=== PATIENT | female | born 1955 | race American Indian/Alaskan Native ===

== ENCOUNTER 2016-11-16 11:52 | Emergency (ER) | payer OTHER | END 2016-11-16 14:15 | disposition home or self-care (01) | LOC: C.ER 11:52 | DX: F10.10 Alcohol abuse, uncomplicated (principal); Y90.9 Presence of alcohol in blood, level not specified ==

== ENCOUNTER 2018-03-07 15:59 | Inpatient (IN) | payer OTHER ==
[2018-03-07] MEDS ORDERED: Thiamine 100 mg/ml Inj IV ONE (16:41)
[2018-03-07] MEDS ORDERED: Sodium Chloride 0.9% 1,000 ML IV SCH (16:45)
[2018-03-07 16:57] LABS: BASO # 0.1 K/uL (0.0-0.2); BASO % 0.6 % (0.0-2.0); HEMOGLOBIN 8.5 g/dL (11.0-16.0); LYMPH # 0.2 K/uL (1.0-4.3); LYMPH % 2.3 % (20.0-40.0); MEAN CELL VOLUME 100.4 fL (81.0-99.0); MEAN CORPUSCULAR HEMOGLOBIN 30.6 pg (27.0-31.0); MEAN CORPUSCULAR HGB CONC 30.5 g/dL (33.0-37.0); MEAN PLATELET VOLUME 9.6 fL (7.2-11.7); MONO # 1.4 K/uL (0.0-0.8); MONO % 13.7 % (0.0-10.0); NEUT # 8.5 K/uL (1.8-7.0); NEUT % 83.4 % (50.0-75.0); NRBC % 0.4 % (0.0-2.0); PLATELET COUNT 158 K/uL (130-400); RBC 2.77 Mil/uL (3.80-5.20); RED CELL DISTRIBUTION WIDTH 22.3 % (11.5-14.5); WHITE BLOOD COUNT 10.2 K/uL (4.8-10.8)
--- NOTE | 2018-03-07 16:58 | RAD ---
Date of service: 03/07/2018 HISTORY: Sepsis Patient COMPARISON: No prior. FINDINGS: LUNGS: The lungs are well inflated. There is moderate pulmonary venous congestion. PLEURA: No significant pleural effusion identified, no pneumothorax apparent. CARDIOVASCULAR: The heart is normal in size. There is prominent central vasculature. Normal. OSSEOUS STRUCTURES: No significant abnormalities. VISUALIZED UPPER ABDOMEN: Normal. OTHER FINDINGS: None. IMPRESSION: Moderate pulmonary venous congestion. No active pulmonary disease.
[2018-03-07 17:06] LABS: INR 1.2; PROTHROMBIN TIME 13.5 SECONDS (9.7-12.2)
[2018-03-07 17:11] LABS: VENOUS BLOOD GAS BASE EXCESS -24.2 mmol/L (0.0-2.0); VENOUS BLOOD GAS PCO2 16 mmHg (40-60); VENOUS BLOOD GAS PO2 50 mm/Hg (30-55); VENOUS BLOOD PH 7.05 (7.32-7.43)
[2018-03-07] MEDS ORDERED: Cefepime 1 GM in Sodium Chloride 0.9% 50 ML IVPB STA (17:24)
[2018-03-07] MEDS ORDERED: Thiamine 100 mg/ml Inj ONE (17:25)
[2018-03-07 17:30] LABS: ALB/GLOB RATIO 1.2 (1.0-2.1); ALBUMIN 3.6 g/dL (3.5-5.0); ALT/SGPT 119 U/L (9-52); AST/SGOT 348 U/L (14-36); BLOOD UREA NITROGEN 16 mg/dL (7-17); CALCIUM 8.2 mg/dl (8.6-10.4); GFR NON-AFRICAN AMERICAN 35
[2018-03-07 17:36] LABS: B-TYPE NATRIURETIC PEPTIDE 60.4 pg/mL (0-900)
--- NOTE | 2018-03-07 17:38 | C.PDOC ---
History Of Present Illness 62-year-old female, presents to the emergency department with complaints of abdominal pain. Patient states she was drinking today. She notes nausea and non- bloody vomiting. Pain located mainly in the right upper quadrant, and admits to mild shortness of breath. She denies any chest pain, diarrhea. Time Seen by Provider: 03/07/18 16:04 Chief Complaint (Nursing): Abdominal Pain History Per: Patient History/Exam Limitations: no limitations Past Medical History Reviewed: Historical Data, Nursing Documentation, Vital Signs Vital Signs: Last Vital Signs Temp 99 F 03/07/18 18:03 Pulse 115 H 03/07/18 18:03 Resp 28 H 03/07/18 18:03 BP 119/45 L 03/07/18 18:03 Pulse Ox 95 03/07/18 18:36 - Medical History PMH: Asthma, HTN Family History: States: No Known Family Hx - Social History Hx Alcohol Use: Yes Hx Substance Use: No Review Of Systems Gastrointestinal: Positive for: Nausea, Vomiting, Abdominal Pain Physical Exam - Physical Exam Appears: Non-toxic, No Acute Distress Skin: Warm, Dry, No Rash Head: Atraumatic, Normacephalic Eye(s): bilateral: Normal Inspection Nose: Normal Oral Mucosa: Moist Lips: Normal Appearing Neck: Normal ROM Chest: Symmetrical Cardiovascular: Rhythm Regular, No Murmur Respiratory: Normal Breath Sounds, No Accessory Muscle Use Gastrointestinal/Abdominal: Tenderness (RUQ), Organomegaly (hepatomegaly), Distention Extremity: Normal ROM, No Deformity ED Course And Treatment - Laboratory Results Result Diagrams: 03/07/18 16:53 03/07/18 16:53 ECG: Interpreted By Me, Viewed By Me ECG Rhythm: Sinus Tachycardia ECG Interpretation: No Acute Changes Interpretation Of ECG: Poor R wave progression Rate From EC O2 Sat by Pulse Oximetry: 95 Pulse Ox Interpretation: Normal (RA) Critical Care Time - Critical Care Note Total Time (in mins): 75 Documented critical care: time excludes all time spent performing seperately billable procedures. Medical Decision Making Medical Decision Making: Plan: * Bloodwork * EKG * CT Abd/Pel * Chest X-Ray * Lasix, Maxipime, IVFs, Thimaine * UA * Reassess and Disposition Case discussed with Dr Vazquez and Dr Singh. Pt will be admitted to ICU under Dr Elamirs service. Disposition Discussed With : Delbert Vazquez - Disposition Disposition: HOSPITALIZED Disposition Time: 17:38 Condition: FAIR - Clinical Impression Clinical Impression: Metabolic acidosis, Abdominal pain - Scribe Statement The provider has reviewed the documentation as recorded by the Scribe (Jannie Lorenz) Provider Attestation: All medical record entries made by the Scribe were at my direction and personally dictated by me. I have reviewed the chart and agree that the record accurately reflects my personal performance of the history, physical exam, medical decision making, and the department course for this patient. I have also personally directed, reviewed, and agree with the discharge instructions and disposition.
[2018-03-07 17:55] LABS: SQUAMOUS EPITHIAL 2 /hpf (0-5); URINE AMORPHOUS SEDIMENT MODERATE /ul (<OCC); URINE BACTERIA OCC (<OCC); URINE BILIRUBIN 1+ (NEGATIVE); URINE BLOOD NEGATIVE (NEGATIVE); URINE CLARITY Hazy (Clear); URINE COLOR Amber (YELLOW); URINE GLUCOSE (UA) NORMAL (Normal); URINE LEUKOCYTE ESTERASE NEG Leu/uL (Negative); URINE PROTEIN 1+ mg/dL (NEGATIVE)
[2018-03-07] MEDS ORDERED: Cefepime IV 1 gm in Dextrose 1 GM/50 ML BAG IVPB ONE (18:00)
[2018-03-07 18:02] LABS: BARBITURATES, UR NEGATIVE (NEGATIVE); BENZODIAZEPINES, UR NEGATIVE (NEGATIVE); OPIATES, UR NEGATIVE (NEGATIVE); PHENCYCLIDINE, UR NEGATIVE (NEGATIVE)
[2018-03-07] MEDS ORDERED: Iodixanol 320 MG/ML 100 ML BOTTLE IV ONE (18:26)
--- NOTE | 2018-03-07 18:35 | CP.PCM.CON ---
History of Present Illness - History of Present Illness History of Present Illness: CC: "Drank too much" Surgical team consulted for 62yo female with history of asthma, HTN, HLD and chronic alcohol abuse, complaining of constant, severe abdominal pain. Patient' s was at bedside and assisted in history gathering. Patient has been experiencing worsening abdominal pain for the past 4 days. She has never experienced pain like this before. The pain has been accompanied by many episodes of billious vomiting and diarrhea. She has not been eating these last few days. Today, patient had a bowel movement in the morning and has vomited twice. Patient drinks 1.5 pints of vodka daily (was unable to report the length of time that she has been doing this, but it has been years). Pt attempted to relieve pain with Aleeve, but found inadequate relief. Sitting up exacerbates pain, but nothing seems to make it better. Patient admits to feeling palpitations and pain with inspiration and visibly/audibly has difficulty speaking due to pain. Patient denies headache and shortness of breath. PMH: Asthma, HTN, HLD, GI ulcer PSH: partial gastrectomy, silvio, hysterectomy Allergies: denies Home Meds: Aleeve and rescue inhaler Review of Systems - Cardiovascular Cardiovascular: Palpitations, Rapid Heart Rate. absent: Chest Pain, Dyspnea - Respiratory Respiratory: Pain on Inspiration - Gastrointestinal Gastrointestinal: Abdominal Pain, Diarrhea, Vomiting Past Patient History - Past Social History Smoking Status: Light Smoker < 10 Cigarettes Daily Home Situation {Lives}: With Family - CARDIAC Hx Hypercholesterolemia: Yes Hx Hypertension: Yes - PULMONARY Hx Asthma: Yes - GASTROINTESTINAL Hx Ulcer: Yes - PSYCHIATRIC Hx Substance Use: No - SURGICAL HISTORY Other/Comment: Abdominal surgery - ANESTHESIA Hx Anesthesia: Yes Meds Allergies/Adverse Reactions: Allergies Allergy/AdvReac Type Severity Reaction Status Date / Time No Known Allergies Allergy Unverified 03/07/18 16:28 - Medications Medications: Current Medications Cefepime HCl (Maxipime Iv 1 Gm Premix) 1 gm in 50 mls @ 100 mls/hr IVPB STAT ONE PRN Reason: Protocol Stop: 03/07/18 18:29 Physical Exam - Constitutional Appears: No Acute Distress - Head Exam Head Exam: NORMOCEPHALIC - Eye Exam Eye Exam: Normal appearance - ENT Exam ENT Exam: Mucous Membranes Moist - Respiratory Exam Respiratory Exam: NORMAL BREATHING PATTERN - Cardiovascular Exam Cardiovascular Exam: +S1, +S2 - GI/Abdominal Exam GI & Abdominal Exam: Distended, Tenderness. absent: Guarding, Rebound, Rigid Additional comments: generalized tenderness - Neurological Exam Neurological exam: Alert - Skin Skin Exam: Dry, Warm Results - Vital Signs Recent Vital Signs: Last Vital Signs Temp 99 F 03/07/18 18:03 Pulse 115 H 03/07/18 18:03 Resp 28 H 03/07/18 18:03 BP 119/45 L 03/07/18 18:03 Pulse Ox 100 03/07/18 18:03 - Labs Result Diagrams: 03/07/18 22:31 03/07/18 22:31 Labs: Laboratory Results - last 24 hr 03/07/18 03/07/18 03/07/18 16:04 16:53 16:53 WBC 10.2 RBC 2.77 L Hgb 8.5 L Hct 27.9 L MCV 100.4 H MCH 30.6 MCHC 30.5 L RDW 22.3 H Plt Count 158 MPV 9.6 Neut % (Auto) 83.4 H Lymph % (Auto) 2.3 L [place] % (Auto) 13.7 H Eos % (Auto) 0.0 Baso % (Auto) 0.6 Neut # (Auto) 8.5 H Lymph # (Auto) 0.2 L [place] # (Auto) 1.4 H Eos # (Auto) 0.0 Baso # (Auto) 0.1 PT 13.5 H INR 1.2 APTT 33 pO2 VBG pH VBG pCO2 VBG HCO3 VBG Total CO2 VBG O2 Sat (Calc) VBG Base Excess VBG Potassium Glucose Lactate Crit Value Called To Crit Value Called By Crit Value Read Back Blood Gas Notified Time Sodium Potassium Chloride Carbon Dioxide Anion Gap BUN Creatinine Est GFR ( Amer) Est GFR (Non-Af Amer) POC Glucose (mg/dL) 111 H Random Glucose Calcium Phosphorus Magnesium Total Bilirubin AST ALT Alkaline Phosphatase Ammonia Troponin I NT-Pro-B Natriuret Pep Total Protein Albumin Globulin Albumin/Globulin Ratio Venous Blood Potassium Urine Color Urine Clarity Urine pH Ur Specific [place] Urine Protein Urine Glucose (UA) Urine Ketones Urine Blood Urine Nitrate Urine Bilirubin Urine Urobilinogen Ur Leukocyte Esterase Urine WBC (Auto) Urine RBC (Auto) Ur Squamous Epith Cells Amorphous Sediment Urine Bacteria Hyaline Casts Urine Opiates Screen Urine Methadone Screen Ur Barbiturates Screen Ur Phencyclidine Scrn Ur Amphetamines Screen U Benzodiazepines Scrn U Oth Cocaine Metabols U Cannabinoids Screen Alcohol, Quantitative 03/07/18 03/07/18 03/07/18 16:53 16:53 17:07 WBC RBC Hgb Hct MCV MCH MCHC RDW Plt Count MPV Neut % (Auto) Lymph % (Auto) [place] % (Auto) Eos % (Auto) Baso % (Auto) Neut # (Auto) Lymph # (Auto) [place] # (Auto) Eos # (Auto) Baso # (Auto) PT INR APTT pO2 50 VBG pH 7.05 L* VBG pCO2 16 L* VBG HCO3 5.2 VBG Total CO2 4.9 L VBG O2 Sat (Calc) 74.9 H VBG Base Excess -24.2 L VBG Potassium 5.5 H Glucose 84 Lactate 8.6 H* Crit Value Called To [place] rn Crit Value Called By Solange Crit Value Read Back Y Blood Gas Notified Time 1711 Sodium 135 134.0 Potassium 5.5 H Chloride 99 97.0 L Carbon Dioxide < 5 L* Anion Gap 37 H BUN 16 Creatinine 1.5 H Est GFR ( Amer) 43 Est GFR (Non-Af Amer) 35 POC Glucose (mg/dL) Random Glucose 90 Calcium 8.2 L Phosphorus 4.6 H Magnesium 2.2 Total Bilirubin 1.5 H AST 348 H ALT 119 H Alkaline Phosphatase 268 H Ammonia 70 H Troponin I < 0.0120 NT-Pro-B Natriuret Pep 60.4 Total Protein 6.7 Albumin 3.6 Globulin 3.1 Albumin/Globulin Ratio 1.2 Venous Blood Potassium 5.5 H Urine Color Urine Clarity Urine pH Ur Specific [place] Urine Protein Urine Glucose (UA) Urine Ketones Urine Blood Urine Nitrate Urine Bilirubin Urine Urobilinogen Ur Leukocyte Esterase Urine WBC (Auto) Urine RBC (Auto) Ur Squamous Epith Cells Amorphous Sediment Urine Bacteria Hyaline Casts Urine Opiates Screen Urine Methadone Screen Ur Barbiturates Screen Ur Phencyclidine Scrn Ur Amphetamines Screen U Benzodiazepines Scrn U Oth Cocaine Metabols U Cannabinoids Screen Alcohol, Quantitative 209 H 03/07/18 03/07/18 17:40 17:40 WBC RBC Hgb Hct MCV MCH MCHC RDW Plt Count MPV Neut % (Auto) Lymph % (Auto) [place] % (Auto) Eos % (Auto) Baso % (Auto) Neut # (Auto) Lymph # (Auto) [place] # (Auto) Eos # (Auto) Baso # (Auto) PT INR APTT pO2 VBG pH VBG pCO2 VBG HCO3 VBG Total CO2 VBG O2 Sat (Calc) VBG Base Excess VBG Potassium Glucose Lactate Crit Value Called To Crit Value Called By Crit Value Read Back Blood Gas Notified Time Sodium Potassium Chloride Carbon Dioxide Anion Gap BUN Creatinine Est GFR ( Amer) Est GFR (Non-Af Amer) POC Glucose (mg/dL) Random Glucose Calcium Phosphorus Magnesium Total Bilirubin AST ALT Alkaline Phosphatase Ammonia Troponin I NT-Pro-B Natriuret Pep Total Protein Albumin Globulin Albumin/Globulin Ratio Venous Blood Potassium Urine Color [place] Urine Clarity Hazy Urine pH 5.0 Ur Specific [place] 1.018 Urine Protein 1+ H Urine Glucose (UA) Normal Urine Ketones Trace Urine Blood Negative Urine Nitrate Negative Urine Bilirubin 1+ H Urine Urobilinogen 4.0 H Ur Leukocyte Esterase Neg Urine WBC (Auto) 1 Urine RBC (Auto) 4 H Ur Squamous Epith Cells 2 Amorphous Sediment Moderate H Urine Bacteria Occ H Hyaline Casts 11-20 H Urine Opiates Screen Negative Urine Methadone Screen Negative Ur Barbiturates Screen Negative Ur Phencyclidine Scrn Negative Ur Amphetamines Screen Negative U Benzodiazepines Scrn Negative U Oth Cocaine Metabols Positive H U Cannabinoids Screen Negative Alcohol, Quantitative Assessment & Plan - Assessment and Plan (Free Text) Assessment: 62F with abdominal pain likely 2/2 enterocolitis Plan: NPO IVF resuscitation ABx per ID F/u lipase Trend lactate, resuscitate as needed F/u AM labs No acute surgical intervention needed at this present time Further recs per Dr. Arnold Kuhn PGY3
--- NOTE | 2018-03-07 19:02 | PCM.RRT ---
CASHIER MANAGER Nurses Assessment - Situation Date: 03/07/18 Time CASHIER MANAGER was called: 18:31 CASHIER MANAGER Responder Arrival Time:: 18:33 [facility] Reason for Call: Tachycardia CASHIER MANAGER Called By: RN - Constitutional Appears: Toxic, No Acute Distress, Chronically Ill - Head Head Exam: ATRAUMATIC, NORMAL INSPECTION - Eyes Eye Exam: Scleral icterus - Respiratory Exam Respiratory Exam: NORMAL BREATHING PATTERN - Cardiovascular Exam Cardiovascular Exam: Tachycardia, +S1, +S2 - GI/Abdominal Exam GI & Abdominal Exam: Distended, Firm, Guarding, Tenderness, Organomegaly - Neurological Exam Neurological Exam: Alert, Awake, Oriented x3 Plan - Assessment of Findings&Treatment Plan Rapid Response was called by RN for tachycardia prior to starting abd/pelvic CT. Patient's vitals on arrival: B/P 109/59 HR 100. Patient was awake and oriented x3. Patient states she does no have history of liver cirrhosis. Patient does admit to alcohol use - she drinks vodka daily. CT of abd/pelvis were completed. Patient was admitted to ICU for metabolic acidosis and abdominal pain.
[2018-03-07 19:06] LABS: METAMYELOCYTE 2 % (0-0); MONOCYTE 12 % (0-10)
[2018-03-07 19:07] LABS: HYPOCHROMIC SLIGHT; LYMPHOCYTE 2 % (20-40); MICROCYTOSIS SLIGHT; NEUTROPHIL 44 % (50-75); PLATELET ESTIMATE NORMAL (NORMAL); TOTAL CELLS COUNTED 100
[2018-03-07 19:08] LABS: GIANT PLATELETS PRESENT; LARGE PLATELETS PRESENT
--- NOTE | 2018-03-07 19:11 | CP.PCM.CON ---
<Magdalena Wilcox - Last Filed: 03/07/18 19:37> History of Present Illness - History of Present Illness History of Present Illness: ICU consult note Patient is a 62 year old female with history of asthma, HTN, HLD, chronic alcohol abuse who presents with 4 day history of progressively worsening abdominal pain associated with fevers, chills, nausea, 8-10 daily episodes of nonbloody emesis and 5-6 episodes of diarrhea. History obtained from at bedside as patient is in discomfort. Patient has not been able to tolerate food by mouth for the past few days. Patient reportedly admits to drink vodka daily. PMH: HTN, asthma, HLD, chronic alcohol abuse, GI ulcer PSH: partial gastrectomy, cholecystectomy, hysterectomy Allergies: NKDA Past Patient History - Past Social History Smoking Status: Light Smoker < 10 Cigarettes Daily Home Situation {Lives}: With Family - CARDIAC Hx Hypercholesterolemia: Yes Hx Hypertension: Yes - PULMONARY Hx Asthma: Yes - GASTROINTESTINAL Hx Ulcer: Yes - PSYCHIATRIC Hx Substance Use: No - SURGICAL HISTORY Other/Comment: Abdominal surgery - ANESTHESIA Hx Anesthesia: Yes Meds Allergies/Adverse Reactions: Allergies Allergy/AdvReac Type Severity Reaction Status Date / Time No Known Allergies Allergy Unverified 03/07/18 16:28 Physical Exam - Constitutional Appears: In Acute Distress - Head Exam Head Exam: ATRAUMATIC, NORMOCEPHALIC - Eye Exam Eye Exam: Conjunctival injection, EOMI - ENT Exam ENT Exam: Mucous Membranes Dry - Respiratory Exam Respiratory Exam: Clear to Auscultation Bilateral. absent: Rales, Rhonchi, Wheezes, Stridor - Cardiovascular Exam Cardiovascular Exam: Tachycardia, +S1, +S2 - GI/Abdominal Exam GI & Abdominal Exam: Distended, Guarding, Organomegaly, Tenderness - Extremities Exam Extremities exam: Positive for: pedal edema (bilateral), pedal pulses present. Negative for: calf tenderness - Neurological Exam Neurological exam: Alert, Oriented x3 - Skin Skin Exam: Dry, Intact, Warm Results - Vital Signs Recent Vital Signs: Last Vital Signs Temp 99 F 03/07/18 18:03 Pulse 115 H 03/07/18 18:03 Resp 28 H 03/07/18 18:03 BP 119/45 L 03/07/18 18:03 Pulse Ox 95 03/07/18 18:37 - Labs Result Diagrams: 03/07/18 16:53 03/07/18 16:53 Labs: Laboratory Results - last 24 hr 03/07/18 03/07/18 03/07/18 16:04 16:53 16:53 WBC 10.2 RBC 2.77 L Hgb 8.5 L Hct 27.9 L MCV 100.4 H MCH 30.6 MCHC 30.5 L RDW 22.3 H Plt Count 158 MPV 9.6 Neut % (Auto) 83.4 H Lymph % (Auto) 2.3 L [place] % (Auto) 13.7 H Eos % (Auto) 0.0 Baso % (Auto) 0.6 Neut # (Auto) 8.5 H Lymph # (Auto) 0.2 L [place] # (Auto) 1.4 H Eos # (Auto) 0.0 Baso # (Auto) 0.1 PT 13.5 H INR 1.2 APTT 33 pO2 VBG pH VBG pCO2 VBG HCO3 VBG Total CO2 VBG O2 Sat (Calc) VBG Base Excess VBG Potassium Glucose Lactate Crit Value Called To Crit Value Called By Crit Value Read Back Blood Gas Notified Time Sodium Potassium Chloride Carbon Dioxide Anion Gap BUN Creatinine Est GFR ( Amer) Est GFR (Non-Af Amer) POC Glucose (mg/dL) 111 H Random Glucose Calcium Phosphorus Magnesium Total Bilirubin AST ALT Alkaline Phosphatase Ammonia Troponin I NT-Pro-B Natriuret Pep Total Protein Albumin Globulin Albumin/Globulin Ratio Venous Blood Potassium Urine Color Urine Clarity Urine pH Ur Specific [place] Urine Protein Urine Glucose (UA) Urine Ketones Urine Blood Urine Nitrate Urine Bilirubin Urine Urobilinogen Ur Leukocyte Esterase Urine WBC (Auto) Urine RBC (Auto) Ur Squamous Epith Cells Amorphous Sediment Urine Bacteria Hyaline Casts Urine Opiates Screen Urine Methadone Screen Ur Barbiturates Screen Ur Phencyclidine Scrn Ur Amphetamines Screen U Benzodiazepines Scrn U Oth Cocaine Metabols U Cannabinoids Screen Alcohol, Quantitative 03/07/18 03/07/18 03/07/18 16:53 16:53 17:07 WBC RBC Hgb Hct MCV MCH MCHC RDW Plt Count MPV Neut % (Auto) Lymph % (Auto) [place] % (Auto) Eos % (Auto) Baso % (Auto) Neut # (Auto) Lymph # (Auto) [place] # (Auto) Eos # (Auto) Baso # (Auto) PT INR APTT pO2 50 VBG pH 7.05 L* VBG pCO2 16 L* VBG HCO3 5.2 VBG Total CO2 4.9 L VBG O2 Sat (Calc) 74.9 H VBG Base Excess -24.2 L VBG Potassium 5.5 H Glucose 84 Lactate 8.6 H* Crit Value Called To Paul neville rn Crit Value Called By Lendl Crit Value Read Back Y Blood Gas Notified Time 1711 Sodium 135 134.0 Potassium 5.5 H Chloride 99 97.0 L Carbon Dioxide < 5 L* Anion Gap 37 H BUN 16 Creatinine 1.5 H Est GFR ( Amer) 43 Est GFR (Non-Af Amer) 35 POC Glucose (mg/dL) Random Glucose 90 Calcium 8.2 L Phosphorus 4.6 H Magnesium 2.2 Total Bilirubin 1.5 H AST 348 H ALT 119 H Alkaline Phosphatase 268 H Ammonia 70 H Troponin I < 0.0120 NT-Pro-B Natriuret Pep 60.4 Total Protein 6.7 Albumin 3.6 Globulin 3.1 Albumin/Globulin Ratio 1.2 Venous Blood Potassium 5.5 H Urine Color Urine Clarity Urine pH Ur Specific [place] Urine Protein Urine Glucose (UA) Urine Ketones Urine Blood Urine Nitrate Urine Bilirubin Urine Urobilinogen Ur Leukocyte Esterase Urine WBC (Auto) Urine RBC (Auto) Ur Squamous Epith Cells Amorphous Sediment Urine Bacteria Hyaline Casts Urine Opiates Screen Urine Methadone Screen Ur Barbiturates Screen Ur Phencyclidine Scrn Ur Amphetamines Screen U Benzodiazepines Scrn U Oth Cocaine Metabols U Cannabinoids Screen Alcohol, Quantitative 209 H 03/07/18 03/07/18 17:40 17:40 WBC RBC Hgb Hct MCV MCH MCHC RDW Plt Count MPV Neut % (Auto) Lymph % (Auto) [place] % (Auto) Eos % (Auto) Baso % (Auto) Neut # (Auto) Lymph # (Auto) [place] # (Auto) Eos # (Auto) Baso # (Auto) PT INR APTT pO2 VBG pH VBG pCO2 VBG HCO3 VBG Total CO2 VBG O2 Sat (Calc) VBG Base Excess VBG Potassium Glucose Lactate Crit Value Called To Crit Value Called By Crit Value Read Back Blood Gas Notified Time Sodium Potassium Chloride Carbon Dioxide Anion Gap BUN Creatinine Est GFR ( Amer) Est GFR (Non-Af Amer) POC Glucose (mg/dL) Random Glucose Calcium Phosphorus Magnesium Total Bilirubin AST ALT Alkaline Phosphatase Ammonia Troponin I NT-Pro-B Natriuret Pep Total Protein Albumin Globulin Albumin/Globulin Ratio Venous Blood Potassium Urine Color Charl[place] Urine Clarity Hazy Urine pH 5.0 Ur Specific [place] 1.018 Urine Protein 1+ H Urine Glucose (UA) Normal Urine Ketones Trace Urine Blood Negative Urine Nitrate Negative Urine Bilirubin 1+ H Urine Urobilinogen 4.0 H Ur Leukocyte Esterase Neg Urine WBC (Auto) 1 Urine RBC (Auto) 4 H Ur Squamous Epith Cells 2 Amorphous Sediment Moderate H Urine Bacteria Occ H Hyaline Casts 11-20 H Urine Opiates Screen Negative Urine Methadone Screen Negative Ur Barbiturates Screen Negative Ur Phencyclidine Scrn Negative Ur Amphetamines Screen Negative U Benzodiazepines Scrn Negative U Oth Cocaine Metabols Positive H U Cannabinoids Screen Negative Alcohol, Quantitative Assessment & Plan - Assessment and Plan (Free Text) Assessment: 62 year old female with history of asthma, HTN, HLD, chronic alcohol abuse who presents with 4 day history of progressively worsening abdominal pain associated with fevers, chills, nausea, 8-10 daily episodes of nonbloody emesis and 5-6 episodes of diarrhea. ICU consulted for metabolic acidosis and severe abdominal pain. Plan: Neuro: Alert and oriented x3 Alcohol elevated at 209 Ammonia 70 Tox: positive for cocaine Cardiovascular Tachycardic 120s BP 117/70 Trop <0.0120 pro BNP 60.4 Pulmonary CXR: NAD, moderate pulmonary venous congestion on O2 NC VBG pH 7.05 pCO2 16 HCO3 5.[address] abdomen/pelvis with IV contrast: Enterocolitis, partial gastrectomy with gastrojejunal anastomosis, no obstruction, enlarged fatty liver, cholecystectomy and hysterectomy. Morphine 1mg IVP given for pain AST 348 ALT 119 ALP 268 T bili 1.[address] Barrett consulted f/u lipase Keep NPO ID Afebrile Patient received Cefepime 2g in ED elevated lactate at 8.6 White count 10.2 with bands of 40 UA: neg leuk esterase, neg nitrates Blood culture, urine culture sent Renal BUN/Cr 16/1.5 K slightly elevated at 5.5 Bicarb <5 Phosphorous 4.6 Continue to monitor electrolytes Endo Maintain euglycemia Heme H/H 8.5/27.9 Continue to monitor Case discussed with Dr. Toure <Kristel Toure - Last Filed: 03/07/18 21:57> Meds - Medications Medications: Current Medications Heparin Sodium (Porcine) (Heparin) 5,000 units SC Q8 DOYLE Cefepime HCl (Maxipime Iv 1 Gm Premix) 1 gm in 50 mls @ 100 mls/hr IVPB Q12H DOYLE PRN Reason: Protocol Sodium Bicarbonate 100 meq/ (Dextrose) 1,100 mls @ 100 mls/hr IV .Q11H [facility] Last Admin: 03/07/18 20:31 Dose: 100 mls/hr Folic Acid 1 mg/ Thiamine HCl 100 mg/ Multivitamins/Vitamin C 10 ml/ Dextrose 1 ,011.2 mls @ 40 mls/hr IV .Q24H DOYLE Piperacillin Sod/Tazobactam (Sod 3.375 gm/ Sodium Chloride) 100 mls @ 200 mls/ hr IVPB Q6H [facility] PRN Reason: Protocol Lactated Ringer's (Lactated Ringer's) 1,000 mls @ 125 mls/hr IV .Q8H [facility] Pantoprazole Sodium (Protonix Inj) 40 mg IVP DAILY [facility] Results - Vital Signs Recent Vital Signs: Last Vital Signs Temp 98.6 F 03/07/18 20:50 Pulse 114 H 03/07/18 20:25 Resp 24 03/07/18 20:25 BP 153/72 H 03/07/18 20:25 Pulse Ox 97 03/07/18 20:25 - Labs Result Diagrams: 03/07/18 16:53 03/07/18 16:53 Labs: Laboratory Results - last 24 hr 03/07/18 03/07/18 03/07/18 16:04 16:53 16:53 WBC 10.2 RBC 2.77 L Hgb 8.5 L Hct 27.9 L MCV 100.4 H MCH 30.6 MCHC 30.5 L RDW 22.3 H Plt Count 158 MPV 9.6 Neut % (Auto) 83.4 H Lymph % (Auto) 2.3 L [place] % (Auto) 13.7 H Eos % (Auto) 0.0 Baso % (Auto) 0.6 Neut # (Auto) 8.5 H Lymph # (Auto) 0.2 L [place] # (Auto) 1.4 H Eos # (Auto) 0.0 Baso # (Auto) 0.1 Neutrophils % (Manual) 44 L Band Neutrophils % 40 H* Lymphocytes % (Manual) 2 L Monocytes % (Manual) 12 H Metamyelocytes % 2 H Platelet Estimate Normal Large Platelets Present Giant Platelets Present Hypochromasia (manual) Slight Microcytosis (manual) Slight PT 13.5 H INR 1.2 APTT 33 pO2 VBG pH VBG pCO2 VBG HCO3 VBG Total CO2 VBG O2 Sat (Calc) VBG Base Excess VBG Potassium Glucose Lactate FiO2 Crit Value Called To Crit Value Called By Crit Value Read Back Blood Gas Notified Time Sodium Potassium Chloride Carbon Dioxide Anion Gap BUN Creatinine Est GFR ( Amer) Est GFR (Non-Af Amer) POC Glucose (mg/dL) 111 H Random Glucose Calcium Phosphorus Magnesium Total Bilirubin AST ALT Alkaline Phosphatase Ammonia Troponin I NT-Pro-B Natriuret Pep Total Protein Albumin Globulin Albumin/Globulin Ratio Lipase Venous Blood Potassium Urine Color Urine Clarity Urine pH Ur Specific [place] Urine Protein Urine Glucose (UA) Urine Ketones Urine Blood Urine Nitrate Urine Bilirubin Urine Urobilinogen Ur Leukocyte Esterase Urine WBC (Auto) Urine RBC (Auto) Ur Squamous Epith Cells Amorphous Sediment Urine Bacteria Hyaline Casts Urine Opiates Screen Urine Methadone Screen Ur Barbiturates Screen Ur Phencyclidine Scrn Ur Amphetamines Screen U Benzodiazepines Scrn U Oth Cocaine Metabols U Cannabinoids Screen Alcohol, Quantitative 03/07/18 03/07/18 03/07/18 16:53 16:53 16:53 WBC RBC Hgb Hct MCV MCH MCHC RDW Plt Count MPV Neut % (Auto) Lymph % (Auto) [place] % (Auto) Eos % (Auto) Baso % (Auto) Neut # (Auto) Lymph # (Auto) [place] # (Auto) Eos # (Auto) Baso # (Auto) Neutrophils % (Manual) Band Neutrophils % Lymphocytes % (Manual) Monocytes % (Manual) Metamyelocytes % Platelet Estimate Large Platelets Giant Platelets Hypochromasia (manual) Microcytosis (manual) PT INR APTT pO2 VBG pH VBG pCO2 VBG HCO3 VBG Total CO2 VBG O2 Sat (Calc) VBG Base Excess VBG Potassium Glucose Lactate FiO2 Crit Value Called To Crit Value Called By Crit Value Read Back Blood Gas Notified Time Sodium 135 Potassium 5.5 H Chloride 99 Carbon Dioxide < 5 L* Anion Gap 37 H BUN 16 Creatinine 1.5 H Est GFR ( Amer) 43 Est GFR (Non-Af Amer) 35 POC Glucose (mg/dL) Random Glucose 90 Calcium 8.2 L Phosphorus 4.6 H Magnesium 2.2 Total Bilirubin 1.5 H AST 348 H ALT 119 H Alkaline Phosphatase 268 H Ammonia 70 H Troponin I < 0.0120 NT-Pro-B Natriuret Pep 60.4 Total Protein 6.7 Albumin 3.6 Globulin 3.1 Albumin/Globulin Ratio 1.2 Lipase 2519 H Venous Blood Potassium Urine Color Urine Clarity Urine pH Ur Specific [place] Urine Protein Urine Glucose (UA) Urine Ketones Urine Blood Urine Nitrate Urine Bilirubin Urine Urobilinogen Ur Leukocyte Esterase Urine WBC (Auto) Urine RBC (Auto) Ur Squamous Epith Cells Amorphous Sediment Urine Bacteria Hyaline Casts Urine Opiates Screen Urine Methadone Screen Ur Barbiturates Screen Ur Phencyclidine Scrn Ur Amphetamines Screen U Benzodiazepines Scrn U Oth Cocaine Metabols U Cannabinoids Screen Alcohol, Quantitative 209 H 03/07/18 03/07/18 03/07/18 17:07 17:40 17:40 WBC RBC Hgb Hct MCV MCH MCHC RDW Plt Count MPV Neut % (Auto) Lymph % (Auto) [place] % (Auto) Eos % (Auto) Baso % (Auto) Neut # (Auto) Lymph # (Auto) [place] # (Auto) Eos # (Auto) Baso # (Auto) Neutrophils % (Manual) Band Neutrophils % Lymphocytes % (Manual) Monocytes % (Manual) Metamyelocytes % Platelet Estimate Large Platelets Giant Platelets Hypochromasia (manual) Microcytosis (manual) PT INR APTT pO2 50 VBG pH 7.05 L* VBG pCO2 16 L* VBG HCO3 5.2 VBG Total CO2 4.9 L VBG O2 Sat (Calc) 74.9 H VBG Base Excess -24.2 L VBG Potassium 5.5 H Glucose 84 Lactate 8.6 H* FiO2 Crit Value Called To Paul neville rn Crit Value Called By Solange Crit Value Read Back Y Blood Gas Notified Time 1711 Sodium 134.0 Potassium Chloride 97.0 L Carbon Dioxide Anion Gap BUN Creatinine Est GFR ( Amer) Est GFR (Non-Af Amer) POC Glucose (mg/dL) Random Glucose Calcium Phosphorus Magnesium Total Bilirubin AST ALT Alkaline Phosphatase Ammonia Troponin I NT-Pro-B Natriuret Pep Total Protein Albumin Globulin Albumin/Globulin Ratio Lipase Venous Blood Potassium 5.5 H Urine Color [place] Urine Clarity Hazy Urine pH 5.0 Ur Specific [place] 1.018 Urine Protein 1+ H Urine Glucose (UA) Normal Urine Ketones Trace Urine Blood Negative Urine Nitrate Negative Urine Bilirubin 1+ H Urine Urobilinogen 4.0 H Ur Leukocyte Esterase Neg Urine WBC (Auto) 1 Urine RBC (Auto) 4 H Ur Squamous Epith Cells 2 Amorphous Sediment Moderate H Urine Bacteria Occ H Hyaline Casts 11-20 H Urine Opiates Screen Negative Urine Methadone Screen Negative Ur Barbiturates Screen Negative Ur Phencyclidine Scrn Negative Ur Amphetamines Screen Negative U Benzodiazepines Scrn Negative U Oth Cocaine Metabols Positive H U Cannabinoids Screen Negative Alcohol, Quantitative 03/07/18 19:25 WBC RBC Hgb Hct MCV MCH MCHC RDW Plt Count MPV Neut % (Auto) Lymph % (Auto) [place] % (Auto) Eos % (Auto) Baso % (Auto) Neut # (Auto) Lymph # (Auto) [place] # (Auto) Eos # (Auto) Baso # (Auto) Neutrophils % (Manual) Band Neutrophils % Lymphocytes % (Manual) Monocytes % (Manual) Metamyelocytes % Platelet Estimate Large Platelets Giant Platelets Hypochromasia (manual) Microcytosis (manual) PT INR APTT pO2 57 H VBG pH 7.07 L* VBG pCO2 16 L* VBG HCO3 5.9 VBG Total CO2 5.1 L VBG O2 Sat (Calc) 83.9 H VBG Base Excess -23.6 L VBG Potassium 5.0 Glucose 87 Lactate 7.2 H* FiO2 21.0 Crit Value Called To Dr evangelista Crit Value Called By [facility] Crit Value Read Back Y Blood Gas Notified Time 1932 Sodium 133.0 Potassium Chloride 100.0 Carbon Dioxide Anion Gap BUN Creatinine Est GFR ( Amer) Est GFR (Non-Af Amer) POC Glucose (mg/dL) Random Glucose Calcium Phosphorus Magnesium Total Bilirubin AST ALT Alkaline Phosphatase Ammonia Troponin I NT-Pro-B Natriuret Pep Total Protein Albumin Globulin Albumin/Globulin Ratio Lipase Venous Blood Potassium 5.0 Urine Color Urine Clarity Urine pH Ur Specific [place] Urine Protein Urine Glucose (UA) Urine Ketones Urine Blood Urine Nitrate Urine Bilirubin Urine Urobilinogen Ur Leukocyte Esterase Urine WBC (Auto) Urine RBC (Auto) Ur Squamous Epith Cells Amorphous Sediment Urine Bacteria Hyaline Casts Urine Opiates Screen Urine Methadone Screen Ur Barbiturates Screen Ur Phencyclidine Scrn Ur Amphetamines Screen U Benzodiazepines Scrn U Oth Cocaine Metabols U Cannabinoids Screen Alcohol, Quantitative Assessment & Plan - Assessment and Plan (Free Text) Plan: Patient seen and examined 62 year old female with history of HTN, Hyperlipidemia, chronic alcohol abuse , partial gastrectomy for bleeding ulcer who presents with 4 day history of progressively worsening abdominal pain associated with fevers, chills, nausea, 8 -10 daily episodes of nonbloody emesis and 5-6 episodes of diarrhea. ICU consulted for metabolic acidosis and severe abdominal pain. Patient with abdominal pain,anemia,bandemia,renal insufficiency,acidosis CT scan with enterocolitis and enlarged liver NPO,IV fluids antibiotics rpt labs f/u cultures
[2018-03-07 19:34] LABS: VENOUS BLOOD GAS BASE EXCESS -23.6 mmol/L (0.0-2.0); VENOUS BLOOD GAS PCO2 16 mmHg (40-60); VENOUS BLOOD GAS PO2 57 mm/Hg (30-55); VENOUS BLOOD PH 7.07 (7.32-7.43)
--- NOTE | 2018-03-07 19:53 | CP.PCM.CON ---
History of Present Illness - History of Present Illness History of Present Illness: 62 year old female with history of asthma, HTN, HLD, chronic alcohol abuse who presents with 4 day history of progressively worsening abdominal pain associated with fevers, chills, nausea, 8-10 daily episodes of nonbloody emesis and 5-6 episodes of diarrhea. History obtained from at bedside as patient is in discomfort. Patient has not been able to tolerate food by mouth for the past few days. Patient reportedly admits to drink vodka daily. PMH: HTN, asthma, HLD, chronic alcohol abuse, GI ulcer PSH: partial gastrectomy, cholecystectomy, hysterectomy Allergies: NKDA Review of Systems - Review of Systems All systems: reviewed and no additional remarkable complaints except - Constitutional Constitutional: As Per HPI, Anorexia, Chills, Fever - EENT Eyes: absent: As Per HPI, Blind Spots, Blurred Vision, Change in Vision, Decreased Night Vision, Diplopia, Discharge, Dry Eye, Exophthalmos, Floaters, Irritation, Itchy Eyes, Loss of Peripheral Vision, Pain, Photophobia, Requires Corrective Lenses, Sees Flashes, Spots in Vision, Tunnel Vision, Other Visual Disturbances, Loss of Vision, Other Ears: absent: As Per HPI, Decreased Hearing, Ear Discharge, Ear Pain, Tinnitus, Abnormal Hearing, Disequilibrium, Dizziness, Other Nose/Mouth/Throat: absent: As Per HPI, Epistaxis, Nasal Congestion, Nasal Discharge, Nasal Obstruction, Nasal Trauma, Nose Pain, Post Nasal Drip, Sinus Pain, Sinus Pressure, Bleeding Gums, Change in Voice, Dental Pain, Dry Mouth, Dysphagia, Halitosis, Hoarsness, Lip Swelling, Mouth Lesions, Mouth Pain, Odynophagia, Sore Throat, Throat Swelling, Tongue Swelling, Facial Pain, Neck Pain, Neck Mass, Other - Cardiovascular Cardiovascular: absent: As Per HPI, Acrocyanosis, Chest Pain, Chest Pain at Rest , Chest Pain with Activity, Claudication, Diaphoresis, Dyspnea, Dyspnea on Exertion, Edema, Irregular Heart Rhythm, Pain Radiating to Arm/Neck/Jaw, Leg Edema, Leg Ulcers, Lightheadedness, Orthopnea, Palpitations, Paroxysmal Nocturnal Dyspnea, Pedal Edema, Radiating Pain, Rapid Heart Rate, Slow Heart Rate, Syncope, Other - Respiratory Respiratory: absent: As Per HPI, Cough, Dyspnea, Hemoptysis, Dyspnea on Exertion , Wheezing, Snoring, Stridor, Pain on Inspiration, Chest Congestion, Excessive Mucous Production, Change in Mucous Color, Pain with Coughing, Other - Gastrointestinal Gastrointestinal: As Per HPI - Genitourinary Genitourinary: absent: As Per HPI, Change in Urinary Stream, Difficulty Urinating, Dysuria, Flank Pain, Hematuria, Pyuria, Nocturia, Urinary Incontinence, Urinary Frequency, Urinary Hesitance, Urinary Urgency, Voiding Freq/Small Amts, Freq UTI, Hx Renal/Bladder Calculi, Hx /Renal Surgery, Bladder Distension, Other - Reproductive: Female Reproductive:Female: absent: As Per HPI, Amenorrhea, Amenorrhea/ Control, Currently Menstual, Cycle <21 Days, Cycle >35 Days, Cycle Variable, Menses 1-7 Days, Menses >/= 8 Days, Menses Variable, Cycle > 4 Weeks Between, No Menses for 6 Months, Heavy Menses, Light Menses, Normal Menses, Spotting Between Cycles , S/P Hysterectomy, Menopausal, Post Menopausal, Premenarche, Abnormal Vaginal Bleeding, Dysmenorrhea, Dyspareunia, Genital Lesions, Genital Pruritis, Pelvic Pain, Prolapse Symptoms, Sexual Dysfunction, Vaginal Discharge, Vaginal Dryness , Vaginal Odor, Vaginal Pruritis, Other Past Patient History - Past Social History Smoking Status: Light Smoker < 10 Cigarettes Daily Home Situation {Lives}: With Family - CARDIAC Hx Hypercholesterolemia: Yes Hx Hypertension: Yes - PULMONARY Hx Asthma: Yes - GASTROINTESTINAL Hx Ulcer: Yes - PSYCHIATRIC Hx Substance Use: No - SURGICAL HISTORY Other/Comment: Abdominal surgery - ANESTHESIA Hx Anesthesia: Yes Meds Allergies/Adverse Reactions: Allergies Allergy/AdvReac Type Severity Reaction Status Date / Time No Known Allergies Allergy Unverified 03/07/18 16:28 Physical Exam - Constitutional Appears: In Acute Distress - Head Exam Head Exam: ATRAUMATIC, NORMOCEPHALIC - Eye Exam Eye Exam: PERRL - ENT Exam ENT Exam: Mucous Membranes Dry - Neck Exam Neck exam: Negative for: Lymphadenopathy - Respiratory Exam Respiratory Exam: Decreased Breath Sounds - Cardiovascular Exam Cardiovascular Exam: REGULAR RHYTHM - GI/Abdominal Exam GI & Abdominal Exam: Diminished Bowel Sounds, Distended, Guarding, Organomegaly - Rectal Exam Rectal Exam: Deferred - Exam Exam: NORMAL INSPECTION - Extremities Exam Extremities exam: Negative for: pedal edema - Back Exam Back exam: absent: CVA tenderness (L), CVA tenderness (R) - Neurological Exam Neurological exam: Alert, CN II-XII Intact, Oriented x3, Reflexes Normal - Psychiatric Exam Psychiatric exam: Depressed - Skin Skin Exam: Dry Results - Vital Signs Recent Vital Signs: Last Vital Signs Temp 99 F 03/07/18 18:03 Pulse 117 H 03/07/18 19:08 Resp 28 H 03/07/18 19:08 BP 119/50 L 03/07/18 19:08 Pulse Ox 100 03/07/18 19:08 - Labs Result Diagrams: 03/08/18 06:23 03/08/18 06:23 Labs: Laboratory Results - last 24 hr 03/07/18 03/07/18 03/07/18 16:04 16:53 16:53 WBC 10.2 RBC 2.77 L Hgb 8.5 L Hct 27.9 L MCV 100.4 H MCH 30.6 MCHC 30.5 L RDW 22.3 H Plt Count 158 MPV 9.6 Neut % (Auto) 83.4 H Lymph % (Auto) 2.3 L [place] % (Auto) 13.7 H Eos % (Auto) 0.0 Baso % (Auto) 0.6 Neut # (Auto) 8.5 H Lymph # (Auto) 0.2 L [place] # (Auto) 1.4 H Eos # (Auto) 0.0 Baso # (Auto) 0.1 Neutrophils % (Manual) 44 L Band Neutrophils % 40 H* Lymphocytes % (Manual) 2 L Monocytes % (Manual) 12 H Metamyelocytes % 2 H Platelet Estimate Normal Large Platelets Present Giant Platelets Present Hypochromasia (manual) Slight Microcytosis (manual) Slight PT 13.5 H INR 1.2 APTT 33 pO2 VBG pH VBG pCO2 VBG HCO3 VBG Total CO2 VBG O2 Sat (Calc) VBG Base Excess VBG Potassium Glucose Lactate FiO2 Crit Value Called To Crit Value Called By Crit Value Read Back Blood Gas Notified Time Sodium Potassium Chloride Carbon Dioxide Anion Gap BUN Creatinine Est GFR ( Amer) Est GFR (Non-Af Amer) POC Glucose (mg/dL) 111 H Random Glucose Calcium Phosphorus Magnesium Total Bilirubin AST ALT Alkaline Phosphatase Ammonia Troponin I NT-Pro-B Natriuret Pep Total Protein Albumin Globulin Albumin/Globulin Ratio Venous Blood Potassium Urine Color Urine Clarity Urine pH Ur Specific [place] Urine Protein Urine Glucose (UA) Urine Ketones Urine Blood Urine Nitrate Urine Bilirubin Urine Urobilinogen Ur Leukocyte Esterase Urine WBC (Auto) Urine RBC (Auto) Ur Squamous Epith Cells Amorphous Sediment Urine Bacteria Hyaline Casts Urine Opiates Screen Urine Methadone Screen Ur Barbiturates Screen Ur Phencyclidine Scrn Ur Amphetamines Screen U Benzodiazepines Scrn U Oth Cocaine Metabols U Cannabinoids Screen Alcohol, Quantitative 03/07/18 03/07/18 03/07/18 16:53 16:53 17:07 WBC RBC Hgb Hct MCV MCH MCHC RDW Plt Count MPV Neut % (Auto) Lymph % (Auto) [place] % (Auto) Eos % (Auto) Baso % (Auto) Neut # (Auto) Lymph # (Auto) [place] # (Auto) Eos # (Auto) Baso # (Auto) Neutrophils % (Manual) Band Neutrophils % Lymphocytes % (Manual) Monocytes % (Manual) Metamyelocytes % Platelet Estimate Large Platelets Giant Platelets Hypochromasia (manual) Microcytosis (manual) PT INR APTT pO2 50 VBG pH 7.05 L* VBG pCO2 16 L* VBG HCO3 5.2 VBG Total CO2 4.9 L VBG O2 Sat (Calc) 74.9 H VBG Base Excess -24.2 L VBG Potassium 5.5 H Glucose 84 Lactate 8.6 H* FiO2 Crit Value Called To Paul neville rn Crit Value Called By Solange Crit Value Read Back Y Blood Gas Notified Time 1711 Sodium 135 134.0 Potassium 5.5 H Chloride 99 97.0 L Carbon Dioxide < 5 L* Anion Gap 37 H BUN 16 Creatinine 1.5 H Est GFR ( Amer) 43 Est GFR (Non-Af Amer) 35 POC Glucose (mg/dL) Random Glucose 90 Calcium 8.2 L Phosphorus 4.6 H Magnesium 2.2 Total Bilirubin 1.5 H AST 348 H ALT 119 H Alkaline Phosphatase 268 H Ammonia 70 H Troponin I < 0.0120 NT-Pro-B Natriuret Pep 60.4 Total Protein 6.7 Albumin 3.6 Globulin 3.1 Albumin/Globulin Ratio 1.2 Venous Blood Potassium 5.5 H Urine Color Urine Clarity Urine pH Ur Specific [place] Urine Protein Urine Glucose (UA) Urine Ketones Urine Blood Urine Nitrate Urine Bilirubin Urine Urobilinogen Ur Leukocyte Esterase Urine WBC (Auto) Urine RBC (Auto) Ur Squamous Epith Cells Amorphous Sediment Urine Bacteria Hyaline Casts Urine Opiates Screen Urine Methadone Screen Ur Barbiturates Screen Ur Phencyclidine Scrn Ur Amphetamines Screen U Benzodiazepines Scrn U Oth Cocaine Metabols U Cannabinoids Screen Alcohol, Quantitative 209 H 03/07/18 03/07/18 03/07/18 17:40 17:40 19:25 WBC RBC Hgb Hct MCV MCH MCHC RDW Plt Count MPV Neut % (Auto) Lymph % (Auto) [place] % (Auto) Eos % (Auto) Baso % (Auto) Neut # (Auto) Lymph # (Auto) [place] # (Auto) Eos # (Auto) Baso # (Auto) Neutrophils % (Manual) Band Neutrophils % Lymphocytes % (Manual) Monocytes % (Manual) Metamyelocytes % Platelet Estimate Large Platelets Giant Platelets Hypochromasia (manual) Microcytosis (manual) PT INR APTT pO2 57 H VBG pH 7.07 L* VBG pCO2 16 L* VBG HCO3 5.9 VBG Total CO2 5.1 L VBG O2 Sat (Calc) 83.9 H VBG Base Excess -23.6 L VBG Potassium 5.0 Glucose 87 Lactate 7.2 H* FiO2 21.0 Crit Value Called To Dr evangelista Crit Value Called [facility] Crit Value Read Back Y Blood Gas Notified Time 1932 Sodium 133.0 Potassium Chloride 100.0 Carbon Dioxide Anion Gap BUN Creatinine Est GFR ( Amer) Est GFR (Non-Af Amer) POC Glucose (mg/dL) Random Glucose Calcium Phosphorus Magnesium Total Bilirubin AST ALT Alkaline Phosphatase Ammonia Troponin I NT-Pro-B Natriuret Pep Total Protein Albumin Globulin Albumin/Globulin Ratio Venous Blood Potassium 5.0 Urine Color [place] Urine Clarity Hazy Urine pH 5.0 Ur Specific [place] 1.018 Urine Protein 1+ H Urine Glucose (UA) Normal Urine Ketones Trace Urine Blood Negative Urine Nitrate Negative Urine Bilirubin 1+ H Urine Urobilinogen 4.0 H Ur Leukocyte Esterase Neg Urine WBC (Auto) 1 Urine RBC (Auto) 4 H Ur Squamous Epith Cells 2 Amorphous Sediment Moderate H Urine Bacteria Occ H Hyaline Casts 11-20 H Urine Opiates Screen Negative Urine Methadone Screen Negative Ur Barbiturates Screen Negative Ur Phencyclidine Scrn Negative Ur Amphetamines Screen Negative U Benzodiazepines Scrn Negative U Oth Cocaine Metabols Positive H U Cannabinoids Screen Negative Alcohol, Quantitative Assessment & Plan (1) Abdominal pain Status: Acute (2) Metabolic acidosis Status: Acute - Assessment and Plan (Free Text) Assessment: r/o SBP r/o viral / bacterial gastroenteritis check cultures IV antibiotics
[2018-03-07] MEDS ORDERED: Sodium Bicarbonate (8.4%) 50 Meq Syringe IVP ONE (19:54)
[2018-03-07] MEDS ORDERED: Calcium Gluconate 4.65 mEq/10 ml Inj IVP ONE (19:56)
[2018-03-07] MEDS ORDERED: Sodium Bicarbonate 8.4% 100 MEQ in Dextrose 5% In Water 1,000 ML IV SCH ×2 (20:00→22:32)
[2018-03-07] MEDS ORDERED: Sodium Bicarbonate (8.4%) 50 Meq Syringe ONE (20:10)
[2018-03-07] MEDS ORDERED: Calcium Gluconate 4.65 mEq/10 ml Inj ONE (20:10)
[2018-03-07] MEDS ORDERED: Piperacillin/Tazobact 3.375 GM in Sodium Chloride 100 ML IVPB SCH (20:15)
[2018-03-07] MEDS ORDERED: Lactated Ringer's 1,000 ML IV SCH (20:30)
--- NOTE | 2018-03-07 22:02 | PCM.SEPTIC ---
Sepsis Progress Note - Reassessment Type Date of Evaluation: 03/07/18 Time of Evaluation: 21:45 Reassessment Type: Non-invasive reassessment - Non Invasive Reassessment Were the most recent vital sign reviewed: Yes Vital Sign (Latest): Temp Pulse Resp BP Pulse Ox 98.6 F 114 H 24 153/72 H 97 03/07/18 20:50 03/07/18 20:25 03/07/18 20:25 03/07/18 20:25 03/07/18 20:25 Cardiovascular: Yes: Edema, Tachycardia. No: Chest Non Tender, JVD Respiratory: Yes: Decreased Breath Sounds Capillary Refill: Normal (Less than 2 sec) Pulses: Normal Radial, Normal Dorsalis Pedis Skin: Normal Color, Warm, Pale
[2018-03-07 22:31] LABS: VENOUS BLOOD GAS BASE EXCESS -16.8 mmol/L (0.0-2.0); VENOUS BLOOD GAS PCO2 23 mmHg (40-60); VENOUS BLOOD GAS PO2 57 mm/Hg (30-55); VENOUS BLOOD PH 7.21 (7.32-7.43)
[2018-03-07 22:48] LABS: HEMOGLOBIN 8.5 g/dL (11.0-16.0); MEAN CORPUSCULAR HEMOGLOBIN 30.8 pg (27.0-31.0); MEAN CORPUSCULAR HGB CONC 31.4 g/dL (33.0-37.0); MEAN PLATELET VOLUME 9.7 fL (7.2-11.7); RBC 2.78 Mil/uL (3.80-5.20); RED CELL DISTRIBUTION WIDTH 21.9 % (11.5-14.5); WHITE BLOOD COUNT 6.3 K/uL (4.8-10.8)
[2018-03-07] MEDS: Folic Acid 1 MG, Thiamine 100 MG, Multivitamin (MVI) 10 ML in Dextrose 5% In Water 1,00... IV SCH (22:48)
[2018-03-07 23:06] LABS: CALCIUM 8.5 mg/dl (8.6-10.4)
[2018-03-08] MEDS: (Novolin R) Insulin Human Regular 100 units/ml vial SC SCH ×4 (00:34→18:02)
[2018-03-08 05:41] LABS: VENOUS BLOOD GAS BASE EXCESS -4.7 mmol/L (0.0-2.0); VENOUS BLOOD GAS PCO2 37 mmHg (40-60); VENOUS BLOOD GAS PO2 30 mm/Hg (30-55); VENOUS BLOOD PH 7.35 (7.32-7.43)
[2018-03-08] MEDS: Cefepime IV 1 gm in Dextrose 1 GM/50 ML BAG IVPB SCH ×2 (05:53→17:12)
[2018-03-08 06:41] LABS: BASO % 0.3 % (0.0-2.0); HEMOGLOBIN 8.3 g/dL (11.0-16.0); LYMPH # 0.7 K/uL (1.0-4.3); MEAN CELL VOLUME 96.1 fL (81.0-99.0); MEAN CORPUSCULAR HEMOGLOBIN 31.6 pg (27.0-31.0); MEAN CORPUSCULAR HGB CONC 32.9 g/dL (33.0-37.0); MEAN PLATELET VOLUME 10.4 fL (7.2-11.7); MONO # 0.5 K/uL (0.0-0.8); MONO % 7.7 % (0.0-10.0); NEUT # 5.7 K/uL (1.8-7.0); NRBC % 0.3 % (0.0-2.0); RBC 2.63 Mil/uL (3.80-5.20)
[2018-03-08 07:05] LABS: ALB/GLOB RATIO 1.2 (1.0-2.1); ALBUMIN 3.5 g/dL (3.5-5.0); ALT/SGPT 123 U/L (9-52); AST/SGOT 419 U/L (14-36); BLOOD UREA NITROGEN 24 mg/dL (7-17); CALCIUM 8.1 mg/dl (8.6-10.4); GFR NON-AFRICAN AMERICAN > 60
[2018-03-08] MEDS: Dextrose 5%/0.45% NS 1,000 ML IV SCH ×2 (07:54→18:15)
--- NOTE | 2018-03-08 08:30 | CP.PCM.PN ---
Subjective - Date & Time of Evaluation Date of Evaluation: 03/08/18 Time of Evaluation: 08:26 - Subjective Subjective: Gen Sx: Dr Barrett Pt S&E in ICU. Actively being resuscitated by ICU team. Lactate down to 7.1. Pt remains distended with abdominal pain, diffuse and radiating to the back. No further episodes of emesis. Continues to pass flatus, no further episodes of diarrhea. Denies f/c, sob or chest pain. Objective - Vital Signs/Intake and Output Vital Signs (last 24 hours): Temp Pulse Resp BP Pulse Ox 98.5 F 109 H 30 H 164/76 H 98 03/08/18 04:00 03/08/18 06:24 03/08/18 06:24 03/08/18 06:24 03/08/18 06:24 Intake and Output: 03/08/18 03/08/18 06:59 18:59 Intake Total 1130 Output Total 200 Balance 930 - Medications Medications: Current Medications Heparin Sodium (Porcine) (Heparin) 5,000 units SC Q8 [facility] Last Admin: 03/08/18 05:53 Dose: 5,000 units Cefepime HCl (Maxipime Iv 1 Gm Premix) 1 gm in 50 mls @ 100 mls/hr IVPB Q12H [facility] PRN Reason: Protocol Last Admin: 03/08/18 05:53 Dose: 100 mls/hr Folic Acid 1 mg/ Thiamine HCl 100 mg/ Multivitamins/Vitamin C 10 ml/ Dextrose 1 ,011.2 mls @ 40 mls/hr IV .Q24H [facility] Last Admin: 03/07/18 22:48 Dose: 40 mls/hr Dextrose/Sodium Chloride (Dextrose 5%/0.45% Ns 1000 Ml) 1,000 mls @ 100 mls/hr IV .Q10H [facility] Last Admin: 03/08/18 07:54 Dose: 100 mls/hr Insulin Human Regular (Novolin R) 0 unit SC Q6 [facility] PRN Reason: Protocol Last Admin: 03/08/18 05:55 Dose: 3 u Lactulose (Generlac) 200 gm KS DAILY [facility] Morphine Sulfate (Morphine) 1 mg IVP Q4 PRN PRN Reason: Pain, moderate (4-7) Last Admin: 03/08/18 07:50 Dose: 1 mg Ondansetron HCl (Zofran Inj) 4 mg IVP Q6H PRN PRN Reason: Nausea/Vomiting Last Admin: 03/08/18 00:26 Dose: 4 mg Pantoprazole Sodium (Protonix Inj) 40 mg IVP DAILY [facility] - Labs Labs: 03/08/18 06:23 03/08/18 06:23 PT 13.5 SECONDS (9.7-12.2) H 03/07/18 16:53 INR 1.2 03/07/18 16:53 APTT 33 SECONDS (21-34) 03/07/18 16:53 - Constitutional Appears: Toxic - Head Exam Head Exam: NORMOCEPHALIC - Eye Exam Eye Exam: Normal appearance. absent: Scleral icterus Pupil Exam: PERRL - ENT Exam ENT Exam: Mucous Membranes Dry - Respiratory Exam Respiratory Exam: absent: Accessory Muscle Use, Respiratory Distress - Cardiovascular Exam Cardiovascular Exam: Tachycardia, REGULAR RHYTHM - GI/Abdominal Exam GI & Abdominal Exam: Distended, Firm, Tenderness (diffuse), Organomegaly ( palpable liver). absent: Guarding, Rigid, Hernia, Mass, Pulsatile Mass - Rectal Exam Rectal Exam: Deferred - Extremities Exam Extremities Exam: absent: Calf Tenderness, Pedal Edema - Neurological Exam Neurological Exam: Alert, Awake, Oriented x3 - Psychiatric Exam Psychiatric exam: Normal Affect, Normal Mood - Skin Skin Exam: Normal Color, Warm Assessment and Plan - Assessment and Plan (Free Text) Assessment: 62F with hx of EtOH abuse; now with distended and tender abdomen likely secondary to pancreatitis and/or enterocolitis, cannot r/o Mesenteric ischemia Plan: no signs of surgical pathology on CT scan given presentation and lab findings concern for extensive dehydration and pancreatitis regardless of etiology, aggressive hydration and resuscitation is the first step will cont to follow pt closely Raúl-Benoit A: 10% operative mortality for any abdominal operation - likely higher than this in setting of lactic acidosis d/w Dr Arnold Huynh, PGY4
[2018-03-08] MEDS ORDERED: Thiamine 100 mg/ml Inj IV SCH (10:00)
[2018-03-08] MEDS ORDERED: Sodium Chloride 0.9% 1,000 ML IV ONE ×2 (10:46)
--- NOTE | 2018-03-08 10:51 | CT ---
Date of service: 03/07/2018 PROCEDURE: CT Abdomen and Pelvis with contrast HISTORY: abd. pain COMPARISON: None available TECHNIQUE: Contrast dose: 100 mL Visipaque 320 Radiation dose: Total exam DLP = 1249.05 mGy-cm. This CT exam was performed using one or more of the following dose reduction techniques: Automated exposure control, adjustment of the mA and/or kV according to patient size, and/or use of iterative reconstruction technique. FINDINGS: LOWER THORAX: Minimal subsegmental bibasilar atelectasis. No visible pleural effusion or pneumothorax. Small hiatal hernia/distal esophageal wall thickening. LIVER: Hepatomegaly. Diffuse severe hypoattenuation of the liver may be seen in setting of hepatic steatosis. Subtle amorphous hyperdense liver within the right posterior lobe/dome as well as 6 mm hyperdense focus within the inferior right hepatic lobe ; indeterminate possibly related to focal fatty sparing. GALLBLADDER AND BILE DUCTS: Cholecystectomy. Mildly prominent common bile duct. PANCREAS: Pancreatic atrophy. SPLEEN: Unremarkable. ADRENALS: [id number]-right adrenal gland nodular hyperplasia. KIDNEYS AND URETERS: The kidneys enhance symmetrically. No hydronephrosis or obstructing calculus identified. VASCULATURE: Atherosclerotic calcifications. No aortic aneurysm. BOWEL: The patient has undergone a partial gastrectomy. Marked wall thickening of the gastric remnant. Wall thickening is also evident involving small and large bowel. Mildly dilated fecalized small bowel loop in the mid abdomen extending to the right lower quadrant. No evidence of small-bowel obstruction. Abnormal bowel enhancement involving the distal and terminal ileum with wall thickening present. Diffuse colonic wall and enhancement and thickening. Scattered diverticulosis. APPENDIX: Not visualized. PERITONEUM: No significant free fluid. No definite free air. LYMPH NODES: No bulky adenopathy identified. BLADDER: Decompressed urinary bladder precludes adequate evaluation. REPRODUCTIVE: Uterus is absent consistent with hysterectomy. BONES: Mild loss of vertebral body height of L2, age indeterminate. Osseous demineralization. Degenerative changes. OTHER FINDINGS: Minimal scattered inflammatory changes involving the anterior abdominal wall soft tissues. IMPRESSION: Constellation of findings appear consistent with enterocolitis. Correlate clinically. Cholecystectomy. Hysterectomy. Partial gastrectomy with evidence of gastrojejunal anastomosis. Severe hepatic steatosis and hepatomegaly. Subtle amorphous hyperdense liver within the right posterior lobe/dome as well as 6 mm hyperdense focus within the inferior right hepatic lobe ; indeterminate possibly related to focal fatty sparing. Recommend further evaluation with dedicated cross-sectional imaging if indicated. Additional findings as above. Preliminary impression was provided by virtual radiologic.
[2018-03-08] MEDS ORDERED: Phytonadione 10 mg/ml Inj (Adult) SC STA ×2 (10:56→11:29)
--- NOTE | 2018-03-08 11:05 | CARD ---
APPROVED REPORT Date of service: 03/07/2018 EKG Measurement Heart [id number] <Conclusion> Sinus tachycardia Possible Left atrial enlargement Anterior infarct, age undetermined Abnormal ECG
[2018-03-08 11:49] LABS: BANDS 40 % (0-2)
[2018-03-08] MEDS: Lactulose 10 gm/15 ml (Rectal Use) PR SCH (11:56)
--- NOTE | 2018-03-08 11:58 | CP.CCUPN ---
<Kush Judd - Last Filed: 03/08/18 13:09> CCU Subjective - Physician Review Subjective (Free Text): Critical care progress note: Patient seen and examined at bedside. No acute events overnight. Patient complains of severe R sided abdominal pain with nausea. No other complaints. 12 Point ROS performed and neg other than stated above CCU Objective - Vital Signs / Intake & Output Vital Signs (Last 4 hours): Vital Signs Temp Pulse Resp BP Pulse Ox 03/08/18 10:02 101 H 18 132/70 78 L 03/08/18 10:00 105 H 21 97 03/08/18 09:31 102 H 24 151/71 H 100 03/08/18 09:01 95 03/08/18 09:01 107 H 27 H 143/70 100 03/08/18 09:00 107 H 24 100 03/08/18 08:31 106 H 23 145/73 94 L 03/08/18 08:01 102 H 22 163/75 H 100 03/08/18 08:00 98.6 F 105 H 22 100 Intake and Output (Last 8hrs): Intake & Output 03/07/18 03/08/18 03/08/18 22:59 06:59 14:59 Intake Total 120 1010 540 Output Total 0 200 Balance 120 810 540 Weight 167 lb 3.2 oz 167 lb 3.2 oz Intake: Intake, IV Amount 120 1010 540 Left Wrist 40 320 160 Lt wrist y-port 50 Right Hand 80 640 380 Oral 0 0 Output: Urine 0 200 Urine, Voided 0 200 Other: # Bowel Movements 1 1 - Physical Exam Head: Positive for: Atraumatic, Normocephalic Pupils: Positive for: PERRL Extroacular Muscles: Positive for: EOMI Mouth: Positive for: Moist Mucous Membranes Neck: Negative for: JVD Respiratory/Chest: Positive for: Clear to Auscultation, Good Air Exchange. Negative for: Respiratory Distress, Wheezes, Rales Cardiovascular: Positive for: Regular Rate and Rhythm, Normal S1, S2 Abdomen: Positive for: Tenderness (worse on R ), Distention, Normal Bowel Sounds. Negative for: Peritoneal Signs Upper Extremity: Negative for: Cyanosis, Edema Lower Extremity: Negative for: Edema, CALF TENDERNESS Neurological: Positive for: GCS=15, CN II-XII Intact Skin: Positive for: Warm, Dry Psychiatric: Positive for: Alert, Oriented x 3 - Medications Active Medications: Active Medications Generic Name Dose Route Start Last Admin Trade Name Freq PRN Reason Stop Dose Admin Heparin Sodium (Porcine) 5,000 units 03/07/18 22:00 03/08/18 05:53 Heparin SC 5,000 units Q8 DOYLE Administration Cefepime HCl 1 gm in 50 mls @ 100 mls/hr 03/08/18 06:00 03/08/18 05:53 Maxipime Iv 1 Gm Premix IVPB 100 mls/hr Q12H DOYLE Administration Protocol Folic Acid 1 mg/ Thiamine HCl 1,011.2 mls @ 40 mls/hr 03/07/18 20:15 22:48 100 mg/ Multivitamins/Vitamin IV 40 mls/hr C 10 ml/ Dextrose .Q24H DOYLE Administration Dextrose/Sodium Chloride 1,000 mls @ 100 mls/hr 03/08/18 07:15 03/08/18 07:54 Dextrose 5%/0.45% Ns 1000 Ml IV 100 mls/hr .Q10H DOYLE Administration Metronidazole 500 mg in 100 mls @ 100 mls/hr 03/08/18 14:00 Flagyl IVPB Q8H DOYLE Protocol Vancomycin/Sodium Chloride 1 gm in 200 mls @ 133 mls/hr 03/08/18 12:00 Vancomycin 1 Gm/Ns 200 Ml IVPB 03/08/18 13:30 ONCE ONE Protocol Sodium Chloride 1,000 mls @ 250 mls/hr 03/08/18 10:46 Sodium Chloride 0.9% IV 03/08/18 14:45 .Q4H ONE Insulin Human Regular 0 unit 03/08/18 00:00 03/08/18 05:55 Novolin R SC 3 u Q6 DOYLE Administration Protocol Lactulose 200 gm 03/08/18 10:00 Generlac CO DAILY DOYLE Morphine Sulfate 1 mg 03/07/18 22:31 03/08/18 07:50 Morphine IVP 1 mg Q4 PRN Administration Pain, moderate (4-7) Neomycin Sulfate 500 mg 03/08/18 12:00 Neomycin Tab PO Q6H DOYLE Ondansetron HCl 4 mg 03/08/18 00:15 03/08/18 00:26 Zofran Inj IVP 4 mg Q6H PRN Administration Nausea/Vomiting Pantoprazole Sodium 40 mg 03/08/18 10:00 03/08/18 09:13 Protonix Inj IVP 40 mg DAILY DOYLE Administration - Patient Studies Lab Studies: Lab Studies 03/08/18 03/08/18 03/08/18 Range/Units 11:15 11:15 06:59 WBC (4.8-10.8) K/uL RBC (3.80-5.20) Mil/uL Hgb (11.0-16.0) g/dL Hct (34.0-47.0) % MCV (81.0-99.0) fL MCH (27.0-31.0) pg MCHC (33.0-37.0) g/dL RDW (11.5-14.5) % Plt Count (130-400) K/uL MPV (7.2-11.7) fL Neut % (Auto) (50.0-75.0) % Lymph % (Auto) (20.0-40.0) % Ford % (Auto) (0.0-10.0) % Eos % (Auto) (0.0-4.0) % Baso % (Auto) (0.0-2.0) % Neut # (Auto) (1.8-7.0) K/uL Lymph # (Auto) (1.0-4.3) K/uL [place] # (Auto) (0.0-0.8) K/uL Eos # (Auto) (0.0-0.7) K/uL Baso # (Auto) (0.0-0.2) K/uL Neutrophils % (Manual) (50-75) % Band Neutrophils % (0-2) % Lymphocytes % (Manual) (20-40) % Monocytes % (Manual) (0-10) % Metamyelocytes % (0-0) % Platelet Estimate (NORMAL) Large Platelets Giant Platelets Hypochromasia (manual) Microcytosis (manual) PT (9.7-12.2) SECONDS INR APTT (21-34) SECONDS D-Dimer, Quantitative 2569 H (0-243) ng/mlDDU pO2 (30-55) mm/Hg VBG pH (7.32-7.43) VBG pCO2 (40-60) mmHg VBG HCO3 mmol/L VBG Total CO2 (22-28) mmol/L VBG O2 Sat (Calc) (40-65) % VBG Base Excess (0.0-2.0) mmol/L VBG Potassium (3.6-5.2) mmol/L Glucose (65-105) mg/dl Lactate (0.7-2.1) mmol/L FiO2 % Crit Value Called To Crit Value Called By Crit Value Read Back Blood Gas Notified Time Sodium (132-148) mmol/L Potassium (3.6-5.2) mmol/L Chloride (98-107) mmol/L Carbon Dioxide (22-30) mmol/L Anion Gap (10-20) BUN (7-17) mg/dL Creatinine (0.7-1.2) mg/dL Est GFR ( Amer) Est GFR (Non-Af Amer) POC Glucose (mg/dL) (65-110) mg/dL Random Glucose (65-105) mg/dL Lactic Acid 4.3 H* (0.7-2.1) mmol/L Calcium (8.6-10.4) mg/dl Phosphorus (2.5-4.5) mg/dL Magnesium (1.6-2.3) mg/dL Total Bilirubin (0.2-1.3) mg/dL AST (14-36) U/L ALT (9-52) U/L Alkaline Phosphatase (38-126) U/L Ammonia (9-33) umol/L Troponin I (0.00-0.120) ng/mL NT-Pro-B Natriuret Pep (0-900) pg/mL Total Protein (6.3-8.3) g/dL Albumin (3.5-5.0) g/dL Globulin (2.2-3.9) gm/dL Albumin/Globulin Ratio (1.0-2.1) Lipase (23-300) U/L Venous Blood Potassium (3.6-5.2) mmol/L Urine Color (YELLOW) Urine Clarity (Clear) Urine pH (5.0-8.0) Ur Specific [place] (1.003-1.030) Urine Protein (NEGATIVE) mg/dL Urine Glucose (UA) (Normal) mg/dL Urine Ketones (NEGATIVE) mg/dL Urine Blood (NEGATIVE) Urine Nitrate (NEGATIVE) Urine Bilirubin (NEGATIVE) Urine Urobilinogen (0.2-1.0) mg/dL Ur Leukocyte Esterase (Negative) Jesus/uL Urine WBC (Auto) (0-5) /hpf Urine RBC (Auto) (0-3) /hpf Ur Squamous Epith Cells (0-5) /hpf Amorphous Sediment (<OCC) /ul Urine Bacteria (<OCC) Hyaline Casts (0-2) /lpf Urine Opiates Screen (NEGATIVE) Urine Methadone Screen (NEGATIVE) Ur Barbiturates Screen (NEGATIVE) Ur Phencyclidine Scrn (NEGATIVE) Ur Amphetamines Screen (NEGATIVE) U Benzodiazepines Scrn (NEGATIVE) U Oth Cocaine Metabols (NEGATIVE) U Cannabinoids Screen (NEGATIVE) Alcohol, Quantitative (0-10) mg/dl Blood Type O POSITIVE Antibody Screen Negative 03/08/18 03/08/18 03/08/18 Range/Units 06:23 06:23 06:23 WBC 7.0 (4.8-10.8) K/uL RBC 2.63 L (3.80-5.20) Mil/uL Hgb 8.3 L (11.0-16.0) g/dL Hct 25.3 L (34.0-47.0) % MCV 96.1 (81.0-99.0) fL MCH 31.6 H (27.0-31.0) pg MCHC 32.9 L (33.0-37.0) g/dL RDW 22.0 H (11.5-14.5) % Plt Count 124 L (130-400) K/uL MPV 10.4 (7.2-11.7) fL Neut % (Auto) 82.0 H (50.0-75.0) % Lymph % (Auto) 10.0 L (20.0-40.0) % Ford % (Auto) 7.7 (0.0-10.0) % Eos % (Auto) 0.0 (0.0-4.0) % Baso % (Auto) 0.3 (0.0-2.0) % Neut # (Auto) 5.7 (1.8-7.0) K/uL Lymph # (Auto) 0.7 L (1.0-4.3) K/uL Ford # (Auto) 0.5 (0.0-0.8) K/uL Eos # (Auto) 0.0 (0.0-0.7) K/uL Baso # (Auto) 0.0 (0.0-0.2) K/uL Neutrophils % (Manual) (50-75) % Band Neutrophils % (0-2) % Lymphocytes % (Manual) (20-40) % Monocytes % (Manual) (0-10) % Metamyelocytes % (0-0) % Platelet Estimate (NORMAL) Large Platelets Giant Platelets Hypochromasia (manual) Microcytosis (manual) PT (9.7-12.2) SECONDS INR APTT (21-34) SECONDS D-Dimer, Quantitative (0-243) ng/mlDDU pO2 (30-55) mm/Hg VBG pH (7.32-7.43) VBG pCO2 (40-60) mmHg VBG HCO3 mmol/L VBG Total CO2 (22-28) mmol/L VBG O2 Sat (Calc) (40-65) % VBG Base Excess (0.0-2.0) mmol/L VBG Potassium (3.6-5.2) mmol/L Glucose (65-105) mg/dl Lactate (0.7-2.1) mmol/L FiO2 % Crit Value Called To Crit Value Called By Crit Value Read Back Blood Gas Notified Time Sodium (132-148) mmol/L Potassium (3.6-5.2) mmol/L Chloride (98-107) mmol/L Carbon Dioxide (22-30) mmol/L Anion Gap (10-20) BUN (7-17) mg/dL Creatinine (0.7-1.2) mg/dL Est GFR ( Amer) Est GFR (Non-Af Amer) POC Glucose (mg/dL) (65-110) mg/dL Random Glucose (65-105) mg/dL Lactic Acid 6.7 H* (0.7-2.1) mmol/L Calcium (8.6-10.4) mg/dl Phosphorus (2.5-4.5) mg/dL Magnesium (1.6-2.3) mg/dL Total Bilirubin (0.2-1.3) mg/dL AST (14-36) U/L ALT (9-52) U/L Alkaline Phosphatase (38-126) U/L Ammonia 88 H D (9-33) umol/L Troponin I (0.00-0.120) ng/mL NT-Pro-B Natriuret Pep (0-900) pg/mL Total Protein (6.3-8.3) g/dL Albumin (3.5-5.0) g/dL Globulin (2.2-3.9) gm/dL Albumin/Globulin Ratio (1.0-2.1) Lipase (23-300) U/L Venous Blood Potassium (3.6-5.2) mmol/L Urine Color (YELLOW) Urine Clarity (Clear) Urine pH (5.0-8.0) Ur Specific [place] (1.003-1.030) Urine Protein (NEGATIVE) mg/dL Urine Glucose (UA) (Normal) mg/dL Urine Ketones (NEGATIVE) mg/dL Urine Blood (NEGATIVE) Urine Nitrate (NEGATIVE) Urine Bilirubin (NEGATIVE) Urine Urobilinogen (0.2-1.0) mg/dL Ur Leukocyte Esterase (Negative) Jesus/uL Urine WBC (Auto) (0-5) /hpf Urine RBC (Auto) (0-3) /hpf Ur Squamous Epith Cells (0-5) /hpf Amorphous Sediment (<OCC) /ul Urine Bacteria (<OCC) Hyaline Casts (0-2) /lpf Urine Opiates Screen (NEGATIVE) Urine Methadone Screen (NEGATIVE) Ur Barbiturates Screen (NEGATIVE) Ur Phencyclidine Scrn (NEGATIVE) Ur Amphetamines Screen (NEGATIVE) U Benzodiazepines Scrn (NEGATIVE) U Oth Cocaine Metabols (NEGATIVE) U Cannabinoids Screen (NEGATIVE) Alcohol, Quantitative (0-10) mg/dl Blood Type Antibody Screen 03/08/18 03/08/18 03/08/18 Range/Units 06:23 05:37 05:32 WBC (4.8-10.8) K/uL RBC (3.80-5.20) Mil/uL Hgb (11.0-16.0) g/dL Hct (34.0-47.0) % MCV (81.0-99.0) fL MCH (27.0-31.0) pg MCHC (33.0-37.0) g/dL RDW (11.5-14.5) % Plt Count (130-400) K/uL MPV (7.2-11.7) fL Neut % (Auto) (50.0-75.0) % Lymph % (Auto) (20.0-40.0) % Ford % (Auto) (0.0-10.0) % Eos % (Auto) (0.0-4.0) % Baso % (Auto) (0.0-2.0) % Neut # (Auto) (1.8-7.0) K/uL Lymph # (Auto) (1.0-4.3) K/uL [place] # (Auto) (0.0-0.8) K/uL Eos # (Auto) (0.0-0.7) K/uL Baso # (Auto) (0.0-0.2) K/uL Neutrophils % (Manual) (50-75) % Band Neutrophils % (0-2) % Lymphocytes % (Manual) (20-40) % Monocytes % (Manual) (0-10) % Metamyelocytes % (0-0) % Platelet Estimate (NORMAL) Large Platelets Giant Platelets Hypochromasia (manual) Microcytosis (manual) PT (9.7-12.2) SECONDS INR APTT (21-34) SECONDS D-Dimer, Quantitative (0-243) ng/mlDDU pO2 30 (30-55) mm/Hg VBG pH 7.35 (7.32-7.43) VBG pCO2 37 L (40-60) mmHg VBG HCO3 20.1 mmol/L VBG Total CO2 21.5 L (22-28) mmol/L VBG O2 Sat (Calc) 54.4 (40-65) % VBG Base Excess -4.7 L (0.0-2.0) mmol/L VBG Potassium 5.3 H (3.6-5.2) mmol/L Glucose 180 H (65-105) mg/dl Lactate 7.1 H* (0.7-2.1) mmol/L FiO2 % Crit Value Called To Rossana murillo rn Crit Value Called By Gloria doe rt Crit Value Read Back Y Blood Gas Notified Time 541 Sodium 132 133.0 (132-148) mmol/L Potassium 5.5 H (3.6-5.2) mmol/L Chloride 94 L 96.0 L (98-107) mmol/L Carbon Dioxide 20 L (22-30) mmol/L Anion Gap 24 H (10-20) BUN 24 H (7-17) mg/dL Creatinine 0.9 (0.7-1.2) mg/dL Est GFR ( Amer) > 60 Est GFR (Non-Af Amer) > 60 POC Glucose (mg/dL) 252 H (65-110) mg/dL Random Glucose 166 H (65-105) mg/dL Lactic Acid (0.7-2.1) mmol/L Calcium 8.1 L (8.6-10.4) mg/dl Phosphorus 2.7 (2.5-4.5) mg/dL Magnesium 1.8 (1.6-2.3) mg/dL Total Bilirubin 1.8 H (0.2-1.3) mg/dL AST 419 H D (14-36) U/L ALT 123 H (9-52) U/L Alkaline Phosphatase 276 H (38-126) U/L Ammonia (9-33) umol/L Troponin I (0.00-0.120) ng/mL NT-Pro-B Natriuret Pep (0-900) pg/mL Total Protein 6.5 (6.3-8.3) g/dL Albumin 3.5 (3.5-5.0) g/dL Globulin 3.0 (2.2-3.9) gm/dL Albumin/Globulin Ratio 1.2 (1.0-2.1) Lipase (23-300) U/L Venous Blood Potassium 5.3 H (3.6-5.2) mmol/L Urine Color (YELLOW) Urine Clarity (Clear) Urine pH (5.0-8.0) Ur Specific [place] (1.003-1.030) Urine Protein (NEGATIVE) mg/dL Urine Glucose (UA) (Normal) mg/dL Urine Ketones (NEGATIVE) mg/dL Urine Blood (NEGATIVE) Urine Nitrate (NEGATIVE) Urine Bilirubin (NEGATIVE) Urine Urobilinogen (0.2-1.0) mg/dL Ur Leukocyte Esterase (Negative) Jesus/uL Urine WBC (Auto) (0-5) /hpf Urine RBC (Auto) (0-3) /hpf Ur Squamous Epith Cells (0-5) /hpf Amorphous Sediment (<OCC) /ul Urine Bacteria (<OCC) Hyaline Casts (0-2) /lpf Urine Opiates Screen (NEGATIVE) Urine Methadone Screen (NEGATIVE) Ur Barbiturates Screen (NEGATIVE) Ur Phencyclidine Scrn (NEGATIVE) Ur Amphetamines Screen (NEGATIVE) U Benzodiazepines Scrn (NEGATIVE) U Oth Cocaine Metabols (NEGATIVE) U Cannabinoids Screen (NEGATIVE) Alcohol, Quantitative < 10 (0-10) mg/dl Blood Type Antibody Screen 03/08/18 03/07/18 03/07/18 Range/Units 00:32 22:31 22:31 WBC 6.3 (4.8-10.8) K/uL RBC 2.78 L (3.80-5.20) Mil/uL Hgb 8.5 L (11.0-16.0) g/dL Hct 27.2 L (34.0-47.0) % MCV 98.0 D (81.0-99.0) fL MCH 30.8 (27.0-31.0) pg MCHC 31.4 L (33.0-37.0) g/dL RDW 21.9 H (11.5-14.5) % Plt Count 141 (130-400) K/uL MPV 9.7 (7.2-11.7) fL Neut % (Auto) (50.0-75.0) % Lymph % (Auto) (20.0-40.0) % [place] % (Auto) (0.0-10.0) % Eos % (Auto) (0.0-4.0) % Baso % (Auto) (0.0-2.0) % Neut # (Auto) (1.8-7.0) K/uL Lymph # (Auto) (1.0-4.3) K/uL [place] # (Auto) (0.0-0.8) K/uL Eos # (Auto) (0.0-0.7) K/uL Baso # (Auto) (0.0-0.2) K/uL Neutrophils % (Manual) (50-75) % Band Neutrophils % (0-2) % Lymphocytes % (Manual) (20-40) % Monocytes % (Manual) (0-10) % Metamyelocytes % (0-0) % Platelet Estimate (NORMAL) Large Platelets Giant Platelets Hypochromasia (manual) Microcytosis (manual) PT (9.7-12.2) SECONDS INR APTT (21-34) SECONDS D-Dimer, Quantitative (0-243) ng/mlDDU pO2 (30-55) mm/Hg VBG pH (7.32-7.43) VBG pCO2 (40-60) mmHg VBG HCO3 mmol/L VBG Total CO2 (22-28) mmol/L VBG O2 Sat (Calc) (40-65) % VBG Base Excess (0.0-2.0) mmol/L VBG Potassium (3.6-5.2) mmol/L Glucose (65-105) mg/dl Lactate (0.7-2.1) mmol/L FiO2 % Crit Value Called To Crit Value Called By Crit Value Read Back Blood Gas Notified Time Sodium 135 (132-148) mmol/L Potassium 5.4 H (3.6-5.2) mmol/L Chloride 97 L (98-107) mmol/L Carbon Dioxide 8 L* D (22-30) mmol/L Anion Gap 34 H (10-20) BUN 19 H (7-17) mg/dL Creatinine 1.4 H (0.7-1.2) mg/dL Est GFR ( Amer) 46 Est GFR (Non-Af Amer) 38 POC Glucose (mg/dL) 174 H (65-110) mg/dL Random Glucose 122 H (65-105) mg/dL Lactic Acid (0.7-2.1) mmol/L Calcium 8.5 L (8.6-10.4) mg/dl Phosphorus (2.5-4.5) mg/dL Magnesium (1.6-2.3) mg/dL Total Bilirubin (0.2-1.3) mg/dL AST (14-36) U/L ALT (9-52) U/L Alkaline Phosphatase (38-126) U/L Ammonia (9-33) umol/L Troponin I (0.00-0.120) ng/mL NT-Pro-B Natriuret Pep (0-900) pg/mL Total Protein (6.3-8.3) g/dL Albumin (3.5-5.0) g/dL Globulin (2.2-3.9) gm/dL Albumin/Globulin Ratio (1.0-2.1) Lipase (23-300) U/L Venous Blood Potassium (3.6-5.2) mmol/L Urine Color (YELLOW) Urine Clarity (Clear) Urine pH (5.0-8.0) Ur Specific [place] (1.003-1.030) Urine Protein (NEGATIVE) mg/dL Urine Glucose (UA) (Normal) mg/dL Urine Ketones (NEGATIVE) mg/dL Urine Blood (NEGATIVE) Urine Nitrate (NEGATIVE) Urine Bilirubin (NEGATIVE) Urine Urobilinogen (0.2-1.0) mg/dL Ur Leukocyte Esterase (Negative) Jesus/uL Urine WBC (Auto) (0-5) /hpf Urine RBC (Auto) (0-3) /hpf Ur Squamous Epith Cells (0-5) /hpf Amorphous Sediment (<OCC) /ul Urine Bacteria (<OCC) Hyaline Casts (0-2) /lpf Urine Opiates Screen (NEGATIVE) Urine Methadone Screen (NEGATIVE) Ur Barbiturates Screen (NEGATIVE) Ur Phencyclidine Scrn (NEGATIVE) Ur Amphetamines Screen (NEGATIVE) U Benzodiazepines Scrn (NEGATIVE) U Oth Cocaine Metabols (NEGATIVE) U Cannabinoids Screen (NEGATIVE) Alcohol, Quantitative (0-10) mg/dl Blood Type Antibody Screen 03/07/18 03/07/18 03/07/18 Range/Units 22:28 19:25 17:40 WBC (4.8-10.8) K/uL RBC (3.80-5.20) Mil/uL Hgb (11.0-16.0) g/dL Hct (34.0-47.0) % MCV (81.0-99.0) fL MCH (27.0-31.0) pg MCHC (33.0-37.0) g/dL RDW (11.5-14.5) % Plt Count (130-400) K/uL MPV (7.2-11.7) fL Neut % (Auto) (50.0-75.0) % Lymph % (Auto) (20.0-40.0) % [place] % (Auto) (0.0-10.0) % Eos % (Auto) (0.0-4.0) % Baso % (Auto) (0.0-2.0) % Neut # (Auto) (1.8-7.0) K/uL Lymph # (Auto) (1.0-4.3) K/uL [place] # (Auto) (0.0-0.8) K/uL Eos # (Auto) (0.0-0.7) K/uL Baso # (Auto) (0.0-0.2) K/uL Neutrophils % (Manual) (50-75) % Band Neutrophils % (0-2) % Lymphocytes % (Manual) (20-40) % Monocytes % (Manual) (0-10) % Metamyelocytes % (0-0) % Platelet Estimate (NORMAL) Large Platelets Giant Platelets Hypochromasia (manual) Microcytosis (manual) PT (9.7-12.2) SECONDS INR APTT (21-34) SECONDS D-Dimer, Quantitative (0-243) ng/mlDDU pO2 57 H 57 H (30-55) mm/Hg VBG pH 7.21 L 7.07 L* (7.32-7.43) VBG pCO2 23 L 16 L* (40-60) mmHg VBG HCO3 11.4 5.9 mmol/L VBG Total CO2 9.9 L 5.1 L (22-28) mmol/L VBG O2 Sat (Calc) 87.2 H 83.9 H (40-65) % VBG Base Excess -16.8 L -23.6 L (0.0-2.0) mmol/L VBG Potassium 5.1 5.0 (3.6-5.2) mmol/L Glucose 116 H 87 (65-105) mg/dl Lactate 6.8 H* 7.2 H* (0.7-2.1) mmol/L FiO2 21.0 % Crit Value Called To Dr giovanni evangelista Crit Value Called By Dale rt [facility] Crit Value Read Back Y Y Blood Gas Notified Time 2230 1932 Sodium 133.0 133.0 (132-148) mmol/L Potassium (3.6-5.2) mmol/L Chloride 97.0 L 100.0 (98-107) mmol/L Carbon Dioxide (22-30) mmol/L Anion Gap (10-20) BUN (7-17) mg/dL Creatinine (0.7-1.2) mg/dL Est GFR ( Amer) Est GFR (Non-Af Amer) POC Glucose (mg/dL) (65-110) mg/dL Random Glucose (65-105) mg/dL Lactic Acid (0.7-2.1) mmol/L Calcium (8.6-10.4) mg/dl Phosphorus (2.5-4.5) mg/dL Magnesium (1.6-2.3) mg/dL Total Bilirubin (0.2-1.3) mg/dL AST (14-36) U/L ALT (9-52) U/L Alkaline Phosphatase (38-126) U/L Ammonia (9-33) umol/L Troponin I (0.00-0.120) ng/mL NT-Pro-B Natriuret Pep (0-900) pg/mL Total Protein (6.3-8.3) g/dL Albumin (3.5-5.0) g/dL Globulin (2.2-3.9) gm/dL Albumin/Globulin Ratio (1.0-2.1) Lipase (23-300) U/L Venous Blood Potassium 5.1 5.0 (3.6-5.2) mmol/L Urine Color Charlene (YELLOW) Urine Clarity Hazy (Clear) Urine pH 5.0 (5.0-8.0) Ur Specific [place] 1.018 (1.003-1.030) Urine Protein 1+ H (NEGATIVE) mg/dL Urine Glucose (UA) Normal (Normal) mg/dL Urine Ketones Trace (NEGATIVE) mg/dL Urine Blood Negative (NEGATIVE) Urine Nitrate Negative (NEGATIVE) Urine Bilirubin 1+ H (NEGATIVE) Urine Urobilinogen 4.0 H (0.2-1.0) mg/dL Ur Leukocyte Esterase Neg (Negative) Jesus/uL Urine WBC (Auto) 1 (0-5) /hpf Urine RBC (Auto) 4 H (0-3) /hpf Ur Squamous Epith Cells 2 (0-5) /hpf Amorphous Sediment Moderate H (<OCC) /ul Urine Bacteria Occ H (<OCC) Hyaline Casts 11-20 H (0-2) /lpf Urine Opiates Screen (NEGATIVE) Urine Methadone Screen (NEGATIVE) Ur Barbiturates Screen (NEGATIVE) Ur Phencyclidine Scrn (NEGATIVE) Ur Amphetamines Screen (NEGATIVE) U Benzodiazepines Scrn (NEGATIVE) U Oth Cocaine Metabols (NEGATIVE) U Cannabinoids Screen (NEGATIVE) Alcohol, Quantitative (0-10) mg/dl Blood Type Antibody Screen 03/07/18 03/07/18 03/07/18 Range/Units 17:40 17:07 16:53 WBC (4.8-10.8) K/uL RBC (3.80-5.20) Mil/uL Hgb (11.0-16.0) g/dL Hct (34.0-47.0) % MCV (81.0-99.0) fL MCH (27.0-31.0) pg MCHC (33.0-37.0) g/dL RDW (11.5-14.5) % Plt Count (130-400) K/uL MPV (7.2-11.7) fL Neut % (Auto) (50.0-75.0) % Lymph % (Auto) (20.0-40.0) % [place] % (Auto) (0.0-10.0) % Eos % (Auto) (0.0-4.0) % Baso % (Auto) (0.0-2.0) % Neut # (Auto) (1.8-7.0) K/uL Lymph # (Auto) (1.0-4.3) K/uL [place] # (Auto) (0.0-0.8) K/uL Eos # (Auto) (0.0-0.7) K/uL Baso # (Auto) (0.0-0.2) K/uL Neutrophils % (Manual) (50-75) % Band Neutrophils % (0-2) % Lymphocytes % (Manual) (20-40) % Monocytes % (Manual) (0-10) % Metamyelocytes % (0-0) % Platelet Estimate (NORMAL) Large Platelets Giant Platelets Hypochromasia (manual) Microcytosis (manual) PT (9.7-12.2) SECONDS INR APTT (21-34) SECONDS D-Dimer, Quantitative (0-243) ng/mlDDU pO2 50 (30-55) mm/Hg VBG pH 7.05 L* (7.32-7.43) VBG pCO2 16 L* (40-60) mmHg VBG HCO3 5.2 mmol/L VBG Total CO2 4.9 L (22-28) mmol/L VBG O2 Sat (Calc) 74.9 H (40-65) % VBG Base Excess -24.2 L (0.0-2.0) mmol/L VBG Potassium 5.5 H (3.6-5.2) mmol/L Glucose 84 (65-105) mg/dl Lactate 8.6 H* (0.7-2.1) mmol/L FiO2 % Crit Value Called To Paul neville rn Crit Value Called By Solange Crit Value Read Back Y Blood Gas Notified Time 1711 Sodium 134.0 (132-148) mmol/L Potassium (3.6-5.2) mmol/L Chloride 97.0 L (98-107) mmol/L Carbon Dioxide (22-30) mmol/L Anion Gap (10-20) BUN (7-17) mg/dL Creatinine (0.7-1.2) mg/dL Est GFR ( Amer) Est GFR (Non-Af Amer) POC Glucose (mg/dL) (65-110) mg/dL Random Glucose (65-105) mg/dL Lactic Acid (0.7-2.1) mmol/L Calcium (8.6-10.4) mg/dl Phosphorus (2.5-4.5) mg/dL Magnesium (1.6-2.3) mg/dL Total Bilirubin (0.2-1.3) mg/dL AST (14-36) U/L ALT (9-52) U/L Alkaline Phosphatase (38-126) U/L Ammonia (9-33) umol/L Troponin I (0.00-0.120) ng/mL NT-Pro-B Natriuret Pep (0-900) pg/mL Total Protein (6.3-8.3) g/dL Albumin (3.5-5.0) g/dL Globulin (2.2-3.9) gm/dL Albumin/Globulin Ratio (1.0-2.1) Lipase 2519 H (23-300) U/L Venous Blood Potassium 5.5 H (3.6-5.2) mmol/L Urine Color (YELLOW) Urine Clarity (Clear) Urine pH (5.0-8.0) Ur Specific [place] (1.003-1.030) Urine Protein (NEGATIVE) mg/dL Urine Glucose (UA) (Normal) mg/dL Urine Ketones (NEGATIVE) mg/dL Urine Blood (NEGATIVE) Urine Nitrate (NEGATIVE) Urine Bilirubin (NEGATIVE) Urine Urobilinogen (0.2-1.0) mg/dL Ur Leukocyte Esterase (Negative) Jesus/uL Urine WBC (Auto) (0-5) /hpf Urine RBC (Auto) (0-3) /hpf Ur Squamous Epith Cells (0-5) /hpf Amorphous Sediment (<OCC) /ul Urine Bacteria (<OCC) Hyaline Casts (0-2) /lpf Urine Opiates Screen Negative (NEGATIVE) Urine Methadone Screen Negative (NEGATIVE) Ur Barbiturates Screen Negative (NEGATIVE) Ur Phencyclidine Scrn Negative (NEGATIVE) Ur Amphetamines Screen Negative (NEGATIVE) U Benzodiazepines Scrn Negative (NEGATIVE) U Oth Cocaine Metabols Positive H (NEGATIVE) U Cannabinoids Screen Negative (NEGATIVE) Alcohol, Quantitative (0-10) mg/dl Blood Type Antibody Screen 03/07/18 03/07/18 03/07/18 Range/Units 16:53 16:53 16:53 WBC (4.8-10.8) K/uL RBC (3.80-5.20) Mil/uL Hgb (11.0-16.0) g/dL Hct (34.0-47.0) % MCV (81.0-99.0) fL MCH (27.0-31.0) pg MCHC (33.0-37.0) g/dL RDW (11.5-14.5) % Plt Count (130-400) K/uL MPV (7.2-11.7) fL Neut % (Auto) (50.0-75.0) % Lymph % (Auto) (20.0-40.0) % [place] % (Auto) (0.0-10.0) % Eos % (Auto) (0.0-4.0) % Baso % (Auto) (0.0-2.0) % Neut # (Auto) (1.8-7.0) K/uL Lymph # (Auto) (1.0-4.3) K/uL [place] # (Auto) (0.0-0.8) K/uL Eos # (Auto) (0.0-0.7) K/uL Baso # (Auto) (0.0-0.2) K/uL Neutrophils % (Manual) (50-75) % Band Neutrophils % (0-2) % Lymphocytes % (Manual) (20-40) % Monocytes % (Manual) (0-10) % Metamyelocytes % (0-0) % Platelet Estimate (NORMAL) Large Platelets Giant Platelets Hypochromasia (manual) Microcytosis (manual) PT 13.5 H (9.7-12.2) SECONDS INR 1.2 APTT 33 (21-34) SECONDS D-Dimer, Quantitative (0-243) ng/mlDDU pO2 (30-55) mm/Hg VBG pH (7.32-7.43) VBG pCO2 (40-60) mmHg VBG HCO3 mmol/L VBG Total CO2 (22-28) mmol/L VBG O2 Sat (Calc) (40-65) % VBG Base Excess (0.0-2.0) mmol/L VBG Potassium (3.6-5.2) mmol/L Glucose (65-105) mg/dl Lactate (0.7-2.1) mmol/L FiO2 % Crit Value Called To Crit Value Called By Crit Value Read Back Blood Gas Notified Time Sodium 135 (132-148) mmol/L Potassium 5.5 H (3.6-5.2) mmol/L Chloride 99 (98-107) mmol/L Carbon Dioxide < 5 L* (22-30) mmol/L Anion Gap 37 H (10-20) BUN 16 (7-17) mg/dL Creatinine 1.5 H (0.7-1.2) mg/dL Est GFR ( Amer) 43 Est GFR (Non-Af Amer) 35 POC Glucose (mg/dL) (65-110) mg/dL Random Glucose 90 (65-105) mg/dL Lactic Acid (0.7-2.1) mmol/L Calcium 8.2 L (8.6-10.4) mg/dl Phosphorus 4.6 H (2.5-4.5) mg/dL Magnesium 2.2 (1.6-2.3) mg/dL Total Bilirubin 1.5 H (0.2-1.3) mg/dL AST 348 H (14-36) U/L ALT 119 H (9-52) U/L Alkaline Phosphatase 268 H (38-126) U/L Ammonia 70 H (9-33) umol/L Troponin I < 0.0120 (0.00-0.120) ng/mL NT-Pro-B Natriuret Pep 60.4 (0-900) pg/mL Total Protein 6.7 (6.3-8.3) g/dL Albumin 3.6 (3.5-5.0) g/dL Globulin 3.1 (2.2-3.9) gm/dL Albumin/Globulin Ratio 1.2 (1.0-2.1) Lipase (23-300) U/L Venous Blood Potassium (3.6-5.2) mmol/L Urine Color (YELLOW) Urine Clarity (Clear) Urine pH (5.0-8.0) Ur Specific [place] (1.003-1.030) Urine Protein (NEGATIVE) mg/dL Urine Glucose (UA) (Normal) mg/dL Urine Ketones (NEGATIVE) mg/dL Urine Blood (NEGATIVE) Urine Nitrate (NEGATIVE) Urine Bilirubin (NEGATIVE) Urine Urobilinogen (0.2-1.0) mg/dL Ur Leukocyte Esterase (Negative) Jesus/uL Urine WBC (Auto) (0-5) /hpf Urine RBC (Auto) (0-3) /hpf Ur Squamous Epith Cells (0-5) /hpf Amorphous Sediment (<OCC) /ul Urine Bacteria (<OCC) Hyaline Casts (0-2) /lpf Urine Opiates Screen (NEGATIVE) Urine Methadone Screen (NEGATIVE) Ur Barbiturates Screen (NEGATIVE) Ur Phencyclidine Scrn (NEGATIVE) Ur Amphetamines Screen (NEGATIVE) U Benzodiazepines Scrn (NEGATIVE) U Oth Cocaine Metabols (NEGATIVE) U Cannabinoids Screen (NEGATIVE) Alcohol, Quantitative 209 H (0-10) mg/dl Blood Type Antibody Screen 03/07/18 03/07/18 Range/Units 16:53 16:04 WBC 10.2 (4.8-10.8) K/uL RBC 2.77 L (3.80-5.20) Mil/uL Hgb 8.5 L (11.0-16.0) g/dL Hct 27.9 L (34.0-47.0) % MCV 100.4 H (81.0-99.0) fL MCH 30.6 (27.0-31.0) pg MCHC 30.5 L (33.0-37.0) g/dL RDW 22.3 H (11.5-14.5) % Plt Count 158 (130-400) K/uL MPV 9.6 (7.2-11.7) fL Neut % (Auto) 83.4 H (50.0-75.0) % Lymph % (Auto) 2.3 L (20.0-40.0) % Ford % (Auto) 13.7 H (0.0-10.0) % Eos % (Auto) 0.0 (0.0-4.0) % Baso % (Auto) 0.6 (0.0-2.0) % Neut # (Auto) 8.5 H (1.8-7.0) K/uL Lymph # (Auto) 0.2 L (1.0-4.3) K/uL Ford # (Auto) 1.4 H (0.0-0.8) K/uL Eos # (Auto) 0.0 (0.0-0.7) K/uL Baso # (Auto) 0.1 (0.0-0.2) K/uL Neutrophils % (Manual) 44 L (50-75) % Band Neutrophils % 40 H* (0-2) % Lymphocytes % (Manual) 2 L (20-40) % Monocytes % (Manual) 12 H (0-10) % Metamyelocytes % 2 H (0-0) % Platelet Estimate Normal (NORMAL) Large Platelets Present Giant Platelets Present Hypochromasia (manual) Slight Microcytosis (manual) Slight PT (9.7-12.2) SECONDS INR APTT (21-34) SECONDS D-Dimer, Quantitative (0-243) ng/mlDDU pO2 (30-55) mm/Hg VBG pH (7.32-7.43) VBG pCO2 (40-60) mmHg VBG HCO3 mmol/L VBG Total CO2 (22-28) mmol/L VBG O2 Sat (Calc) (40-65) % VBG Base Excess (0.0-2.0) mmol/L VBG Potassium (3.6-5.2) mmol/L Glucose (65-105) mg/dl Lactate (0.7-2.1) mmol/L FiO2 % Crit Value Called To Crit Value Called By Crit Value Read Back Blood Gas Notified Time Sodium (132-148) mmol/L Potassium (3.6-5.2) mmol/L Chloride (98-107) mmol/L Carbon Dioxide (22-30) mmol/L Anion Gap (10-20) BUN (7-17) mg/dL Creatinine (0.7-1.2) mg/dL Est GFR ( Amer) Est GFR (Non-Af Amer) POC Glucose (mg/dL) 111 H (65-110) mg/dL Random Glucose (65-105) mg/dL Lactic Acid (0.7-2.1) mmol/L Calcium (8.6-10.4) mg/dl Phosphorus (2.5-4.5) mg/dL Magnesium (1.6-2.3) mg/dL Total Bilirubin (0.2-1.3) mg/dL AST (14-36) U/L ALT (9-52) U/L Alkaline Phosphatase (38-126) U/L Ammonia (9-33) umol/L Troponin I (0.00-0.120) ng/mL NT-Pro-B Natriuret Pep (0-900) pg/mL Total Protein (6.3-8.3) g/dL Albumin (3.5-5.0) g/dL Globulin (2.2-3.9) gm/dL Albumin/Globulin Ratio (1.0-2.1) Lipase (23-300) U/L Venous Blood Potassium (3.6-5.2) mmol/L Urine Color (YELLOW) Urine Clarity (Clear) Urine pH (5.0-8.0) Ur Specific [place] (1.003-1.030) Urine Protein (NEGATIVE) mg/dL Urine Glucose (UA) (Normal) mg/dL Urine Ketones (NEGATIVE) mg/dL Urine Blood (NEGATIVE) Urine Nitrate (NEGATIVE) Urine Bilirubin (NEGATIVE) Urine Urobilinogen (0.2-1.0) mg/dL Ur Leukocyte Esterase (Negative) Jesus/uL Urine WBC (Auto) (0-5) /hpf Urine RBC (Auto) (0-3) /hpf Ur Squamous Epith Cells (0-5) /hpf Amorphous Sediment (<OCC) /ul Urine Bacteria (<OCC) Hyaline Casts (0-2) /lpf Urine Opiates Screen (NEGATIVE) Urine Methadone Screen (NEGATIVE) Ur Barbiturates Screen (NEGATIVE) Ur Phencyclidine Scrn (NEGATIVE) Ur Amphetamines Screen (NEGATIVE) U Benzodiazepines Scrn (NEGATIVE) U Oth Cocaine Metabols (NEGATIVE) U Cannabinoids Screen (NEGATIVE) Alcohol, Quantitative (0-10) mg/dl Blood Type Antibody Screen Laboratory Results - last 24 hr 03/07/18 03/07/18 03/07/18 16:04 16:53 16:53 WBC 10.2 RBC 2.77 L Hgb 8.5 L Hct 27.9 L MCV 100.4 H MCH 30.6 MCHC 30.5 L RDW 22.3 H Plt Count 158 MPV 9.6 Neut % (Auto) 83.4 H Lymph % (Auto) 2.3 L Ford % (Auto) 13.7 H Eos % (Auto) 0.0 Baso % (Auto) 0.6 Neut # (Auto) 8.5 H Lymph # (Auto) 0.2 L [place] # (Auto) 1.4 H Eos # (Auto) 0.0 Baso # (Auto) 0.1 Neutrophils % (Manual) 44 L Band Neutrophils % 40 H* Lymphocytes % (Manual) 2 L Monocytes % (Manual) 12 H Metamyelocytes % 2 H Platelet Estimate Normal Large Platelets Present Giant Platelets Present Hypochromasia (manual) Slight Microcytosis (manual) Slight PT 13.5 H INR 1.2 APTT 33 D-Dimer, Quantitative pO2 VBG pH VBG pCO2 VBG HCO3 VBG Total CO2 VBG O2 Sat (Calc) VBG Base Excess VBG Potassium Glucose Lactate FiO2 Crit Value Called To Crit Value Called By Crit Value Read Back Blood Gas Notified Time Sodium Potassium Chloride Carbon Dioxide Anion Gap BUN Creatinine Est GFR ( Amer) Est GFR (Non-Af Amer) POC Glucose (mg/dL) 111 H Random Glucose Lactic Acid Calcium Phosphorus Magnesium Total Bilirubin AST ALT Alkaline Phosphatase Ammonia Troponin I NT-Pro-B Natriuret Pep Total Protein Albumin Globulin Albumin/Globulin Ratio Lipase Venous Blood Potassium Urine Color Urine Clarity Urine pH Ur Specific [place] Urine Protein Urine Glucose (UA) Urine Ketones Urine Blood Urine Nitrate Urine Bilirubin Urine Urobilinogen Ur Leukocyte Esterase Urine WBC (Auto) Urine RBC (Auto) Ur Squamous Epith Cells Amorphous Sediment Urine Bacteria Hyaline Casts Urine Opiates Screen Urine Methadone Screen Ur Barbiturates Screen Ur Phencyclidine Scrn Ur Amphetamines Screen U Benzodiazepines Scrn U Oth Cocaine Metabols U Cannabinoids Screen Alcohol, Quantitative Blood Type Antibody Screen 03/07/18 03/07/18 03/07/18 16:53 16:53 16:53 WBC RBC Hgb Hct MCV MCH MCHC RDW Plt Count MPV Neut % (Auto) Lymph % (Auto) [place] % (Auto) Eos % (Auto) Baso % (Auto) Neut # (Auto) Lymph # (Auto) [place] # (Auto) Eos # (Auto) Baso # (Auto) Neutrophils % (Manual) Band Neutrophils % Lymphocytes % (Manual) Monocytes % (Manual) Metamyelocytes % Platelet Estimate Large Platelets Giant Platelets Hypochromasia (manual) Microcytosis (manual) PT INR APTT D-Dimer, Quantitative pO2 VBG pH VBG pCO2 VBG HCO3 VBG Total CO2 VBG O2 Sat (Calc) VBG Base Excess VBG Potassium Glucose Lactate FiO2 Crit Value Called To Crit Value Called By Crit Value Read Back Blood Gas Notified Time Sodium 135 Potassium 5.5 H Chloride 99 Carbon Dioxide < 5 L* Anion Gap 37 H BUN 16 Creatinine 1.5 H Est GFR ( Amer) 43 Est GFR (Non-Af Amer) 35 POC Glucose (mg/dL) Random Glucose 90 Lactic Acid Calcium 8.2 L Phosphorus 4.6 H Magnesium 2.2 Total Bilirubin 1.5 H AST 348 H ALT 119 H Alkaline Phosphatase 268 H Ammonia 70 H Troponin I < 0.0120 NT-Pro-B Natriuret Pep 60.4 Total Protein 6.7 Albumin 3.6 Globulin 3.1 Albumin/Globulin Ratio 1.2 Lipase 2519 H Venous Blood Potassium Urine Color Urine Clarity Urine pH Ur Specific [place] Urine Protein Urine Glucose (UA) Urine Ketones Urine Blood Urine Nitrate Urine Bilirubin Urine Urobilinogen Ur Leukocyte Esterase Urine WBC (Auto) Urine RBC (Auto) Ur Squamous Epith Cells Amorphous Sediment Urine Bacteria Hyaline Casts Urine Opiates Screen Urine Methadone Screen Ur Barbiturates Screen Ur Phencyclidine Scrn Ur Amphetamines Screen U Benzodiazepines Scrn U Oth Cocaine Metabols U Cannabinoids Screen Alcohol, Quantitative 209 H Blood Type Antibody Screen 03/07/18 03/07/18 03/07/18 17:07 17:40 17:40 WBC RBC Hgb Hct MCV MCH MCHC RDW Plt Count MPV Neut % (Auto) Lymph % (Auto) [place] % (Auto) Eos % (Auto) Baso % (Auto) Neut # (Auto) Lymph # (Auto) [place] # (Auto) Eos # (Auto) Baso # (Auto) Neutrophils % (Manual) Band Neutrophils % Lymphocytes % (Manual) Monocytes % (Manual) Metamyelocytes % Platelet Estimate Large Platelets Giant Platelets Hypochromasia (manual) Microcytosis (manual) PT INR APTT D-Dimer, Quantitative pO2 50 VBG pH 7.05 L* VBG pCO2 16 L* VBG HCO3 5.2 VBG Total CO2 4.9 L VBG O2 Sat (Calc) 74.9 H VBG Base Excess -24.2 L VBG Potassium 5.5 H Glucose 84 Lactate 8.6 H* FiO2 Crit Value Called To Paul neville rn Crit Value Called By Solange Crit Value Read Back Y Blood Gas Notified Time 1711 Sodium 134.0 Potassium Chloride 97.0 L Carbon Dioxide Anion Gap BUN Creatinine Est GFR ( Amer) Est GFR (Non-Af Amer) POC Glucose (mg/dL) Random Glucose Lactic Acid Calcium Phosphorus Magnesium Total Bilirubin AST ALT Alkaline Phosphatase Ammonia Troponin I NT-Pro-B Natriuret Pep Total Protein Albumin Globulin Albumin/Globulin Ratio Lipase Venous Blood Potassium 5.5 H Urine Color Charlene Urine Clarity Hazy Urine pH 5.0 Ur Specific [place] 1.018 Urine Protein 1+ H Urine Glucose (UA) Normal Urine Ketones Trace Urine Blood Negative Urine Nitrate Negative Urine Bilirubin 1+ H Urine Urobilinogen 4.0 H Ur Leukocyte Esterase Neg Urine WBC (Auto) 1 Urine RBC (Auto) 4 H Ur Squamous Epith Cells 2 Amorphous Sediment Moderate H Urine Bacteria Occ H Hyaline Casts 11-20 H Urine Opiates Screen Negative Urine Methadone Screen Negative Ur Barbiturates Screen Negative Ur Phencyclidine Scrn Negative Ur Amphetamines Screen Negative U Benzodiazepines Scrn Negative U Oth Cocaine Metabols Positive H U Cannabinoids Screen Negative Alcohol, Quantitative Blood Type Antibody Screen 03/07/18 03/07/18 03/07/18 19:25 22:28 22:31 WBC 6.3 RBC 2.78 L Hgb 8.5 L Hct 27.2 L MCV 98.0 D MCH 30.8 MCHC 31.4 L RDW 21.9 H Plt Count 141 MPV 9.7 Neut % (Auto) Lymph % (Auto) Ford % (Auto) Eos % (Auto) Baso % (Auto) Neut # (Auto) Lymph # (Auto) [place] # (Auto) Eos # (Auto) Baso # (Auto) Neutrophils % (Manual) Band Neutrophils % Lymphocytes % (Manual) Monocytes % (Manual) Metamyelocytes % Platelet Estimate Large Platelets Giant Platelets Hypochromasia (manual) Microcytosis (manual) PT INR APTT D-Dimer, Quantitative pO2 57 H 57 H VBG pH 7.07 L* 7.21 L VBG pCO2 16 L* 23 L VBG HCO3 5.9 11.4 VBG Total CO2 5.1 L 9.9 L VBG O2 Sat (Calc) 83.9 H 87.2 H VBG Base Excess -23.6 L -16.8 L VBG Potassium 5.0 5.1 Glucose 87 116 H Lactate 7.2 H* 6.8 H* FiO2 21.0 Crit Value Called To Dr tonja davila Crit Value Called By [facility] rt Crit Value Read Back Y Y Blood Gas Notified Time 1932 2230 Sodium 133.0 133.0 Potassium Chloride 100.0 97.0 L Carbon Dioxide Anion Gap BUN Creatinine Est GFR ( Amer) Est GFR (Non-Af Amer) POC Glucose (mg/dL) Random Glucose Lactic Acid Calcium Phosphorus Magnesium Total Bilirubin AST ALT Alkaline Phosphatase Ammonia Troponin I NT-Pro-B Natriuret Pep Total Protein Albumin Globulin Albumin/Globulin Ratio Lipase Venous Blood Potassium 5.0 5.1 Urine Color Urine Clarity Urine pH Ur Specific [place] Urine Protein Urine Glucose (UA) Urine Ketones Urine Blood Urine Nitrate Urine Bilirubin Urine Urobilinogen Ur Leukocyte Esterase Urine WBC (Auto) Urine RBC (Auto) Ur Squamous Epith Cells Amorphous Sediment Urine Bacteria Hyaline Casts Urine Opiates Screen Urine Methadone Screen Ur Barbiturates Screen Ur Phencyclidine Scrn Ur Amphetamines Screen U Benzodiazepines Scrn U Oth Cocaine Metabols U Cannabinoids Screen Alcohol, Quantitative Blood Type Antibody Screen 03/07/18 03/08/18 03/08/18 22:31 00:32 05:32 WBC RBC Hgb Hct MCV MCH MCHC RDW Plt Count MPV Neut % (Auto) Lymph % (Auto) [place] % (Auto) Eos % (Auto) Baso % (Auto) Neut # (Auto) Lymph # (Auto) [place] # (Auto) Eos # (Auto) Baso # (Auto) Neutrophils % (Manual) Band Neutrophils % Lymphocytes % (Manual) Monocytes % (Manual) Metamyelocytes % Platelet Estimate Large Platelets Giant Platelets Hypochromasia (manual) Microcytosis (manual) PT INR APTT D-Dimer, Quantitative pO2 30 VBG pH 7.35 VBG pCO2 37 L VBG HCO3 20.1 VBG Total CO2 21.5 L VBG O2 Sat (Calc) 54.4 VBG Base Excess -4.7 L VBG Potassium 5.3 H Glucose 180 H Lactate 7.1 H* FiO2 Crit Value Called To Rossana murillo rn Crit Value Called By Gloria doe rt Crit Value Read Back Y Blood Gas Notified Time 541 Sodium 135 133.0 Potassium 5.4 H Chloride 97 L 96.0 L Carbon Dioxide 8 L* D Anion Gap 34 H BUN 19 H Creatinine 1.4 H Est GFR ( Amer) 46 Est GFR (Non-Af Amer) 38 POC Glucose (mg/dL) 174 H Random Glucose 122 H Lactic Acid Calcium 8.5 L Phosphorus Magnesium Total Bilirubin AST ALT Alkaline Phosphatase Ammonia Troponin I NT-Pro-B Natriuret Pep Total Protein Albumin Globulin Albumin/Globulin Ratio Lipase Venous Blood Potassium 5.3 H Urine Color Urine Clarity Urine pH Ur Specific [place] Urine Protein Urine Glucose (UA) Urine Ketones Urine Blood Urine Nitrate Urine Bilirubin Urine Urobilinogen Ur Leukocyte Esterase Urine WBC (Auto) Urine RBC (Auto) Ur Squamous Epith Cells Amorphous Sediment Urine Bacteria Hyaline Casts Urine Opiates Screen Urine Methadone Screen Ur Barbiturates Screen Ur Phencyclidine Scrn Ur Amphetamines Screen U Benzodiazepines Scrn U Oth Cocaine Metabols U Cannabinoids Screen Alcohol, Quantitative Blood Type Antibody Screen 03/08/18 03/08/18 03/08/18 05:37 06:23 06:23 WBC RBC Hgb Hct MCV MCH MCHC RDW Plt Count MPV Neut % (Auto) Lymph % (Auto) [place] % (Auto) Eos % (Auto) Baso % (Auto) Neut # (Auto) Lymph # (Auto) [place] # (Auto) Eos # (Auto) Baso # (Auto) Neutrophils % (Manual) Band Neutrophils % Lymphocytes % (Manual) Monocytes % (Manual) Metamyelocytes % Platelet Estimate Large Platelets Giant Platelets Hypochromasia (manual) Microcytosis (manual) PT INR APTT D-Dimer, Quantitative pO2 VBG pH VBG pCO2 VBG HCO3 VBG Total CO2 VBG O2 Sat (Calc) VBG Base Excess VBG Potassium Glucose Lactate FiO2 Crit Value Called To Crit Value Called By Crit Value Read Back Blood Gas Notified Time Sodium 132 Potassium 5.5 H Chloride 94 L Carbon Dioxide 20 L Anion Gap 24 H BUN 24 H Creatinine 0.9 Est GFR ( Amer) > 60 Est GFR (Non-Af Amer) > 60 POC Glucose (mg/dL) 252 H Random Glucose 166 H Lactic Acid Calcium 8.1 L Phosphorus 2.7 Magnesium 1.8 Total Bilirubin 1.8 H AST 419 H D ALT 123 H Alkaline Phosphatase 276 H Ammonia 88 H D Troponin I NT-Pro-B Natriuret Pep Total Protein 6.5 Albumin 3.5 Globulin 3.0 Albumin/Globulin Ratio 1.2 Lipase Venous Blood Potassium Urine Color Urine Clarity Urine pH Ur Specific [place] Urine Protein Urine Glucose (UA) Urine Ketones Urine Blood Urine Nitrate Urine Bilirubin Urine Urobilinogen Ur Leukocyte Esterase Urine WBC (Auto) Urine RBC (Auto) Ur Squamous Epith Cells Amorphous Sediment Urine Bacteria Hyaline Casts Urine Opiates Screen Urine Methadone Screen Ur Barbiturates Screen Ur Phencyclidine Scrn Ur Amphetamines Screen U Benzodiazepines Scrn U Oth Cocaine Metabols U Cannabinoids Screen Alcohol, Quantitative < 10 Blood Type Antibody Screen 03/08/18 03/08/18 03/08/18 06:23 06:23 06:59 WBC 7.0 RBC 2.63 L Hgb 8.3 L Hct 25.3 L MCV 96.1 MCH 31.6 H MCHC 32.9 L RDW 22.0 H Plt Count 124 L MPV 10.4 Neut % (Auto) 82.0 H Lymph % (Auto) 10.0 L [place] % (Auto) 7.7 Eos % (Auto) 0.0 Baso % (Auto) 0.3 Neut # (Auto) 5.7 Lymph # (Auto) 0.7 L [place] # (Auto) 0.5 Eos # (Auto) 0.0 Baso # (Auto) 0.0 Neutrophils % (Manual) Band Neutrophils % Lymphocytes % (Manual) Monocytes % (Manual) Metamyelocytes % Platelet Estimate Large Platelets Giant Platelets Hypochromasia (manual) Microcytosis (manual) PT INR APTT D-Dimer, Quantitative pO2 VBG pH VBG pCO2 VBG HCO3 VBG Total CO2 VBG O2 Sat (Calc) VBG Base Excess VBG Potassium Glucose Lactate FiO2 Crit Value Called To Crit Value Called By Crit Value Read Back Blood Gas Notified Time Sodium Potassium Chloride Carbon Dioxide Anion Gap BUN Creatinine Est GFR ( Amer) Est GFR (Non-Af Amer) POC Glucose (mg/dL) Random Glucose Lactic Acid 6.7 H* Calcium Phosphorus Magnesium Total Bilirubin AST ALT Alkaline Phosphatase Ammonia Troponin I NT-Pro-B Natriuret Pep Total Protein Albumin Globulin Albumin/Globulin Ratio Lipase Venous Blood Potassium Urine Color Urine Clarity Urine pH Ur Specific [place] Urine Protein Urine Glucose (UA) Urine Ketones Urine Blood Urine Nitrate Urine Bilirubin Urine Urobilinogen Ur Leukocyte Esterase Urine WBC (Auto) Urine RBC (Auto) Ur Squamous Epith Cells Amorphous Sediment Urine Bacteria Hyaline Casts Urine Opiates Screen Urine Methadone Screen Ur Barbiturates Screen Ur Phencyclidine Scrn Ur Amphetamines Screen U Benzodiazepines Scrn U Oth Cocaine Metabols U Cannabinoids Screen Alcohol, Quantitative Blood Type O POSITIVE Antibody Screen Negative 03/08/18 03/08/18 11:15 11:15 WBC RBC Hgb Hct MCV MCH MCHC RDW Plt Count MPV Neut % (Auto) Lymph % (Auto) [place] % (Auto) Eos % (Auto) Baso % (Auto) Neut # (Auto) Lymph # (Auto) [place] # (Auto) Eos # (Auto) Baso # (Auto) Neutrophils % (Manual) Band Neutrophils % Lymphocytes % (Manual) Monocytes % (Manual) Metamyelocytes % Platelet Estimate Large Platelets Giant Platelets Hypochromasia (manual) Microcytosis (manual) PT INR APTT D-Dimer, Quantitative 2569 H pO2 VBG pH VBG pCO2 VBG HCO3 VBG Total CO2 VBG O2 Sat (Calc) VBG Base Excess VBG Potassium Glucose Lactate FiO2 Crit Value Called To Crit Value Called By Crit Value Read Back Blood Gas Notified Time Sodium Potassium Chloride Carbon Dioxide Anion Gap BUN Creatinine Est GFR ( Amer) Est GFR (Non-Af Amer) POC Glucose (mg/dL) Random Glucose Lactic Acid 4.3 H* Calcium Phosphorus Magnesium Total Bilirubin AST ALT Alkaline Phosphatase Ammonia Troponin I NT-Pro-B Natriuret Pep Total Protein Albumin Globulin Albumin/Globulin Ratio Lipase Venous Blood Potassium Urine Color Urine Clarity Urine pH Ur Specific [place] Urine Protein Urine Glucose (UA) Urine Ketones Urine Blood Urine Nitrate Urine Bilirubin Urine Urobilinogen Ur Leukocyte Esterase Urine WBC (Auto) Urine RBC (Auto) Ur Squamous Epith Cells Amorphous Sediment Urine Bacteria Hyaline Casts Urine Opiates Screen Urine Methadone Screen Ur Barbiturates Screen Ur Phencyclidine Scrn Ur Amphetamines Screen U Benzodiazepines Scrn U Oth Cocaine Metabols U Cannabinoids Screen Alcohol, Quantitative Blood Type Antibody Screen EKG/Cardiology Studies: Cardiology / EKG Studies 03/07/18 16:40 ELECTROCARDIOGRAM Stat Comment: Mode Of Transportation: Reason For Exam: Sepsis Patient Fingerstick Blood Sugar Results: 111 Review of Systems - Review of Systems All systems: reviewed and no additional remarkable complaints except (HPI) Critical Care Progress Note - Nutrition Nutrition: Nutrition Category Date Time Status NPO Diet [DIET] Diets 03/08/18 Breakfast Active Assessment/Plan - Assessment and Plan (Free Text) Assessment: 62 year old female with history of asthma, HTN, HLD, chronic alcohol abuse who presents with 4 day history of progressively abdominal pain. ICU consulted for Elevated lactate, metabolic acidosis, bandemia, and elevated lipase. Neuro: -Alert and oriented x3 -Alcohol elevated at 209 -Ammonia 70 -Started on lactulose daily Tox: positive for cocaine - Cont banana bag Cv -Hemodynamically stable - Maintain MAP > 65 - Trop x1 neg - Follow up D dimer Pulm -CXR: NAD, moderate pulmonary venous congestion -Maintain spo2 >92% -Nasal cannula as needed GI - NPO - Complete abdominal US ordered r/o PVT - Elevated Lipase 2519 - NS @ 250ml x 1 -CT abdomen/pelvis with IV contrast: Enterocolitis, partial gastrectomy with gastrojejunal anastomosis, no obstruction, enlarged fatty liver, cholecystectomy and hysterectomy. -Pain control -Surgery Dr. Barrett consulted - Follow up D dimer to evaluate inflammation vs ischemia - Zofran PRN - GI ppx with Protonix ID -Afebrile -Elevated lactate dec to 4.3 vanc x 1 stat -Cont Cefepime in ED and started flagyl -White count 7 with bands of 40 -Follow up septic workup Renal -BUN/Cr 24/.9 -Continue to monitor electrolytes - Monitor I and O Endo -Maintain euglycemia Heme -Monitor H/H -Continue to monitor Case and plan was reviewed and discussed with Dr Rainey. <Ivana Rainey - Last Filed: 03/08/18 14:34> CCU Objective - Vital Signs / Intake & Output Vital Signs (Last 4 hours): Vital Signs Temp Pulse Resp BP Pulse Ox 03/08/18 12:32 110 H 15 146/65 03/08/18 12:02 100 H 18 157/74 H 03/08/18 12:00 98.5 F 100 H 20 100 03/08/18 11:31 100 H 19 142/74 100 03/08/18 11:21 106 H 22 132/71 97 03/08/18 11:00 110 H 25 H 03/08/18 10:31 108 H 21 145/73 100 Intake and Output (Last 8hrs): Intake & Output 03/07/18 03/08/18 03/08/18 22:59 06:59 14:59 Intake Total 120 1010 2120 Output Total 0 200 Balance 254 210 8351 Weight 167 lb 3.2 oz 167 lb 3.2 oz Intake: Intake, IV Amount 120 1010 2120 Left Wrist 40 320 240 Lt wrist y-port 50 Right Hand 80 640 630 Rt Hand y-port 1250 Oral 0 0 Output: Urine 0 200 Urine, Voided 0 200 Other: # Bowel Movements 1 1 - Medications Active Medications: Active Medications Generic Name Dose Route Start Last Admin Trade Name Freq PRN Reason Stop Dose Admin Heparin Sodium (Porcine) 5,000 units 03/07/18 22:00 03/08/18 05:53 Heparin SC 5,000 units Q8 DOYLE Administration Cefepime HCl 1 gm in 50 mls @ 100 mls/hr 03/08/18 06:00 03/08/18 05:53 Maxipime Iv 1 Gm Premix IVPB 100 mls/hr Q12H DOYLE Administration Protocol Folic Acid 1 mg/ Thiamine HCl 1,011.2 mls @ 40 mls/hr 03/07/18 20:15 22:48 100 mg/ Multivitamins/Vitamin IV 40 mls/hr C 10 ml/ Dextrose .Q24H DOYLE Administration Dextrose/Sodium Chloride 1,000 mls @ 100 mls/hr 03/08/18 07:15 03/08/18 07:54 Dextrose 5%/0.45% Ns 1000 Ml IV 100 mls/hr .Q10H DOYLE Administration Metronidazole 500 mg in 100 mls @ 100 mls/hr 03/08/18 14:00 Flagyl IVPB Q8H DOYLE Protocol Sodium Chloride 1,000 mls @ 250 mls/hr 03/08/18 10:46 03/08/18 12:16 Sodium Chloride 0.9% IV 03/08/18 14:45 250 mls/hr .Q4H ONE Administration Insulin Human Regular 0 unit 03/08/18 00:00 03/08/18 11:55 Novolin R SC Not Given Q6 DOYLE Protocol Lactulose 200 gm 03/08/18 10:00 03/08/18 11:56 Generlac CO 200 gm DAILY DOYLE Administration Neomycin Sulfate 500 mg 03/08/18 12:00 Neomycin Tab PO Q6H DOYLE Ondansetron HCl 4 mg 03/08/18 00:15 03/08/18 00:26 Zofran Inj IVP 4 mg Q6H PRN Administration Nausea/Vomiting Pantoprazole Sodium 40 mg 03/08/18 10:00 03/08/18 09:13 Protonix Inj IVP 40 mg DAILY DOYLE Administration - Patient Studies Lab Studies: Lab Studies 03/08/18 03/08/18 03/08/18 Range/Units 13:26 11:54 11:15 WBC (4.8-10.8) K/uL RBC (3.80-5.20) Mil/uL Hgb (11.0-16.0) g/dL Hct (34.0-47.0) % MCV (81.0-99.0) fL MCH (27.0-31.0) pg MCHC (33.0-37.0) g/dL RDW (11.5-14.5) % Plt Count (130-400) K/uL MPV (7.2-11.7) fL Neut % (Auto) (50.0-75.0) % Lymph % (Auto) (20.0-40.0) % [place] % (Auto) (0.0-10.0) % Eos % (Auto) (0.0-4.0) % Baso % (Auto) (0.0-2.0) % Neut # (Auto) (1.8-7.0) K/uL Lymph # (Auto) (1.0-4.3) K/uL [place] # (Auto) (0.0-0.8) K/uL Eos # (Auto) (0.0-0.7) K/uL Baso # (Auto) (0.0-0.2) K/uL Neutrophils % (Manual) (50-75) % Band Neutrophils % (0-2) % Lymphocytes % (Manual) (20-40) % Monocytes % (Manual) (0-10) % Metamyelocytes % (0-0) % Platelet Estimate (NORMAL) Large Platelets Giant Platelets Hypochromasia (manual) Microcytosis (manual) PT (9.7-12.2) SECONDS INR APTT (21-34) SECONDS D-Dimer, Quantitative 2569 H (0-243) ng/mlDDU pO2 (30-55) mm/Hg VBG pH (7.32-7.43) VBG pCO2 (40-60) mmHg VBG HCO3 mmol/L VBG Total CO2 (22-28) mmol/L VBG O2 Sat (Calc) (40-65) % VBG Base Excess (0.0-2.0) mmol/L VBG Potassium (3.6-5.2) mmol/L Glucose (65-105) mg/dl Lactate (0.7-2.1) mmol/L FiO2 % Crit Value Called To Crit Value Called By Crit Value Read Back Blood Gas Notified Time Sodium (132-148) mmol/L Potassium (3.6-5.2) mmol/L Chloride (98-107) mmol/L Carbon Dioxide (22-30) mmol/L Anion Gap (10-20) BUN (7-17) mg/dL Creatinine (0.7-1.2) mg/dL Est GFR ( Amer) Est GFR (Non-Af Amer) POC Glucose (mg/dL) 198 H (65-110) mg/dL Random Glucose (65-105) mg/dL Lactic Acid (0.7-2.1) mmol/L Calcium (8.6-10.4) mg/dl Phosphorus (2.5-4.5) mg/dL Magnesium (1.6-2.3) mg/dL Total Bilirubin (0.2-1.3) mg/dL AST (14-36) U/L ALT (9-52) U/L Alkaline Phosphatase (38-126) U/L Ammonia (9-33) umol/L Troponin I (0.00-0.120) ng/mL NT-Pro-B Natriuret Pep (0-900) pg/mL Total Protein (6.3-8.3) g/dL Albumin (3.5-5.0) g/dL Globulin (2.2-3.9) gm/dL Albumin/Globulin Ratio (1.0-2.1) Lipase (23-300) U/L Venous Blood Potassium (3.6-5.2) mmol/L Urine Color (YELLOW) Urine Clarity (Clear) Urine pH (5.0-8.0) Ur Specific [place] (1.003-1.030) Urine Protein (NEGATIVE) mg/dL Urine Glucose (UA) (Normal) mg/dL Urine Ketones (NEGATIVE) mg/dL Urine Blood (NEGATIVE) Urine Nitrate (NEGATIVE) Urine Bilirubin (NEGATIVE) Urine Urobilinogen (0.2-1.0) mg/dL Ur Leukocyte Esterase (Negative) Jesus/uL Urine WBC (Auto) (0-5) /hpf Urine RBC (Auto) (0-3) /hpf Ur Squamous Epith Cells (0-5) /hpf Amorphous Sediment (<OCC) /ul Urine Bacteria (<OCC) Hyaline Casts (0-2) /lpf Stool Occult Blood Negative (NEGATIVE) Urine Opiates Screen (NEGATIVE) Urine Methadone Screen (NEGATIVE) Ur Barbiturates Screen (NEGATIVE) Ur Phencyclidine Scrn (NEGATIVE) Ur Amphetamines Screen (NEGATIVE) U Benzodiazepines Scrn (NEGATIVE) U Oth Cocaine Metabols (NEGATIVE) U Cannabinoids Screen (NEGATIVE) Alcohol, Quantitative (0-10) mg/dl Blood Type Antibody Screen 03/08/18 03/08/18 03/08/18 Range/Units 11:15 06:59 06:23 WBC (4.8-10.8) K/uL RBC (3.80-5.20) Mil/uL Hgb (11.0-16.0) g/dL Hct (34.0-47.0) % MCV (81.0-99.0) fL MCH (27.0-31.0) pg MCHC (33.0-37.0) g/dL RDW (11.5-14.5) % Plt Count (130-400) K/uL MPV (7.2-11.7) fL Neut % (Auto) (50.0-75.0) % Lymph % (Auto) (20.0-40.0) % Ford % (Auto) (0.0-10.0) % Eos % (Auto) (0.0-4.0) % Baso % (Auto) (0.0-2.0) % Neut # (Auto) (1.8-7.0) K/uL Lymph # (Auto) (1.0-4.3) K/uL [place] # (Auto) (0.0-0.8) K/uL Eos # (Auto) (0.0-0.7) K/uL Baso # (Auto) (0.0-0.2) K/uL Neutrophils % (Manual) (50-75) % Band Neutrophils % (0-2) % Lymphocytes % (Manual) (20-40) % Monocytes % (Manual) (0-10) % Metamyelocytes % (0-0) % Platelet Estimate (NORMAL) Large Platelets Giant Platelets Hypochromasia (manual) Microcytosis (manual) PT (9.7-12.2) SECONDS INR APTT (21-34) SECONDS D-Dimer, Quantitative (0-243) ng/mlDDU pO2 (30-55) mm/Hg VBG pH (7.32-7.43) VBG pCO2 (40-60) mmHg VBG HCO3 mmol/L VBG Total CO2 (22-28) mmol/L VBG O2 Sat (Calc) (40-65) % VBG Base Excess (0.0-2.0) mmol/L VBG Potassium (3.6-5.2) mmol/L Glucose (65-105) mg/dl Lactate (0.7-2.1) mmol/L FiO2 % Crit Value Called To Crit Value Called By Crit Value Read Back Blood Gas Notified Time Sodium (132-148) mmol/L Potassium (3.6-5.2) mmol/L Chloride (98-107) mmol/L Carbon Dioxide (22-30) mmol/L Anion Gap (10-20) BUN (7-17) mg/dL Creatinine (0.7-1.2) mg/dL Est GFR ( Amer) Est GFR (Non-Af Amer) POC Glucose (mg/dL) (65-110) mg/dL Random Glucose (65-105) mg/dL Lactic Acid 4.3 H* 6.7 H* (0.7-2.1) mmol/L Calcium (8.6-10.4) mg/dl Phosphorus (2.5-4.5) mg/dL Magnesium (1.6-2.3) mg/dL Total Bilirubin (0.2-1.3) mg/dL AST (14-36) U/L ALT (9-52) U/L Alkaline Phosphatase (38-126) U/L Ammonia (9-33) umol/L Troponin I (0.00-0.120) ng/mL NT-Pro-B Natriuret Pep (0-900) pg/mL Total Protein (6.3-8.3) g/dL Albumin (3.5-5.0) g/dL Globulin (2.2-3.9) gm/dL Albumin/Globulin Ratio (1.0-2.1) Lipase (23-300) U/L Venous Blood Potassium (3.6-5.2) mmol/L Urine Color (YELLOW) Urine Clarity (Clear) Urine pH (5.0-8.0) Ur Specific [place] (1.003-1.030) Urine Protein (NEGATIVE) mg/dL Urine Glucose (UA) (Normal) mg/dL Urine Ketones (NEGATIVE) mg/dL Urine Blood (NEGATIVE) Urine Nitrate (NEGATIVE) Urine Bilirubin (NEGATIVE) Urine Urobilinogen (0.2-1.0) mg/dL Ur Leukocyte Esterase (Negative) Jesus/uL Urine WBC (Auto) (0-5) /hpf Urine RBC (Auto) (0-3) /hpf Ur Squamous Epith Cells (0-5) /hpf Amorphous Sediment (<OCC) /ul Urine Bacteria (<OCC) Hyaline Casts (0-2) /lpf Stool Occult Blood (NEGATIVE) Urine Opiates Screen (NEGATIVE) Urine Methadone Screen (NEGATIVE) Ur Barbiturates Screen (NEGATIVE) Ur Phencyclidine Scrn (NEGATIVE) Ur Amphetamines Screen (NEGATIVE) U Benzodiazepines Scrn (NEGATIVE) U Oth Cocaine Metabols (NEGATIVE) U Cannabinoids Screen (NEGATIVE) Alcohol, Quantitative (0-10) mg/dl Blood Type O POSITIVE Antibody Screen Negative 03/08/18 03/08/18 03/08/18 Range/Units 06:23 06:23 06:23 WBC 7.0 (4.8-10.8) K/uL RBC 2.63 L (3.80-5.20) Mil/uL Hgb 8.3 L (11.0-16.0) g/dL Hct 25.3 L (34.0-47.0) % MCV 96.1 (81.0-99.0) fL MCH 31.6 H (27.0-31.0) pg MCHC 32.9 L (33.0-37.0) g/dL RDW 22.0 H (11.5-14.5) % Plt Count 124 L (130-400) K/uL MPV 10.4 (7.2-11.7) fL Neut % (Auto) 82.0 H (50.0-75.0) % Lymph % (Auto) 10.0 L (20.0-40.0) % Ford % (Auto) 7.7 (0.0-10.0) % Eos % (Auto) 0.0 (0.0-4.0) % Baso % (Auto) 0.3 (0.0-2.0) % Neut # (Auto) 5.7 (1.8-7.0) K/uL Lymph # (Auto) 0.7 L (1.0-4.3) K/uL [place] # (Auto) 0.5 (0.0-0.8) K/uL Eos # (Auto) 0.0 (0.0-0.7) K/uL Baso # (Auto) 0.0 (0.0-0.2) K/uL Neutrophils % (Manual) (50-75) % Band Neutrophils % (0-2) % Lymphocytes % (Manual) (20-40) % Monocytes % (Manual) (0-10) % Metamyelocytes % (0-0) % Platelet Estimate (NORMAL) Large Platelets Giant Platelets Hypochromasia (manual) Microcytosis (manual) PT (9.7-12.2) SECONDS INR APTT (21-34) SECONDS D-Dimer, Quantitative (0-243) ng/mlDDU pO2 (30-55) mm/Hg VBG pH (7.32-7.43) VBG pCO2 (40-60) mmHg VBG HCO3 mmol/L VBG Total CO2 (22-28) mmol/L VBG O2 Sat (Calc) (40-65) % VBG Base Excess (0.0-2.0) mmol/L VBG Potassium (3.6-5.2) mmol/L Glucose (65-105) mg/dl Lactate (0.7-2.1) mmol/L FiO2 % Crit Value Called To Crit Value Called By Crit Value Read Back Blood Gas Notified Time Sodium 132 (132-148) mmol/L Potassium 5.5 H (3.6-5.2) mmol/L Chloride 94 L (98-107) mmol/L Carbon Dioxide 20 L (22-30) mmol/L Anion Gap 24 H (10-20) BUN 24 H (7-17) mg/dL Creatinine 0.9 (0.7-1.2) mg/dL Est GFR ( Amer) > 60 Est GFR (Non-Af Amer) > 60 POC Glucose (mg/dL) (65-110) mg/dL Random Glucose 166 H (65-105) mg/dL Lactic Acid (0.7-2.1) mmol/L Calcium 8.1 L (8.6-10.4) mg/dl Phosphorus 2.7 (2.5-4.5) mg/dL Magnesium 1.8 (1.6-2.3) mg/dL Total Bilirubin 1.8 H (0.2-1.3) mg/dL AST 419 H D (14-36) U/L ALT 123 H (9-52) U/L Alkaline Phosphatase 276 H (38-126) U/L Ammonia 88 H D (9-33) umol/L Troponin I (0.00-0.120) ng/mL NT-Pro-B Natriuret Pep (0-900) pg/mL Total Protein 6.5 (6.3-8.3) g/dL Albumin 3.5 (3.5-5.0) g/dL Globulin 3.0 (2.2-3.9) gm/dL Albumin/Globulin Ratio 1.2 (1.0-2.1) Lipase (23-300) U/L Venous Blood Potassium (3.6-5.2) mmol/L Urine Color (YELLOW) Urine Clarity (Clear) Urine pH (5.0-8.0) Ur Specific [place] (1.003-1.030) Urine Protein (NEGATIVE) mg/dL Urine Glucose (UA) (Normal) mg/dL Urine Ketones (NEGATIVE) mg/dL Urine Blood (NEGATIVE) Urine Nitrate (NEGATIVE) Urine Bilirubin (NEGATIVE) Urine Urobilinogen (0.2-1.0) mg/dL Ur Leukocyte Esterase (Negative) Jesus/uL Urine WBC (Auto) (0-5) /hpf Urine RBC (Auto) (0-3) /hpf Ur Squamous Epith Cells (0-5) /hpf Amorphous Sediment (<OCC) /ul Urine Bacteria (<OCC) Hyaline Casts (0-2) /lpf Stool Occult Blood (NEGATIVE) Urine Opiates Screen (NEGATIVE) Urine Methadone Screen (NEGATIVE) Ur Barbiturates Screen (NEGATIVE) Ur Phencyclidine Scrn (NEGATIVE) Ur Amphetamines Screen (NEGATIVE) U Benzodiazepines Scrn (NEGATIVE) U Oth Cocaine Metabols (NEGATIVE) U Cannabinoids Screen (NEGATIVE) Alcohol, Quantitative < 10 (0-10) mg/dl Blood Type Antibody Screen 03/08/18 03/08/18 03/08/18 Range/Units 05:37 05:32 00:32 WBC (4.8-10.8) K/uL RBC (3.80-5.20) Mil/uL Hgb (11.0-16.0) g/dL Hct (34.0-47.0) % MCV (81.0-99.0) fL MCH (27.0-31.0) pg MCHC (33.0-37.0) g/dL RDW (11.5-14.5) % Plt Count (130-400) K/uL MPV (7.2-11.7) fL Neut % (Auto) (50.0-75.0) % Lymph % (Auto) (20.0-40.0) % [place] % (Auto) (0.0-10.0) % Eos % (Auto) (0.0-4.0) % Baso % (Auto) (0.0-2.0) % Neut # (Auto) (1.8-7.0) K/uL Lymph # (Auto) (1.0-4.3) K/uL [place] # (Auto) (0.0-0.8) K/uL Eos # (Auto) (0.0-0.7) K/uL Baso # (Auto) (0.0-0.2) K/uL Neutrophils % (Manual) (50-75) % Band Neutrophils % (0-2) % Lymphocytes % (Manual) (20-40) % Monocytes % (Manual) (0-10) % Metamyelocytes % (0-0) % Platelet Estimate (NORMAL) Large Platelets Giant Platelets Hypochromasia (manual) Microcytosis (manual) PT (9.7-12.2) SECONDS INR APTT (21-34) SECONDS D-Dimer, Quantitative (0-243) ng/mlDDU pO2 30 (30-55) mm/Hg VBG pH 7.35 (7.32-7.43) VBG pCO2 37 L (40-60) mmHg VBG HCO3 20.1 mmol/L VBG Total CO2 21.5 L (22-28) mmol/L VBG O2 Sat (Calc) 54.4 (40-65) % VBG Base Excess -4.7 L (0.0-2.0) mmol/L VBG Potassium 5.3 H (3.6-5.2) mmol/L Glucose 180 H (65-105) mg/dl Lactate 7.1 H* (0.7-2.1) mmol/L FiO2 % Crit Value Called To Rossana murillo rn Crit Value Called By Gloria doe rt Crit Value Read Back Y Blood Gas Notified Time 541 Sodium 133.0 (132-148) mmol/L Potassium (3.6-5.2) mmol/L Chloride 96.0 L (98-107) mmol/L Carbon Dioxide (22-30) mmol/L Anion Gap (10-20) BUN (7-17) mg/dL Creatinine (0.7-1.2) mg/dL Est GFR ( Amer) Est GFR (Non-Af Amer) POC Glucose (mg/dL) 252 H 174 H (65-110) mg/dL Random Glucose (65-105) mg/dL Lactic Acid (0.7-2.1) mmol/L Calcium (8.6-10.4) mg/dl Phosphorus (2.5-4.5) mg/dL Magnesium (1.6-2.3) mg/dL Total Bilirubin (0.2-1.3) mg/dL AST (14-36) U/L ALT (9-52) U/L Alkaline Phosphatase (38-126) U/L Ammonia (9-33) umol/L Troponin I (0.00-0.120) ng/mL NT-Pro-B Natriuret Pep (0-900) pg/mL Total Protein (6.3-8.3) g/dL Albumin (3.5-5.0) g/dL Globulin (2.2-3.9) gm/dL Albumin/Globulin Ratio (1.0-2.1) Lipase (23-300) U/L Venous Blood Potassium 5.3 H (3.6-5.2) mmol/L Urine Color (YELLOW) Urine Clarity (Clear) Urine pH (5.0-8.0) Ur Specific [place] (1.003-1.030) Urine Protein (NEGATIVE) mg/dL Urine Glucose (UA) (Normal) mg/dL Urine Ketones (NEGATIVE) mg/dL Urine Blood (NEGATIVE) Urine Nitrate (NEGATIVE) Urine Bilirubin (NEGATIVE) Urine Urobilinogen (0.2-1.0) mg/dL Ur Leukocyte Esterase (Negative) Jesus/uL Urine WBC (Auto) (0-5) /hpf Urine RBC (Auto) (0-3) /hpf Ur Squamous Epith Cells (0-5) /hpf Amorphous Sediment (<OCC) /ul Urine Bacteria (<OCC) Hyaline Casts (0-2) /lpf Stool Occult Blood (NEGATIVE) Urine Opiates Screen (NEGATIVE) Urine Methadone Screen (NEGATIVE) Ur Barbiturates Screen (NEGATIVE) Ur Phencyclidine Scrn (NEGATIVE) Ur Amphetamines Screen (NEGATIVE) U Benzodiazepines Scrn (NEGATIVE) U Oth Cocaine Metabols (NEGATIVE) U Cannabinoids Screen (NEGATIVE) Alcohol, Quantitative (0-10) mg/dl Blood Type Antibody Screen 03/07/18 03/07/18 03/07/18 Range/Units 22:31 22:31 22:28 WBC 6.3 (4.8-10.8) K/uL RBC 2.78 L (3.80-5.20) Mil/uL Hgb 8.5 L (11.0-16.0) g/dL Hct 27.2 L (34.0-47.0) % MCV 98.0 D (81.0-99.0) fL MCH 30.8 (27.0-31.0) pg MCHC 31.4 L (33.0-37.0) g/dL RDW 21.9 H (11.5-14.5) % Plt Count 141 (130-400) K/uL MPV 9.7 (7.2-11.7) fL Neut % (Auto) (50.0-75.0) % Lymph % (Auto) (20.0-40.0) % [place] % (Auto) (0.0-10.0) % Eos % (Auto) (0.0-4.0) % Baso % (Auto) (0.0-2.0) % Neut # (Auto) (1.8-7.0) K/uL Lymph # (Auto) (1.0-4.3) K/uL [place] # (Auto) (0.0-0.8) K/uL Eos # (Auto) (0.0-0.7) K/uL Baso # (Auto) (0.0-0.2) K/uL Neutrophils % (Manual) (50-75) % Band Neutrophils % (0-2) % Lymphocytes % (Manual) (20-40) % Monocytes % (Manual) (0-10) % Metamyelocytes % (0-0) % Platelet Estimate (NORMAL) Large Platelets Giant Platelets Hypochromasia (manual) Microcytosis (manual) PT (9.7-12.2) SECONDS INR APTT (21-34) SECONDS D-Dimer, Quantitative (0-243) ng/mlDDU pO2 57 H (30-55) mm/Hg VBG pH 7.21 L (7.32-7.43) VBG pCO2 23 L (40-60) mmHg VBG HCO3 11.4 mmol/L VBG Total CO2 9.9 L (22-28) mmol/L VBG O2 Sat (Calc) 87.2 H (40-65) % VBG Base Excess -16.8 L (0.0-2.0) mmol/L VBG Potassium 5.1 (3.6-5.2) mmol/L Glucose 116 H (65-105) mg/dl Lactate 6.8 H* (0.7-2.1) mmol/L FiO2 % Crit Value Called To Dr davila Crit Value Called By Dale anne Crit Value Read Back Y Blood Gas Notified Time 2231 Sodium 135 133.0 (132-148) mmol/L Potassium 5.4 H (3.6-5.2) mmol/L Chloride 97 L 97.0 L (98-107) mmol/L Carbon Dioxide 8 L* D (22-30) mmol/L Anion Gap 34 H (10-20) BUN 19 H (7-17) mg/dL Creatinine 1.4 H (0.7-1.2) mg/dL Est GFR ( Amer) 46 Est GFR (Non-Af Amer) 38 POC Glucose (mg/dL) (65-110) mg/dL Random Glucose 122 H (65-105) mg/dL Lactic Acid (0.7-2.1) mmol/L Calcium 8.5 L (8.6-10.4) mg/dl Phosphorus (2.5-4.5) mg/dL Magnesium (1.6-2.3) mg/dL Total Bilirubin (0.2-1.3) mg/dL AST (14-36) U/L ALT (9-52) U/L Alkaline Phosphatase (38-126) U/L Ammonia (9-33) umol/L Troponin I (0.00-0.120) ng/mL NT-Pro-B Natriuret Pep (0-900) pg/mL Total Protein (6.3-8.3) g/dL Albumin (3.5-5.0) g/dL Globulin (2.2-3.9) gm/dL Albumin/Globulin Ratio (1.0-2.1) Lipase (23-300) U/L Venous Blood Potassium 5.1 (3.6-5.2) mmol/L Urine Color (YELLOW) Urine Clarity (Clear) Urine pH (5.0-8.0) Ur Specific [place] (1.003-1.030) Urine Protein (NEGATIVE) mg/dL Urine Glucose (UA) (Normal) mg/dL Urine Ketones (NEGATIVE) mg/dL Urine Blood (NEGATIVE) Urine Nitrate (NEGATIVE) Urine Bilirubin (NEGATIVE) Urine Urobilinogen (0.2-1.0) mg/dL Ur Leukocyte Esterase (Negative) Jesus/uL Urine WBC (Auto) (0-5) /hpf Urine RBC (Auto) (0-3) /hpf Ur Squamous Epith Cells (0-5) /hpf Amorphous Sediment (<OCC) /ul Urine Bacteria (<OCC) Hyaline Casts (0-2) /lpf Stool Occult Blood (NEGATIVE) Urine Opiates Screen (NEGATIVE) Urine Methadone Screen (NEGATIVE) Ur Barbiturates Screen (NEGATIVE) Ur Phencyclidine Scrn (NEGATIVE) Ur Amphetamines Screen (NEGATIVE) U Benzodiazepines Scrn (NEGATIVE) U Oth Cocaine Metabols (NEGATIVE) U Cannabinoids Screen (NEGATIVE) Alcohol, Quantitative (0-10) mg/dl Blood Type Antibody Screen 03/07/18 03/07/18 03/07/18 Range/Units 19:25 17:40 17:40 WBC (4.8-10.8) K/uL RBC (3.80-5.20) Mil/uL Hgb (11.0-16.0) g/dL Hct (34.0-47.0) % MCV (81.0-99.0) fL MCH (27.0-31.0) pg MCHC (33.0-37.0) g/dL RDW (11.5-14.5) % Plt Count (130-400) K/uL MPV (7.2-11.7) fL Neut % (Auto) (50.0-75.0) % Lymph % (Auto) (20.0-40.0) % [place] % (Auto) (0.0-10.0) % Eos % (Auto) (0.0-4.0) % Baso % (Auto) (0.0-2.0) % Neut # (Auto) (1.8-7.0) K/uL Lymph # (Auto) (1.0-4.3) K/uL [place] # (Auto) (0.0-0.8) K/uL Eos # (Auto) (0.0-0.7) K/uL Baso # (Auto) (0.0-0.2) K/uL Neutrophils % (Manual) (50-75) % Band Neutrophils % (0-2) % Lymphocytes % (Manual) (20-40) % Monocytes % (Manual) (0-10) % Metamyelocytes % (0-0) % Platelet Estimate (NORMAL) Large Platelets Giant Platelets Hypochromasia (manual) Microcytosis (manual) PT (9.7-12.2) SECONDS INR APTT (21-34) SECONDS D-Dimer, Quantitative (0-243) ng/mlDDU pO2 57 H (30-55) mm/Hg VBG pH 7.07 L* (7.32-7.43) VBG pCO2 16 L* (40-60) mmHg VBG HCO3 5.9 mmol/L VBG Total CO2 5.1 L (22-28) mmol/L VBG O2 Sat (Calc) 83.9 H (40-65) % VBG Base Excess -23.6 L (0.0-2.0) mmol/L VBG Potassium 5.0 (3.6-5.2) mmol/L Glucose 87 (65-105) mg/dl Lactate 7.2 H* (0.7-2.1) mmol/L FiO2 21.0 % Crit Value Called To Dr evangelista Crit Value Called By [facility] Crit Value Read Back Y Blood Gas Notified Time 1932 Sodium 133.0 (132-148) mmol/L Potassium (3.6-5.2) mmol/L Chloride 100.0 (98-107) mmol/L Carbon Dioxide (22-30) mmol/L Anion Gap (10-20) BUN (7-17) mg/dL Creatinine (0.7-1.2) mg/dL Est GFR ( Amer) Est GFR (Non-Af Amer) POC Glucose (mg/dL) (65-110) mg/dL Random Glucose (65-105) mg/dL Lactic Acid (0.7-2.1) mmol/L Calcium (8.6-10.4) mg/dl Phosphorus (2.5-4.5) mg/dL Magnesium (1.6-2.3) mg/dL Total Bilirubin (0.2-1.3) mg/dL AST (14-36) U/L ALT (9-52) U/L Alkaline Phosphatase (38-126) U/L Ammonia (9-33) umol/L Troponin I (0.00-0.120) ng/mL NT-Pro-B Natriuret Pep (0-900) pg/mL Total Protein (6.3-8.3) g/dL Albumin (3.5-5.0) g/dL Globulin (2.2-3.9) gm/dL Albumin/Globulin Ratio (1.0-2.1) Lipase (23-300) U/L Venous Blood Potassium 5.0 (3.6-5.2) mmol/L Urine Color Charlene (YELLOW) Urine Clarity Hazy (Clear) Urine pH 5.0 (5.0-8.0) Ur Specific [place] 1.018 (1.003-1.030) Urine Protein 1+ H (NEGATIVE) mg/dL Urine Glucose (UA) Normal (Normal) mg/dL Urine Ketones Trace (NEGATIVE) mg/dL Urine Blood Negative (NEGATIVE) Urine Nitrate Negative (NEGATIVE) Urine Bilirubin 1+ H (NEGATIVE) Urine Urobilinogen 4.0 H (0.2-1.0) mg/dL Ur Leukocyte Esterase Neg (Negative) Jesus/uL Urine WBC (Auto) 1 (0-5) /hpf Urine RBC (Auto) 4 H (0-3) /hpf Ur Squamous Epith Cells 2 (0-5) /hpf Amorphous Sediment Moderate H (<OCC) /ul Urine Bacteria Occ H (<OCC) Hyaline Casts 11-20 H (0-2) /lpf Stool Occult Blood (NEGATIVE) Urine Opiates Screen Negative (NEGATIVE) Urine Methadone Screen Negative (NEGATIVE) Ur Barbiturates Screen Negative (NEGATIVE) Ur Phencyclidine Scrn Negative (NEGATIVE) Ur Amphetamines Screen Negative (NEGATIVE) U Benzodiazepines Scrn Negative (NEGATIVE) U Oth Cocaine Metabols Positive H (NEGATIVE) U Cannabinoids Screen Negative (NEGATIVE) Alcohol, Quantitative (0-10) mg/dl Blood Type Antibody Screen 03/07/18 03/07/18 03/07/18 Range/Units 17:07 16:53 16:53 WBC (4.8-10.8) K/uL RBC (3.80-5.20) Mil/uL Hgb (11.0-16.0) g/dL Hct (34.0-47.0) % MCV (81.0-99.0) fL MCH (27.0-31.0) pg MCHC (33.0-37.0) g/dL RDW (11.5-14.5) % Plt Count (130-400) K/uL MPV (7.2-11.7) fL Neut % (Auto) (50.0-75.0) % Lymph % (Auto) (20.0-40.0) % [place] % (Auto) (0.0-10.0) % Eos % (Auto) (0.0-4.0) % Baso % (Auto) (0.0-2.0) % Neut # (Auto) (1.8-7.0) K/uL Lymph # (Auto) (1.0-4.3) K/uL [place] # (Auto) (0.0-0.8) K/uL Eos # (Auto) (0.0-0.7) K/uL Baso # (Auto) (0.0-0.2) K/uL Neutrophils % (Manual) (50-75) % Band Neutrophils % (0-2) % Lymphocytes % (Manual) (20-40) % Monocytes % (Manual) (0-10) % Metamyelocytes % (0-0) % Platelet Estimate (NORMAL) Large Platelets Giant Platelets Hypochromasia (manual) Microcytosis (manual) PT (9.7-12.2) SECONDS INR APTT (21-34) SECONDS D-Dimer, Quantitative (0-243) ng/mlDDU pO2 50 (30-55) mm/Hg VBG pH 7.05 L* (7.32-7.43) VBG pCO2 16 L* (40-60) mmHg VBG HCO3 5.2 mmol/L VBG Total CO2 4.9 L (22-28) mmol/L VBG O2 Sat (Calc) 74.9 H (40-65) % VBG Base Excess -24.2 L (0.0-2.0) mmol/L VBG Potassium 5.5 H (3.6-5.2) mmol/L Glucose 84 (65-105) mg/dl Lactate 8.6 H* (0.7-2.1) mmol/L FiO2 % Crit Value Called To Paul neville rn Crit Value Called By Solange Crit Value Read Back Y Blood Gas Notified Time 1711 Sodium 134.0 (132-148) mmol/L Potassium (3.6-5.2) mmol/L Chloride 97.0 L (98-107) mmol/L Carbon Dioxide (22-30) mmol/L Anion Gap (10-20) BUN (7-17) mg/dL Creatinine (0.7-1.2) mg/dL Est GFR ( Amer) Est GFR (Non-Af Amer) POC Glucose (mg/dL) (65-110) mg/dL Random Glucose (65-105) mg/dL Lactic Acid (0.7-2.1) mmol/L Calcium (8.6-10.4) mg/dl Phosphorus (2.5-4.5) mg/dL Magnesium (1.6-2.3) mg/dL Total Bilirubin (0.2-1.3) mg/dL AST (14-36) U/L ALT (9-52) U/L Alkaline Phosphatase (38-126) U/L Ammonia 70 H (9-33) umol/L Troponin I (0.00-0.120) ng/mL NT-Pro-B Natriuret Pep (0-900) pg/mL Total Protein (6.3-8.3) g/dL Albumin (3.5-5.0) g/dL Globulin (2.2-3.9) gm/dL Albumin/Globulin Ratio (1.0-2.1) Lipase 2519 H (23-300) U/L Venous Blood Potassium 5.5 H (3.6-5.2) mmol/L Urine Color (YELLOW) Urine Clarity (Clear) Urine pH (5.0-8.0) Ur Specific [place] (1.003-1.030) Urine Protein (NEGATIVE) mg/dL Urine Glucose (UA) (Normal) mg/dL Urine Ketones (NEGATIVE) mg/dL Urine Blood (NEGATIVE) Urine Nitrate (NEGATIVE) Urine Bilirubin (NEGATIVE) Urine Urobilinogen (0.2-1.0) mg/dL Ur Leukocyte Esterase (Negative) Jesus/uL Urine WBC (Auto) (0-5) /hpf Urine RBC (Auto) (0-3) /hpf Ur Squamous Epith Cells (0-5) /hpf Amorphous Sediment (<OCC) /ul Urine Bacteria (<OCC) Hyaline Casts (0-2) /lpf Stool Occult Blood (NEGATIVE) Urine Opiates Screen (NEGATIVE) Urine Methadone Screen (NEGATIVE) Ur Barbiturates Screen (NEGATIVE) Ur Phencyclidine Scrn (NEGATIVE) Ur Amphetamines Screen (NEGATIVE) U Benzodiazepines Scrn (NEGATIVE) U Oth Cocaine Metabols (NEGATIVE) U Cannabinoids Screen (NEGATIVE) Alcohol, Quantitative (0-10) mg/dl Blood Type Antibody Screen 03/07/18 03/07/18 03/07/18 Range/Units 16:53 16:53 16:53 WBC 10.2 (4.8-10.8) K/uL RBC 2.77 L (3.80-5.20) Mil/uL Hgb 8.5 L (11.0-16.0) g/dL Hct 27.9 L (34.0-47.0) % MCV 100.4 H (81.0-99.0) fL MCH 30.6 (27.0-31.0) pg MCHC 30.5 L (33.0-37.0) g/dL RDW 22.3 H (11.5-14.5) % Plt Count 158 (130-400) K/uL MPV 9.6 (7.2-11.7) fL Neut % (Auto) 83.4 H (50.0-75.0) % Lymph % (Auto) 2.3 L (20.0-40.0) % [place] % (Auto) 13.7 H (0.0-10.0) % Eos % (Auto) 0.0 (0.0-4.0) % Baso % (Auto) 0.6 (0.0-2.0) % Neut # (Auto) 8.5 H (1.8-7.0) K/uL Lymph # (Auto) 0.2 L (1.0-4.3) K/uL [place] # (Auto) 1.4 H (0.0-0.8) K/uL Eos # (Auto) 0.0 (0.0-0.7) K/uL Baso # (Auto) 0.1 (0.0-0.2) K/uL Neutrophils % (Manual) 44 L (50-75) % Band Neutrophils % 40 H* (0-2) % Lymphocytes % (Manual) 2 L (20-40) % Monocytes % (Manual) 12 H (0-10) % Metamyelocytes % 2 H (0-0) % Platelet Estimate Normal (NORMAL) Large Platelets Present Giant Platelets Present Hypochromasia (manual) Slight Microcytosis (manual) Slight PT 13.5 H (9.7-12.2) SECONDS INR 1.2 APTT 33 (21-34) SECONDS D-Dimer, Quantitative (0-243) ng/mlDDU pO2 (30-55) mm/Hg VBG pH (7.32-7.43) VBG pCO2 (40-60) mmHg VBG HCO3 mmol/L VBG Total CO2 (22-28) mmol/L VBG O2 Sat (Calc) (40-65) % VBG Base Excess (0.0-2.0) mmol/L VBG Potassium (3.6-5.2) mmol/L Glucose (65-105) mg/dl Lactate (0.7-2.1) mmol/L FiO2 % Crit Value Called To Crit Value Called By Crit Value Read Back Blood Gas Notified Time Sodium 135 (132-148) mmol/L Potassium 5.5 H (3.6-5.2) mmol/L Chloride 99 (98-107) mmol/L Carbon Dioxide < 5 L* (22-30) mmol/L Anion Gap 37 H (10-20) BUN 16 (7-17) mg/dL Creatinine 1.5 H (0.7-1.2) mg/dL Est GFR ( Amer) 43 Est GFR (Non-Af Amer) 35 POC Glucose (mg/dL) (65-110) mg/dL Random Glucose 90 (65-105) mg/dL Lactic Acid (0.7-2.1) mmol/L Calcium 8.2 L (8.6-10.4) mg/dl Phosphorus 4.6 H (2.5-4.5) mg/dL Magnesium 2.2 (1.6-2.3) mg/dL Total Bilirubin 1.5 H (0.2-1.3) mg/dL AST 348 H (14-36) U/L ALT 119 H (9-52) U/L Alkaline Phosphatase 268 H (38-126) U/L Ammonia (9-33) umol/L Troponin I < 0.0120 (0.00-0.120) ng/mL NT-Pro-B Natriuret Pep 60.4 (0-900) pg/mL Total Protein 6.7 (6.3-8.3) g/dL Albumin 3.6 (3.5-5.0) g/dL Globulin 3.1 (2.2-3.9) gm/dL Albumin/Globulin Ratio 1.2 (1.0-2.1) Lipase (23-300) U/L Venous Blood Potassium (3.6-5.2) mmol/L Urine Color (YELLOW) Urine Clarity (Clear) Urine pH (5.0-8.0) Ur Specific [place] (1.003-1.030) Urine Protein (NEGATIVE) mg/dL Urine Glucose (UA) (Normal) mg/dL Urine Ketones (NEGATIVE) mg/dL Urine Blood (NEGATIVE) Urine Nitrate (NEGATIVE) Urine Bilirubin (NEGATIVE) Urine Urobilinogen (0.2-1.0) mg/dL Ur Leukocyte Esterase (Negative) Jesus/uL Urine WBC (Auto) (0-5) /hpf Urine RBC (Auto) (0-3) /hpf Ur Squamous Epith Cells (0-5) /hpf Amorphous Sediment (<OCC) /ul Urine Bacteria (<OCC) Hyaline Casts (0-2) /lpf Stool Occult Blood (NEGATIVE) Urine Opiates Screen (NEGATIVE) Urine Methadone Screen (NEGATIVE) Ur Barbiturates Screen (NEGATIVE) Ur Phencyclidine Scrn (NEGATIVE) Ur Amphetamines Screen (NEGATIVE) U Benzodiazepines Scrn (NEGATIVE) U Oth Cocaine Metabols (NEGATIVE) U Cannabinoids Screen (NEGATIVE) Alcohol, Quantitative 209 H (0-10) mg/dl Blood Type Antibody Screen 03/07/18 Range/Units 16:04 WBC (4.8-10.8) K/uL RBC (3.80-5.20) Mil/uL Hgb (11.0-16.0) g/dL Hct (34.0-47.0) % MCV (81.0-99.0) fL MCH (27.0-31.0) pg MCHC (33.0-37.0) g/dL RDW (11.5-14.5) % Plt Count (130-400) K/uL MPV (7.2-11.7) fL Neut % (Auto) (50.0-75.0) % Lymph % (Auto) (20.0-40.0) % [place] % (Auto) (0.0-10.0) % Eos % (Auto) (0.0-4.0) % Baso % (Auto) (0.0-2.0) % Neut # (Auto) (1.8-7.0) K/uL Lymph # (Auto) (1.0-4.3) K/uL [place] # (Auto) (0.0-0.8) K/uL Eos # (Auto) (0.0-0.7) K/uL Baso # (Auto) (0.0-0.2) K/uL Neutrophils % (Manual) (50-75) % Band Neutrophils % (0-2) % Lymphocytes % (Manual) (20-40) % Monocytes % (Manual) (0-10) % Metamyelocytes % (0-0) % Platelet Estimate (NORMAL) Large Platelets Giant Platelets Hypochromasia (manual) Microcytosis (manual) PT (9.7-12.2) SECONDS INR APTT (21-34) SECONDS D-Dimer, Quantitative (0-243) ng/mlDDU pO2 (30-55) mm/Hg VBG pH (7.32-7.43) VBG pCO2 (40-60) mmHg VBG HCO3 mmol/L VBG Total CO2 (22-28) mmol/L VBG O2 Sat (Calc) (40-65) % VBG Base Excess (0.0-2.0) mmol/L VBG Potassium (3.6-5.2) mmol/L Glucose (65-105) mg/dl Lactate (0.7-2.1) mmol/L FiO2 % Crit Value Called To Crit Value Called By Crit Value Read Back Blood Gas Notified Time Sodium (132-148) mmol/L Potassium (3.6-5.2) mmol/L Chloride (98-107) mmol/L Carbon Dioxide (22-30) mmol/L Anion Gap (10-20) BUN (7-17) mg/dL Creatinine (0.7-1.2) mg/dL Est GFR ( Amer) Est GFR (Non-Af Amer) POC Glucose (mg/dL) 111 H (65-110) mg/dL Random Glucose (65-105) mg/dL Lactic Acid (0.7-2.1) mmol/L Calcium (8.6-10.4) mg/dl Phosphorus (2.5-4.5) mg/dL Magnesium (1.6-2.3) mg/dL Total Bilirubin (0.2-1.3) mg/dL AST (14-36) U/L ALT (9-52) U/L Alkaline Phosphatase (38-126) U/L Ammonia (9-33) umol/L Troponin I (0.00-0.120) ng/mL NT-Pro-B Natriuret Pep (0-900) pg/mL Total Protein (6.3-8.3) g/dL Albumin (3.5-5.0) g/dL Globulin (2.2-3.9) gm/dL Albumin/Globulin Ratio (1.0-2.1) Lipase (23-300) U/L Venous Blood Potassium (3.6-5.2) mmol/L Urine Color (YELLOW) Urine Clarity (Clear) Urine pH (5.0-8.0) Ur Specific [place] (1.003-1.030) Urine Protein (NEGATIVE) mg/dL Urine Glucose (UA) (Normal) mg/dL Urine Ketones (NEGATIVE) mg/dL Urine Blood (NEGATIVE) Urine Nitrate (NEGATIVE) Urine Bilirubin (NEGATIVE) Urine Urobilinogen (0.2-1.0) mg/dL Ur Leukocyte Esterase (Negative) Jesus/uL Urine WBC (Auto) (0-5) /hpf Urine RBC (Auto) (0-3) /hpf Ur Squamous Epith Cells (0-5) /hpf Amorphous Sediment (<OCC) /ul Urine Bacteria (<OCC) Hyaline Casts (0-2) /lpf Stool Occult Blood (NEGATIVE) Urine Opiates Screen (NEGATIVE) Urine Methadone Screen (NEGATIVE) Ur Barbiturates Screen (NEGATIVE) Ur Phencyclidine Scrn (NEGATIVE) Ur Amphetamines Screen (NEGATIVE) U Benzodiazepines Scrn (NEGATIVE) U Oth Cocaine Metabols (NEGATIVE) U Cannabinoids Screen (NEGATIVE) Alcohol, Quantitative (0-10) mg/dl Blood Type Antibody Screen Laboratory Results - last 24 hr 03/07/18 03/07/18 03/07/18 16:04 16:53 16:53 WBC 10.2 RBC 2.77 L Hgb 8.5 L Hct 27.9 L MCV 100.4 H MCH 30.6 MCHC 30.5 L RDW 22.3 H Plt Count 158 MPV 9.6 Neut % (Auto) 83.4 H Lymph % (Auto) 2.3 L [place] % (Auto) 13.7 H Eos % (Auto) 0.0 Baso % (Auto) 0.6 Neut # (Auto) 8.5 H Lymph # (Auto) 0.2 L Ford # (Auto) 1.4 H Eos # (Auto) 0.0 Baso # (Auto) 0.1 Neutrophils % (Manual) 44 L Band Neutrophils % 40 H* Lymphocytes % (Manual) 2 L Monocytes % (Manual) 12 H Metamyelocytes % 2 H Platelet Estimate Normal Large Platelets Present Giant Platelets Present Hypochromasia (manual) Slight Microcytosis (manual) Slight PT 13.5 H INR 1.2 APTT 33 D-Dimer, Quantitative pO2 VBG pH VBG pCO2 VBG HCO3 VBG Total CO2 VBG O2 Sat (Calc) VBG Base Excess VBG Potassium Glucose Lactate FiO2 Crit Value Called To Crit Value Called By Crit Value Read Back Blood Gas Notified Time Sodium Potassium Chloride Carbon Dioxide Anion Gap BUN Creatinine Est GFR ( Amer) Est GFR (Non-Af Amer) POC Glucose (mg/dL) 111 H Random Glucose Lactic Acid Calcium Phosphorus Magnesium Total Bilirubin AST ALT Alkaline Phosphatase Ammonia Troponin I NT-Pro-B Natriuret Pep Total Protein Albumin Globulin Albumin/Globulin Ratio Lipase Venous Blood Potassium Urine Color Urine Clarity Urine pH Ur Specific [place] Urine Protein Urine Glucose (UA) Urine Ketones Urine Blood Urine Nitrate Urine Bilirubin Urine Urobilinogen Ur Leukocyte Esterase Urine WBC (Auto) Urine RBC (Auto) Ur Squamous Epith Cells Amorphous Sediment Urine Bacteria Hyaline Casts Stool Occult Blood Urine Opiates Screen Urine Methadone Screen Ur Barbiturates Screen Ur Phencyclidine Scrn Ur Amphetamines Screen U Benzodiazepines Scrn U Oth Cocaine Metabols U Cannabinoids Screen Alcohol, Quantitative Blood Type Antibody Screen 03/07/18 03/07/18 03/07/18 16:53 16:53 16:53 WBC RBC Hgb Hct MCV MCH MCHC RDW Plt Count MPV Neut % (Auto) Lymph % (Auto) Ford % (Auto) Eos % (Auto) Baso % (Auto) Neut # (Auto) Lymph # (Auto) [place] # (Auto) Eos # (Auto) Baso # (Auto) Neutrophils % (Manual) Band Neutrophils % Lymphocytes % (Manual) Monocytes % (Manual) Metamyelocytes % Platelet Estimate Large Platelets Giant Platelets Hypochromasia (manual) Microcytosis (manual) PT INR APTT D-Dimer, Quantitative pO2 VBG pH VBG pCO2 VBG HCO3 VBG Total CO2 VBG O2 Sat (Calc) VBG Base Excess VBG Potassium Glucose Lactate FiO2 Crit Value Called To Crit Value Called By Crit Value Read Back Blood Gas Notified Time Sodium 135 Potassium 5.5 H Chloride 99 Carbon Dioxide < 5 L* Anion Gap 37 H BUN 16 Creatinine 1.5 H Est GFR ( Amer) 43 Est GFR (Non-Af Amer) 35 POC Glucose (mg/dL) Random Glucose 90 Lactic Acid Calcium 8.2 L Phosphorus 4.6 H Magnesium 2.2 Total Bilirubin 1.5 H AST 348 H ALT 119 H Alkaline Phosphatase 268 H Ammonia 70 H Troponin I < 0.0120 NT-Pro-B Natriuret Pep 60.4 Total Protein 6.7 Albumin 3.6 Globulin 3.1 Albumin/Globulin Ratio 1.2 Lipase 2519 H Venous Blood Potassium Urine Color Urine Clarity Urine pH Ur Specific [place] Urine Protein Urine Glucose (UA) Urine Ketones Urine Blood Urine Nitrate Urine Bilirubin Urine Urobilinogen Ur Leukocyte Esterase Urine WBC (Auto) Urine RBC (Auto) Ur Squamous Epith Cells Amorphous Sediment Urine Bacteria Hyaline Casts Stool Occult Blood Urine Opiates Screen Urine Methadone Screen Ur Barbiturates Screen Ur Phencyclidine Scrn Ur Amphetamines Screen U Benzodiazepines Scrn U Oth Cocaine Metabols U Cannabinoids Screen Alcohol, Quantitative 209 H Blood Type Antibody Screen 03/07/18 03/07/18 03/07/18 17:07 17:40 17:40 WBC RBC Hgb Hct MCV MCH MCHC RDW Plt Count MPV Neut % (Auto) Lymph % (Auto) Ford % (Auto) Eos % (Auto) Baso % (Auto) Neut # (Auto) Lymph # (Auto) [place] # (Auto) Eos # (Auto) Baso # (Auto) Neutrophils % (Manual) Band Neutrophils % Lymphocytes % (Manual) Monocytes % (Manual) Metamyelocytes % Platelet Estimate Large Platelets Giant Platelets Hypochromasia (manual) Microcytosis (manual) PT INR APTT D-Dimer, Quantitative pO2 50 VBG pH 7.05 L* VBG pCO2 16 L* VBG HCO3 5.2 VBG Total CO2 4.9 L VBG O2 Sat (Calc) 74.9 H VBG Base Excess -24.2 L VBG Potassium 5.5 H Glucose 84 Lactate 8.6 H* FiO2 Crit Value Called To Paul neville rn Crit Value Called By Solange Crit Value Read Back Y Blood Gas Notified Time 1711 Sodium 134.0 Potassium Chloride 97.0 L Carbon Dioxide Anion Gap BUN Creatinine Est GFR ( Amer) Est GFR (Non-Af Amer) POC Glucose (mg/dL) Random Glucose Lactic Acid Calcium Phosphorus Magnesium Total Bilirubin AST ALT Alkaline Phosphatase Ammonia Troponin I NT-Pro-B Natriuret Pep Total Protein Albumin Globulin Albumin/Globulin Ratio Lipase Venous Blood Potassium 5.5 H Urine Color Charlene Urine Clarity Hazy Urine pH 5.0 Ur Specific [place] 1.018 Urine Protein 1+ H Urine Glucose (UA) Normal Urine Ketones Trace Urine Blood Negative Urine Nitrate Negative Urine Bilirubin 1+ H Urine Urobilinogen 4.0 H Ur Leukocyte Esterase Neg Urine WBC (Auto) 1 Urine RBC (Auto) 4 H Ur Squamous Epith Cells 2 Amorphous Sediment Moderate H Urine Bacteria Occ H Hyaline Casts 11-20 H Stool Occult Blood Urine Opiates Screen Negative Urine Methadone Screen Negative Ur Barbiturates Screen Negative Ur Phencyclidine Scrn Negative Ur Amphetamines Screen Negative U Benzodiazepines Scrn Negative U Oth Cocaine Metabols Positive H U Cannabinoids Screen Negative Alcohol, Quantitative Blood Type Antibody Screen 03/07/18 03/07/18 03/07/18 19:25 22:28 22:31 WBC 6.3 RBC 2.78 L Hgb 8.5 L Hct 27.2 L MCV 98.0 D MCH 30.8 MCHC 31.4 L RDW 21.9 H Plt Count 141 MPV 9.7 Neut % (Auto) Lymph % (Auto) Ford % (Auto) Eos % (Auto) Baso % (Auto) Neut # (Auto) Lymph # (Auto) [place] # (Auto) Eos # (Auto) Baso # (Auto) Neutrophils % (Manual) Band Neutrophils % Lymphocytes % (Manual) Monocytes % (Manual) Metamyelocytes % Platelet Estimate Large Platelets Giant Platelets Hypochromasia (manual) Microcytosis (manual) PT INR APTT D-Dimer, Quantitative pO2 57 H 57 H VBG pH 7.07 L* 7.21 L VBG pCO2 16 L* 23 L VBG HCO3 5.9 11.4 VBG Total CO2 5.1 L 9.9 L VBG O2 Sat (Calc) 83.9 H 87.2 H VBG Base Excess -23.6 L -16.8 L VBG Potassium 5.0 5.1 Glucose 87 116 H Lactate 7.2 H* 6.8 H* FiO2 21.0 Crit Value Called To Dr tonja davila Crit Value Called By [facility] rt Crit Value Read Back Y Y Blood Gas Notified Time 1932 2230 Sodium 133.0 133.0 Potassium Chloride 100.0 97.0 L Carbon Dioxide Anion Gap BUN Creatinine Est GFR ( Amer) Est GFR (Non-Af Amer) POC Glucose (mg/dL) Random Glucose Lactic Acid Calcium Phosphorus Magnesium Total Bilirubin AST ALT Alkaline Phosphatase Ammonia Troponin I NT-Pro-B Natriuret Pep Total Protein Albumin Globulin Albumin/Globulin Ratio Lipase Venous Blood Potassium 5.0 5.1 Urine Color Urine Clarity Urine pH Ur Specific [place] Urine Protein Urine Glucose (UA) Urine Ketones Urine Blood Urine Nitrate Urine Bilirubin Urine Urobilinogen Ur Leukocyte Esterase Urine WBC (Auto) Urine RBC (Auto) Ur Squamous Epith Cells Amorphous Sediment Urine Bacteria Hyaline Casts Stool Occult Blood Urine Opiates Screen Urine Methadone Screen Ur Barbiturates Screen Ur Phencyclidine Scrn Ur Amphetamines Screen U Benzodiazepines Scrn U Oth Cocaine Metabols U Cannabinoids Screen Alcohol, Quantitative Blood Type Antibody Screen 03/07/18 03/08/18 03/08/18 22:31 00:32 05:32 WBC RBC Hgb Hct MCV MCH MCHC RDW Plt Count MPV Neut % (Auto) Lymph % (Auto) [place] % (Auto) Eos % (Auto) Baso % (Auto) Neut # (Auto) Lymph # (Auto) [place] # (Auto) Eos # (Auto) Baso # (Auto) Neutrophils % (Manual) Band Neutrophils % Lymphocytes % (Manual) Monocytes % (Manual) Metamyelocytes % Platelet Estimate Large Platelets Giant Platelets Hypochromasia (manual) Microcytosis (manual) PT INR APTT D-Dimer, Quantitative pO2 30 VBG pH 7.35 VBG pCO2 37 L VBG HCO3 20.1 VBG Total CO2 21.5 L VBG O2 Sat (Calc) 54.4 VBG Base Excess -4.7 L VBG Potassium 5.3 H Glucose 180 H Lactate 7.1 H* FiO2 Crit Value Called To Rossana murillo rn Crit Value Called By Gloria doe rt Crit Value Read Back Y Blood Gas Notified Time 541 Sodium 135 133.0 Potassium 5.4 H Chloride 97 L 96.0 L Carbon Dioxide 8 L* D Anion Gap 34 H BUN 19 H Creatinine 1.4 H Est GFR ( Amer) 46 Est GFR (Non-Af Amer) 38 POC Glucose (mg/dL) 174 H Random Glucose 122 H Lactic Acid Calcium 8.5 L Phosphorus Magnesium Total Bilirubin AST ALT Alkaline Phosphatase Ammonia Troponin I NT-Pro-B Natriuret Pep Total Protein Albumin Globulin Albumin/Globulin Ratio Lipase Venous Blood Potassium 5.3 H Urine Color Urine Clarity Urine pH Ur Specific [place] Urine Protein Urine Glucose (UA) Urine Ketones Urine Blood Urine Nitrate Urine Bilirubin Urine Urobilinogen Ur Leukocyte Esterase Urine WBC (Auto) Urine RBC (Auto) Ur Squamous Epith Cells Amorphous Sediment Urine Bacteria Hyaline Casts Stool Occult Blood Urine Opiates Screen Urine Methadone Screen Ur Barbiturates Screen Ur Phencyclidine Scrn Ur Amphetamines Screen U Benzodiazepines Scrn U Oth Cocaine Metabols U Cannabinoids Screen Alcohol, Quantitative Blood Type Antibody Screen 03/08/18 03/08/18 03/08/18 05:37 06:23 06:23 WBC RBC Hgb Hct MCV MCH MCHC RDW Plt Count MPV Neut % (Auto) Lymph % (Auto) [place] % (Auto) Eos % (Auto) Baso % (Auto) Neut # (Auto) Lymph # (Auto) [place] # (Auto) Eos # (Auto) Baso # (Auto) Neutrophils % (Manual) Band Neutrophils % Lymphocytes % (Manual) Monocytes % (Manual) Metamyelocytes % Platelet Estimate Large Platelets Giant Platelets Hypochromasia (manual) Microcytosis (manual) PT INR APTT D-Dimer, Quantitative pO2 VBG pH VBG pCO2 VBG HCO3 VBG Total CO2 VBG O2 Sat (Calc) VBG Base Excess VBG Potassium Glucose Lactate FiO2 Crit Value Called To Crit Value Called By Crit Value Read Back Blood Gas Notified Time Sodium 132 Potassium 5.5 H Chloride 94 L Carbon Dioxide 20 L Anion Gap 24 H BUN 24 H Creatinine 0.9 Est GFR ( Amer) > 60 Est GFR (Non-Af Amer) > 60 POC Glucose (mg/dL) 252 H Random Glucose 166 H Lactic Acid Calcium 8.1 L Phosphorus 2.7 Magnesium 1.8 Total Bilirubin 1.8 H AST 419 H D ALT 123 H Alkaline Phosphatase 276 H Ammonia 88 H D Troponin I NT-Pro-B Natriuret Pep Total Protein 6.5 Albumin 3.5 Globulin 3.0 Albumin/Globulin Ratio 1.2 Lipase Venous Blood Potassium Urine Color Urine Clarity Urine pH Ur Specific [place] Urine Protein Urine Glucose (UA) Urine Ketones Urine Blood Urine Nitrate Urine Bilirubin Urine Urobilinogen Ur Leukocyte Esterase Urine WBC (Auto) Urine RBC (Auto) Ur Squamous Epith Cells Amorphous Sediment Urine Bacteria Hyaline Casts Stool Occult Blood Urine Opiates Screen Urine Methadone Screen Ur Barbiturates Screen Ur Phencyclidine Scrn Ur Amphetamines Screen U Benzodiazepines Scrn U Oth Cocaine Metabols U Cannabinoids Screen Alcohol, Quantitative < 10 Blood Type Antibody Screen 03/08/18 03/08/18 03/08/18 06:23 06:23 06:59 WBC 7.0 RBC 2.63 L Hgb 8.3 L Hct 25.3 L MCV 96.1 MCH 31.6 H MCHC 32.9 L RDW 22.0 H Plt Count 124 L MPV 10.4 Neut % (Auto) 82.0 H Lymph % (Auto) 10.0 L [place] % (Auto) 7.7 Eos % (Auto) 0.0 Baso % (Auto) 0.3 Neut # (Auto) 5.7 Lymph # (Auto) 0.7 L [place] # (Auto) 0.5 Eos # (Auto) 0.0 Baso # (Auto) 0.0 Neutrophils % (Manual) Band Neutrophils % Lymphocytes % (Manual) Monocytes % (Manual) Metamyelocytes % Platelet Estimate Large Platelets Giant Platelets Hypochromasia (manual) Microcytosis (manual) PT INR APTT D-Dimer, Quantitative pO2 VBG pH VBG pCO2 VBG HCO3 VBG Total CO2 VBG O2 Sat (Calc) VBG Base Excess VBG Potassium Glucose Lactate FiO2 Crit Value Called To Crit Value Called By Crit Value Read Back Blood Gas Notified Time Sodium Potassium Chloride Carbon Dioxide Anion Gap BUN Creatinine Est GFR ( Amer) Est GFR (Non-Af Amer) POC Glucose (mg/dL) Random Glucose Lactic Acid 6.7 H* Calcium Phosphorus Magnesium Total Bilirubin AST ALT Alkaline Phosphatase Ammonia Troponin I NT-Pro-B Natriuret Pep Total Protein Albumin Globulin Albumin/Globulin Ratio Lipase Venous Blood Potassium Urine Color Urine Clarity Urine pH Ur Specific [place] Urine Protein Urine Glucose (UA) Urine Ketones Urine Blood Urine Nitrate Urine Bilirubin Urine Urobilinogen Ur Leukocyte Esterase Urine WBC (Auto) Urine RBC (Auto) Ur Squamous Epith Cells Amorphous Sediment Urine Bacteria Hyaline Casts Stool Occult Blood Urine Opiates Screen Urine Methadone Screen Ur Barbiturates Screen Ur Phencyclidine Scrn Ur Amphetamines Screen U Benzodiazepines Scrn U Oth Cocaine Metabols U Cannabinoids Screen Alcohol, Quantitative Blood Type O POSITIVE Antibody Screen Negative 03/08/18 03/08/18 03/08/18 11:15 11:15 11:54 WBC RBC Hgb Hct MCV MCH MCHC RDW Plt Count MPV Neut % (Auto) Lymph % (Auto) [place] % (Auto) Eos % (Auto) Baso % (Auto) Neut # (Auto) Lymph # (Auto) [place] # (Auto) Eos # (Auto) Baso # (Auto) Neutrophils % (Manual) Band Neutrophils % Lymphocytes % (Manual) Monocytes % (Manual) Metamyelocytes % Platelet Estimate Large Platelets Giant Platelets Hypochromasia (manual) Microcytosis (manual) PT INR APTT D-Dimer, Quantitative 2569 H pO2 VBG pH VBG pCO2 VBG HCO3 VBG Total CO2 VBG O2 Sat (Calc) VBG Base Excess VBG Potassium Glucose Lactate FiO2 Crit Value Called To Crit Value Called By Crit Value Read Back Blood Gas Notified Time Sodium Potassium Chloride Carbon Dioxide Anion Gap BUN Creatinine Est GFR ( Amer) Est GFR (Non-Af Amer) POC Glucose (mg/dL) 198 H Random Glucose Lactic Acid 4.3 H* Calcium Phosphorus Magnesium Total Bilirubin AST ALT Alkaline Phosphatase Ammonia Troponin I NT-Pro-B Natriuret Pep Total Protein Albumin Globulin Albumin/Globulin Ratio Lipase Venous Blood Potassium Urine Color Urine Clarity Urine pH Ur Specific [place] Urine Protein Urine Glucose (UA) Urine Ketones Urine Blood Urine Nitrate Urine Bilirubin Urine Urobilinogen Ur Leukocyte Esterase Urine WBC (Auto) Urine RBC (Auto) Ur Squamous Epith Cells Amorphous Sediment Urine Bacteria Hyaline Casts Stool Occult Blood Urine Opiates Screen Urine Methadone Screen Ur Barbiturates Screen Ur Phencyclidine Scrn Ur Amphetamines Screen U Benzodiazepines Scrn U Oth Cocaine Metabols U Cannabinoids Screen Alcohol, Quantitative Blood Type Antibody Screen 03/08/18 13:26 WBC RBC Hgb Hct MCV MCH MCHC RDW Plt Count MPV Neut % (Auto) Lymph % (Auto) [place] % (Auto) Eos % (Auto) Baso % (Auto) Neut # (Auto) Lymph # (Auto) [place] # (Auto) Eos # (Auto) Baso # (Auto) Neutrophils % (Manual) Band Neutrophils % Lymphocytes % (Manual) Monocytes % (Manual) Metamyelocytes % Platelet Estimate Large Platelets Giant Platelets Hypochromasia (manual) Microcytosis (manual) PT INR APTT D-Dimer, Quantitative pO2 VBG pH VBG pCO2 VBG HCO3 VBG Total CO2 VBG O2 Sat (Calc) VBG Base Excess VBG Potassium Glucose Lactate FiO2 Crit Value Called To Crit Value Called By Crit Value Read Back Blood Gas Notified Time Sodium Potassium Chloride Carbon Dioxide Anion Gap BUN Creatinine Est GFR ( Amer) Est GFR (Non-Af Amer) POC Glucose (mg/dL) Random Glucose Lactic Acid Calcium Phosphorus Magnesium Total Bilirubin AST ALT Alkaline Phosphatase Ammonia Troponin I NT-Pro-B Natriuret Pep Total Protein Albumin Globulin Albumin/Globulin Ratio Lipase Venous Blood Potassium Urine Color Urine Clarity Urine pH Ur Specific [place] Urine Protein Urine Glucose (UA) Urine Ketones Urine Blood Urine Nitrate Urine Bilirubin Urine Urobilinogen Ur Leukocyte Esterase Urine WBC (Auto) Urine RBC (Auto) Ur Squamous Epith Cells Amorphous Sediment Urine Bacteria Hyaline Casts Stool Occult Blood Negative Urine Opiates Screen Urine Methadone Screen Ur Barbiturates Screen Ur Phencyclidine Scrn Ur Amphetamines Screen U Benzodiazepines Scrn U Oth Cocaine Metabols U Cannabinoids Screen Alcohol, Quantitative Blood Type Antibody Screen EKG/Cardiology Studies: Cardiology / EKG Studies 03/07/18 16:40 ELECTROCARDIOGRAM Stat Comment: Mode Of Transportation: Reason For Exam: Sepsis Patient Critical Care Progress Note - Nutrition Nutrition: Nutrition Category Date Time Status NPO Diet [DIET] Diets 03/08/18 Breakfast Active Assessment/Plan - Assessment and Plan (Free Text) Assessment: Patient seen and examined at bedside. Patient admitted to ICU for sepsis and pancreatitis. Patient being broadly treated with abx, IVF. Patient currently NPO. Continue IVF and monitor serial lactic. -d/w surgery, risks benefits with ex-lap, currently risks more than benefits as patient seems to be improving clinically (lactic decreased). -Above management d/w ICU team and surgery team Sepsis Colitits Pancreatitis Statohepatitis ETOH abuse/dependence cc time 35 minutes - Date & Time Date: 03/08/18 Time: 14:20
[2018-03-08] MEDS ORDERED: Vancomycin 1 gm/NS 200 ml 1 GM/200 ML BAG IVPB ONE (12:00)
--- NOTE | 2018-03-08 13:22 | US ---
HISTORY: r/o PVT and hepatic v thromboses COMPARISON: CT abdomen and pelvis with IV contrast performed 03/07/18 TECHNIQUE: Sonographic evaluation of the abdomen. FINDINGS: Examination markedly limited due to patient condition and habitus. LIVER: Measures 25.7 cm in sagittal dimension. Heterogeneous echotexture. Echogenic liver may be seen in setting of hepatic parenchymal disease or fatty infiltration. No focal hepatic mass identified. Evaluation of the main portal vein and hepatic veins are markedly limited. Limited visualization of the main portal vein demonstrates normal directional flow. No intrahepatic bile duct dilatation. GALLBLADDER: Cholecystectomy. COMMON BILE DUCT: Measures 1.4 cm. PANCREAS: Not well visualized. RIGHT KIDNEY: Measures 17.7 x 5.0 x 5.8 cm. No obstructing calculus or hydronephrosis identified. LEFT KIDNEY: Measures 10.1 x 5.7 x 5.4 cm. No obstructing calculus or hydronephrosis identified. SPLEEN: Measures approximately 11.3 cm. AORTA: Not well-visualized. IVC: Not well-visualized. OTHER FINDINGS: None. IMPRESSION: Examination markedly limited due to habitus and patient condition. Marked hepatomegaly. Heterogeneous and echogenic hepatic parenchyma may be seen in setting of hepatic parenchymal disease or fatty infiltration. Inadequate evaluation of the main portal vein and hepatic veins due to study limitations. Limited visualization of the portal vein appears to demonstrate normal directional flow. Cholecystectomy.
[2018-03-08] MEDS: metroNIDAZOLE IV 500 mg/100 ml 500 MG/100 ML BAG IVPB SCH ×2 (14:31→21:35)
[2018-03-08 15:40] LABS: HEPATITIS B SURFACE AG Negative (NEGATIVE)
[2018-03-08 15:46] LABS: HEPATITIS A IGM NEGATIVE (NEGATIVE); HEPATITIS B CORE AB NEGATIVE (NEGATIVE)
[2018-03-08 15:57] LABS: HEPATITIS C ANTIBODY NEGATIVE (NEGATIVE)
--- NOTE | 2018-03-08 16:14 | CP.PCM.PN ---
Subjective - Date & Time of Evaluation Date of Evaluation: 03/08/18 Time of Evaluation: 09:00 - Subjective Subjective: 62 year old female with history of asthma, HTN, HLD, chronic alcohol abuse who presents with 4 day history of progressively abdominal pain. awake alert denies headache or fever Objective - Vital Signs/Intake and Output Vital Signs (last 24 hours): Temp Pulse Resp BP Pulse Ox 98.5 F 124 H 30 H 174/98 H 82 L 03/08/18 12:00 03/08/18 15:33 03/08/18 15:33 03/08/18 15:33 03/08/18 15:33 Intake and Output: 03/08/18 03/08/18 06:59 18:59 Intake Total 1130 2510 Output Total 200 Balance 930 2510 - Medications Medications: Current Medications Heparin Sodium (Porcine) (Heparin) 5,000 units SC Q8 [facility] Last Admin: 03/08/18 14:32 Dose: 5,000 units Cefepime HCl (Maxipime Iv 1 Gm Premix) 1 gm in 50 mls @ 100 mls/hr IVPB Q12H [facility] PRN Reason: Protocol Last Admin: 03/08/18 05:53 Dose: 100 mls/hr Folic Acid 1 mg/ Thiamine HCl 100 mg/ Multivitamins/Vitamin C 10 ml/ Dextrose 1 ,011.2 mls @ 40 mls/hr IV .Q24H [facility] Last Admin: 03/07/18 22:48 Dose: 40 mls/hr Dextrose/Sodium Chloride (Dextrose 5%/0.45% Ns 1000 Ml) 1,000 mls @ 100 mls/hr IV .Q10H [facility] Last Admin: 03/08/18 07:54 Dose: 100 mls/hr Metronidazole (Flagyl) 500 mg in 100 mls @ 100 mls/hr IVPB Q8H [facility] PRN Reason: Protocol Last Admin: 03/08/18 14:31 Dose: 100 mls/hr Insulin Human Regular (Novolin R) 0 unit SC Q6 [facility] PRN Reason: Protocol Last Admin: 03/08/18 11:55 Dose: Not Given Lactulose (Generlac) 200 gm ME DAILY [facility] Last Admin: 03/08/18 11:56 Dose: 200 gm Neomycin Sulfate (Neomycin Tab) 500 mg PO Q6H [facility] Last Admin: 03/08/18 14:24 Dose: Not Given Ondansetron HCl (Zofran Inj) 4 mg IVP Q6H PRN PRN Reason: Nausea/Vomiting Last Admin: 03/08/18 00:26 Dose: 4 mg Pantoprazole Sodium (Protonix Inj) 40 mg IVP DAILY [facility] Last Admin: 03/08/18 09:13 Dose: 40 mg - Labs Labs: 03/08/18 06:23 03/08/18 06:23 PT 13.5 SECONDS (9.7-12.2) H 03/07/18 16:53 INR 1.2 03/07/18 16:53 APTT 33 SECONDS (21-34) 03/07/18 16:53 - Constitutional Appears: No Acute Distress, Chronically Ill - Head Exam Head Exam: NORMOCEPHALIC - Eye Exam Eye Exam: absent: Scleral icterus - ENT Exam ENT Exam: Mucous Membranes Dry - Neck Exam Neck Exam: absent: Lymphadenopathy - Respiratory Exam Respiratory Exam: Decreased Breath Sounds, Clear to Ausculation Bilateral - Cardiovascular Exam Cardiovascular Exam: REGULAR RHYTHM, +S1, +S2 - GI/Abdominal Exam GI & Abdominal Exam: Distended, Soft - Rectal Exam Rectal Exam: Deferred - Exam Exam: NORMAL INSPECTION - Back Exam Back Exam: absent: CVA tenderness (L), CVA tenderness (R) - Neurological Exam Neurological Exam: Alert, Awake, CN II-XII Intact, Oriented x3 - Psychiatric Exam Psychiatric exam: Normal Mood - Skin Skin Exam: Petechiae Assessment and Plan (1) Abdominal pain Status: Acute (2) Metabolic acidosis Status: Acute - Assessment and Plan (Free Text) Assessment: 62 year old female with history of asthma, HTN, HLD, chronic alcohol abuse who presents with 4 day history of progressively abdominal pain. Lactate level coming down and cultures so far neg still has mild abd tenderness w/o rebound Plan: cont empiric rx for enterocolitis has severe hepatic steatosis but no definite ascites cultures so far negative
[2018-03-08 18:35] LABS: BASO # 0.1 K/uL (0.0-0.2); BASO % 0.8 % (0.0-2.0); EOS # 0.1 K/uL (0.0-0.7); EOS % 0.9 % (0.0-4.0); HEMOGLOBIN 7.6 g/dL (11.0-16.0); LYMPH # 0.7 K/uL (1.0-4.3); LYMPH % 9.9 % (20.0-40.0); MEAN CELL VOLUME 94.7 fL (81.0-99.0); MEAN CORPUSCULAR HEMOGLOBIN 30.9 pg (27.0-31.0); MEAN CORPUSCULAR HGB CONC 32.6 g/dL (33.0-37.0); MEAN PLATELET VOLUME 9.4 fL (7.2-11.7); MONO # 0.6 K/uL (0.0-0.8); NEUT # 5.6 K/uL (1.8-7.0); NEUT % 79.4 % (50.0-75.0); NRBC % 0.6 % (0.0-2.0); PLATELET COUNT 111 K/uL (130-400); RBC 2.47 Mil/uL (3.80-5.20); RED CELL DISTRIBUTION WIDTH 21.9 % (11.5-14.5)
[2018-03-08 18:40] LABS: BLOOD UREA NITROGEN 20 mg/dL (7-17); CALCIUM 7.5 mg/dl (8.6-10.4); GFR NON-AFRICAN AMERICAN > 60; LIPASE 180 U/L (23-300)
[2018-03-08 19:09] LABS: ANISOCYTOSIS MODERATE; BANDS 38 % (0-2); EOSINOPHIL 1 % (0-4); LYMPHOCYTE 10 % (20-40); MONOCYTE 10 % (0-10); NEUTROPHIL 41 % (50-75); PLATELET ESTIMATE SLIGHTLY DECREASED (NORMAL); TOTAL CELLS COUNTED 100
[2018-03-08 19:10] LABS: HYPOCHROMIC SLIGHT; TOXIC GRANULATION PRESENT
[2018-03-08 19:11] LABS: LARGE PLATELETS PRESENT; STOMATOCYTES MODERATE
[2018-03-08] MEDS: Folic Acid 1 MG, Thiamine 100 MG, Multivitamin (MVI) 10 ML in Dextrose 5% In Water 1,00... IV SCH (21:34)
[2018-03-09] MEDS: (Novolin R) Insulin Human Regular 100 units/ml vial SC SCH ×4 (00:26→18:12)
--- NOTE | 2018-03-09 01:24 | PN ---
DATE: 03/08/2018 LOCATION: ICU 15. SUBJECTIVE: This is a 62-year-old female seen initially for GI consultation on 03/07/2018 as requested by the admitting MD, reexamined again today in rounds with the staff in the intensive care unit without significant clinical changes, still having abdominal pain with nausea, but no reported vomiting. No bowel movement this morning. The entire chart is reviewed including but not limited to the most recent lab and the radiology study results, current and the previous medication list, current and the previous medical events, and today's lab showed hemoglobin of 8.3, hematocrit 25.3, thrombocyte of 125 with abnormal ABGs. Lactic acid was reported to be 7.1, potassium 5.5, CO2 content improved to 20, still low, BUN of 24, normal creatinine with calcium 8.1, total bilirubin 1.8, AST 419 with ALT 123, alkaline phosphatase 276 with ammonia level increased to 88. PHYSICAL EXAMINATION: GENERAL: A 62-year-old female. VITAL SIGNS: Afebrile with pulse of 100, respiratory rate 20 to 22 with blood pressure of 136/72. HEENT: Showed pale, dry oral mucous membrane. Mildly icteric sclerae. LUNGS: Few scattered crepitation. Decreased air entry at bases. HEART: Positive S1 and S2 with increased rate. ABDOMEN: Soft with [id number] distention. No mass or organomegaly. No rebound tenderness or guarding, but midepigastric and midabdominal line as well as the right upper quadrant tenderness. EXTREMITIES: With mild lower extremity edematous changes. No clubbing or cyanosis. INSTITUTIONAL ASSET MANAGER: No reported new neurological deficits, sensory, or motor. IMPRESSION: 1. Alcoholism. 2. Alcoholic liver disease with abnormal liver function test associated with x-rays with increased AST in comparison to ALT, jaundice with increased total bilirubin. 3. Acute pancreatitis most likely alcohol induced. 4. Early stage of hepatic encephalopathy with elevated ammonia level. 5. Known history of hypertension and bronchial asthma. 6. Thrombocytopenia secondary to above. 7. Lactic acidosis secondary to above. 8. Anemia, the possibility of gastrointestinal blood loss upper versus lower was raised versus possible occult gastrointestinal malignancy. SUGGESTIONS: 1. Agree with your plan. 2. Hepatitis profile due to the elevated liver function test. 3. Cancer markers. 4. Start neomycin p.o. 5. Guaiac all the stools daily x3. 6. Repeat serum lipase and amylase level. 7. The patient may need endoscopic evaluation of the GI tract only when she is more stable clinically. 8. Abdominal ultrasound. Further recommendation to follow. 9. The patient initially seen for GI consultation on 03/07/2018. We will follow up closely with you. Simeon Salmeron MD
[2018-03-09] MEDS: Dextrose 5%/0.45% NS 1,000 ML IV SCH ×2 (03:30→17:06)
[2018-03-09] MEDS: metroNIDAZOLE IV 500 mg/100 ml 500 MG/100 ML BAG IVPB SCH ×3 (05:45→22:04)
[2018-03-09] MEDS: Cefepime IV 1 gm in Dextrose 1 GM/50 ML BAG IVPB SCH ×2 (05:45→17:03)
[2018-03-09 07:22] LABS: BASO # 0.1 K/uL (0.0-0.2); BASO % 1.1 % (0.0-2.0); EOS # 0.1 K/uL (0.0-0.7); EOS % 1.7 % (0.0-4.0); HEMOGLOBIN 7.9 g/dL (11.0-16.0); LYMPH % 15.6 % (20.0-40.0); MEAN CELL VOLUME 94.3 fL (81.0-99.0); MEAN CORPUSCULAR HEMOGLOBIN 30.9 pg (27.0-31.0); MEAN CORPUSCULAR HGB CONC 32.7 g/dL (33.0-37.0); MEAN PLATELET VOLUME 10.2 fL (7.2-11.7); MONO # 0.5 K/uL (0.0-0.8); NEUT # 4.6 K/uL (1.8-7.0); NEUT % 73.6 % (50.0-75.0); NRBC % 0.4 % (0.0-2.0); RBC 2.56 Mil/uL (3.80-5.20); RED CELL DISTRIBUTION WIDTH 22.4 % (11.5-14.5); WHITE BLOOD COUNT 6.3 K/uL (4.8-10.8)
--- NOTE | 2018-03-09 07:39 | CP.PCM.PN ---
Subjective - Date & Time of Evaluation Date of Evaluation: 03/09/18 Time of Evaluation: 07:38 - Subjective Subjective: General surgery progress note for Dr. Claudia Price, PGY-2 Pt S & E at bedside at 0715 Pt reports continued abdominal pain. Denies N & V, diarrhea. Objective - Vital Signs/Intake and Output Vital Signs (last 24 hours): Temp Pulse Resp BP Pulse Ox 98.5 F 91 H 22 170/77 H 98 03/09/18 04:00 03/09/18 06:45 03/09/18 06:45 03/09/18 06:45 03/09/18 06:45 Intake and Output: 03/09/18 03/09/18 06:59 18:59 Intake Total 1680 Output Total 1650 Balance 30 - Medications Medications: Current Medications Heparin Sodium (Porcine) (Heparin) 5,000 units SC Q8 [facility] Last Admin: 03/09/18 05:51 Dose: 5,000 units Cefepime HCl (Maxipime Iv 1 Gm Premix) 1 gm in 50 mls @ 100 mls/hr IVPB Q12H [facility] PRN Reason: Protocol Last Admin: 03/09/18 05:45 Dose: 100 mls/hr Folic Acid 1 mg/ Thiamine HCl 100 mg/ Multivitamins/Vitamin C 10 ml/ Dextrose 1 ,011.2 mls @ 40 mls/hr IV .Q24H [facility] Last Admin: 03/08/18 21:34 Dose: 40 mls/hr Dextrose/Sodium Chloride (Dextrose 5%/0.45% Ns 1000 Ml) 1,000 mls @ 100 mls/hr IV .Q10H [facility] Last Admin: 03/09/18 03:30 Dose: 100 mls/hr Metronidazole (Flagyl) 500 mg in 100 mls @ 100 mls/hr IVPB Q8H [facility] PRN Reason: Protocol Last Admin: 03/09/18 05:45 Dose: 100 mls/hr Insulin Human Regular (Novolin R) 0 unit SC Q6 [facility] PRN Reason: Protocol Last Admin: 03/09/18 07:29 Dose: Not Given Lactulose (Generlac) 200 gm [place] DAILY [facility] Last Admin: 03/08/18 11:56 Dose: 200 gm Neomycin Sulfate (Neomycin Tab) 500 mg PO Q6H [facility] Last Admin: 03/09/18 05:47 Dose: 500 mg Ondansetron HCl (Zofran Inj) 4 mg IVP Q6H PRN PRN Reason: Nausea/Vomiting Last Admin: 03/08/18 00:26 Dose: 4 mg Pantoprazole Sodium (Protonix Inj) 40 mg IVP DAILY [facility] Last Admin: 03/08/18 09:13 Dose: 40 mg - Labs Labs: 03/09/18 07:16 03/08/18 18:15 PT 13.5 SECONDS (9.7-12.2) H 03/07/18 16:53 INR 1.2 03/07/18 16:53 APTT 33 SECONDS (21-34) 03/07/18 16:53 - Constitutional Appears: Non-toxic, No Acute Distress - Head Exam Head Exam: ATRAUMATIC, NORMAL INSPECTION, NORMOCEPHALIC - Eye Exam Eye Exam: EOMI, Normal appearance - ENT Exam ENT Exam: Mucous Membranes Moist, Normal Exam - Neck Exam Neck Exam: Full ROM, Normal Inspection - Respiratory Exam Respiratory Exam: NORMAL BREATHING PATTERN - Cardiovascular Exam Cardiovascular Exam: REGULAR RHYTHM, +S1, +S2 - GI/Abdominal Exam GI & Abdominal Exam: Distended, Soft, Tenderness (diffuse, mild). absent: Firm , Guarding, Rigid - Extremities Exam Extremities Exam: Normal Inspection - Neurological Exam Neurological Exam: Alert, Awake, CN II-XII Intact, Oriented x3 - Psychiatric Exam Psychiatric exam: Normal Affect, Normal Mood - Skin Skin Exam: Dry, Intact, Normal Color, Warm Assessment and Plan - Assessment and Plan (Free Text) Assessment: 62F w/PMH sig for ETOH abuse with distended/tender abdomen with findings consistent with enterocolitis on CT abdomen and elevated lipase on admission- now WNL (180 from 2519) Plan: Lactic acid 1.8 from 6.7 on admission CA 19-9 427 (high) CEA -48.2 (high) Continue supportive treatment NO general surgery intervention at this time Child's [facility] Will DW Dr.Miller Price, PGY-2
[2018-03-09 07:43] LABS: ALBUMIN 2.9 g/dL (3.5-5.0); ALT/SGPT 114 U/L (9-52); AST/SGOT 283 U/L (14-36); BLOOD UREA NITROGEN 13 mg/dL (7-17); CALCIUM 7.9 mg/dl (8.6-10.4); GFR NON-AFRICAN AMERICAN > 60
--- NOTE | 2018-03-09 08:23 | CP.PCM.PN ---
Subjective - Date & Time of Evaluation Date of Evaluation: 03/09/18 Time of Evaluation: 08:21 - Subjective Subjective: abdominal pain better Objective - Vital Signs/Intake and Output Vital Signs (last 24 hours): Temp Pulse Resp BP Pulse Ox 98.5 F 91 H 22 170/77 H 98 03/09/18 04:00 03/09/18 06:45 03/09/18 06:45 03/09/18 06:45 03/09/18 06:45 Intake and Output: 03/09/18 03/09/18 06:59 18:59 Intake Total 1680 Output Total 1650 Balance 30 - Medications Medications: Current Medications Heparin Sodium (Porcine) (Heparin) 5,000 units SC Q8 [facility] Last Admin: 03/09/18 05:51 Dose: 5,000 units Cefepime HCl (Maxipime Iv 1 Gm Premix) 1 gm in 50 mls @ 100 mls/hr IVPB Q12H [facility] PRN Reason: Protocol Last Admin: 03/09/18 05:45 Dose: 100 mls/hr Folic Acid 1 mg/ Thiamine HCl 100 mg/ Multivitamins/Vitamin C 10 ml/ Dextrose 1 ,011.2 mls @ 40 mls/hr IV .Q24H [facility] Last Admin: 03/08/18 21:34 Dose: 40 mls/hr Dextrose/Sodium Chloride (Dextrose 5%/0.45% Ns 1000 Ml) 1,000 mls @ 100 mls/hr IV .Q10H [facility] Last Admin: 03/09/18 03:30 Dose: 100 mls/hr Metronidazole (Flagyl) 500 mg in 100 mls @ 100 mls/hr IVPB Q8H [facility] PRN Reason: Protocol Last Admin: 03/09/18 05:45 Dose: 100 mls/hr Insulin Human Regular (Novolin R) 0 unit SC Q6 [facility] PRN Reason: Protocol Last Admin: 03/09/18 07:29 Dose: Not Given Lactulose (Generlac) 200 gm [place] DAILY [facility] Last Admin: 03/08/18 11:56 Dose: 200 gm Neomycin Sulfate (Neomycin Tab) 500 mg PO Q6H [facility] Last Admin: 03/09/18 05:47 Dose: 500 mg Ondansetron HCl (Zofran Inj) 4 mg IVP Q6H PRN PRN Reason: Nausea/Vomiting Last Admin: 03/08/18 00:26 Dose: 4 mg Pantoprazole Sodium (Protonix Inj) 40 mg IVP DAILY [facility] Last Admin: 03/08/18 09:13 Dose: 40 mg - Labs Labs: 03/09/18 07:16 03/09/18 07:16 PT 13.5 SECONDS (9.7-12.2) H 03/07/18 16:53 INR 1.2 03/07/18 16:53 APTT 33 SECONDS (21-34) 03/07/18 16:53 - Head Exam Head Exam: ATRAUMATIC, NORMAL INSPECTION - Respiratory Exam Respiratory Exam: Clear to Ausculation Bilateral, NORMAL BREATHING PATTERN - Cardiovascular Exam Cardiovascular Exam: REGULAR RHYTHM, +S1, +S2 - GI/Abdominal Exam GI & Abdominal Exam: Soft, Tenderness. absent: Guarding Assessment and Plan - Assessment and Plan (Free Text) Assessment: -Sepsis: continue abx, lactic normalized -Colitits: continue current abx, f/u cultures -Pancreatitis: etoh related, off etoh, strict NPo -Statohepatitis: 2ns ETOH, advised to stop ETOH use -ETOH abuse/dependence: psych follow up -DTs: PRN ativan -continue dvt/pud ppx -OOB to chair today
[2018-03-09] MEDS: Albuterol-Ipratrop 3 mg / 0.5 (3 ml) UD INH SCH ×3 (11:11→19:08)
[2018-03-09] MEDS: Lactulose 10 gm/15 ml (Rectal Use) PR SCH (11:38)
--- NOTE | 2018-03-09 12:28 | PN ---
DATE: 03/09/2018 LOCATION: ICU 15. SUBJECTIVE: This is a 62-year-old female seen and examined in rounds without significant clinical changes with intermittent periods of reported abdominal pain. The patient received lactulose enema with reported bowel movement of brownish liquid fecal material x2. The entire chart is reviewed including but not limited to the most recent lab and radiology study results, current and the previous medication list, current and the previous medical events. Today's lab results are still pending. However, the most recent lab results showed low hemoglobin of 7.6, with hematocrit 23.4, with increased blood glucose level, increased BUN, with low creatinine. CEA level reported to be 48, and CA19-9 reported to be 427, excessively elevated both. PHYSICAL EXAMINATION: GENERAL: A 62-year-old female complaining of abdominal pain. VITAL SIGNS: Afebrile, with pulse of 94, respiratory rate 20-24, blood pressure 166/74. HEENT: Showed pale dry membrane. Nonicteric sclerae. LUNGS: Few scattered crepitations. Decreased air entry at bases. HEART: Positive S1 and S2. ABDOMEN: Soft. Bowel sounds are present with mild generalized tenderness. No mass or organomegaly. No rebound tenderness or guarding. EXTREMITIES: Without significant clubbing, cyanosis, or edema. NEUROLOGIC: No reported new neurological deficits. Official report of the ultrasound of the abdomen is seen indicative of fatty infiltrate on the liver with possible liver cirrhosis. Abdominal and pelvic CAT scan, official report was reviewed with evidence of status post cholecystectomy, hysterectomy, partial gastrectomy, with evidence of gastrojejunal anastomosis, as well as evidence of hepatomegaly. IMPRESSION: 1. Acute abdomen with metabolic acidosis, associated with acute pancreatitis that could be secondary to alcohol induced. 2. Substance abuse with alcohol abuse. The patient is positive for cocaine with excessive elevation of alcohol level in the blood. 3. Abnormal CAT scan of the abdomen and pelvis with evidence of status post cholecystectomy, partial gastrectomy, and hysterectomy. 4. Known history of hyperlipidemia, bronchial asthma, and hypertension. 5. Anemia, most likely secondary to chronic disease. No evidence of active bleeding in the meantime. 6. Thrombocytopenia, most likely secondary to above. 7. Excessive elevation of CEA and CA 19-9 dash nine. The possibility of occult gastrointestinal malignancy should be ruled in or out. SUGGESTIONS 1. Agree with your plan. 2. MRCP when the patient is more stable clinically. 3. Blood transfusion to keep hemoglobin around 10 g%. 4. Continue current IV antibiotics. 5. Repeat ammonia level for followup on the patient's early stage of hepatic encephalopathy. Further recommendation to follow. Simeon Salmeron MD
[2018-03-09] MEDS: Folic Acid 1 MG, Thiamine 100 MG, Multivitamin (MVI) 10 ML in Dextrose 5% In Water 1,00... IV SCH (21:30)
[2018-03-10] MEDS: Albuterol-Ipratrop 3 mg / 0.5 (3 ml) UD INH SCH ×5 (00:15→20:08)
[2018-03-10] MEDS: Dextrose 5%/0.45% NS 1,000 ML IV SCH ×4 (02:32→15:03)
[2018-03-10] MEDS: (Novolin R) Insulin Human Regular 100 units/ml vial SC SCH ×5 (02:37→21:13)
--- NOTE | 2018-03-10 04:00 | CON ---
DATE: 03/07/[address] Salmeron to Dr. Delbert Vazquez. I was called for GI consultation by the admitting MD. The patient is seen and fully examined on 03/07/2018. The entire chart is reviewed including but not limited to most recent lab and radiology study results, current and the previous medication lists, current and the previous medical events, allergy to medication list as well as all the available current and the previous medical records. Case discussed with the staff on 03/07/2018 immediately before and after my GI consultation. HISTORY OF PRESENT ILLNESS: This is a 62-year-old female, was admitted to the hospital through the emergency room with a main complaint of severe crampy abdominal pain post-excessive alcohol intake and cocaine intake with persistent nausea and dyspepsia followed by intermittent periods of chest discomfort and shortness of breath, but no reported actual chest pain, palpitation, chills, or fever. No reported evidence of active GI bleeding at that time. PAST MEDICAL HISTORY: Including, 1. Poorly controlled hypertension. 2. Bronchial asthma. 3. Alcohol and substance abuse. FAMILY HISTORY: Unknown. SOCIAL HISTORY: Positive for excessive alcohol intake and cocaine use. ALLERGIES TO MEDICATION: UNCLEAR. CURRENT MEDICATIONS: Medication list is reviewed. LABORATORY DATA: Post-admission lab workup showed hemoglobin of 8.5, hematocrit 27.9, creatinine 1.25, potassium 5.5 with CO2 content less than 5, indicative of severe metabolic acidosis. PHYSICAL EXAMINATION: GENERAL: A 62-year-old female, appeared to be somewhat sleepy with a temperature of 99, pulse of 102, respiratory rate 20 to 24, blood pressure 112/48. HEENT: Showed pale, dry oral mucous membranes. Slightly icteric sclerae bilaterally. LYMPH NODES: No lymphadenitis or lymphadenopathy. LUNGS: Scattered crepitation with decreased air entry at bases. HEART: Positive S1 and S2 with increased rate. ABDOMEN: Soft with mild distention with mild generalized tenderness but mainly in the right upper quadrant area. No mass or organomegaly. No rebound tenderness or guarding. RECTAL EXAMINATION: The patient refused. EXTREMITIES: Without significant clubbing, cyanosis, or edema. NEUROLOGIC: No reported new neurological deficits, sensory or motor. No focal deficits. IMPRESSION: 1. Alcoholism with alcoholic liver disease. 2. Substance abuse. 3. Anemia, rule out upper versus lower gastrointestinal blood loss, to rule out occult gastrointestinal malignancy. 4. Electrolyte imbalance, most likely secondary to above. 5. Severe metabolic acidosis. 6. Known history of hypertension, bronchial asthma. SUGGESTIONS: 1. Continue current management. 2. Rehydration. Serum lipase, amylase levels. Cancer markers including CEA and CA 19-9. 3. Keep the patient n.p.o. with central hyperalimentation in the meantime. MRCP. 4. Endoscopic evaluation of the GI tract only when the patient is more stable clinically. Proton pump inhibitors IV. 5. Further recommendation to follow. Thank you for letting me to participate in your patient's case management. We will follow up closely with you. Simeon Salmeron MD
[2018-03-10] MEDS: metroNIDAZOLE IV 500 mg/100 ml 500 MG/100 ML BAG IVPB SCH ×3 (05:09→21:06)
[2018-03-10] MEDS: Cefepime IV 1 gm in Dextrose 1 GM/50 ML BAG IVPB SCH ×2 (05:10→17:02)
[2018-03-10 06:58] LABS: ALBUMIN 3.1 g/dL (3.5-5.0); ALT/SGPT 107 U/L (9-52); AST/SGOT 218 U/L (14-36); BLOOD UREA NITROGEN 3 mg/dL (7-17); CALCIUM 8.3 mg/dl (8.6-10.4); GFR NON-AFRICAN AMERICAN > 60
[2018-03-10 07:06] LABS: BASO # 0.1 K/uL (0.0-0.2); EOS # 0.1 K/uL (0.0-0.7); HEMOGLOBIN 8.6 g/dL (11.0-16.0); MEAN CELL VOLUME 95.5 fL (81.0-99.0); MONO # 0.7 K/uL (0.0-0.8); NEUT # 4.5 K/uL (1.8-7.0)
[2018-03-10 07:15] LABS: EOS % 1.5 % (0.0-4.0); LYMPH # 1.4 K/uL (1.0-4.3); LYMPH % 20.9 % (20.0-40.0); MEAN CORPUSCULAR HEMOGLOBIN 30.9 pg (27.0-31.0); MEAN CORPUSCULAR HGB CONC 32.4 g/dL (33.0-37.0); MEAN PLATELET VOLUME 10.4 fL (7.2-11.7); NEUT % 66.6 % (50.0-75.0); NRBC % 0.1 % (0.0-2.0); RBC 2.78 Mil/uL (3.80-5.20); RED CELL DISTRIBUTION WIDTH 22.6 % (11.5-14.5); WHITE BLOOD COUNT 6.8 K/uL (4.8-10.8)
[2018-03-10] MEDS ORDERED: Magnesium Sulfate 1 gm in D5W 1 GM/100 ML BAG IVPB SCH (08:00)
--- NOTE | 2018-03-10 08:04 | CP.PCM.PN ---
Subjective - Date & Time of Evaluation Date of Evaluation: 03/10/18 Time of Evaluation: 08:02 - Subjective Subjective: Patient feeling better. Patient hungry,abdominal pain decreased, walking around , oob to chair Objective - Vital Signs/Intake and Output Vital Signs (last 24 hours): Temp Pulse Resp BP Pulse Ox 98.3 F 106 H 26 H 168/94 H 95 03/10/18 04:00 03/10/18 07:00 03/10/18 07:00 03/10/18 06:45 03/10/18 07:00 Intake and Output: 03/10/18 03/10/18 06:59 18:59 Intake Total 1680 140 Output Total 1250 Balance 430 140 - Medications Medications: Current Medications Albuterol/Ipratropium (Duoneb 3 Mg/0.5 Mg (3 Ml) Ud) 3 ml INH RQ4 [facility] Last Admin: 03/10/18 07:21 Dose: 3 ml Chlordiazepoxide (Librium) 25 mg PO Q8 PRN PRN Reason: Agitation Last Admin: 03/10/18 02:36 Dose: 25 mg Heparin Sodium (Porcine) (Heparin) 5,000 units SC Q8 [facility] Last Admin: 03/10/18 05:53 Dose: 5,000 units Cefepime HCl (Maxipime Iv 1 Gm Premix) 1 gm in 50 mls @ 100 mls/hr IVPB Q12H [facility] PRN Reason: Protocol Last Admin: 03/10/18 05:10 Dose: 100 mls/hr Folic Acid 1 mg/ Thiamine HCl 100 mg/ Multivitamins/Vitamin C 10 ml/ Dextrose 1 ,011.2 mls @ 40 mls/hr IV .Q24H [facility] Last Admin: 03/09/18 21:30 Dose: 40 mls/hr Dextrose/Sodium Chloride (Dextrose 5%/0.45% Ns 1000 Ml) 1,000 mls @ 100 mls/hr IV .Q10H [facility] Last Admin: 03/10/18 05:08 Dose: 100 mls/hr Metronidazole (Flagyl) 500 mg in 100 mls @ 100 mls/hr IVPB Q8H [facility] PRN Reason: Protocol Last Admin: 03/10/18 05:09 Dose: 100 mls/hr Magnesium Sulfate/Dextrose (Magnesium Sulfate 1 Gm/100 Ml D5w) 1 gm in 100 mls @ 300 mls/hr IVPB Q30M [facility] Stop: 03/10/18 08:49 Potassium Phosphate 15 mmole/ (Dextrose) 255 mls @ 42.5 mls/hr IVPB ONCE ONE Stop: 03/10/18 13:58 Insulin Human Regular (Novolin R) 0 unit SC Q6 [facility] PRN Reason: Protocol Last Admin: 03/10/18 05:51 Dose: Not Given Lactulose (Enulose) 20 gm PO DAILY [facility] Lorazepam (Ativan) 2 mg IVP Q6H PRN PRN Reason: Anxiety Last Admin: 03/09/18 08:49 Dose: 2 mg Neomycin Sulfate (Neomycin Tab) 500 mg PO Q6H [facility] Last Admin: 03/10/18 05:50 Dose: 500 mg Ondansetron HCl (Zofran Inj) 4 mg IVP Q6H PRN PRN Reason: Nausea/Vomiting Last Admin: 03/09/18 18:32 Dose: 4 mg Pantoprazole Sodium (Protonix Inj) 40 mg IVP DAILY [facility] Last Admin: 03/09/18 09:26 Dose: 40 mg Potassium Chloride (Potassium Chloride Oral Soln) 40 meq PO Q6H [facility] Stop: 03/11/18 08:01 - Labs Labs: 03/10/18 06:30 03/10/18 06:30 PT 13.5 SECONDS (9.7-12.2) H 03/07/18 16:53 INR 1.2 03/07/18 16:53 APTT 33 SECONDS (21-34) 03/07/18 16:53 - Head Exam Head Exam: ATRAUMATIC, NORMAL INSPECTION, NORMOCEPHALIC - Eye Exam Eye Exam: EOMI Pupil Exam: NORMAL ACCOMODATION - ENT Exam ENT Exam: Mucous Membranes Moist - Neck Exam Neck Exam: Full ROM - Respiratory Exam Respiratory Exam: Clear to Ausculation Bilateral, NORMAL BREATHING PATTERN - Cardiovascular Exam Cardiovascular Exam: Tachycardia, REGULAR RHYTHM, +S1, +S2 - GI/Abdominal Exam GI & Abdominal Exam: Distended, Soft. absent: Tenderness - Extremities Exam Extremities Exam: Normal Inspection - Neurological Exam Neurological Exam: Alert, Awake, Oriented x3 Assessment and Plan - Assessment and Plan (Free Text) Assessment: -Sepsis: continue abx, lactic normalized -Colitits: continue current abx, f/u cultures -Pancreatitis: etoh related, off etoh, start oral clear diet -Hepatic encephalopathy: continue lactulsoe orally -ETOH abuse/dependence: librium , ALT improving -DTs: PRN ativan -check and replace all electrolytes, as likely refeeding syndrome -continue dvt/pud ppx -OOB to chair today -Patient remains hemodynamically stable.
[2018-03-10] MEDS: Magnesium Sulfate 1 gm in D5W 1 GM/100 ML BAG IVPB SCH (08:15)
[2018-03-10] MEDS: Potassium Chloride 20 mEq/15 ml LIQ UD PO SCH ×3 (08:23→20:21)
[2018-03-10] MEDS ORDERED: Potassium Phosphate 15 MMOLE in Sodium Chloride 0.9% 250 ML IVPB ONE (08:30)
--- NOTE | 2018-03-10 10:12 | CP.PCM.PN ---
Subjective - Date & Time of Evaluation Date of Evaluation: 03/10/18 Time of Evaluation: 15:22 - Subjective Subjective: Gen Sx: Dr Barrett PT S&E. Abdominal pain improving. Denies N/V, fevers. Having shakes/tremors but not necessarily chills. Having BMs. Lactic acidosis resolved. Still tachycardic. Objective - Vital Signs/Intake and Output Vital Signs (last 24 hours): Temp Pulse Resp BP Pulse Ox 98.2 F 103 H 28 H 144/78 97 03/10/18 08:00 03/10/18 08:57 03/10/18 08:57 03/10/18 08:58 03/10/18 08:00 Intake and Output: 03/10/18 03/10/18 06:59 18:59 Intake Total 1680 880 Output Total 1250 1 Balance 430 879 - Medications Medications: Current Medications Albuterol/Ipratropium (Duoneb 3 Mg/0.5 Mg (3 Ml) Ud) 3 ml INH RQ4 [facility] Last Admin: 03/10/18 07:21 Dose: 3 ml Chlordiazepoxide (Librium) 25 mg PO Q8 PRN PRN Reason: Agitation Last Admin: 03/10/18 09:31 Dose: 25 mg Heparin Sodium (Porcine) (Heparin) 5,000 units SC Q8 [facility] Last Admin: 03/10/18 05:53 Dose: 5,000 units Cefepime HCl (Maxipime Iv 1 Gm Premix) 1 gm in 50 mls @ 100 mls/hr IVPB Q12H [facility] PRN Reason: Protocol Last Admin: 03/10/18 05:10 Dose: 100 mls/hr Folic Acid 1 mg/ Thiamine HCl 100 mg/ Multivitamins/Vitamin C 10 ml/ Dextrose 1 ,011.2 mls @ 40 mls/hr IV .Q24H [facility] Last Admin: 03/09/18 21:30 Dose: 40 mls/hr Dextrose/Sodium Chloride (Dextrose 5%/0.45% Ns 1000 Ml) 1,000 mls @ 100 mls/hr IV .Q10H [facility] Last Admin: 03/10/18 09:30 Dose: Not Given Metronidazole (Flagyl) 500 mg in 100 mls @ 100 mls/hr IVPB Q8H [facility] PRN Reason: Protocol Last Admin: 03/10/18 05:09 Dose: 100 mls/hr Potassium Phosphate 15 mmole/ (Sodium Chloride) 255 mls @ 42.5 mls/hr IVPB ONCE ONE Stop: 03/10/18 14:29 Last Admin: 03/10/18 09:29 Dose: 42.5 mls/hr Insulin Human Regular (Novolin R) 0 unit SC Q6 [facility] PRN Reason: Protocol Last Admin: 03/10/18 05:51 Dose: Not Given Lactulose (Enulose) 20 gm PO DAILY [facility] Last Admin: 03/10/18 09:08 Dose: 20 gm Lorazepam (Ativan) 2 mg IVP Q6H PRN PRN Reason: Anxiety Last Admin: 03/09/18 08:49 Dose: 2 mg Neomycin Sulfate (Neomycin Tab) 500 mg PO Q6H [facility] Last Admin: 03/10/18 05:50 Dose: 500 mg Ondansetron HCl (Zofran Inj) 4 mg IVP Q6H PRN PRN Reason: Nausea/Vomiting Last Admin: 03/09/18 18:32 Dose: 4 mg Pantoprazole Sodium (Protonix Inj) 40 mg IVP DAILY [facility] Last Admin: 03/10/18 09:08 Dose: 40 mg Potassium Chloride (Potassium Chloride Oral Soln) 40 meq PO Q6H [facility] Stop: 03/11/18 08:01 Last Admin: 03/10/18 08:23 Dose: 40 meq - Labs Labs: 03/10/18 06:30 03/10/18 06:30 PT 13.5 SECONDS (9.7-12.2) H 03/07/18 16:53 INR 1.2 03/07/18 16:53 APTT 33 SECONDS (21-34) 03/07/18 16:53 - Constitutional Appears: Non-toxic, No Acute Distress - Respiratory Exam Respiratory Exam: absent: Respiratory Distress - Cardiovascular Exam Cardiovascular Exam: Tachycardia - GI/Abdominal Exam GI & Abdominal Exam: Distended, Soft, Tenderness (epigastric). absent: Firm, Guarding - Extremities Exam Extremities Exam: absent: Pedal Edema - Neurological Exam Neurological Exam: Alert, Awake Assessment and Plan - Assessment and Plan (Free Text) Assessment: 62F with EtOH induced pancreatitis, sepsis, possibly secondary to colitis Plan: cont hydration/resuscitation panc improving possible EGD per GI no surgical intervention planned continuing to follow d/w Dr Arnold Huynh, PGY4
--- NOTE | 2018-03-10 10:49 | PN ---
DATE: 03/10/2018 LOCATION: ICU 15. SUBJECTIVE: This 62-year-old female seen and examined in rounds, had a rapid response early this morning with episodes of nausea and vomiting. The entire chart is reviewed including but not limited to the most recent lab and radiology study results, current and the previous medication list, current and the previous medical events, out of bed to the chair with less abdominal pain. The entire chart is reviewed including but not limited to the most recent lab and radiology study results, current and the previous medication list, current and the previous medical events. Today's lab showed hemoglobin of 8.6, hematocrit 26.5, with thrombocytopenia of 129, potassium 3, CO2 content 20, with low BUN and creatinine. Blood glucose level 140, calcium 8.3, AST 218, ALT 107, alkaline phosphatase 3.1, with albumin 3.1. The patient's magnesium is 1.5, most likely secondary to her acute pancreatitis. The most recently done ultrasound of the abdomen and pelvis, report is seen. PHYSICAL EXAMINATION: GENERAL: A 62-year-old female. VITAL SIGNS: Afebrile, with pulse 104, respiratory rate 20-24, blood pressure of 170/84. HEENT: Showed pale dry oral mucous membranes. Nonicteric sclerae. LUNGS: Few scattered crepitations. Decreased air entry at bases. HEART: Positive S1 and S2. ABDOMEN: Soft. Bowel sounds are present. No mass or organomegaly. No rebound tenderness or guarding. EXTREMITIES: Without significant clubbing, cyanosis, or edema. No reported new neurological deficits, sensory or motor. IMPRESSION: 1. Acute pancreatitis. 2. Alcohol abuse with alcoholic hepatitis, improving mildly. 3. Hepatic encephalopathy secondary to above. 4. Anemia due to chronic disease, the possibility of gastrointestinal blood loss was raised. 5. Excessive elevation of CEA and CA19-9, raising the question of possible gastrointestinal neoplasm. 6. Thrombocytopenia secondary to above. 7. Known history of hypertension, hyperlipidemia, bronchial asthma. IMPRESSION: 1. Agree with your plan. 2. Magnetic resonance cholangiopancreatography. 3. Endoscopic evaluation of the gastrointestinal tract only when the patient is more stable clinically. Simeon Salmeron MD
--- NOTE | 2018-03-10 13:53 | CP.PCM.PN ---
Subjective - Date & Time of Evaluation Date of Evaluation: 03/10/18 Time of Evaluation: 07:00 - Subjective Subjective: afeb alert nad tremors less pain sepsis resolving- all cultures neg thus far to complete 7 days IV rx etoh withdrawl, pancreatitis improving GI follow up for colitis - Dr Miranda on board Objective - Vital Signs/Intake and Output Vital Signs (last 24 hours): Temp Pulse Resp BP Pulse Ox 98.7 F 98 H 28 H 146/77 99 03/10/18 11:59 03/10/18 12:00 03/10/18 12:00 03/10/18 11:42 03/10/18 10:20 Intake and Output: 03/10/18 03/10/18 06:59 18:59 Intake Total 1680 1770 Output Total 1250 7 Balance 430 1763 - Medications Medications: Current Medications Albuterol/Ipratropium (Duoneb 3 Mg/0.5 Mg (3 Ml) Ud) 3 ml INH RQ4 [facility] Last Admin: 03/10/18 11:27 Dose: 3 ml Chlordiazepoxide (Librium) 25 mg PO Q8 PRN PRN Reason: Agitation Last Admin: 03/10/18 09:31 Dose: 25 mg Chlordiazepoxide (Librium) 50 mg PO Q8H [facility] Heparin Sodium (Porcine) (Heparin) 5,000 units SC Q8 [facility] Last Admin: 03/10/18 05:53 Dose: 5,000 units Cefepime HCl (Maxipime Iv 1 Gm Premix) 1 gm in 50 mls @ 100 mls/hr IVPB Q12H [facility] PRN Reason: Protocol Last Admin: 03/10/18 05:10 Dose: 100 mls/hr Folic Acid 1 mg/ Thiamine HCl 100 mg/ Multivitamins/Vitamin C 10 ml/ Dextrose 1 ,011.2 mls @ 40 mls/hr IV .Q24H [facility] Last Admin: 03/09/18 21:30 Dose: 40 mls/hr Dextrose/Sodium Chloride (Dextrose 5%/0.45% Ns 1000 Ml) 1,000 mls @ 100 mls/hr IV .Q10H [facility] Last Admin: 03/10/18 09:30 Dose: Not Given Metronidazole (Flagyl) 500 mg in 100 mls @ 100 mls/hr IVPB Q8H [facility] PRN Reason: Protocol Last Admin: 03/10/18 13:47 Dose: 100 mls/hr Potassium Phosphate 15 mmole/ (Sodium Chloride) 255 mls @ 42.5 mls/hr IVPB ONCE ONE Stop: 03/10/18 14:29 Last Admin: 03/10/18 09:29 Dose: 42.5 mls/hr Insulin Human Regular (Novolin R) 0 unit SC Q6 [facility] PRN Reason: Protocol Last Admin: 03/10/18 12:12 Dose: 2 u Lactulose (Enulose) 20 gm PO DAILY [facility] Last Admin: 03/10/18 09:08 Dose: 20 gm Lorazepam (Ativan) 2 mg IVP Q6H PRN PRN Reason: Anxiety Last Admin: 03/09/18 08:49 Dose: 2 mg Neomycin Sulfate (Neomycin Tab) 500 mg PO Q6H [facility] Last Admin: 03/10/18 12:12 Dose: 500 mg Ondansetron HCl (Zofran Inj) 4 mg IVP Q6H PRN PRN Reason: Nausea/Vomiting Last Admin: 03/09/18 18:32 Dose: 4 mg Pantoprazole Sodium (Protonix Inj) 40 mg IVP DAILY [facility] Last Admin: 03/10/18 09:08 Dose: 40 mg Potassium Chloride (Potassium Chloride Oral Soln) 40 meq PO Q6H [facility] Stop: 03/11/18 08:01 Last Admin: 03/10/18 08:23 Dose: 40 meq - Labs Labs: 03/10/18 06:30 03/10/18 06:30 PT 13.5 SECONDS (9.7-12.2) H 03/07/18 16:53 INR 1.2 03/07/18 16:53 APTT 33 SECONDS (21-34) 03/07/18 16:53 - Constitutional Appears: Non-toxic, Chronically Ill - Head Exam Head Exam: NORMOCEPHALIC - Eye Exam Eye Exam: PERRL Pupil Exam: NORMAL ACCOMODATION - ENT Exam ENT Exam: Mucous Membranes Dry - Neck Exam Neck Exam: absent: Lymphadenopathy - Respiratory Exam Respiratory Exam: Decreased Breath Sounds - Cardiovascular Exam Cardiovascular Exam: REGULAR RHYTHM - GI/Abdominal Exam GI & Abdominal Exam: Distended, Soft - Rectal Exam Rectal Exam: Deferred - Exam Exam: NORMAL INSPECTION - Extremities Exam Extremities Exam: absent: Pedal Edema - Back Exam Back Exam: absent: CVA tenderness (L), CVA tenderness (R) - Neurological Exam Neurological Exam: Alert, Awake, Oriented x3 - Psychiatric Exam Psychiatric exam: Depressed - Skin Skin Exam: Dry Assessment and Plan (1) Abdominal pain Status: Acute (2) Metabolic acidosis Status: Acute
[2018-03-10] MEDS ORDERED: (Novolin R) Insulin Human Regular 100 units/ml vial SC SCH (16:30)
[2018-03-10] MEDS: Folic Acid 1 MG, Thiamine 100 MG, Multivitamin (MVI) 10 ML in Dextrose 5% In Water 1,00... IV SCH (21:05)
[2018-03-11] MEDS: Albuterol-Ipratrop 3 mg / 0.5 (3 ml) UD INH SCH ×6 (00:05→19:33)
[2018-03-11] MEDS: Dextrose 5%/0.45% NS 1,000 ML IV SCH ×2 (00:37→13:00)
[2018-03-11] MEDS: Potassium Chloride 20 mEq/15 ml LIQ UD PO SCH ×2 (02:02→08:12)
[2018-03-11] MEDS: metroNIDAZOLE IV 500 mg/100 ml 500 MG/100 ML BAG IVPB SCH ×3 (04:59→21:00)
[2018-03-11] MEDS: Cefepime IV 1 gm in Dextrose 1 GM/50 ML BAG IVPB SCH ×2 (05:00→17:00)
[2018-03-11 06:30] LABS: BASO % 0.7 % (0.0-2.0); EOS # 0.1 K/uL (0.0-0.7); EOS % 1.6 % (0.0-4.0); HEMOGLOBIN 7.4 g/dL (11.0-16.0); LYMPH # 1.3 K/uL (1.0-4.3); MEAN CELL VOLUME 94.3 fL (81.0-99.0); MEAN CORPUSCULAR HGB CONC 33.9 g/dL (33.0-37.0); MEAN PLATELET VOLUME 10.4 fL (7.2-11.7); MONO # 0.8 K/uL (0.0-0.8); NEUT # 4.2 K/uL (1.8-7.0); NEUT % 64.7 % (50.0-75.0); NRBC % 0.1 % (0.0-2.0); RBC 2.31 Mil/uL (3.80-5.20); RED CELL DISTRIBUTION WIDTH 23.1 % (11.5-14.5); WHITE BLOOD COUNT 6.4 K/uL (4.8-10.8)
--- NOTE | 2018-03-11 07:08 | HP ---
HISTORY OF PRESENT ILLNESS: A 62-year-old female admitted to the hospital with chief complaint of severe abdominal pain, nausea, vomiting, hypertension. The patient came to the ER, advised admission to hospital. The patient had a history of alcohol abuse. PHYSICAL EXAMINATION: GENERAL: The patient is awake, alert, weak. VITAL SIGNS: Temperature 98, pulse 90. HEENT: Within normal limits. NECK: Supple. CHEST: Symmetrical. HEART: Regular. ABDOMEN: markedly distended. EXTREMITIES: No edema. IMPRESSION: The patient suffers from acute pancreatitis, chronic hepatitis. PLAN: The patient to get bed rest. Supportive care. IV fluids. GI consult, surgical consult. Delbert Vazquez MD
--- NOTE | 2018-03-11 07:12 | PN ---
DATE: 03/10/2018 The patient is improving. IV antibiotics. Supportive care. Delbert Vazquez MD
--- NOTE | 2018-03-11 08:01 | CP.PCM.PN ---
Subjective - Date & Time of Evaluation Date of Evaluation: 03/11/18 Time of Evaluation: 07:58 - Subjective Subjective: Surgery Pt seen and examined. Pt is agitated and altered. Doesn't follow commands. On restraints. Per nurse, having BM. Objective - Vital Signs/Intake and Output Vital Signs (last 24 hours): Temp Pulse Resp BP Pulse Ox 98.7 F 106 H 29 H 154/94 H 97 03/11/18 04:00 03/11/18 04:00 03/11/18 04:00 03/11/18 03:51 03/11/18 04:00 Intake and Output: 03/11/18 03/11/18 06:59 18:59 Intake Total 2030 Balance 2030 - Medications Medications: Current Medications Albuterol/Ipratropium (Duoneb 3 Mg/0.5 Mg (3 Ml) Ud) 3 ml INH RQ4 [facility] Last Admin: 03/11/18 07:29 Dose: 3 ml Chlordiazepoxide (Librium) 25 mg PO Q8 PRN PRN Reason: Agitation Last Admin: 03/11/18 04:53 Dose: 25 mg Chlordiazepoxide (Librium) 50 mg PO Q8H [facility] Last Admin: 03/10/18 23:29 Dose: 50 mg Cefepime HCl (Maxipime Iv 1 Gm Premix) 1 gm in 50 mls @ 100 mls/hr IVPB Q12H [facility] PRN Reason: Protocol Last Admin: 03/11/18 05:00 Dose: 100 mls/hr Dextrose/Sodium Chloride (Dextrose 5%/0.45% Ns 1000 Ml) 1,000 mls @ 100 mls/hr IV .Q10H [facility] Last Admin: 03/11/18 00:37 Dose: 100 mls/hr Metronidazole (Flagyl) 500 mg in 100 mls @ 100 mls/hr IVPB Q8H [facility] PRN Reason: Protocol Last Admin: 03/11/18 04:59 Dose: 100 mls/hr Insulin Human Regular (Novolin R) 1 unit SC ACHS [facility] PRN Reason: Protocol Last Admin: 03/10/18 21:13 Dose: Not Given Lactulose (Enulose) 20 gm PO DAILY [facility] Last Admin: 03/10/18 09:08 Dose: 20 gm Lorazepam (Ativan) 2 mg IVP Q6H PRN PRN Reason: Anxiety Last Admin: 03/11/18 05:21 Dose: 2 mg Neomycin Sulfate (Neomycin Tab) 500 mg PO Q6H [facility] Last Admin: 03/11/18 04:59 Dose: 500 mg Ondansetron HCl (Zofran Inj) 4 mg IVP Q6H PRN PRN Reason: Nausea/Vomiting Last Admin: 03/09/18 18:32 Dose: 4 mg Pantoprazole Sodium (Protonix Inj) 40 mg IVP DAILY [facility] Last Admin: 03/10/18 09:08 Dose: 40 mg Potassium Chloride (Potassium Chloride Oral Soln) 40 meq PO Q6H [facility] Stop: 03/11/18 08:01 Last Admin: 03/11/18 02:02 Dose: 40 meq - Labs Labs: 03/11/18 06:19 03/10/18 06:30 PT 13.5 SECONDS (9.7-12.2) H 03/07/18 16:53 INR 1.2 03/07/18 16:53 APTT 33 SECONDS (21-34) 03/07/18 16:53 - Constitutional Appears: In Acute Distress, Combative, Agitated, Confused - Head Exam Head Exam: ATRAUMATIC, NORMAL INSPECTION, NORMOCEPHALIC - Eye Exam Eye Exam: EOMI, Normal appearance, PERRL Pupil Exam: NORMAL ACCOMODATION, PERRL - ENT Exam ENT Exam: Mucous Membranes Moist - Neck Exam Neck Exam: Full ROM, Normal Inspection. absent: Lymphadenopathy - Respiratory Exam Respiratory Exam: NORMAL BREATHING PATTERN - Cardiovascular Exam Cardiovascular Exam: Tachycardia, REGULAR RHYTHM - GI/Abdominal Exam GI & Abdominal Exam: Distended, Soft, Tenderness, Normal Bowel Sounds. absent: Firm, Guarding - Extremities Exam Extremities Exam: Full ROM - Back Exam Back Exam: NORMAL INSPECTION - Neurological Exam Neurological Exam: Altered, Awake, CN II-XII Intact. absent: Alert, Normal Gait , Oriented x3 - Psychiatric Exam Psychiatric exam: Agitated - Skin Skin Exam: Dry, Intact, Normal Color, Warm Assessment and Plan - Assessment and Plan (Free Text) Assessment: 62F with EtOH induced pancreatitis, sepsis, possibly secondary to colitis: resolving, now etOH withdrwal. Plan: cont hydration/resuscitation panc improving possible EGD per GI no surgical intervention planned continuing to follow Will d/w Dr Barrett
[2018-03-11] MEDS: (Novolin R) Insulin Human Regular 100 units/ml vial SC SCH ×4 (08:19→22:00)
--- NOTE | 2018-03-11 10:11 | CP.PCM.PN ---
Subjective - Date & Time of Evaluation Date of Evaluation: 03/11/18 Time of Evaluation: 09:05 - Subjective Subjective: Medicine progress note for Dr. Vazquez's Patient is a 62 year old female admitted for alcohol related pancreatitis, colitis, sepsis. Patient currently on telemetry monitoring in ICU. Patient mumbling only about not wanting to stay in bed and further ROS unobtainable. Per nursing report, patient was agitated overnight with frequent attempts to get out of bed. She was given prn dose of librium 25mg at 4:53AM and ativan 2mg at 5:21AM. AM blood work hemolyzed, repeat labs pending. Objective - Vital Signs/Intake and Output Vital Signs (last 24 hours): Temp Pulse Resp BP Pulse Ox 98.7 F 106 H 29 H 154/94 H 97 03/11/18 04:00 03/11/18 04:00 03/11/18 04:00 03/11/18 03:51 03/11/18 04:00 Intake and Output: 03/11/18 03/11/18 06:59 18:59 Intake Total 2030 Balance 2030 - Medications Medications: Current Medications Albuterol/Ipratropium (Duoneb 3 Mg/0.5 Mg (3 Ml) Ud) 3 ml INH RQ4 [facility] Last Admin: 03/11/18 07:29 Dose: 3 ml Chlordiazepoxide (Librium) 25 mg PO Q8 PRN PRN Reason: Agitation Last Admin: 03/11/18 04:53 Dose: 25 mg Chlordiazepoxide (Librium) 50 mg PO Q8H [facility] Last Admin: 03/11/18 08:14 Dose: 50 mg Folic Acid (Folic Acid) 1 mg PO DAILY [facility] Cefepime HCl (Maxipime Iv 1 Gm Premix) 1 gm in 50 mls @ 100 mls/hr IVPB Q12H [facility] PRN Reason: Protocol Last Admin: 03/11/18 05:00 Dose: 100 mls/hr Metronidazole (Flagyl) 500 mg in 100 mls @ 100 mls/hr IVPB Q8H [facility] PRN Reason: Protocol Last Admin: 03/11/18 04:59 Dose: 100 mls/hr Insulin Human Regular (Novolin R) 1 unit SC ACHS [facility] PRN Reason: Protocol Last Admin: 03/11/18 08:19 Dose: Not Given Lactulose (Enulose) 20 gm PO TID [facility] Lorazepam (Ativan) 2 mg IVP Q6H PRN PRN Reason: Anxiety Last Admin: 03/11/18 05:21 Dose: 2 mg Multivitamins (Hexavitamin) 1 tab PO DAILY [facility] Neomycin Sulfate (Neomycin Tab) 500 mg PO Q6H [facility] Last Admin: 03/11/18 04:59 Dose: 500 mg Ondansetron HCl (Zofran Inj) 4 mg IVP Q6H PRN PRN Reason: Nausea/Vomiting Last Admin: 03/09/18 18:32 Dose: 4 mg Pantoprazole Sodium (Protonix Inj) 40 mg IVP DAILY [facility] Last Admin: 03/10/18 09:08 Dose: 40 mg - Labs Labs: 03/11/18 06:19 03/10/18 06:30 PT 13.5 SECONDS (9.7-12.2) H 03/07/18 16:53 INR 1.2 03/07/18 16:53 APTT 33 SECONDS (21-34) 03/07/18 16:53 - Constitutional Appears: Confused, Chronically Ill - Head Exam Head Exam: ATRAUMATIC, NORMOCEPHALIC - Eye Exam Eye Exam: EOMI - ENT Exam ENT Exam: Mucous Membranes Moist - Respiratory Exam Respiratory Exam: Clear to Ausculation Bilateral. absent: Rales, Rhonchi, Wheezes, Respiratory Distress, Stridor - Cardiovascular Exam Cardiovascular Exam: Tachycardia, +S1, +S2 - GI/Abdominal Exam GI & Abdominal Exam: Distended, Soft, Normal Bowel Sounds, Organomegaly ( hepatomegaly). absent: Firm, Tenderness - Extremities Exam Extremities Exam: Normal Inspection. absent: Calf Tenderness - Neurological Exam Neurological Exam: Alert, Awake - Skin Skin Exam: Warm Assessment and Plan - Assessment and Plan (Free Text) Assessment: Altered Mental Status possibly due to hepatic encephalopathy will check ammonia level increase lactulose to Q8h dosing metabolic panel pending continue neomycin 500mg q6h per Dr. Miranda, GI Colitis CT abdomen/pelvis with IV contrast: Enterocolitis, partial gastrectomy with gastrojejunal anastomosis, no obstruction, enlarged fatty liver, cholecystectomy and hysterectomy elevated lactate on admission 6.7, normalized on 03/08 to 1.[address] Hernandez, ID- cefepime 1g Q12h, flagyl 500mg Q8h giardia, H. pylori, entamoeba, enterovirus, ova and parasite, pending no salmonella, shigella, campylobacter isolated Gen surg, Dr. Barrett, consulted for abdominal pain- no intervention at this time Pancreatitis likely secondary to alcohol lipase on admission 2518 clear liquid diet started yesterday 03/10/18 per ICU attending Alcohol Abuse continue librium 50mg PO q8h scheduled, 25mg PO q8 prn, ativan 2mg IVP q6prn folic acid 1mg PO daily multivitamin 1 tab daily Prophylactic measure continue protonix 40mg IVP daily heparin 5000u sc q8h All management as per Dr. Vazquez
[2018-03-11 10:19] LABS: BASO # 0.1 K/uL (0.0-0.2); BASO % 0.7 % (0.0-2.0); EOS # 0.1 K/uL (0.0-0.7); EOS % 1.1 % (0.0-4.0); HEMOGLOBIN 8.1 g/dL (11.0-16.0); LYMPH # 1.5 K/uL (1.0-4.3); MEAN CELL VOLUME 94.6 fL (81.0-99.0); MEAN CORPUSCULAR HEMOGLOBIN 30.6 pg (27.0-31.0); MEAN CORPUSCULAR HGB CONC 32.3 g/dL (33.0-37.0); MEAN PLATELET VOLUME 9.8 fL (7.2-11.7); MONO # 1.3 K/uL (0.0-0.8); MONO % 13.8 % (0.0-10.0); NEUT # 6.8 K/uL (1.8-7.0); NEUT % 69.4 % (50.0-75.0); RBC 2.65 Mil/uL (3.80-5.20); RED CELL DISTRIBUTION WIDTH 23.3 % (11.5-14.5); WHITE BLOOD COUNT 9.7 K/uL (4.8-10.8)
[2018-03-11] MEDS: Multiple Vitamins Tab PO SCH (10:23)
[2018-03-11 11:08] LABS: ALT/SGPT 101 U/L (9-52); AST/SGOT 123 U/L (14-36); BLOOD UREA NITROGEN < 2 mg/dL (7-17); CALCIUM 8.5 mg/dl (8.6-10.4); GFR NON-AFRICAN AMERICAN > 60
[2018-03-11] MEDS ORDERED: Potassium & Sodium Phosphate PO ONE (11:15)
[2018-03-11] MEDS: Magnesium Sulfate 1 gm in D5W 1 GM/100 ML BAG IVPB SCH ×2 (11:41→12:13)
[2018-03-11] MEDS ORDERED: Potassium Phosphate 15 MMOLE in Sodium Chloride 0.9% 250 ML IVPB ONE (12:00)
--- NOTE | 2018-03-11 12:00 | CP.PCM.PN ---
Subjective - Date & Time of Evaluation Date of Evaluation: 03/11/18 Time of Evaluation: 09:00 - Subjective Subjective: 62 year old female admitted for alcohol related pancreatitis, colitis, sepsis. remains weak confused tremulous afeb GI work up pending Objective - Vital Signs/Intake and Output Vital Signs (last 24 hours): Temp Pulse Resp BP Pulse Ox 98.7 F 106 H 29 H 172/112 H 97 03/11/18 04:00 03/11/18 04:00 03/11/18 04:00 03/11/18 11:50 03/11/18 04:00 Intake and Output: 03/11/18 03/11/18 06:59 18:59 Intake Total 2030 Balance 2030 - Medications Medications: Current Medications Albuterol/Ipratropium (Duoneb 3 Mg/0.5 Mg (3 Ml) Ud) 3 ml INH RQ4 [facility] Last Admin: 03/11/18 07:29 Dose: 3 ml Chlordiazepoxide (Librium) 25 mg PO Q8 PRN PRN Reason: Agitation Last Admin: 03/11/18 04:53 Dose: 25 mg Chlordiazepoxide (Librium) 50 mg PO Q8H [facility] Last Admin: 03/11/18 08:14 Dose: 50 mg Folic Acid (Folic Acid) 1 mg PO DAILY [facility] Last Admin: 03/11/18 10:23 Dose: 1 mg Heparin Sodium (Porcine) (Heparin) 5,000 units SC Q8 [facility] Cefepime HCl (Maxipime Iv 1 Gm Premix) 1 gm in 50 mls @ 100 mls/hr IVPB Q12H [facility] PRN Reason: Protocol Last Admin: 03/11/18 05:00 Dose: 100 mls/hr Metronidazole (Flagyl) 500 mg in 100 mls @ 100 mls/hr IVPB Q8H [facility] PRN Reason: Protocol Last Admin: 03/11/18 04:59 Dose: 100 mls/hr Magnesium Sulfate/Dextrose (Magnesium Sulfate 1 Gm/100 Ml D5w) 1 gm in 100 mls @ 300 mls/hr IVPB Q1H [facility] Stop: 03/11/18 12:34 Last Admin: 03/11/18 11:41 Dose: 300 mls/hr Potassium Phosphate 30 mmole/ (Sodium Chloride) 260 mls @ 42.5 mls/hr IVPB Q6H [facility] Stop: 03/12/18 11:29 Insulin Human Regular (Novolin R) 1 unit SC ACHS [facility] PRN Reason: Protocol Last Admin: 03/11/18 08:19 Dose: Not Given Lactulose (Enulose) 20 gm PO TID [facility] Last Admin: 03/11/18 10:23 Dose: 20 gm Lorazepam (Ativan) 2 mg IVP Q6H PRN PRN Reason: Anxiety Last Admin: 03/11/18 11:41 Dose: 2 mg Multivitamins (Hexavitamin) 1 tab PO DAILY [facility] Last Admin: 03/11/18 10:23 Dose: 1 tab Neomycin Sulfate (Neomycin Tab) 500 mg PO Q6H [facility] Last Admin: 03/11/18 11:57 Dose: 500 mg Ondansetron HCl (Zofran Inj) 4 mg IVP Q6H PRN PRN Reason: Nausea/Vomiting Last Admin: 03/09/18 18:32 Dose: 4 mg Pantoprazole Sodium (Protonix Inj) 40 mg IVP DAILY [facility] Last Admin: 03/11/18 10:23 Dose: 40 mg Potassium Phos/Sodium Phos (Neutra-Phos) 1 pkt PO Q8H [facility] Stop: 03/12/18 03:31 - Labs Labs: 03/11/18 10:15 03/11/18 10:15 PT 13.5 SECONDS (9.7-12.2) H 03/07/18 16:53 INR 1.2 03/07/18 16:53 APTT 33 SECONDS (21-34) 03/07/18 16:53 - Constitutional Appears: Confused, Cachectic, Chronically Ill - Head Exam Head Exam: NORMOCEPHALIC - Eye Exam Eye Exam: PERRL. absent: Scleral icterus - ENT Exam ENT Exam: Mucous Membranes Dry - Neck Exam Neck Exam: absent: Lymphadenopathy - Respiratory Exam Respiratory Exam: Decreased Breath Sounds - Cardiovascular Exam Cardiovascular Exam: REGULAR RHYTHM - GI/Abdominal Exam GI & Abdominal Exam: Distended, Soft Assessment and Plan (1) Abdominal pain Status: Acute (2) Metabolic acidosis Status: Acute - Assessment and Plan (Free Text) Assessment: 62 year old female admitted for alcohol related pancreatitis, colitis, sepsis. await GI eval Dr Harris cont IV antibiotic x 7 days
[2018-03-11] MEDS: Potassium Phosphate 30 MMOLE in Sodium Chloride 0.9% 250 ML IVPB SCH ×3 (12:05→22:56)
[2018-03-11] MEDS: Dexmedetomidine Hydrochloride 200 MCG in Sodium Chloride 0.9% 48 ML IV PRN ×2 (12:52→17:44)
[2018-03-11 13:25] LABS: ALB/GLOB RATIO 0.9 (1.0-2.1); ALBUMIN 2.9 g/dL (3.5-5.0); ALT/SGPT 89 U/L (9-52); AST/SGOT 119 U/L (14-36); BLOOD UREA NITROGEN < 2 mg/dL (7-17); CALCIUM 8.5 mg/dl (8.6-10.4); GFR NON-AFRICAN AMERICAN > 60
--- NOTE | 2018-03-11 13:51 | CP.CCUPN ---
CCU Subjective - Physician Review Subjective (Free Text): 03/11/18 14:48 ICU progress note Patient seen and examined at bedside. Patient has a history of alcohol abuse, and she was noted to be agitated and confused. Given concern for DTs, patient was transferred back to ICU. CCU Objective - Vital Signs / Intake & Output Vital Signs (Last 4 hours): Vital Signs Pulse Resp BP Pulse Ox 03/11/18 13:00 104 H 35 H 98 03/11/18 12:43 128/99 H 03/11/18 11:50 172/112 H Intake and Output (Last 8hrs): Intake & Output 03/10/18 03/11/18 03/11/18 22:59 06:59 14:59 Intake Total 140 2030 91.9 Balance 140 2030 91.9 Weight 193 lb 12.8 oz Intake: Intake, IV Amount 140 2030 91.9 Left External Jugular 40 Left External Jugular 480 Distal Port Left External Jugular 1550 Proximal Port Left External Jugular Y 9.4 Port Left Hand 42.5 Right Hand 140 Other: # Voids Urine, Voided 2 # Bowel Movements 1 - Physical Exam Head: Positive for: Atraumatic, Normocephalic Extroacular Muscles: Positive for: EOMI Mouth: Positive for: Moist Mucous Membranes Neck: Negative for: JVD Respiratory/Chest: Positive for: Clear to Auscultation, Good Air Exchange. Negative for: Respiratory Distress, Wheezes, Rales Cardiovascular: Positive for: Regular Rate and Rhythm, Normal S1, S2 Abdomen: Positive for: Tenderness (diffusely), Distention, Normal Bowel Sounds. Negative for: Peritoneal Signs Upper Extremity: Negative for: Cyanosis, Edema Lower Extremity: Negative for: Edema, CALF TENDERNESS Neurological: Positive for: CN II-XII Intact Skin: Positive for: Warm, Dry Psychiatric: Positive for: Alert, Other (Oriented to self, but not to place and time. Seems to get agitated at times ) - Medications Active Medications: Active Medications Generic Name Dose Route Start Last Admin Trade Name Freq PRN Reason Stop Dose Admin Albuterol/Ipratropium 3 ml 03/09/18 12:00 03/11/18 13:07 Duoneb 3 Mg/0.5 Mg (3 Ml) Ud INH 3 ml RQ4 DOYLE Administration Chlordiazepoxide 25 mg 03/09/18 17:41 03/11/18 04:53 Librium PO 25 mg Q8 PRN Administration Agitation Chlordiazepoxide 50 mg 03/10/18 16:00 03/11/18 08:14 Librium PO 50 mg Q8H DOYLE Administration Folic Acid 1 mg 03/11/18 10:15 03/11/18 10:23 Folic Acid PO 1 mg DAILY DOYLE Administration Heparin Sodium (Porcine) 5,000 units 03/11/18 14:00 Heparin SC Q8 DOYLE Cefepime HCl 1 gm in 50 mls @ 100 mls/hr 03/08/18 06:00 03/11/18 05:00 Maxipime Iv 1 Gm Premix IVPB 100 mls/hr Q12H DOYLE Administration Protocol Metronidazole 500 mg in 100 mls @ 100 mls/hr 03/08/18 14:00 03/11/18 04:59 Flagyl IVPB 100 mls/hr Q8H DOYLE Administration Protocol Potassium Phosphate 30 mmole/ 260 mls @ 42.5 mls/hr 03/11/18 11:30 03/11/18 12:05 Sodium Chloride IVPB 03/12/18 11:29 42.5 mls/hr Q6H DOYLE Administration Dexmedetomidine HCl 200 mcg/ 50 mls @ 4.39 mls/hr 03/11/18 11:59 03/11/18 12: 52 Sodium Chloride IV 0.2 mcg/kg/hr TITR PRN 4.39 mls/hr Agitation Administration Protocol 0.2 MCG/KG/HR Insulin Human Regular 1 unit 03/10/18 17:00 03/11/18 12:16 Novolin R SC Not Given ACHS [facility] Protocol Lactulose 20 gm 03/11/18 09:33 03/11/18 10:23 Enulose PO 20 gm TID DOYLE Administration Lorazepam 2 mg 03/11/18 11:59 03/11/18 12:19 Ativan IVP 2 mg Q2 PRN Administration Anxiety Multivitamins 1 tab 03/11/18 10:15 03/11/18 10:23 Hexavitamin PO 1 tab DAILY DOYLE Administration Neomycin Sulfate 500 mg 03/08/18 12:00 03/11/18 11:57 Neomycin Tab PO 500 mg Q6H DOYLE Administration Ondansetron HCl 4 mg 03/08/18 00:15 03/09/18 18:32 Zofran Inj IVP 4 mg Q6H PRN Administration Nausea/Vomiting Pantoprazole Sodium 40 mg 03/08/18 10:00 03/11/18 10:23 Protonix Inj IVP 40 mg DAILY DOYLE Administration Potassium Phos/Sodium Phos 1 pkt 03/11/18 19:30 Neutra-Phos PO 03/12/18 03:31 Q8H DOYLE - Patient Studies Lab Studies: Microbiology Studies 03/07/18 11:05 Blood Culture - Preliminary Blood NO GROWTH AFTER 3 DAYS 03/07/18 17:35 Blood Culture - Preliminary Blood NO GROWTH AFTER 3 DAYS 03/08/18 13:26 Stool Culture - Final Stool NO SALMONELLA, SHIGELLA OR CAMPYLOBACTER ISOLATED. Lab Studies 03/11/18 03/11/18 03/11/18 Range/Units 12:37 11:13 10:15 WBC (4.8-10.8) K/uL RBC (3.80-5.20) Mil/uL Hgb (11.0-16.0) g/dL Hct (34.0-47.0) % MCV (81.0-99.0) fL MCH (27.0-31.0) pg MCHC (33.0-37.0) g/dL RDW (11.5-14.5) % Plt Count (130-400) K/uL MPV (7.2-11.7) fL Neut % (Auto) (50.0-75.0) % Lymph % (Auto) (20.0-40.0) % [place] % (Auto) (0.0-10.0) % Eos % (Auto) (0.0-4.0) % Baso % (Auto) (0.0-2.0) % Neut # (Auto) (1.8-7.0) K/uL Lymph # (Auto) (1.0-4.3) K/uL [place] # (Auto) (0.0-0.8) K/uL Eos # (Auto) (0.0-0.7) K/uL Baso # (Auto) (0.0-0.2) K/uL Differential Comment Sodium 136 137 (132-148) mmol/L Potassium 4.8 4.9 (3.6-5.2) mmol/L Chloride 106 107 (98-107) mmol/L Carbon Dioxide 19 L 20 L (22-30) mmol/L Anion Gap 15 15 (10-20) BUN < 2 L < 2 L (7-17) mg/dL Creatinine 0.4 L 0.4 L (0.7-1.2) mg/dL Est GFR ( Amer) > 60 > 60 Est GFR (Non-Af Amer) > 60 > 60 POC Glucose (mg/dL) 137 H (65-110) mg/dL Random Glucose 143 H 121 H (65-105) mg/dL Calcium 8.5 L 8.5 L (8.6-10.4) mg/dl Phosphorus 0.6 L* 0.6 L* (2.5-4.5) mg/dL Magnesium 2.4 H 1.5 L (1.6-2.3) mg/dL Total Bilirubin 1.0 1.0 (0.2-1.3) mg/dL AST 119 H 123 H D (14-36) U/L ALT 89 H 101 H (9-52) U/L Alkaline Phosphatase 297 H 301 H (38-126) U/L Ammonia (9-33) umol/L Total Protein 6.0 L 6.1 L (6.3-8.3) g/dL Albumin 2.9 L 3.0 L (3.5-5.0) g/dL Globulin 3.1 3.1 (2.2-3.9) gm/dL Albumin/Globulin Ratio 0.9 L 1.0 (1.0-2.1) 03/11/18 03/11/18 03/11/18 Range/Units 10:15 10:15 07:18 WBC 9.7 D (4.8-10.8) K/uL RBC 2.65 L (3.80-5.20) Mil/uL Hgb 8.1 L (11.0-16.0) g/dL Hct 25.1 L (34.0-47.0) % MCV 94.6 (81.0-99.0) fL MCH 30.6 (27.0-31.0) pg MCHC 32.3 L (33.0-37.0) g/dL RDW 23.3 H (11.5-14.5) % Plt Count 114 L (130-400) K/uL MPV 9.8 (7.2-11.7) fL Neut % (Auto) 69.4 (50.0-75.0) % Lymph % (Auto) 15.0 L (20.0-40.0) % [place] % (Auto) 13.8 H (0.0-10.0) % Eos % (Auto) 1.1 (0.0-4.0) % Baso % (Auto) 0.7 (0.0-2.0) % Neut # (Auto) 6.8 (1.8-7.0) K/uL Lymph # (Auto) 1.5 (1.0-4.3) K/uL [place] # (Auto) 1.3 H (0.0-0.8) K/uL Eos # (Auto) 0.1 (0.0-0.7) K/uL Baso # (Auto) 0.1 (0.0-0.2) K/uL Differential Comment Sodium (132-148) mmol/L Potassium (3.6-5.2) mmol/L Chloride (98-107) mmol/L Carbon Dioxide (22-30) mmol/L Anion Gap (10-20) BUN (7-17) mg/dL Creatinine (0.7-1.2) mg/dL Est GFR ( Amer) Est GFR (Non-Af Amer) POC Glucose (mg/dL) 128 H (65-110) mg/dL Random Glucose (65-105) mg/dL Calcium (8.6-10.4) mg/dl Phosphorus (2.5-4.5) mg/dL Magnesium (1.6-2.3) mg/dL Total Bilirubin (0.2-1.3) mg/dL AST (14-36) U/L ALT (9-52) U/L Alkaline Phosphatase (38-126) U/L Ammonia 22 D (9-33) umol/L Total Protein (6.3-8.3) g/dL Albumin (3.5-5.0) g/dL Globulin (2.2-3.9) gm/dL Albumin/Globulin Ratio (1.0-2.1) 03/11/18 03/10/18 03/10/18 Range/Units 06:19 21:10 16:12 WBC 6.4 (4.8-10.8) K/uL RBC 2.31 L (3.80-5.20) Mil/uL Hgb 7.4 L (11.0-16.0) g/dL Hct 21.8 L (34.0-47.0) % MCV 94.3 (81.0-99.0) fL MCH 32.0 H (27.0-31.0) pg MCHC 33.9 (33.0-37.0) g/dL RDW 23.1 H (11.5-14.5) % Plt Count 102 L D (130-400) K/uL MPV 10.4 (7.2-11.7) fL Neut % (Auto) 64.7 (50.0-75.0) % Lymph % (Auto) 20.0 (20.0-40.0) % [place] % (Auto) 13.0 H (0.0-10.0) % Eos % (Auto) 1.6 (0.0-4.0) % Baso % (Auto) 0.7 (0.0-2.0) % Neut # (Auto) 4.2 (1.8-7.0) K/uL Lymph # (Auto) 1.3 (1.0-4.3) K/uL [place] # (Auto) 0.8 (0.0-0.8) K/uL Eos # (Auto) 0.1 (0.0-0.7) K/uL Baso # (Auto) 0.0 (0.0-0.2) K/uL Differential Comment Sodium (132-148) mmol/L Potassium (3.6-5.2) mmol/L Chloride (98-107) mmol/L Carbon Dioxide (22-30) mmol/L Anion Gap (10-20) BUN (7-17) mg/dL Creatinine (0.7-1.2) mg/dL Est GFR ( Amer) Est GFR (Non-Af Amer) POC Glucose (mg/dL) 158 H 216 H (65-110) mg/dL Random Glucose (65-105) mg/dL Calcium (8.6-10.4) mg/dl Phosphorus (2.5-4.5) mg/dL Magnesium (1.6-2.3) mg/dL Total Bilirubin (0.2-1.3) mg/dL AST (14-36) U/L ALT (9-52) U/L Alkaline Phosphatase (38-126) U/L Ammonia (9-33) umol/L Total Protein (6.3-8.3) g/dL Albumin (3.5-5.0) g/dL Globulin (2.2-3.9) gm/dL Albumin/Globulin Ratio (1.0-2.1) 03/10/18 Range/Units 11:38 WBC (4.8-10.8) K/uL RBC (3.80-5.20) Mil/uL Hgb (11.0-16.0) g/dL Hct (34.0-47.0) % MCV (81.0-99.0) fL MCH (27.0-31.0) pg MCHC (33.0-37.0) g/dL RDW (11.5-14.5) % Plt Count (130-400) K/uL MPV (7.2-11.7) fL Neut % (Auto) (50.0-75.0) % Lymph % (Auto) (20.0-40.0) % [place] % (Auto) (0.0-10.0) % Eos % (Auto) (0.0-4.0) % Baso % (Auto) (0.0-2.0) % Neut # (Auto) (1.8-7.0) K/uL Lymph # (Auto) (1.0-4.3) K/uL [place] # (Auto) (0.0-0.8) K/uL Eos # (Auto) (0.0-0.7) K/uL Baso # (Auto) (0.0-0.2) K/uL Differential Comment Sodium (132-148) mmol/L Potassium (3.6-5.2) mmol/L Chloride (98-107) mmol/L Carbon Dioxide (22-30) mmol/L Anion Gap (10-20) BUN (7-17) mg/dL Creatinine (0.7-1.2) mg/dL Est GFR ( Amer) Est GFR (Non-Af Amer) POC Glucose (mg/dL) 217 H (65-110) mg/dL Random Glucose (65-105) mg/dL Calcium (8.6-10.4) mg/dl Phosphorus (2.5-4.5) mg/dL Magnesium (1.6-2.3) mg/dL Total Bilirubin (0.2-1.3) mg/dL AST (14-36) U/L ALT (9-52) U/L Alkaline Phosphatase (38-126) U/L Ammonia (9-33) umol/L Total Protein (6.3-8.3) g/dL Albumin (3.5-5.0) g/dL Globulin (2.2-3.9) gm/dL Albumin/Globulin Ratio (1.0-2.1) Laboratory Results - last 24 hr 03/10/18 03/10/18 03/10/18 11:38 16:12 21:10 WBC RBC Hgb Hct MCV MCH MCHC RDW Plt Count MPV Neut % (Auto) Lymph % (Auto) [place] % (Auto) Eos % (Auto) Baso % (Auto) Neut # (Auto) Lymph # (Auto) [place] # (Auto) Eos # (Auto) Baso # (Auto) Differential Comment Sodium Potassium Chloride Carbon Dioxide Anion Gap BUN Creatinine Est GFR ( Amer) Est GFR (Non-Af Amer) POC Glucose (mg/dL) 217 H 216 H 158 H Random Glucose Calcium Phosphorus Magnesium Total Bilirubin AST ALT Alkaline Phosphatase Ammonia Total Protein Albumin Globulin Albumin/Globulin Ratio 03/11/18 03/11/18 03/11/18 06:19 07:18 10:15 WBC 6.4 RBC 2.31 L Hgb 7.4 L Hct 21.8 L MCV 94.3 MCH 32.0 H MCHC 33.9 RDW 23.1 H Plt Count 102 L D MPV 10.4 Neut % (Auto) 64.7 Lymph % (Auto) 20.0 [place] % (Auto) 13.0 H Eos % (Auto) 1.6 Baso % (Auto) 0.7 Neut # (Auto) 4.2 Lymph # (Auto) 1.3 [place] # (Auto) 0.8 Eos # (Auto) 0.1 Baso # (Auto) 0.0 Differential Comment Sodium Potassium Chloride Carbon Dioxide Anion Gap BUN Creatinine Est GFR ( Amer) Est GFR (Non-Af Amer) POC Glucose (mg/dL) 128 H Random Glucose Calcium Phosphorus Magnesium Total Bilirubin AST ALT Alkaline Phosphatase Ammonia 22 D Total Protein Albumin Globulin Albumin/Globulin Ratio 03/11/18 03/11/18 03/11/18 10:15 10:15 11:13 WBC 9.7 D RBC 2.65 L Hgb 8.1 L Hct 25.1 L MCV 94.6 MCH 30.6 MCHC 32.3 L RDW 23.3 H Plt Count 114 L MPV 9.8 Neut % (Auto) 69.4 Lymph % (Auto) 15.0 L [place] % (Auto) 13.8 H Eos % (Auto) 1.1 Baso % (Auto) 0.7 Neut # (Auto) 6.8 Lymph # (Auto) 1.5 [place] # (Auto) 1.3 H Eos # (Auto) 0.1 Baso # (Auto) 0.1 Differential Comment Sodium 137 Potassium 4.9 Chloride 107 Carbon Dioxide 20 L Anion Gap 15 BUN < 2 L Creatinine 0.4 L Est GFR ( Amer) > 60 Est GFR (Non-Af Amer) > 60 POC Glucose (mg/dL) 137 H Random Glucose 121 H Calcium 8.5 L Phosphorus 0.6 L* Magnesium 1.5 L Total Bilirubin 1.0 AST 123 H D ALT 101 H Alkaline Phosphatase 301 H Ammonia Total Protein 6.1 L Albumin 3.0 L Globulin 3.1 Albumin/Globulin Ratio 1.0 03/11/18 12:37 WBC RBC Hgb Hct MCV MCH MCHC RDW Plt Count MPV Neut % (Auto) Lymph % (Auto) [place] % (Auto) Eos % (Auto) Baso % (Auto) Neut # (Auto) Lymph # (Auto) [place] # (Auto) Eos # (Auto) Baso # (Auto) Differential Comment Sodium 136 Potassium 4.8 Chloride 106 Carbon Dioxide 19 L Anion Gap 15 BUN < 2 L Creatinine 0.4 L Est GFR ( Amer) > 60 Est GFR (Non-Af Amer) > 60 POC Glucose (mg/dL) Random Glucose 143 H Calcium 8.5 L Phosphorus 0.6 L* Magnesium 2.4 H Total Bilirubin 1.0 AST 119 H ALT 89 H Alkaline Phosphatase 297 H Ammonia Total Protein 6.0 L Albumin 2.9 L Globulin 3.1 Albumin/Globulin Ratio 0.9 L Fingerstick Blood Sugar Results: 217 Review of Systems - Review of Systems Systems not reviewed;Unavailable: Uncooperative Critical Care Progress Note - Nutrition Nutrition: Nutrition Category Date Time Status Liquid Diet [DIET] Diets 03/10/18 Breakfast Active Assessment/Plan - Assessment and Plan (Free Text) Assessment: 62 year old female with history of alcohol abuse who was admitted for pancreatitis, colitis and sepsis after patient complained of worsening abdominal pain and distention. Currently agitated. Plan: Neuro: Oriented to self only Started on Precedex drip Librium 50mg Q8 Zofran 4mg IV Q6 PRN U tox: positive for cocaine Folic acid 1mg PO daily Ativan 2mg IV Q2 PRN Cardiovascular Hemodynamically stable Maintain MAP >65 Pulmonary Duonebs Q4 GI Protonix 40mg IV CT abdomen/pelvis with IV contrast: Enterocolitis, partial gastrectomy with gastrojejunal anastomosis, no obstruction, enlarged fatty liver, cholecystectomy and hysterectomy Pancreatitis, lipase elevated on admission Stool occult negative Stool H pylori not detected Surgery Dr. Barrett consulted, help appreciated GI Dr. Miranda consulted, help appreciated Stool studies pending. Lactulose 20mg TID Renal Continue to monitor electrolytes Phos repleted ID Dr. Hernandez consulted, help appreciated Cefepime, Flagyl as per ID Endo Maintain euglycemia Heme H/H 8.1/25.1 PPX Heparin, Protonix Case discussed with Dr. Alston
--- NOTE | 2018-03-11 13:55 | RAD ---
Date of service: 03/11/2018 HISTORY: tachypnea COMPARISON: 03/07/2018. FINDINGS: LUNGS: There are low lung volumes. No focal consolidation PLEURA: No significant pleural effusion identified, no pneumothorax apparent. CARDIOVASCULAR: Normal. OSSEOUS STRUCTURES: No significant abnormalities. VISUALIZED UPPER ABDOMEN: Normal. OTHER FINDINGS: None. IMPRESSION: Low lung volumes may be related to poor inspiratory effort. No acute findings.
--- NOTE | 2018-03-11 17:28 | PN ---
DATE: 03/11/2018 LOCATION: ICU 15. SUBJECTIVE: This is a 62-year-old female seen and examined in rounds early this morning, appears to be restless, somewhat agitated, but no reported active GI bleeding or actual chest pain or palpitation or significant shortness of breath. The entire chart is reviewed including but not limited to the most recent lab and radiology study results, current and the previous medication list, current and the previous medical events. Case discussed with the staff at length. Today's lab results show hemoglobin 8.1, hematocrit 25.1 with thrombocytopenia 140 with CO2 content of 20 indicative of metabolic acidosis. Blood glucose level 121, calcium 8.5 with phosphorus 0.6, magnesium 1.5, AST 123, ALT 101, alkaline phosphatase 301 with albumin 3. Today's lab results still pending. PHYSICAL EXAMINATION: GENERAL: A 62-year-old female. VITAL SIGNS: Afebrile with heart rate of 100, respiratory rate 20 to 24, blood pressure of 150/92. HEENT: Showed pale, dry oral mucous membrane. Nonicteric sclerae. LUNGS: Few scattered crepitation. Breathing sounds are present bilaterally. HEART: heart rate, positive S1 and S2. ABDOMEN: Soft. There was mild generalized tenderness. No mass or organomegaly. No rebound tenderness or guarding. RECTAL: The patient refused. EXTREMITIES: Without significant clubbing, cyanosis, or edema. No reported new neurological deficits, sensory or motor. IMPRESSION: 1. Known history of alcoholism. 2. Acute pancreatitis, alcohol induced. 3. Acute alcoholic hepatitis. 4. Hepatic encephalopathy secondary to above. 5. Elevated carcinoembryonic antigen and CA19-9 raising high possibility of gastrointestinal tract cancer. 6. Thrombocytopenia secondary to above. 7. Substance abuse. 8. Metabolic acidosis. 9. Anemia secondary to above. SUGGESTIONS: 1. Continue current management. 2. Awaiting for MRCP. 3. Ammonia level. 4. Further recommendations to follow. Simeon Salmeron MD
[2018-03-11] MEDS: Potassium & Sodium Phosphate PO SCH (20:46)
[2018-03-12] MEDS: Albuterol-Ipratrop 3 mg / 0.5 (3 ml) UD INH SCH ×6 (00:29→20:03)
[2018-03-12] MEDS: Dexmedetomidine Hydrochloride 200 MCG in Sodium Chloride 0.9% 48 ML IV PRN ×3 (01:24→21:12)
[2018-03-12] MEDS: Potassium & Sodium Phosphate PO SCH (03:03)
[2018-03-12] MEDS: Cefepime IV 1 gm in Dextrose 1 GM/50 ML BAG IVPB SCH ×2 (05:00→17:42)
[2018-03-12] MEDS: metroNIDAZOLE IV 500 mg/100 ml 500 MG/100 ML BAG IVPB SCH ×3 (05:00→21:07)
[2018-03-12 06:31] LABS: BASO # 0.1 K/uL (0.0-0.2); BASO % 1.4 % (0.0-2.0); EOS # 0.2 K/uL (0.0-0.7); EOS % 2.3 % (0.0-4.0); HEMOGLOBIN 7.8 g/dL (11.0-16.0); LYMPH # 1.5 K/uL (1.0-4.3); LYMPH % 16.5 % (20.0-40.0); MEAN CELL VOLUME 95.8 fL (81.0-99.0); MEAN CORPUSCULAR HEMOGLOBIN 30.7 pg (27.0-31.0); MEAN PLATELET VOLUME 10.7 fL (7.2-11.7); MONO # 1.5 K/uL (0.0-0.8); MONO % 15.7 % (0.0-10.0); NEUT # 5.9 K/uL (1.8-7.0); NEUT % 64.1 % (50.0-75.0); NRBC % 0.2 % (0.0-2.0); RBC 2.56 Mil/uL (3.80-5.20); RED CELL DISTRIBUTION WIDTH 22.8 % (11.5-14.5); WHITE BLOOD COUNT 9.3 K/uL (4.8-10.8)
[2018-03-12] MEDS: Potassium Phosphate 30 MMOLE in Sodium Chloride 0.9% 250 ML IVPB SCH (06:50)
[2018-03-12 06:54] LABS: ALB/GLOB RATIO 0.9 (1.0-2.1); ALBUMIN 2.7 g/dL (3.5-5.0); ALT/SGPT 85 U/L (9-52); AST/SGOT 92 U/L (14-36); BLOOD UREA NITROGEN < 2 mg/dL (7-17); CALCIUM 7.1 mg/dl (8.6-10.4); GFR NON-AFRICAN AMERICAN > 60
[2018-03-12] MEDS: (Novolin R) Insulin Human Regular 100 units/ml vial SC SCH ×5 (07:42→23:42)
[2018-03-12] MEDS ORDERED: (Novolin R) Insulin Human Regular 100 units/ml vial IV ONE ×2 (07:45→13:08)
[2018-03-12] MEDS ORDERED: Calcium Gluconate 4.65 mEq/10 ml Inj IVP ONE (07:45)
[2018-03-12] MEDS ORDERED: Dextrose 50% SYRINGE Inj (50 ml) IV ONE ×2 (07:45→13:09)
[2018-03-12 10:25] LABS: ARTERIAL BLOOD GAS HEMOGLOBIN 7.8 g/dL (11.7-17.4); ARTERIAL BLOOD GAS O2 SAT 96.6 % (95-98); ARTERIAL BLOOD GAS PCO2 29 mm/Hg (35-45); ARTERIAL BLOOD GAS PH 7.42 (7.35-7.45); ARTERIAL BLOOD GAS PO2 75 mm/Hg (80-100); ARTERIAL BLOOD GAS TCO2 19.7 mmol/L (22-28)
[2018-03-12] MEDS: Multiple Vitamins Tab PO SCH (10:27)
--- NOTE | 2018-03-12 10:46 | CP.CCUPN ---
<Magdalena Wilcox - Last Filed: 03/12/18 17:39> CCU Subjective - Physician Review Subjective (Free Text): ICU progress note Patient seen and examined at bedside. Patient has a history of alcohol abuse, and she was placed on Precedex given concern for DTs. Patient is sedated, unable to provide history. 03/12/18 17:22 CCU Objective - Vital Signs / Intake & Output Vital Signs (Last 4 hours): Vital Signs Temp Pulse Resp BP Pulse Ox 03/12/18 10:28 72 29 H 122/73 97 03/12/18 09:00 70 25 H 118/62 98 03/12/18 08:07 71 27 H 114/60 99 03/12/18 08:00 98.4 F 99 03/12/18 07:36 63 33 H 95/54 L 99 03/12/18 07:00 64 33 H 99 Intake and Output (Last 8hrs): Intake & Output 03/11/18 03/12/18 03/12/18 22:59 06:59 14:59 Intake Total 1275.2 585.2 37.4 Output Total 700 200 250 Balance 575.2 385.2 -212.6 Weight 191 lb Intake: IV 50 50 22 Intake, IV Amount 695.2 535.2 15.4 Left External Jugular 320 160 0 Left External Jugular Y 35.2 35.2 15.4 Port Left Hand 340.0 340.0 0 Oral 530 Output: Urine 700 200 250 Urine, Voided 700 200 250 Other: # Voids Urine, Voided 1 1 1 # Bowel Movements 1 - Physical Exam Physical Exam Limitations: Positive for: Altered Mental Status Head: Positive for: Atraumatic, Normocephalic Pupils: Positive for: PERRL Mouth: Positive for: Moist Mucous Membranes Neck: Negative for: JVD Respiratory/Chest: Positive for: Other (Tachypneic). Negative for: Respiratory Distress, Wheezes, Rales Cardiovascular: Positive for: Regular Rate and Rhythm, Normal S1, S2 Abdomen: Positive for: Distention, Normal Bowel Sounds. Negative for: Peritoneal Signs Upper Extremity: Positive for: NORMAL PULSES. Negative for: Cyanosis, Edema Lower Extremity: Positive for: NORMAL PULSES. Negative for: Edema, CALF TENDERNESS Neurological: Positive for: CN II-XII Intact Skin: Positive for: Warm, Dry Other physical findings (Free Text): Altered - Medications Active Medications: Active Medications Generic Name Dose Route Start Last Admin Trade Name Freq PRN Reason Stop Dose Admin Albuterol/Ipratropium 3 ml 03/09/18 12:00 03/12/18 07:40 Duoneb 3 Mg/0.5 Mg (3 Ml) Ud INH 3 ml RQ4 DOYLE Administration Heparin Sodium (Porcine) 5,000 units 03/11/18 14:00 03/12/18 05:31 Heparin SC 5,000 units Q8 DOYLE Administration Cefepime HCl 1 gm in 50 mls @ 100 mls/hr 03/08/18 06:00 03/12/18 05:00 Maxipime Iv 1 Gm Premix IVPB 100 mls/hr Q12H DOYLE Administration Protocol Metronidazole 500 mg in 100 mls @ 100 mls/hr 03/08/18 14:00 03/12/18 05:00 Flagyl IVPB 100 mls/hr Q8H DOYLE Administration Protocol Dexmedetomidine HCl 200 mcg/ 50 mls @ 4.39 mls/hr 03/11/18 11:59 03/12/18 08: 30 Sodium Chloride IV 0.2 mcg/kg/hr TITR PRN 4.4 mls/hr Agitation Titration Protocol 0.2 MCG/KG/HR Insulin Human Regular 1 unit 03/10/18 17:00 03/12/18 07:42 Novolin R SC Not Given ACHS [facility] Protocol Lorazepam 2 mg 03/11/18 11:59 03/11/18 12:19 Ativan IVP 2 mg Q2 PRN Administration Anxiety Ondansetron HCl 4 mg 03/08/18 00:15 03/09/18 18:32 Zofran Inj IVP 4 mg Q6H PRN Administration Nausea/Vomiting Pantoprazole Sodium 40 mg 03/08/18 10:00 03/12/18 09:37 Protonix Inj IVP 40 mg DAILY DOYLE Administration - Patient Studies Lab Studies: Microbiology Studies 03/07/18 11:05 Blood Culture - Preliminary Blood NO GROWTH AFTER 4 DAYS 03/07/18 17:35 Blood Culture - Preliminary Blood NO GROWTH AFTER 4 DAYS 03/08/18 Unknown Ova and Parasite Concentrate Exam - Final Rectum Lab Studies 03/12/18 03/12/18 03/12/18 Range/Units 10:22 07:32 06:25 WBC (4.8-10.8) K/uL RBC (3.80-5.20) Mil/uL Hgb (11.0-16.0) g/dL Hct (34.0-47.0) % MCV (81.0-99.0) fL MCH (27.0-31.0) pg MCHC (33.0-37.0) g/dL RDW (11.5-14.5) % Plt Count (130-400) K/uL MPV (7.2-11.7) fL Neut % (Auto) (50.0-75.0) % Lymph % (Auto) (20.0-40.0) % Graham % (Auto) (0.0-10.0) % Eos % (Auto) (0.0-4.0) % Baso % (Auto) (0.0-2.0) % Neut # (Auto) (1.8-7.0) K/uL Lymph # (Auto) (1.0-4.3) K/uL Graham # (Auto) (0.0-0.8) K/uL Eos # (Auto) (0.0-0.7) K/uL Baso # (Auto) (0.0-0.2) K/uL Differential Comment Puncture Site Rba pCO2 29 L (35-45) mm/Hg pO2 75 L (80-100) mm/Hg HCO3 21.0 (21-28) mmol/L ABG pH 7.42 (7.35-7.45) ABG Total CO2 19.7 L (22-28) mmol/L ABG O2 Saturation 96.6 (95-98) % ABG Base Excess -5.0 L (-2.0-3.0) mmol/L ABG Hemoglobin 7.8 L (11.7-17.4) g/dL ABG Carboxyhemoglobin 1.6 H (0.5-1.5) % POC ABG HHb (Measured) 3.3 (0.0-5.0) % ABG Methemoglobin 0.5 (0.0-3.0) % Denny Test Na A-a O2 Difference 138.0 mm/Hg Respiratory Index 1.8 Hgb O2 Saturation 94.6 L (95.0-98.0) % Liter Flow 4.0 FiO2 35.0 % Sodium (132-148) mmol/L Potassium (3.6-5.2) mmol/L Chloride (98-107) mmol/L Carbon Dioxide (22-30) mmol/L Anion Gap (10-20) BUN (7-17) mg/dL Creatinine (0.7-1.2) mg/dL Est GFR ( Amer) Est GFR (Non-Af Amer) POC Glucose (mg/dL) 103 (65-110) mg/dL Random Glucose (65-105) mg/dL Calcium (8.6-10.4) mg/dl Phosphorus (2.5-4.5) mg/dL Magnesium (1.6-2.3) mg/dL Total Bilirubin (0.2-1.3) mg/dL AST (14-36) U/L ALT (9-52) U/L Alkaline Phosphatase (38-126) U/L Ammonia (9-33) umol/L Total Protein (6.3-8.3) g/dL Albumin (3.5-5.0) g/dL Globulin (2.2-3.9) gm/dL Albumin/Globulin Ratio (1.0-2.1) Stool H. pylori Ag (Not Detected) Giardia Antigen (Not Detected) H. pylori Source HIV 1&2 Antibody Screen Negative (NEGATIVE) 03/12/18 03/12/18 03/11/18 Range/Units 06:25 06:25 21:25 WBC 9.3 (4.8-10.8) K/uL RBC 2.56 L (3.80-5.20) Mil/uL Hgb 7.8 L (11.0-16.0) g/dL Hct 24.5 L (34.0-47.0) % MCV 95.8 (81.0-99.0) fL MCH 30.7 (27.0-31.0) pg MCHC 32.0 L (33.0-37.0) g/dL RDW 22.8 H (11.5-14.5) % Plt Count 119 L (130-400) K/uL MPV 10.7 (7.2-11.7) fL Neut % (Auto) 64.1 (50.0-75.0) % Lymph % (Auto) 16.5 L (20.0-40.0) % Graham % (Auto) 15.7 H (0.0-10.0) % Eos % (Auto) 2.3 (0.0-4.0) % Baso % (Auto) 1.4 (0.0-2.0) % Neut # (Auto) 5.9 (1.8-7.0) K/uL Lymph # (Auto) 1.5 (1.0-4.3) K/uL Graham # (Auto) 1.5 H (0.0-0.8) K/uL Eos # (Auto) 0.2 (0.0-0.7) K/uL Baso # (Auto) 0.1 (0.0-0.2) K/uL Differential Comment Puncture Site pCO2 (35-45) mm/Hg pO2 (80-100) mm/Hg HCO3 (21-28) mmol/L ABG pH (7.35-7.45) ABG Total CO2 (22-28) mmol/L ABG O2 Saturation (95-98) % ABG Base Excess (-2.0-3.0) mmol/L ABG Hemoglobin (11.7-17.4) g/dL ABG Carboxyhemoglobin (0.5-1.5) % POC ABG HHb (Measured) (0.0-5.0) % ABG Methemoglobin (0.0-3.0) % Denny Test A-a O2 Difference mm/Hg Respiratory Index Hgb O2 Saturation (95.0-98.0) % Liter Flow FiO2 % Sodium 138 (132-148) mmol/L Potassium 6.8 H* D (3.6-5.2) mmol/L Chloride 109 H (98-107) mmol/L Carbon Dioxide 19 L (22-30) mmol/L Anion Gap 18 (10-20) BUN < 2 L (7-17) mg/dL Creatinine 0.5 L (0.7-1.2) mg/dL Est GFR ( Amer) > 60 Est GFR (Non-Af Amer) > 60 POC Glucose (mg/dL) 103 (65-110) mg/dL Random Glucose 114 H (65-105) mg/dL Calcium 7.1 L (8.6-10.4) mg/dl Phosphorus 7.8 H (2.5-4.5) mg/dL Magnesium 1.6 (1.6-2.3) mg/dL Total Bilirubin 0.8 (0.2-1.3) mg/dL AST 92 H D (14-36) U/L ALT 85 H (9-52) U/L Alkaline Phosphatase 245 H (38-126) U/L Ammonia (9-33) umol/L Total Protein 5.8 L (6.3-8.3) g/dL Albumin 2.7 L (3.5-5.0) g/dL Globulin 3.1 (2.2-3.9) gm/dL Albumin/Globulin Ratio 0.9 L (1.0-2.1) Stool H. pylori Ag (Not Detected) Giardia Antigen (Not Detected) H. pylori Source HIV 1&2 Antibody Screen (NEGATIVE) 03/11/18 03/11/18 03/11/18 Range/Units 16:12 12:37 11:13 WBC (4.8-10.8) K/uL RBC (3.80-5.20) Mil/uL Hgb (11.0-16.0) g/dL Hct (34.0-47.0) % MCV (81.0-99.0) fL MCH (27.0-31.0) pg MCHC (33.0-37.0) g/dL RDW (11.5-14.5) % Plt Count (130-400) K/uL MPV (7.2-11.7) fL Neut % (Auto) (50.0-75.0) % Lymph % (Auto) (20.0-40.0) % Graham % (Auto) (0.0-10.0) % Eos % (Auto) (0.0-4.0) % Baso % (Auto) (0.0-2.0) % Neut # (Auto) (1.8-7.0) K/uL Lymph # (Auto) (1.0-4.3) K/uL Graham # (Auto) (0.0-0.8) K/uL Eos # (Auto) (0.0-0.7) K/uL Baso # (Auto) (0.0-0.2) K/uL Differential Comment Puncture Site pCO2 (35-45) mm/Hg pO2 (80-100) mm/Hg HCO3 (21-28) mmol/L ABG pH (7.35-7.45) ABG Total CO2 (22-28) mmol/L ABG O2 Saturation (95-98) % ABG Base Excess (-2.0-3.0) mmol/L ABG Hemoglobin (11.7-17.4) g/dL ABG Carboxyhemoglobin (0.5-1.5) % POC ABG HHb (Measured) (0.0-5.0) % ABG Methemoglobin (0.0-3.0) % Denny Test A-a O2 Difference mm/Hg Respiratory Index Hgb O2 Saturation (95.0-98.0) % Liter Flow FiO2 % Sodium 136 (132-148) mmol/L Potassium 4.8 (3.6-5.2) mmol/L Chloride 106 (98-107) mmol/L Carbon Dioxide 19 L (22-30) mmol/L Anion Gap 15 (10-20) BUN < 2 L (7-17) mg/dL Creatinine 0.4 L (0.7-1.2) mg/dL Est GFR ( Amer) > 60 Est GFR (Non-Af Amer) > 60 POC Glucose (mg/dL) 117 H 137 H (65-110) mg/dL Random Glucose 143 H (65-105) mg/dL Calcium 8.5 L (8.6-10.4) mg/dl Phosphorus 0.6 L* (2.5-4.5) mg/dL Magnesium 2.4 H (1.6-2.3) mg/dL Total Bilirubin 1.0 (0.2-1.3) mg/dL AST 119 H (14-36) U/L ALT 89 H (9-52) U/L Alkaline Phosphatase 297 H (38-126) U/L Ammonia (9-33) umol/L Total Protein 6.0 L (6.3-8.3) g/dL Albumin 2.9 L (3.5-5.0) g/dL Globulin 3.1 (2.2-3.9) gm/dL Albumin/Globulin Ratio 0.9 L (1.0-2.1) Stool H. pylori Ag (Not Detected) Giardia Antigen (Not Detected) H. pylori Source HIV 1&2 Antibody Screen (NEGATIVE) 03/11/18 03/11/18 03/11/18 Range/Units 10:15 10:15 06:19 WBC 6.4 (4.8-10.8) K/uL RBC 2.31 L (3.80-5.20) Mil/uL Hgb 7.4 L (11.0-16.0) g/dL Hct 21.8 L (34.0-47.0) % MCV 94.3 (81.0-99.0) fL MCH 32.0 H (27.0-31.0) pg MCHC 33.9 (33.0-37.0) g/dL RDW 23.1 H (11.5-14.5) % Plt Count 102 L D (130-400) K/uL MPV 10.4 (7.2-11.7) fL Neut % (Auto) 64.7 (50.0-75.0) % Lymph % (Auto) 20.0 (20.0-40.0) % Graham % (Auto) 13.0 H (0.0-10.0) % Eos % (Auto) 1.6 (0.0-4.0) % Baso % (Auto) 0.7 (0.0-2.0) % Neut # (Auto) 4.2 (1.8-7.0) K/uL Lymph # (Auto) 1.3 (1.0-4.3) K/uL Graham # (Auto) 0.8 (0.0-0.8) K/uL Eos # (Auto) 0.1 (0.0-0.7) K/uL Baso # (Auto) 0.0 (0.0-0.2) K/uL Differential Comment Puncture Site pCO2 (35-45) mm/Hg pO2 (80-100) mm/Hg HCO3 (21-28) mmol/L ABG pH (7.35-7.45) ABG Total CO2 (22-28) mmol/L ABG O2 Saturation (95-98) % ABG Base Excess (-2.0-3.0) mmol/L ABG Hemoglobin (11.7-17.4) g/dL ABG Carboxyhemoglobin (0.5-1.5) % POC ABG HHb (Measured) (0.0-5.0) % ABG Methemoglobin (0.0-3.0) % Denny Test A-a O2 Difference mm/Hg Respiratory Index Hgb O2 Saturation (95.0-98.0) % Liter Flow FiO2 % Sodium 137 (132-148) mmol/L Potassium 4.9 (3.6-5.2) mmol/L Chloride 107 (98-107) mmol/L Carbon Dioxide 20 L (22-30) mmol/L Anion Gap 15 (10-20) BUN < 2 L (7-17) mg/dL Creatinine 0.4 L (0.7-1.2) mg/dL Est GFR ( Amer) > 60 Est GFR (Non-Af Amer) > 60 POC Glucose (mg/dL) (65-110) mg/dL Random Glucose 121 H (65-105) mg/dL Calcium 8.5 L (8.6-10.4) mg/dl Phosphorus 0.6 L* (2.5-4.5) mg/dL Magnesium 1.5 L (1.6-2.3) mg/dL Total Bilirubin 1.0 (0.2-1.3) mg/dL AST 123 H D (14-36) U/L ALT 101 H (9-52) U/L Alkaline Phosphatase 301 H (38-126) U/L Ammonia 22 D (9-33) umol/L Total Protein 6.1 L (6.3-8.3) g/dL Albumin 3.0 L (3.5-5.0) g/dL Globulin 3.1 (2.2-3.9) gm/dL Albumin/Globulin Ratio 1.0 (1.0-2.1) Stool H. pylori Ag (Not Detected) Giardia Antigen (Not Detected) H. pylori Source HIV 1&2 Antibody Screen (NEGATIVE) 03/08/18 Range/Units 17:57 WBC (4.8-10.8) K/uL RBC (3.80-5.20) Mil/uL Hgb (11.0-16.0) g/dL Hct (34.0-47.0) % MCV (81.0-99.0) fL MCH (27.0-31.0) pg MCHC (33.0-37.0) g/dL RDW (11.5-14.5) % Plt Count (130-400) K/uL MPV (7.2-11.7) fL Neut % (Auto) (50.0-75.0) % Lymph % (Auto) (20.0-40.0) % Graham % (Auto) (0.0-10.0) % Eos % (Auto) (0.0-4.0) % Baso % (Auto) (0.0-2.0) % Neut # (Auto) (1.8-7.0) K/uL Lymph # (Auto) (1.0-4.3) K/uL Graham # (Auto) (0.0-0.8) K/uL Eos # (Auto) (0.0-0.7) K/uL Baso # (Auto) (0.0-0.2) K/uL Differential Comment Puncture Site pCO2 (35-45) mm/Hg pO2 (80-100) mm/Hg HCO3 (21-28) mmol/L ABG pH (7.35-7.45) ABG Total CO2 (22-28) mmol/L ABG O2 Saturation (95-98) % ABG Base Excess (-2.0-3.0) mmol/L ABG Hemoglobin (11.7-17.4) g/dL ABG Carboxyhemoglobin (0.5-1.5) % POC ABG HHb (Measured) (0.0-5.0) % ABG Methemoglobin (0.0-3.0) % Denny Test A-a O2 Difference mm/Hg Respiratory Index Hgb O2 Saturation (95.0-98.0) % Liter Flow FiO2 % Sodium (132-148) mmol/L Potassium (3.6-5.2) mmol/L Chloride (98-107) mmol/L Carbon Dioxide (22-30) mmol/L Anion Gap (10-20) BUN (7-17) mg/dL Creatinine (0.7-1.2) mg/dL Est GFR ( Amer) Est GFR (Non-Af Amer) POC Glucose (mg/dL) (65-110) mg/dL Random Glucose (65-105) mg/dL Calcium (8.6-10.4) mg/dl Phosphorus (2.5-4.5) mg/dL Magnesium (1.6-2.3) mg/dL Total Bilirubin (0.2-1.3) mg/dL AST (14-36) U/L ALT (9-52) U/L Alkaline Phosphatase (38-126) U/L Ammonia (9-33) umol/L Total Protein (6.3-8.3) g/dL Albumin (3.5-5.0) g/dL Globulin (2.2-3.9) gm/dL Albumin/Globulin Ratio (1.0-2.1) Stool H. pylori Ag Not detected (Not Detected) Giardia Antigen Not detected (Not Detected) H. pylori Source Stool HIV 1&2 Antibody Screen (NEGATIVE) Laboratory Results - last 24 hr 03/08/18 03/11/18 03/11/18 17:57 06:19 10:15 WBC 6.4 RBC 2.31 L Hgb 7.4 L Hct 21.8 L MCV 94.3 MCH 32.0 H MCHC 33.9 RDW 23.1 H Plt Count 102 L D MPV 10.4 Neut % (Auto) 64.7 Lymph % (Auto) 20.0 Graham % (Auto) 13.0 H Eos % (Auto) 1.6 Baso % (Auto) 0.7 Neut # (Auto) 4.2 Lymph # (Auto) 1.3 Graham # (Auto) 0.8 Eos # (Auto) 0.1 Baso # (Auto) 0.0 Differential Comment Puncture Site pCO2 pO2 HCO3 ABG pH ABG Total CO2 ABG O2 Saturation ABG Base Excess ABG Hemoglobin ABG Carboxyhemoglobin POC ABG HHb (Measured) ABG Methemoglobin Denny Test A-a O2 Difference Respiratory Index Hgb O2 Saturation Liter Flow FiO2 Sodium Potassium Chloride Carbon Dioxide Anion Gap BUN Creatinine Est GFR ( Amer) Est GFR (Non-Af Amer) POC Glucose (mg/dL) Random Glucose Calcium Phosphorus Magnesium Total Bilirubin AST ALT Alkaline Phosphatase Ammonia 22 D Total Protein Albumin Globulin Albumin/Globulin Ratio Stool H. pylori Ag Not detected Giardia Antigen Not detected H. pylori Source Stool HIV 1&2 Antibody Screen 09/10/18 09/10/18 09/10/18 10:15 11:13 12:37 WBC RBC Hgb Hct MCV MCH MCHC RDW Plt Count MPV Neut % (Auto) Lymph % (Auto) Graham % (Auto) Eos % (Auto) Baso % (Auto) Neut # (Auto) Lymph # (Auto) Graham # (Auto) Eos # (Auto) Baso # (Auto) Differential Comment Puncture Site pCO2 pO2 HCO3 ABG pH ABG Total CO2 ABG O2 Saturation ABG Base Excess ABG Hemoglobin ABG Carboxyhemoglobin POC ABG HHb (Measured) ABG Methemoglobin Denny Test A-a O2 Difference Respiratory Index Hgb O2 Saturation Liter Flow FiO2 Sodium 137 136 Potassium 4.9 4.8 Chloride 107 106 Carbon Dioxide 20 L 19 L Anion Gap 15 15 BUN < 2 L < 2 L Creatinine 0.4 L 0.4 L Est GFR ( Amer) > 60 > 60 Est GFR (Non-Af Amer) > 60 > 60 POC Glucose (mg/dL) 137 H Random Glucose 121 H 143 H Calcium 8.5 L 8.5 L Phosphorus 0.6 L* 0.6 L* Magnesium 1.5 L 2.4 H Total Bilirubin 1.0 1.0 AST 123 H D 119 H ALT 101 H 89 H Alkaline Phosphatase 301 H 297 H Ammonia Total Protein 6.1 L 6.0 L Albumin 3.0 L 2.9 L Globulin 3.1 3.1 Albumin/Globulin Ratio 1.0 0.9 L Stool H. pylori Ag Giardia Antigen H. pylori Source HIV 1&2 Antibody Screen 03/11/18 03/11/18 03/12/18 16:12 21:25 06:25 WBC 9.3 RBC 2.56 L Hgb 7.8 L Hct 24.5 L MCV 95.8 MCH 30.7 MCHC 32.0 L RDW 22.8 H Plt Count 119 L MPV 10.7 Neut % (Auto) 64.1 Lymph % (Auto) 16.5 L Graham % (Auto) 15.7 H Eos % (Auto) 2.3 Baso % (Auto) 1.4 Neut # (Auto) 5.9 Lymph # (Auto) 1.5 Graham # (Auto) 1.5 H Eos # (Auto) 0.2 Baso # (Auto) 0.1 Differential Comment Puncture Site pCO2 pO2 HCO3 ABG pH ABG Total CO2 ABG O2 Saturation ABG Base Excess ABG Hemoglobin ABG Carboxyhemoglobin POC ABG HHb (Measured) ABG Methemoglobin Denny Test A-a O2 Difference Respiratory Index Hgb O2 Saturation Liter Flow FiO2 Sodium Potassium Chloride Carbon Dioxide Anion Gap BUN Creatinine Est GFR ( Amer) Est GFR (Non-Af Amer) POC Glucose (mg/dL) 117 H 103 Random Glucose Calcium Phosphorus Magnesium Total Bilirubin AST ALT Alkaline Phosphatase Ammonia Total Protein Albumin Globulin Albumin/Globulin Ratio Stool H. pylori Ag Giardia Antigen H. pylori Source HIV 1&2 Antibody Screen 03/12/18 03/12/18 03/12/18 06:25 06:25 07:32 WBC RBC Hgb Hct MCV MCH MCHC RDW Plt Count MPV Neut % (Auto) Lymph % (Auto) Graham % (Auto) Eos % (Auto) Baso % (Auto) Neut # (Auto) Lymph # (Auto) Graham # (Auto) Eos # (Auto) Baso # (Auto) Differential Comment Puncture Site pCO2 pO2 HCO3 ABG pH ABG Total CO2 ABG O2 Saturation ABG Base Excess ABG Hemoglobin ABG Carboxyhemoglobin POC ABG HHb (Measured) ABG Methemoglobin Denny Test A-a O2 Difference Respiratory Index Hgb O2 Saturation Liter Flow FiO2 Sodium 138 Potassium 6.8 H* D Chloride 109 H Carbon Dioxide 19 L Anion Gap 18 BUN < 2 L Creatinine 0.5 L Est GFR ( Amer) > 60 Est GFR (Non-Af Amer) > 60 POC Glucose (mg/dL) 103 Random Glucose 114 H Calcium 7.1 L Phosphorus 7.8 H Magnesium 1.6 Total Bilirubin 0.8 AST 92 H D ALT 85 H Alkaline Phosphatase 245 H Ammonia Total Protein 5.8 L Albumin 2.7 L Globulin 3.1 Albumin/Globulin Ratio 0.9 L Stool H. pylori Ag Giardia Antigen H. pylori Source HIV 1&2 Antibody Screen Negative 03/12/18 10:22 WBC RBC Hgb Hct MCV MCH MCHC RDW Plt Count MPV Neut % (Auto) Lymph % (Auto) Graham % (Auto) Eos % (Auto) Baso % (Auto) Neut # (Auto) Lymph # (Auto) Graham # (Auto) Eos # (Auto) Baso # (Auto) Differential Comment Puncture Site Rba pCO2 29 L pO2 75 L HCO3 21.0 ABG pH 7.42 ABG Total CO2 19.7 L ABG O2 Saturation 96.6 ABG Base Excess -5.0 L ABG Hemoglobin 7.8 L ABG Carboxyhemoglobin 1.6 H POC ABG HHb (Measured) 3.3 ABG Methemoglobin 0.5 Denny Test Na A-a O2 Difference 138.0 Respiratory Index 1.8 Hgb O2 Saturation 94.6 L Liter Flow 4.0 FiO2 35.0 Sodium Potassium Chloride Carbon Dioxide Anion Gap BUN Creatinine Est GFR ( Amer) Est GFR (Non-Af Amer) POC Glucose (mg/dL) Random Glucose Calcium Phosphorus Magnesium Total Bilirubin AST ALT Alkaline Phosphatase Ammonia Total Protein Albumin Globulin Albumin/Globulin Ratio Stool H. pylori Ag Giardia Antigen H. pylori Source HIV 1&2 Antibody Screen Fingerstick Blood Sugar Results: 103 Review of Systems - Review of Systems Systems not reviewed;Unavailable: Altered Mental Status Critical Care Progress Note - Nutrition Nutrition: Nutrition Category Date Time Status NPO Diet [DIET] Diets 03/12/18 Lunch Active Assessment/Plan - Assessment and Plan (Free Text) Assessment: 62 year old female with history of alcohol abuse who was admitted for pancreatitis, colitis and sepsis after patient complained of worsening abdominal pain and distention. Placed on Precedex drip since patient was agitated and concern for DTs. Plan: Neuro: Oriented to self only Started on Precedex drip Zofran 4mg IV Q6 PRN U tox: positive for cocaine Ativan 2mg IV Q2 PRN Cardiovascular Hemodynamically stable Maintain MAP >65 Pulmonary Duonebs Q4 GI Protonix 40mg IV Zofran 4mg IV Q6PRN CT abdomen/pelvis with IV contrast: Enterocolitis, partial gastrectomy with gastrojejunal anastomosis, no obstruction, enlarged fatty liver, cholecystectomy and hysterectomy Pancreatitis, lipase elevated on admission Stool occult negative Stool H pylori not detected Surgery Dr. Barrett consulted, help appreciated GI Dr. Miranda consulted, help appreciated Stool studies pending. Renal Continue to monitor electrolytes K found to be elevated, given Calcium gluconate, Insulin, D50 ID Dr. Hernandez consulted, help appreciated Cefepime, Flagyl as per ID Endo Maintain euglycemia Heme H/H 7.8/24.5 PPX Heparin, Protonix Case discussed with Dr. Redmond <Sadiq Redmond - Last Filed: 03/12/18 18:43> CCU Subjective - Physician Review Critical Care Time Spent (in minutes): 35 CCU Objective - Vital Signs / Intake & Output Vital Signs (Last 4 hours): Vital Signs Temp Pulse Resp BP Pulse Ox 03/12/18 17:26 66 24 107/65 98 03/12/18 16:26 66 27 H 103/59 L 98 03/12/18 16:00 98.7 F 100 03/12/18 15:26 67 24 96/49 L 99 Intake and Output (Last 8hrs): Intake & Output 03/12/18 03/12/18 03/12/18 06:59 14:59 22:59 Intake Total 585.2 223.0 177.6 Output Total 200 600 200 Balance 385.2 -377.0 -22.4 Weight 191 lb Intake: IV 50 50 Intake, IV Amount 535.2 173.0 177.6 Left External Jugular 160 0 Left External Jugular Y 35.2 33.0 17.6 Port Left Hand 340.0 140 160 Output: Urine 200 600 200 Urine, Voided 200 600 200 Other: # Voids Urine, Voided 1 0 0 - Medications Active Medications: Active Medications Generic Name Dose Route Start Last Admin Trade Name Freq PRN Reason Stop Dose Admin Albuterol/Ipratropium 3 ml 03/09/18 12:00 03/12/18 16:54 Duoneb 3 Mg/0.5 Mg (3 Ml) Ud INH 3 ml RQ4 DOYLE Administration Heparin Sodium (Porcine) 5,000 units 03/11/18 14:00 03/12/18 13:30 Heparin SC 5,000 units Q8 DOYLE Administration Cefepime HCl 1 gm in 50 mls @ 100 mls/hr 03/08/18 06:00 03/12/18 17:42 Maxipime Iv 1 Gm Premix IVPB 100 mls/hr Q12H DOYLE Administration Protocol Metronidazole 500 mg in 100 mls @ 100 mls/hr 03/08/18 14:00 03/12/18 13:32 Flagyl IVPB 100 mls/hr Q8H DOYLE Administration Protocol Dexmedetomidine HCl 200 mcg/ 50 mls @ 4.39 mls/hr 03/11/18 11:59 03/12/18 11: 40 Sodium Chloride IV 0.2 mcg/kg/hr TITR PRN 4.39 mls/hr Agitation Administration Protocol 0.2 MCG/KG/HR Dextrose/Sodium Chloride 1,000 mls @ 40 mls/hr 03/12/18 13:15 03/12/18 13:31 Dextrose 5%/0.45% Ns 1000 Ml IV 40 mls/hr .Q24H DOYLE Administration Insulin Human Regular 0 unit 03/12/18 18:00 Novolin R SC Q6 DOYLE Protocol Lorazepam 2 mg 03/11/18 11:59 03/11/18 12:19 Ativan IVP 2 mg Q2 PRN Administration Anxiety Ondansetron HCl 4 mg 03/08/18 00:15 03/09/18 18:32 Zofran Inj IVP 4 mg Q6H PRN Administration Nausea/Vomiting Pantoprazole Sodium 40 mg 03/08/18 10:00 03/12/18 09:37 Protonix Inj IVP 40 mg DAILY DOYLE Administration - Patient Studies Lab Studies: Microbiology Studies 03/07/18 11:05 Blood Culture - Preliminary Blood NO GROWTH AFTER 4 DAYS 03/07/18 17:35 Blood Culture - Preliminary Blood NO GROWTH AFTER 4 DAYS 03/08/18 Unknown Ova and Parasite Concentrate Exam - Final Rectum Lab Studies 03/12/18 03/12/18 03/12/18 Range/Units 17:48 16:11 11:50 WBC (4.8-10.8) K/uL RBC (3.80-5.20) Mil/uL Hgb (11.0-16.0) g/dL Hct (34.0-47.0) % MCV (81.0-99.0) fL MCH (27.0-31.0) pg MCHC (33.0-37.0) g/dL RDW (11.5-14.5) % Plt Count (130-400) K/uL MPV (7.2-11.7) fL Neut % (Auto) (50.0-75.0) % Lymph % (Auto) (20.0-40.0) % Graham % (Auto) (0.0-10.0) % Eos % (Auto) (0.0-4.0) % Baso % (Auto) (0.0-2.0) % Neut # (Auto) (1.8-7.0) K/uL Lymph # (Auto) (1.0-4.3) K/uL Graham # (Auto) (0.0-0.8) K/uL Eos # (Auto) (0.0-0.7) K/uL Baso # (Auto) (0.0-0.2) K/uL Puncture Site pCO2 (35-45) mm/Hg pO2 (80-100) mm/Hg HCO3 (21-28) mmol/L ABG pH (7.35-7.45) ABG Total CO2 (22-28) mmol/L ABG O2 Saturation (95-98) % ABG Base Excess (-2.0-3.0) mmol/L ABG Hemoglobin (11.7-17.4) g/dL ABG Carboxyhemoglobin (0.5-1.5) % POC ABG HHb (Measured) (0.0-5.0) % ABG Methemoglobin (0.0-3.0) % Denny Test A-a O2 Difference mm/Hg Respiratory Index Hgb O2 Saturation (95.0-98.0) % Liter Flow FiO2 % Sodium (132-148) mmol/L Potassium (3.6-5.2) mmol/L Chloride (98-107) mmol/L Carbon Dioxide (22-30) mmol/L Anion Gap (10-20) BUN (7-17) mg/dL Creatinine (0.7-1.2) mg/dL Est GFR ( Amer) Est GFR (Non-Af Amer) POC Glucose (mg/dL) 91 97 101 (65-110) mg/dL Random Glucose (65-105) mg/dL Calcium (8.6-10.4) mg/dl Phosphorus (2.5-4.5) mg/dL Magnesium (1.6-2.3) mg/dL Total Bilirubin (0.2-1.3) mg/dL AST (14-36) U/L ALT (9-52) U/L Alkaline Phosphatase (38-126) U/L Total Protein (6.3-8.3) g/dL Albumin (3.5-5.0) g/dL Globulin (2.2-3.9) gm/dL Albumin/Globulin Ratio (1.0-2.1) HIV 1&2 Antibody Screen (NEGATIVE) 03/12/18 03/12/18 03/12/18 Range/Units 11:45 10:22 07:32 WBC (4.8-10.8) K/uL RBC (3.80-5.20) Mil/uL Hgb (11.0-16.0) g/dL Hct (34.0-47.0) % MCV (81.0-99.0) fL MCH (27.0-31.0) pg MCHC (33.0-37.0) g/dL RDW (11.5-14.5) % Plt Count (130-400) K/uL MPV (7.2-11.7) fL Neut % (Auto) (50.0-75.0) % Lymph % (Auto) (20.0-40.0) % Graham % (Auto) (0.0-10.0) % Eos % (Auto) (0.0-4.0) % Baso % (Auto) (0.0-2.0) % Neut # (Auto) (1.8-7.0) K/uL Lymph # (Auto) (1.0-4.3) K/uL Graham # (Auto) (0.0-0.8) K/uL Eos # (Auto) (0.0-0.7) K/uL Baso # (Auto) (0.0-0.2) K/uL Puncture Site Rba pCO2 29 L (35-45) mm/Hg pO2 75 L (80-100) mm/Hg HCO3 21.0 (21-28) mmol/L ABG pH 7.42 (7.35-7.45) ABG Total CO2 19.7 L (22-28) mmol/L ABG O2 Saturation 96.6 (95-98) % ABG Base Excess -5.0 L (-2.0-3.0) mmol/L ABG Hemoglobin 7.8 L (11.7-17.4) g/dL ABG Carboxyhemoglobin 1.6 H (0.5-1.5) % POC ABG HHb (Measured) 3.3 (0.0-5.0) % ABG Methemoglobin 0.5 (0.0-3.0) % Denny Test Na A-a O2 Difference 138.0 mm/Hg Respiratory Index 1.8 Hgb O2 Saturation 94.6 L (95.0-98.0) % Liter Flow 4.0 FiO2 35.0 % Sodium 139 (132-148) mmol/L Potassium 5.7 H (3.6-5.2) mmol/L Chloride 114 H (98-107) mmol/L Carbon Dioxide 17 L (22-30) mmol/L Anion Gap 14 (10-20) BUN < 2 L (7-17) mg/dL Creatinine 0.4 L (0.7-1.2) mg/dL Est GFR ( Amer) > 60 Est GFR (Non-Af Amer) > 60 POC Glucose (mg/dL) 103 (65-110) mg/dL Random Glucose 92 (65-105) mg/dL Calcium 6.7 L (8.6-10.4) mg/dl Phosphorus 5.3 H (2.5-4.5) mg/dL Magnesium 1.6 (1.6-2.3) mg/dL Total Bilirubin 0.8 (0.2-1.3) mg/dL AST 82 H (14-36) U/L ALT 81 H (9-52) U/L Alkaline Phosphatase 227 H (38-126) U/L Total Protein 5.5 L (6.3-8.3) g/dL Albumin 2.6 L (3.5-5.0) g/dL Globulin 2.9 (2.2-3.9) gm/dL Albumin/Globulin Ratio 0.9 L (1.0-2.1) HIV 1&2 Antibody Screen (NEGATIVE) 03/12/18 03/12/18 03/12/18 Range/Units 06:25 06:25 06:25 WBC 9.3 (4.8-10.8) K/uL RBC 2.56 L (3.80-5.20) Mil/uL Hgb 7.8 L (11.0-16.0) g/dL Hct 24.5 L (34.0-47.0) % MCV 95.8 (81.0-99.0) fL MCH 30.7 (27.0-31.0) pg MCHC 32.0 L (33.0-37.0) g/dL RDW 22.8 H (11.5-14.5) % Plt Count 119 L (130-400) K/uL MPV 10.7 (7.2-11.7) fL Neut % (Auto) 64.1 (50.0-75.0) % Lymph % (Auto) 16.5 L (20.0-40.0) % Graham % (Auto) 15.7 H (0.0-10.0) % Eos % (Auto) 2.3 (0.0-4.0) % Baso % (Auto) 1.4 (0.0-2.0) % Neut # (Auto) 5.9 (1.8-7.0) K/uL Lymph # (Auto) 1.5 (1.0-4.3) K/uL Graham # (Auto) 1.5 H (0.0-0.8) K/uL Eos # (Auto) 0.2 (0.0-0.7) K/uL Baso # (Auto) 0.1 (0.0-0.2) K/uL Puncture Site pCO2 (35-45) mm/Hg pO2 (80-100) mm/Hg HCO3 (21-28) mmol/L ABG pH (7.35-7.45) ABG Total CO2 (22-28) mmol/L ABG O2 Saturation (95-98) % ABG Base Excess (-2.0-3.0) mmol/L ABG Hemoglobin (11.7-17.4) g/dL ABG Carboxyhemoglobin (0.5-1.5) % POC ABG HHb (Measured) (0.0-5.0) % ABG Methemoglobin (0.0-3.0) % Denny Test A-a O2 Difference mm/Hg Respiratory Index Hgb O2 Saturation (95.0-98.0) % Liter Flow FiO2 % Sodium 138 (132-148) mmol/L Potassium 6.8 H* D (3.6-5.2) mmol/L Chloride 109 H (98-107) mmol/L Carbon Dioxide 19 L (22-30) mmol/L Anion Gap 18 (10-20) BUN < 2 L (7-17) mg/dL Creatinine 0.5 L (0.7-1.2) mg/dL Est GFR ( Amer) > 60 Est GFR (Non-Af Amer) > 60 POC Glucose (mg/dL) (65-110) mg/dL Random Glucose 114 H (65-105) mg/dL Calcium 7.1 L (8.6-10.4) mg/dl Phosphorus 7.8 H (2.5-4.5) mg/dL Magnesium 1.6 (1.6-2.3) mg/dL Total Bilirubin 0.8 (0.2-1.3) mg/dL AST 92 H D (14-36) U/L ALT 85 H (9-52) U/L Alkaline Phosphatase 245 H (38-126) U/L Total Protein 5.8 L (6.3-8.3) g/dL Albumin 2.7 L (3.5-5.0) g/dL Globulin 3.1 (2.2-3.9) gm/dL Albumin/Globulin Ratio 0.9 L (1.0-2.1) HIV 1&2 Antibody Screen Negative (NEGATIVE) 03/11/18 Range/Units 21:25 WBC (4.8-10.8) K/uL RBC (3.80-5.20) Mil/uL Hgb (11.0-16.0) g/dL Hct (34.0-47.0) % MCV (81.0-99.0) fL MCH (27.0-31.0) pg MCHC (33.0-37.0) g/dL RDW (11.5-14.5) % Plt Count (130-400) K/uL MPV (7.2-11.7) fL Neut % (Auto) (50.0-75.0) % Lymph % (Auto) (20.0-40.0) % Graham % (Auto) (0.0-10.0) % Eos % (Auto) (0.0-4.0) % Baso % (Auto) (0.0-2.0) % Neut # (Auto) (1.8-7.0) K/uL Lymph # (Auto) (1.0-4.3) K/uL Graham # (Auto) (0.0-0.8) K/uL Eos # (Auto) (0.0-0.7) K/uL Baso # (Auto) (0.0-0.2) K/uL Puncture Site pCO2 (35-45) mm/Hg pO2 (80-100) mm/Hg HCO3 (21-28) mmol/L ABG pH (7.35-7.45) ABG Total CO2 (22-28) mmol/L ABG O2 Saturation (95-98) % ABG Base Excess (-2.0-3.0) mmol/L ABG Hemoglobin (11.7-17.4) g/dL ABG Carboxyhemoglobin (0.5-1.5) % POC ABG HHb (Measured) (0.0-5.0) % ABG Methemoglobin (0.0-3.0) % Denny Test A-a O2 Difference mm/Hg Respiratory Index Hgb O2 Saturation (95.0-98.0) % Liter Flow FiO2 % Sodium (132-148) mmol/L Potassium (3.6-5.2) mmol/L Chloride (98-107) mmol/L Carbon Dioxide (22-30) mmol/L Anion Gap (10-20) BUN (7-17) mg/dL Creatinine (0.7-1.2) mg/dL Est GFR ( Amer) Est GFR (Non-Af Amer) POC Glucose (mg/dL) 103 (65-110) mg/dL Random Glucose (65-105) mg/dL Calcium (8.6-10.4) mg/dl Phosphorus (2.5-4.5) mg/dL Magnesium (1.6-2.3) mg/dL Total Bilirubin (0.2-1.3) mg/dL AST (14-36) U/L ALT (9-52) U/L Alkaline Phosphatase (38-126) U/L Total Protein (6.3-8.3) g/dL Albumin (3.5-5.0) g/dL Globulin (2.2-3.9) gm/dL Albumin/Globulin Ratio (1.0-2.1) HIV 1&2 Antibody Screen (NEGATIVE) Laboratory Results - last 24 hr 03/11/18 03/12/18 03/12/18 21:25 06:25 06:25 WBC 9.3 RBC 2.56 L Hgb 7.8 L Hct 24.5 L MCV 95.8 MCH 30.7 MCHC 32.0 L RDW 22.8 H Plt Count 119 L MPV 10.7 Neut % (Auto) 64.1 Lymph % (Auto) 16.5 L Graham % (Auto) 15.7 H Eos % (Auto) 2.3 Baso % (Auto) 1.4 Neut # (Auto) 5.9 Lymph # (Auto) 1.5 Graham # (Auto) 1.5 H Eos # (Auto) 0.2 Baso # (Auto) 0.1 Puncture Site pCO2 pO2 HCO3 ABG pH ABG Total CO2 ABG O2 Saturation ABG Base Excess ABG Hemoglobin ABG Carboxyhemoglobin POC ABG HHb (Measured) ABG Methemoglobin Denny Test A-a O2 Difference Respiratory Index Hgb O2 Saturation Liter Flow FiO2 Sodium 138 Potassium 6.8 H* D Chloride 109 H Carbon Dioxide 19 L Anion Gap 18 BUN < 2 L Creatinine 0.5 L Est GFR ( Amer) > 60 Est GFR (Non-Af Amer) > 60 POC Glucose (mg/dL) 103 Random Glucose 114 H Calcium 7.1 L Phosphorus 7.8 H Magnesium 1.6 Total Bilirubin 0.8 AST 92 H D ALT 85 H Alkaline Phosphatase 245 H Total Protein 5.8 L Albumin 2.7 L Globulin 3.1 Albumin/Globulin Ratio 0.9 L HIV 1&2 Antibody Screen 03/12/18 03/12/18 03/12/18 06:25 07:32 10:22 WBC RBC Hgb Hct MCV MCH MCHC RDW Plt Count MPV Neut % (Auto) Lymph % (Auto) Graham % (Auto) Eos % (Auto) Baso % (Auto) Neut # (Auto) Lymph # (Auto) Graham # (Auto) Eos # (Auto) Baso # (Auto) Puncture Site Rba pCO2 29 L pO2 75 L HCO3 21.0 ABG pH 7.42 ABG Total CO2 19.7 L ABG O2 Saturation 96.6 ABG Base Excess -5.0 L ABG Hemoglobin 7.8 L ABG Carboxyhemoglobin 1.6 H POC ABG HHb (Measured) 3.3 ABG Methemoglobin 0.5 Denny Test Na A-a O2 Difference 138.0 Respiratory Index 1.8 Hgb O2 Saturation 94.6 L Liter Flow 4.0 FiO2 35.0 Sodium Potassium Chloride Carbon Dioxide Anion Gap BUN Creatinine Est GFR ( Amer) Est GFR (Non-Af Amer) POC Glucose (mg/dL) 103 Random Glucose Calcium Phosphorus Magnesium Total Bilirubin AST ALT Alkaline Phosphatase Total Protein Albumin Globulin Albumin/Globulin Ratio HIV 1&2 Antibody Screen Negative 03/12/18 03/12/18 03/12/18 11:45 11:50 16:11 WBC RBC Hgb Hct MCV MCH MCHC RDW Plt Count MPV Neut % (Auto) Lymph % (Auto) Graham % (Auto) Eos % (Auto) Baso % (Auto) Neut # (Auto) Lymph # (Auto) Graham # (Auto) Eos # (Auto) Baso # (Auto) Puncture Site pCO2 pO2 HCO3 ABG pH ABG Total CO2 ABG O2 Saturation ABG Base Excess ABG Hemoglobin ABG Carboxyhemoglobin POC ABG HHb (Measured) ABG Methemoglobin Denny Test A-a O2 Difference Respiratory Index Hgb O2 Saturation Liter Flow FiO2 Sodium 139 Potassium 5.7 H Chloride 114 H Carbon Dioxide 17 L Anion Gap 14 BUN < 2 L Creatinine 0.4 L Est GFR ( Amer) > 60 Est GFR (Non-Af Amer) > 60 POC Glucose (mg/dL) 101 97 Random Glucose 92 Calcium 6.7 L Phosphorus 5.3 H Magnesium 1.6 Total Bilirubin 0.8 AST 82 H ALT 81 H Alkaline Phosphatase 227 H Total Protein 5.5 L Albumin 2.6 L Globulin 2.9 Albumin/Globulin Ratio 0.9 L HIV 1&2 Antibody Screen 03/12/18 17:48 WBC RBC Hgb Hct MCV MCH MCHC RDW Plt Count MPV Neut % (Auto) Lymph % (Auto) Graham % (Auto) Eos % (Auto) Baso % (Auto) Neut # (Auto) Lymph # (Auto) Graham # (Auto) Eos # (Auto) Baso # (Auto) Puncture Site pCO2 pO2 HCO3 ABG pH ABG Total CO2 ABG O2 Saturation ABG Base Excess ABG Hemoglobin ABG Carboxyhemoglobin POC ABG HHb (Measured) ABG Methemoglobin Denny Test A-a O2 Difference Respiratory Index Hgb O2 Saturation Liter Flow FiO2 Sodium Potassium Chloride Carbon Dioxide Anion Gap BUN Creatinine Est GFR ( Amer) Est GFR (Non-Af Amer) POC Glucose (mg/dL) 91 Random Glucose Calcium Phosphorus Magnesium Total Bilirubin AST ALT Alkaline Phosphatase Total Protein Albumin Globulin Albumin/Globulin Ratio HIV 1&2 Antibody Screen Critical Care Progress Note - Nutrition Nutrition: Nutrition Category Date Time Status NPO Diet [DIET] Diets 03/12/18 Lunch Active Attending/Attestation - Attestation I have personally seen and examined this patient.: Yes I have fully participated in the care of the patient.: Yes I have reviewed all pertinent clinical information: Yes Notes (Text): 03/12/18 18:41 patient seen and examined in the intensive care unit. Being treated for DTs Continue Precedex drip Continue antibiotics
--- NOTE | 2018-03-12 11:02 | CP.PCM.PN ---
Subjective - Date & Time of Evaluation Date of Evaluation: 03/12/18 Time of Evaluation: 10:59 - Subjective Subjective: Surgery Pt seen and examined. Pt is sedated on precedex for etOH withdrwal. Pt is NPO, per nurse having BM. Objective - Vital Signs/Intake and Output Vital Signs (last 24 hours): Temp Pulse Resp BP Pulse Ox 98.4 F 72 29 H 122/73 97 03/12/18 08:00 03/12/18 10:28 03/12/18 10:28 03/12/18 10:28 03/12/18 10:28 Intake and Output: 03/12/18 03/12/18 06:59 18:59 Intake Total 1462.8 37.4 Output Total 900 250 Balance 562.8 -212.6 - Medications Medications: Current Medications Albuterol/Ipratropium (Duoneb 3 Mg/0.5 Mg (3 Ml) Ud) 3 ml INH RQ4 DOYLE Last Admin: 03/12/18 07:40 Dose: 3 ml Heparin Sodium (Porcine) (Heparin) 5,000 units SC Q8 DOYLE Last Admin: 03/12/18 05:31 Dose: 5,000 units Cefepime HCl (Maxipime Iv 1 Gm Premix) 1 gm in 50 mls @ 100 mls/hr IVPB Q12H DOYLE PRN Reason: Protocol Last Admin: 03/12/18 05:00 Dose: 100 mls/hr Metronidazole (Flagyl) 500 mg in 100 mls @ 100 mls/hr IVPB Q8H DOYLE PRN Reason: Protocol Last Admin: 03/12/18 05:00 Dose: 100 mls/hr Dexmedetomidine HCl 200 mcg/ (Sodium Chloride) 50 mls @ 4.39 mls/hr IV TITR PRN ; Protocol; 0.2 MCG/KG/HR PRN Reason: Agitation Last Titration: 03/12/18 08:30 Dose: 0.2 mcg/kg/hr, 4.4 mls/hr Insulin Human Regular (Novolin R) 1 unit SC ACHS DOYLE PRN Reason: Protocol Last Admin: 03/12/18 07:42 Dose: Not Given Lorazepam (Ativan) 2 mg IVP Q2 PRN PRN Reason: Anxiety Last Admin: 03/11/18 12:19 Dose: 2 mg Ondansetron HCl (Zofran Inj) 4 mg IVP Q6H PRN PRN Reason: Nausea/Vomiting Last Admin: 03/09/18 18:32 Dose: 4 mg Pantoprazole Sodium (Protonix Inj) 40 mg IVP DAILY DOYLE Last Admin: 03/12/18 09:37 Dose: 40 mg - Labs Labs: 03/12/18 06:25 03/12/18 06:25 PT 13.5 SECONDS (9.7-12.2) H 03/07/18 16:53 INR 1.2 03/07/18 16:53 APTT 33 SECONDS (21-34) 03/07/18 16:53 - Constitutional Appears: In Acute Distress - Head Exam Head Exam: ATRAUMATIC, NORMAL INSPECTION, NORMOCEPHALIC - ENT Exam ENT Exam: Normal Exam - Neck Exam Neck Exam: Normal Inspection - Respiratory Exam Respiratory Exam: NORMAL BREATHING PATTERN - Cardiovascular Exam Cardiovascular Exam: REGULAR RHYTHM - GI/Abdominal Exam GI & Abdominal Exam: Distended, Organomegaly. absent: Soft, Tenderness - Extremities Exam Extremities Exam: Full ROM Additional comments: on restraints. - Back Exam Back Exam: NORMAL INSPECTION - Neurological Exam Neurological Exam: Altered. absent: Alert, Awake, Normal Gait, Oriented x3 - Skin Skin Exam: Dry, Intact, Normal Color, Warm Assessment and Plan - Assessment and Plan (Free Text) Assessment: 62F with EtOH induced pancreatitis, sepsis, possibly secondary to colitis: now etOH withdrwal. Now hyperkalemia. Plan: cont hydration/resuscitation panc improving possible EGD per GI no surgical intervention planned Will d/w Dr Barrett
[2018-03-12 12:11] LABS: ALB/GLOB RATIO 0.9 (1.0-2.1); ALBUMIN 2.6 g/dL (3.5-5.0); ALT/SGPT 81 U/L (9-52); AST/SGOT 82 U/L (14-36); BLOOD UREA NITROGEN < 2 mg/dL (7-17); CALCIUM 6.7 mg/dl (8.6-10.4); GFR NON-AFRICAN AMERICAN > 60
--- NOTE | 2018-03-12 12:22 | CP.PCM.PN ---
Subjective - Date & Time of Evaluation Date of Evaluation: 03/12/18 Time of Evaluation: 09:00 - Subjective Subjective: Pt is sedated on precedex for etOH withdrwal. Pt is NPO, per nurse having BM. Objective - Vital Signs/Intake and Output Vital Signs (last 24 hours): Temp Pulse Resp BP Pulse Ox 98.4 F 72 29 H 122/73 97 03/12/18 08:00 03/12/18 10:28 03/12/18 10:28 03/12/18 10:28 03/12/18 10:28 Intake and Output: 03/12/18 03/12/18 06:59 18:59 Intake Total 1462.8 37.4 Output Total 900 250 Balance 562.8 -212.6 - Medications Medications: Current Medications Albuterol/Ipratropium (Duoneb 3 Mg/0.5 Mg (3 Ml) Ud) 3 ml INH RQ4 DOYLE Last Admin: 03/12/18 11:12 Dose: 3 ml Heparin Sodium (Porcine) (Heparin) 5,000 units SC Q8 DOYLE Last Admin: 03/12/18 05:31 Dose: 5,000 units Cefepime HCl (Maxipime Iv 1 Gm Premix) 1 gm in 50 mls @ 100 mls/hr IVPB Q12H DOYLE PRN Reason: Protocol Last Admin: 03/12/18 05:00 Dose: 100 mls/hr Metronidazole (Flagyl) 500 mg in 100 mls @ 100 mls/hr IVPB Q8H DOYLE PRN Reason: Protocol Last Admin: 03/12/18 05:00 Dose: 100 mls/hr Dexmedetomidine HCl 200 mcg/ (Sodium Chloride) 50 mls @ 4.39 mls/hr IV TITR PRN ; Protocol; 0.2 MCG/KG/HR PRN Reason: Agitation Last Titration: 03/12/18 08:30 Dose: 0.2 mcg/kg/hr, 4.4 mls/hr Insulin Human Regular (Novolin R) 1 unit SC ACHS DOYLE PRN Reason: Protocol Last Admin: 03/12/18 07:42 Dose: Not Given Lorazepam (Ativan) 2 mg IVP Q2 PRN PRN Reason: Anxiety Last Admin: 03/11/18 12:19 Dose: 2 mg Ondansetron HCl (Zofran Inj) 4 mg IVP Q6H PRN PRN Reason: Nausea/Vomiting Last Admin: 03/09/18 18:32 Dose: 4 mg Pantoprazole Sodium (Protonix Inj) 40 mg IVP DAILY DOYLE Last Admin: 03/12/18 09:37 Dose: 40 mg - Labs Labs: 03/12/18 06:25 03/12/18 11:45 PT 13.5 SECONDS (9.7-12.2) H 03/07/18 16:53 INR 1.2 03/07/18 16:53 APTT 33 SECONDS (21-34) 03/07/18 16:53 - Constitutional Appears: Older Than Stated Age, Confused - Head Exam Head Exam: NORMOCEPHALIC - Eye Exam Eye Exam: PERRL - ENT Exam ENT Exam: Mucous Membranes Dry - Neck Exam Neck Exam: absent: Lymphadenopathy - Respiratory Exam Respiratory Exam: Decreased Breath Sounds - Cardiovascular Exam Cardiovascular Exam: REGULAR RHYTHM - GI/Abdominal Exam GI & Abdominal Exam: Distended - Rectal Exam Rectal Exam: Deferred - Exam Exam: NORMAL INSPECTION Assessment and Plan (1) Abdominal pain Status: Acute (2) Metabolic acidosis Status: Acute
[2018-03-12] MEDS: Dextrose 5%/0.45% NS 1,000 ML IV SCH (13:31)
[2018-03-12] MEDS ORDERED: (Novolin R) Insulin Human Regular 100 units/ml vial SC SCH (18:00)
[2018-03-13] MEDS: Albuterol-Ipratrop 3 mg / 0.5 (3 ml) UD INH SCH ×6 (00:41→19:35)
[2018-03-13] MEDS: Dexmedetomidine Hydrochloride 200 MCG in Sodium Chloride 0.9% 48 ML IV PRN (03:37)
[2018-03-13] MEDS: metroNIDAZOLE IV 500 mg/100 ml 500 MG/100 ML BAG IVPB SCH ×3 (05:00→21:52)
[2018-03-13] MEDS: Cefepime IV 1 gm in Dextrose 1 GM/50 ML BAG IVPB SCH ×2 (05:27→17:34)
[2018-03-13] MEDS: (Novolin R) Insulin Human Regular 100 units/ml vial SC SCH ×4 (05:28→21:44)
[2018-03-13 06:25] LABS: BASO # 0.1 K/uL (0.0-0.2); BASO % 1.1 % (0.0-2.0); EOS # 0.2 K/uL (0.0-0.7); EOS % 2.4 % (0.0-4.0); HEMOGLOBIN 7.9 g/dL (11.0-16.0); LYMPH % 25.7 % (20.0-40.0); MEAN CELL VOLUME 96.7 fL (81.0-99.0); MEAN PLATELET VOLUME 11.7 fL (7.2-11.7); MONO # 1.4 K/uL (0.0-0.8); MONO % 18.2 % (0.0-10.0); NEUT # 4.1 K/uL (1.8-7.0); NEUT % 52.6 % (50.0-75.0); NRBC % 0.4 % (0.0-2.0); RBC 2.55 Mil/uL (3.80-5.20); RED CELL DISTRIBUTION WIDTH 23.5 % (11.5-14.5); WHITE BLOOD COUNT 7.7 K/uL (4.8-10.8)
[2018-03-13 06:45] LABS: ALB/GLOB RATIO 0.9 (1.0-2.1); ALBUMIN 2.6 g/dL (3.5-5.0); ALT/SGPT 71 U/L (9-52); AST/SGOT 61 U/L (14-36); BLOOD UREA NITROGEN < 2 mg/dL (7-17); CALCIUM 7.2 mg/dl (8.6-10.4); GFR NON-AFRICAN AMERICAN > 60
--- NOTE | 2018-03-13 08:35 | CP.CCUPN ---
<Magdalena Wilcox - Last Filed: 03/13/18 11:51> CCU Subjective - Physician Review Subjective (Free Text): ICU progress note Patient seen and examined at bedside. Patient has a history of alcohol abuse, and she was placed on Precedex given concern for DTs. Patient is sedated, unable to provide history. As per nursing staff, patient becomes agitated when taken on Precedex. 03/13/18 11:52 CCU Objective - Vital Signs / Intake & Output Vital Signs (Last 4 hours): Vital Signs Pulse Resp BP Pulse Ox 03/13/18 07:00 63 23 98 03/13/18 06:26 65 23 114/64 97 03/13/18 06:00 66 26 H 95 03/13/18 05:26 65 20 120/74 100 03/13/18 05:00 64 20 100 Intake and Output (Last 8hrs): Intake & Output 03/12/18 03/13/18 03/13/18 22:59 06:59 14:59 Intake Total 478.4 531.4 46.6 Output Total 200 700 Balance 278.4 -168.6 46.6 Weight 190 lb Intake: IV 50 71 Intake, IV Amount 428.4 460.4 46.6 Left External Jugular Y 48.4 70.4 6.6 Port Left Hand 380 390 40 Output: Urine 200 700 Urine, Voided 200 700 Other: # Voids Urine, Voided 0 # Bowel Movements 0 - Physical Exam Head: Positive for: Atraumatic, Normocephalic Pupils: Positive for: PERRL Extroacular Muscles: Positive for: EOMI Mouth: Positive for: Moist Mucous Membranes Neck: Negative for: JVD Respiratory/Chest: Negative for: Respiratory Distress, Wheezes, Rales Cardiovascular: Positive for: Regular Rate and Rhythm, Normal S1, S2 Abdomen: Positive for: Distention, Normal Bowel Sounds. Negative for: Peritoneal Signs Upper Extremity: Positive for: NORMAL PULSES. Negative for: Cyanosis, Edema Lower Extremity: Positive for: NORMAL PULSES. Negative for: Edema, CALF TENDERNESS Neurological: Positive for: CN II-XII Intact Skin: Positive for: Warm, Dry - Medications Active Medications: Active Medications Generic Name Dose Route Start Last Admin Trade Name Freq PRN Reason Stop Dose Admin Albuterol/Ipratropium 3 ml 03/09/18 12:00 03/13/18 07:27 Duoneb 3 Mg/0.5 Mg (3 Ml) Ud INH 3 ml RQ4 DOYLE Administration Heparin Sodium (Porcine) 5,000 units 03/11/18 14:00 03/13/18 05:27 Heparin SC 5,000 units Q8 DOYLE Administration Cefepime HCl 1 gm in 50 mls @ 100 mls/hr 03/08/18 06:00 03/13/18 05:27 Maxipime Iv 1 Gm Premix IVPB 100 mls/hr Q12H DOYLE Administration Protocol Metronidazole 500 mg in 100 mls @ 100 mls/hr 03/08/18 14:00 03/13/18 05:00 Flagyl IVPB 100 mls/hr Q8H DOYLE Administration Protocol Dexmedetomidine HCl 200 mcg/ 50 mls @ 4.39 mls/hr 03/11/18 11:59 03/13/18 06: 03 Sodium Chloride IV 0.3 mcg/kg/hr TITR PRN 6.59 mls/hr Agitation Titration Protocol 0.2 MCG/KG/HR Dextrose/Sodium Chloride 1,000 mls @ 40 mls/hr 03/12/18 13:15 03/12/18 13:31 Dextrose 5%/0.45% Ns 1000 Ml IV 40 mls/hr .Q24H DOYLE Administration Insulin Human Regular 0 unit 03/12/18 18:00 03/13/18 05:28 Novolin R SC Not Given Q6 [facility] Protocol Lorazepam 2 mg 03/11/18 11:59 03/11/18 12:19 Ativan IVP 2 mg Q2 PRN Administration Anxiety Ondansetron HCl 4 mg 03/08/18 00:15 03/09/18 18:32 Zofran Inj IVP 4 mg Q6H PRN Administration Nausea/Vomiting Pantoprazole Sodium 40 mg 03/08/18 10:00 03/12/18 09:37 Protonix Inj IVP 40 mg DAILY DOYLE Administration - Patient Studies Lab Studies: Microbiology Studies 03/07/18 11:05 Blood Culture - Final Blood NO GROWTH AFTER 5 DAYS Gram Stain - Final TEST NOT PERFORMED 03/07/18 17:35 Blood Culture - Final Blood NO GROWTH AFTER 5 DAYS Gram Stain - Final TEST NOT PERFORMED Lab Studies 03/13/18 03/13/18 03/13/18 Range/Units 06:18 06:16 05:23 WBC 7.7 (4.8-10.8) K/uL RBC 2.55 L (3.80-5.20) Mil/uL Hgb 7.9 L (11.0-16.0) g/dL Hct 24.6 L (34.0-47.0) % MCV 96.7 (81.0-99.0) fL MCH 31.0 (27.0-31.0) pg MCHC 32.0 L (33.0-37.0) g/dL RDW 23.5 H (11.5-14.5) % Plt Count 133 (130-400) K/uL MPV 11.7 (7.2-11.7) fL Neut % (Auto) 52.6 (50.0-75.0) % Lymph % (Auto) 25.7 (20.0-40.0) % [place] % (Auto) 18.2 H (0.0-10.0) % Eos % (Auto) 2.4 (0.0-4.0) % Baso % (Auto) 1.1 (0.0-2.0) % Neut # (Auto) 4.1 (1.8-7.0) K/uL Lymph # (Auto) 2.0 (1.0-4.3) K/uL [place] # (Auto) 1.4 H (0.0-0.8) K/uL Eos # (Auto) 0.2 (0.0-0.7) K/uL Baso # (Auto) 0.1 (0.0-0.2) K/uL Puncture Site pCO2 (35-45) mm/Hg pO2 (80-100) mm/Hg HCO3 (21-28) mmol/L ABG pH (7.35-7.45) ABG Total CO2 (22-28) mmol/L ABG O2 Saturation (95-98) % ABG Base Excess (-2.0-3.0) mmol/L ABG Hemoglobin (11.7-17.4) g/dL ABG Carboxyhemoglobin (0.5-1.5) % POC ABG HHb (Measured) (0.0-5.0) % ABG Methemoglobin (0.0-3.0) % Denny Test A-a O2 Difference mm/Hg Respiratory Index Hgb O2 Saturation (95.0-98.0) % Liter Flow FiO2 % Sodium 139 (132-148) mmol/L Potassium 5.0 (3.6-5.2) mmol/L Chloride 111 H (98-107) mmol/L Carbon Dioxide 17 L (22-30) mmol/L Anion Gap 16 (10-20) BUN < 2 L (7-17) mg/dL Creatinine 0.5 L (0.7-1.2) mg/dL Est GFR ( Amer) > 60 Est GFR (Non-Af Amer) > 60 POC Glucose (mg/dL) 88 (65-110) mg/dL Random Glucose 87 (65-105) mg/dL Calcium 7.2 L (8.6-10.4) mg/dl Phosphorus 4.2 (2.5-4.5) mg/dL Magnesium 1.7 (1.6-2.3) mg/dL Total Bilirubin 0.8 (0.2-1.3) mg/dL AST 61 H D (14-36) U/L ALT 71 H (9-52) U/L Alkaline Phosphatase 240 H (38-126) U/L Total Protein 5.5 L (6.3-8.3) g/dL Albumin 2.6 L (3.5-5.0) g/dL Globulin 2.9 (2.2-3.9) gm/dL Albumin/Globulin Ratio 0.9 L (1.0-2.1) CSF Enterovirus Source CSF Enterovirus RNA Qual (Not Detected) 03/12/18 03/12/18 03/12/18 Range/Units 23:40 17:48 16:11 WBC (4.8-10.8) K/uL RBC (3.80-5.20) Mil/uL Hgb (11.0-16.0) g/dL Hct (34.0-47.0) % MCV (81.0-99.0) fL MCH (27.0-31.0) pg MCHC (33.0-37.0) g/dL RDW (11.5-14.5) % Plt Count (130-400) K/uL MPV (7.2-11.7) fL Neut % (Auto) (50.0-75.0) % Lymph % (Auto) (20.0-40.0) % [place] % (Auto) (0.0-10.0) % Eos % (Auto) (0.0-4.0) % Baso % (Auto) (0.0-2.0) % Neut # (Auto) (1.8-7.0) K/uL Lymph # (Auto) (1.0-4.3) K/uL [place] # (Auto) (0.0-0.8) K/uL Eos # (Auto) (0.0-0.7) K/uL Baso # (Auto) (0.0-0.2) K/uL Puncture Site pCO2 (35-45) mm/Hg pO2 (80-100) mm/Hg HCO3 (21-28) mmol/L ABG pH (7.35-7.45) ABG Total CO2 (22-28) mmol/L ABG O2 Saturation (95-98) % ABG Base Excess (-2.0-3.0) mmol/L ABG Hemoglobin (11.7-17.4) g/dL ABG Carboxyhemoglobin (0.5-1.5) % POC ABG HHb (Measured) (0.0-5.0) % ABG Methemoglobin (0.0-3.0) % Denny Test A-a O2 Difference mm/Hg Respiratory Index Hgb O2 Saturation (95.0-98.0) % Liter Flow FiO2 % Sodium (132-148) mmol/L Potassium (3.6-5.2) mmol/L Chloride (98-107) mmol/L Carbon Dioxide (22-30) mmol/L Anion Gap (10-20) BUN (7-17) mg/dL Creatinine (0.7-1.2) mg/dL Est GFR ( Amer) Est GFR (Non-Af Amer) POC Glucose (mg/dL) 82 91 97 (65-110) mg/dL Random Glucose (65-105) mg/dL Calcium (8.6-10.4) mg/dl Phosphorus (2.5-4.5) mg/dL Magnesium (1.6-2.3) mg/dL Total Bilirubin (0.2-1.3) mg/dL AST (14-36) U/L ALT (9-52) U/L Alkaline Phosphatase (38-126) U/L Total Protein (6.3-8.3) g/dL Albumin (3.5-5.0) g/dL Globulin (2.2-3.9) gm/dL Albumin/Globulin Ratio (1.0-2.1) CSF Enterovirus Source CSF Enterovirus RNA Qual (Not Detected) 03/12/18 03/12/18 03/12/18 Range/Units 11:50 11:45 10:22 WBC (4.8-10.8) K/uL RBC (3.80-5.20) Mil/uL Hgb (11.0-16.0) g/dL Hct (34.0-47.0) % MCV (81.0-99.0) fL MCH (27.0-31.0) pg MCHC (33.0-37.0) g/dL RDW (11.5-14.5) % Plt Count (130-400) K/uL MPV (7.2-11.7) fL Neut % (Auto) (50.0-75.0) % Lymph % (Auto) (20.0-40.0) % [place] % (Auto) (0.0-10.0) % Eos % (Auto) (0.0-4.0) % Baso % (Auto) (0.0-2.0) % Neut # (Auto) (1.8-7.0) K/uL Lymph # (Auto) (1.0-4.3) K/uL [place] # (Auto) (0.0-0.8) K/uL Eos # (Auto) (0.0-0.7) K/uL Baso # (Auto) (0.0-0.2) K/uL Puncture Site Rba pCO2 29 L (35-45) mm/Hg pO2 75 L (80-100) mm/Hg HCO3 21.0 (21-28) mmol/L ABG pH 7.42 (7.35-7.45) ABG Total CO2 19.7 L (22-28) mmol/L ABG O2 Saturation 96.6 (95-98) % ABG Base Excess -5.0 L (-2.0-3.0) mmol/L ABG Hemoglobin 7.8 L (11.7-17.4) g/dL ABG Carboxyhemoglobin 1.6 H (0.5-1.5) % POC ABG HHb (Measured) 3.3 (0.0-5.0) % ABG Methemoglobin 0.5 (0.0-3.0) % Denny Test Na A-a O2 Difference 138.0 mm/Hg Respiratory Index 1.8 Hgb O2 Saturation 94.6 L (95.0-98.0) % Liter Flow 4.0 FiO2 35.0 % Sodium 139 (132-148) mmol/L Potassium 5.7 H (3.6-5.2) mmol/L Chloride 114 H (98-107) mmol/L Carbon Dioxide 17 L (22-30) mmol/L Anion Gap 14 (10-20) BUN < 2 L (7-17) mg/dL Creatinine 0.4 L (0.7-1.2) mg/dL Est GFR ( Amer) > 60 Est GFR (Non-Af Amer) > 60 POC Glucose (mg/dL) 101 (65-110) mg/dL Random Glucose 92 (65-105) mg/dL Calcium 6.7 L (8.6-10.4) mg/dl Phosphorus 5.3 H (2.5-4.5) mg/dL Magnesium 1.6 (1.6-2.3) mg/dL Total Bilirubin 0.8 (0.2-1.3) mg/dL AST 82 H (14-36) U/L ALT 81 H (9-52) U/L Alkaline Phosphatase 227 H (38-126) U/L Total Protein 5.5 L (6.3-8.3) g/dL Albumin 2.6 L (3.5-5.0) g/dL Globulin 2.9 (2.2-3.9) gm/dL Albumin/Globulin Ratio 0.9 L (1.0-2.1) CSF Enterovirus Source CSF Enterovirus RNA Qual (Not Detected) 03/08/18 Range/Units 17:57 WBC (4.8-10.8) K/uL RBC (3.80-5.20) Mil/uL Hgb (11.0-16.0) g/dL Hct (34.0-47.0) % MCV (81.0-99.0) fL MCH (27.0-31.0) pg MCHC (33.0-37.0) g/dL RDW (11.5-14.5) % Plt Count (130-400) K/uL MPV (7.2-11.7) fL Neut % (Auto) (50.0-75.0) % Lymph % (Auto) (20.0-40.0) % [place] % (Auto) (0.0-10.0) % Eos % (Auto) (0.0-4.0) % Baso % (Auto) (0.0-2.0) % Neut # (Auto) (1.8-7.0) K/uL Lymph # (Auto) (1.0-4.3) K/uL [place] # (Auto) (0.0-0.8) K/uL Eos # (Auto) (0.0-0.7) K/uL Baso # (Auto) (0.0-0.2) K/uL Puncture Site pCO2 (35-45) mm/Hg pO2 (80-100) mm/Hg HCO3 (21-28) mmol/L ABG pH (7.35-7.45) ABG Total CO2 (22-28) mmol/L ABG O2 Saturation (95-98) % ABG Base Excess (-2.0-3.0) mmol/L ABG Hemoglobin (11.7-17.4) g/dL ABG Carboxyhemoglobin (0.5-1.5) % POC ABG HHb (Measured) (0.0-5.0) % ABG Methemoglobin (0.0-3.0) % Denny Test A-a O2 Difference mm/Hg Respiratory Index Hgb O2 Saturation (95.0-98.0) % Liter Flow FiO2 % Sodium (132-148) mmol/L Potassium (3.6-5.2) mmol/L Chloride (98-107) mmol/L Carbon Dioxide (22-30) mmol/L Anion Gap (10-20) BUN (7-17) mg/dL Creatinine (0.7-1.2) mg/dL Est GFR ( Amer) Est GFR (Non-Af Amer) POC Glucose (mg/dL) (65-110) mg/dL Random Glucose (65-105) mg/dL Calcium (8.6-10.4) mg/dl Phosphorus (2.5-4.5) mg/dL Magnesium (1.6-2.3) mg/dL Total Bilirubin (0.2-1.3) mg/dL AST (14-36) U/L ALT (9-52) U/L Alkaline Phosphatase (38-126) U/L Total Protein (6.3-8.3) g/dL Albumin (3.5-5.0) g/dL Globulin (2.2-3.9) gm/dL Albumin/Globulin Ratio (1.0-2.1) CSF Enterovirus Source Stool CSF Enterovirus RNA Qual Not detected (Not Detected) Laboratory Results - last 24 hr 03/08/18 03/12/18 03/12/18 17:57 10:22 11:45 WBC RBC Hgb Hct MCV MCH MCHC RDW Plt Count MPV Neut % (Auto) Lymph % (Auto) [place] % (Auto) Eos % (Auto) Baso % (Auto) Neut # (Auto) Lymph # (Auto) [place] # (Auto) Eos # (Auto) Baso # (Auto) Puncture Site Rba pCO2 29 L pO2 75 L HCO3 21.0 ABG pH 7.42 ABG Total CO2 19.7 L ABG O2 Saturation 96.6 ABG Base Excess -5.0 L ABG Hemoglobin 7.8 L ABG Carboxyhemoglobin 1.6 H POC ABG HHb (Measured) 3.3 ABG Methemoglobin 0.5 Denny Test Na A-a O2 Difference 138.0 Respiratory Index 1.8 Hgb O2 Saturation 94.6 L Liter Flow 4.0 FiO2 35.0 Sodium 139 Potassium 5.7 H Chloride 114 H Carbon Dioxide 17 L Anion Gap 14 BUN < 2 L Creatinine 0.4 L Est GFR ( Amer) > 60 Est GFR (Non-Af Amer) > 60 POC Glucose (mg/dL) Random Glucose 92 Calcium 6.7 L Phosphorus 5.3 H Magnesium 1.6 Total Bilirubin 0.8 AST 82 H ALT 81 H Alkaline Phosphatase 227 H Total Protein 5.5 L Albumin 2.6 L Globulin 2.9 Albumin/Globulin Ratio 0.9 L CSF Enterovirus Source Stool CSF Enterovirus RNA Qual Not detected 03/12/18 03/12/18 03/12/18 11:50 16:11 17:48 WBC RBC Hgb Hct MCV MCH MCHC RDW Plt Count MPV Neut % (Auto) Lymph % (Auto) [place] % (Auto) Eos % (Auto) Baso % (Auto) Neut # (Auto) Lymph # (Auto) [place] # (Auto) Eos # (Auto) Baso # (Auto) Puncture Site pCO2 pO2 HCO3 ABG pH ABG Total CO2 ABG O2 Saturation ABG Base Excess ABG Hemoglobin ABG Carboxyhemoglobin POC ABG HHb (Measured) ABG Methemoglobin Denny Test A-a O2 Difference Respiratory Index Hgb O2 Saturation Liter Flow FiO2 Sodium Potassium Chloride Carbon Dioxide Anion Gap BUN Creatinine Est GFR ( Amer) Est GFR (Non-Af Amer) POC Glucose (mg/dL) 101 97 91 Random Glucose Calcium Phosphorus Magnesium Total Bilirubin AST ALT Alkaline Phosphatase Total Protein Albumin Globulin Albumin/Globulin Ratio CSF Enterovirus Source CSF Enterovirus RNA Qual 03/12/18 03/13/18 03/13/18 23:40 05:23 06:16 WBC RBC Hgb Hct MCV MCH MCHC RDW Plt Count MPV Neut % (Auto) Lymph % (Auto) [place] % (Auto) Eos % (Auto) Baso % (Auto) Neut # (Auto) Lymph # (Auto) [place] # (Auto) Eos # (Auto) Baso # (Auto) Puncture Site pCO2 pO2 HCO3 ABG pH ABG Total CO2 ABG O2 Saturation ABG Base Excess ABG Hemoglobin ABG Carboxyhemoglobin POC ABG HHb (Measured) ABG Methemoglobin Denny Test A-a O2 Difference Respiratory Index Hgb O2 Saturation Liter Flow FiO2 Sodium 139 Potassium 5.0 Chloride 111 H Carbon Dioxide 17 L Anion Gap 16 BUN < 2 L Creatinine 0.5 L Est GFR ( Amer) > 60 Est GFR (Non-Af Amer) > 60 POC Glucose (mg/dL) 82 88 Random Glucose 87 Calcium 7.2 L Phosphorus 4.2 Magnesium 1.7 Total Bilirubin 0.8 AST 61 H D ALT 71 H Alkaline Phosphatase 240 H Total Protein 5.5 L Albumin 2.6 L Globulin 2.9 Albumin/Globulin Ratio 0.9 L CSF Enterovirus Source CSF Enterovirus RNA Qual 03/13/18 06:18 WBC 7.7 RBC 2.55 L Hgb 7.9 L Hct 24.6 L MCV 96.7 MCH 31.0 MCHC 32.0 L RDW 23.5 H Plt Count 133 MPV 11.7 Neut % (Auto) 52.6 Lymph % (Auto) 25.7 [place] % (Auto) 18.2 H Eos % (Auto) 2.4 Baso % (Auto) 1.1 Neut # (Auto) 4.1 Lymph # (Auto) 2.0 [place] # (Auto) 1.4 H Eos # (Auto) 0.2 Baso # (Auto) 0.1 Puncture Site pCO2 pO2 HCO3 ABG pH ABG Total CO2 ABG O2 Saturation ABG Base Excess ABG Hemoglobin ABG Carboxyhemoglobin POC ABG HHb (Measured) ABG Methemoglobin Denny Test A-a O2 Difference Respiratory Index Hgb O2 Saturation Liter Flow FiO2 Sodium Potassium Chloride Carbon Dioxide Anion Gap BUN Creatinine Est GFR ( Amer) Est GFR (Non-Af Amer) POC Glucose (mg/dL) Random Glucose Calcium Phosphorus Magnesium Total Bilirubin AST ALT Alkaline Phosphatase Total Protein Albumin Globulin Albumin/Globulin Ratio CSF Enterovirus Source CSF Enterovirus RNA Qual Fingerstick Blood Sugar Results: 91 Review of Systems - Review of Systems Systems not reviewed;Unavailable: Altered Mental Status Critical Care Progress Note - Nutrition Nutrition: Nutrition Category Date Time Status NPO Diet [DIET] Diets 03/12/18 Lunch Active Assessment/Plan - Assessment and Plan (Free Text) Assessment: 62 year old female with history of alcohol abuse who was admitted for pancreatitis, colitis and sepsis after patient complained of worsening abdominal pain and distention. Placed on Precedex drip since patient was agitated and concern for DTs. Plan: Neuro: Precedex discontinued, More oriented today. Zofran 4mg IV Q6 PRN U tox: positive for cocaine Ativan 2mg IV Q2 PRN Cardiovascular Hemodynamically stable Maintain MAP >65 Pulmonary Duonebs Q4 GI Protonix 40mg IV Zofran 4mg IV Q6PRN Tolerating PO diet today CT abdomen/pelvis with IV contrast: Enterocolitis, partial gastrectomy with gastrojejunal anastomosis, no obstruction, enlarged fatty liver, cholecystectomy and hysterectomy Pancreatitis, lipase elevated on admission Stool occult negative Stool H pylori not detected Surgery Dr. Barrett consulted, help appreciated GI Dr. Miranda consulted, help appreciated Stool studies no salmonella, shigella, or campylobacter isolated. Renal Continue to monitor electrolytes K 5.[address] Hernandez consulted, help appreciated Cefepime, Flagyl as per ID blood and urine Cultures negative Endo Maintain euglycemia Heme H/H 7.9/24.6 PPX Heparin, Protonix Case discussed with Dr. Redmond <Sadiq Redmond - Last Filed: 03/13/18 18:37> CCU Subjective - Physician Review Critical Care Time Spent (in minutes): 30 CCU Objective - Vital Signs / Intake & Output Vital Signs (Last 4 hours): Vital Signs Pulse Resp BP Pulse Ox 03/13/18 17:26 91 H 33 H 140/73 97 03/13/18 16:26 80 30 H 130/65 100 03/13/18 15:26 85 29 H 132/70 98 Intake and Output (Last 8hrs): Intake & Output 03/13/18 03/13/18 03/13/18 06:59 14:59 22:59 Intake Total 531.4 478.6 100 Output Total 700 500 200 Balance -168.6 -21.4 -100 Weight 190 lb Intake: IV 71 21 Intake, IV Amount 460.4 257.6 Left External Jugular Y 70.4 17.6 Port Left Hand 390 240 Oral 200 100 Output: Urine 700 500 200 Urine, Voided 700 500 200 Other: # Voids Urine, Voided 1 # Bowel Movements 0 0 0 - Medications Active Medications: Active Medications Generic Name Dose Route Start Last Admin Trade Name Freq PRN Reason Stop Dose Admin Albuterol/Ipratropium 3 ml 03/09/18 12:00 03/13/18 16:58 Duoneb 3 Mg/0.5 Mg (3 Ml) Ud INH 3 ml RQ4 [facility]YLE Administration Heparin Sodium (Porcine) 5,000 units 03/11/18 14:00 03/13/18 13:38 Heparin SC 5,000 units Q8 [facility] Administration Cefepime HCl 1 gm in 50 mls @ 100 mls/hr 03/08/18 06:00 03/13/18 17:34 Maxipime Iv 1 Gm Premix IVPB 100 mls/hr Q12H [facility] Administration Protocol Metronidazole 500 mg in 100 mls @ 100 mls/hr 03/08/18 14:00 03/13/18 13:39 Flagyl IVPB 100 mls/hr Q8H [facility] Administration Protocol Dexmedetomidine HCl 200 mcg/ 50 mls @ 4.39 mls/hr 03/11/18 11:59 03/13/18 10: 00 Sodium Chloride IV 0 mcg/kg/hr TITR PRN 0 mls/hr Agitation Titration Protocol 0.2 MCG/KG/HR Insulin Human Regular 0 unit 03/13/18 16:30 03/13/18 16:42 Novolin R SC Not Given ACHS [facility] Protocol Lorazepam 2 mg 03/11/18 11:59 03/11/18 12:19 Ativan IVP 2 mg Q2 PRN Administration Anxiety Ondansetron HCl 4 mg 03/08/18 00:15 03/09/18 18:32 Zofran Inj IVP 4 mg Q6H PRN Administration Nausea/Vomiting Pantoprazole Sodium 40 mg 03/08/18 10:00 03/13/18 09:11 Protonix Inj IVP 40 mg DAILY DOYLE Administration - Patient Studies Lab Studies: Microbiology Studies 03/07/18 11:05 Blood Culture - Final Blood NO GROWTH AFTER 5 DAYS Gram Stain - Final TEST NOT PERFORMED 03/07/18 17:35 Blood Culture - Final Blood NO GROWTH AFTER 5 DAYS Gram Stain - Final TEST NOT PERFORMED Lab Studies 03/13/18 03/13/18 03/13/18 Range/Units 16:28 11:16 06:18 WBC 7.7 (4.8-10.8) K/uL RBC 2.55 L (3.80-5.20) Mil/uL Hgb 7.9 L (11.0-16.0) g/dL Hct 24.6 L (34.0-47.0) % MCV 96.7 (81.0-99.0) fL MCH 31.0 (27.0-31.0) pg MCHC 32.0 L (33.0-37.0) g/dL RDW 23.5 H (11.5-14.5) % Plt Count 133 (130-400) K/uL MPV 11.7 (7.2-11.7) fL Neut % (Auto) 52.6 (50.0-75.0) % Lymph % (Auto) 25.7 (20.0-40.0) % [place] % (Auto) 18.2 H (0.0-10.0) % Eos % (Auto) 2.4 (0.0-4.0) % Baso % (Auto) 1.1 (0.0-2.0) % Neut # (Auto) 4.1 (1.8-7.0) K/uL Lymph # (Auto) 2.0 (1.0-4.3) K/uL [place] # (Auto) 1.4 H (0.0-0.8) K/uL Eos # (Auto) 0.2 (0.0-0.7) K/uL Baso # (Auto) 0.1 (0.0-0.2) K/uL Differential Comment Sodium (132-148) mmol/L Potassium (3.6-5.2) mmol/L Chloride (98-107) mmol/L Carbon Dioxide (22-30) mmol/L Anion Gap (10-20) BUN (7-17) mg/dL Creatinine (0.7-1.2) mg/dL Est GFR ( Amer) Est GFR (Non-Af Amer) POC Glucose (mg/dL) 149 H 96 (65-110) mg/dL Random Glucose (65-105) mg/dL Calcium (8.6-10.4) mg/dl Phosphorus (2.5-4.5) mg/dL Magnesium (1.6-2.3) mg/dL Total Bilirubin (0.2-1.3) mg/dL AST (14-36) U/L ALT (9-52) U/L Alkaline Phosphatase (38-126) U/L Total Protein (6.3-8.3) g/dL Albumin (3.5-5.0) g/dL Globulin (2.2-3.9) gm/dL Albumin/Globulin Ratio (1.0-2.1) CSF Enterovirus Source CSF Enterovirus RNA Qual (Not Detected) 03/13/18 03/13/18 03/12/18 Range/Units 06:16 05:23 23:40 WBC (4.8-10.8) K/uL RBC (3.80-5.20) Mil/uL Hgb (11.0-16.0) g/dL Hct (34.0-47.0) % MCV (81.0-99.0) fL MCH (27.0-31.0) pg MCHC (33.0-37.0) g/dL RDW (11.5-14.5) % Plt Count (130-400) K/uL MPV (7.2-11.7) fL Neut % (Auto) (50.0-75.0) % Lymph % (Auto) (20.0-40.0) % [place] % (Auto) (0.0-10.0) % Eos % (Auto) (0.0-4.0) % Baso % (Auto) (0.0-2.0) % Neut # (Auto) (1.8-7.0) K/uL Lymph # (Auto) (1.0-4.3) K/uL [place] # (Auto) (0.0-0.8) K/uL Eos # (Auto) (0.0-0.7) K/uL Baso # (Auto) (0.0-0.2) K/uL Differential Comment Sodium 139 (132-148) mmol/L Potassium 5.0 (3.6-5.2) mmol/L Chloride 111 H (98-107) mmol/L Carbon Dioxide 17 L (22-30) mmol/L Anion Gap 16 (10-20) BUN < 2 L (7-17) mg/dL Creatinine 0.5 L (0.7-1.2) mg/dL Est GFR ( Amer) > 60 Est GFR (Non-Af Amer) > 60 POC Glucose (mg/dL) 88 82 (65-110) mg/dL Random Glucose 87 (65-105) mg/dL Calcium 7.2 L (8.6-10.4) mg/dl Phosphorus 4.2 (2.5-4.5) mg/dL Magnesium 1.7 (1.6-2.3) mg/dL Total Bilirubin 0.8 (0.2-1.3) mg/dL AST 61 H D (14-36) U/L ALT 71 H (9-52) U/L Alkaline Phosphatase 240 H (38-126) U/L Total Protein 5.5 L (6.3-8.3) g/dL Albumin 2.6 L (3.5-5.0) g/dL Globulin 2.9 (2.2-3.9) gm/dL Albumin/Globulin Ratio 0.9 L (1.0-2.1) CSF Enterovirus Source CSF Enterovirus RNA Qual (Not Detected) 03/08/18 Range/Units 17:57 WBC (4.8-10.8) K/uL RBC (3.80-5.20) Mil/uL Hgb (11.0-16.0) g/dL Hct (34.0-47.0) % MCV (81.0-99.0) fL MCH (27.0-31.0) pg MCHC (33.0-37.0) g/dL RDW (11.5-14.5) % Plt Count (130-400) K/uL MPV (7.2-11.7) fL Neut % (Auto) (50.0-75.0) % Lymph % (Auto) (20.0-40.0) % [place] % (Auto) (0.0-10.0) % Eos % (Auto) (0.0-4.0) % Baso % (Auto) (0.0-2.0) % Neut # (Auto) (1.8-7.0) K/uL Lymph # (Auto) (1.0-4.3) K/uL [place] # (Auto) (0.0-0.8) K/uL Eos # (Auto) (0.0-0.7) K/uL Baso # (Auto) (0.0-0.2) K/uL Differential Comment Sodium (132-148) mmol/L Potassium (3.6-5.2) mmol/L Chloride (98-107) mmol/L Carbon Dioxide (22-30) mmol/L Anion Gap (10-20) BUN (7-17) mg/dL Creatinine (0.7-1.2) mg/dL Est GFR ( Amer) Est GFR (Non-Af Amer) POC Glucose (mg/dL) (65-110) mg/dL Random Glucose (65-105) mg/dL Calcium (8.6-10.4) mg/dl Phosphorus (2.5-4.5) mg/dL Magnesium (1.6-2.3) mg/dL Total Bilirubin (0.2-1.3) mg/dL AST (14-36) U/L ALT (9-52) U/L Alkaline Phosphatase (38-126) U/L Total Protein (6.3-8.3) g/dL Albumin (3.5-5.0) g/dL Globulin (2.2-3.9) gm/dL Albumin/Globulin Ratio (1.0-2.1) CSF Enterovirus Source Stool CSF Enterovirus RNA Qual Not detected (Not Detected) Laboratory Results - last 24 hr 03/08/18 03/12/18 03/13/18 17:57 23:40 05:23 WBC RBC Hgb Hct MCV MCH MCHC RDW Plt Count MPV Neut % (Auto) Lymph % (Auto) [place] % (Auto) Eos % (Auto) Baso % (Auto) Neut # (Auto) Lymph # (Auto) [place] # (Auto) Eos # (Auto) Baso # (Auto) Differential Comment Sodium Potassium Chloride Carbon Dioxide Anion Gap BUN Creatinine Est GFR ( Amer) Est GFR (Non-Af Amer) POC Glucose (mg/dL) 82 88 Random Glucose Calcium Phosphorus Magnesium Total Bilirubin AST ALT Alkaline Phosphatase Total Protein Albumin Globulin Albumin/Globulin Ratio CSF Enterovirus Source Stool CSF Enterovirus RNA Qual Not detected 03/13/18 03/13/18 03/13/18 06:16 06:18 11:16 WBC 7.7 RBC 2.55 L Hgb 7.9 L Hct 24.6 L MCV 96.7 MCH 31.0 MCHC 32.0 L RDW 23.5 H Plt Count 133 MPV 11.7 Neut % (Auto) 52.6 Lymph % (Auto) 25.7 [place] % (Auto) 18.2 H Eos % (Auto) 2.4 Baso % (Auto) 1.1 Neut # (Auto) 4.1 Lymph # (Auto) 2.0 [place] # (Auto) 1.4 H Eos # (Auto) 0.2 Baso # (Auto) 0.1 Differential Comment Sodium 139 Potassium 5.0 Chloride 111 H Carbon Dioxide 17 L Anion Gap 16 BUN < 2 L Creatinine 0.5 L Est GFR ( Amer) > 60 Est GFR (Non-Af Amer) > 60 POC Glucose (mg/dL) 96 Random Glucose 87 Calcium 7.2 L Phosphorus 4.2 Magnesium 1.7 Total Bilirubin 0.8 AST 61 H D ALT 71 H Alkaline Phosphatase 240 H Total Protein 5.5 L Albumin 2.6 L Globulin 2.9 Albumin/Globulin Ratio 0.9 L CSF Enterovirus Source CSF Enterovirus RNA Qual 03/13/18 16:28 WBC RBC Hgb Hct MCV MCH MCHC RDW Plt Count MPV Neut % (Auto) Lymph % (Auto) [place] % (Auto) Eos % (Auto) Baso % (Auto) Neut # (Auto) Lymph # (Auto) [place] # (Auto) Eos # (Auto) Baso # (Auto) Differential Comment Sodium Potassium Chloride Carbon Dioxide Anion Gap BUN Creatinine Est GFR ( Amer) Est GFR (Non-Af Amer) POC Glucose (mg/dL) 149 H Random Glucose Calcium Phosphorus Magnesium Total Bilirubin AST ALT Alkaline Phosphatase Total Protein Albumin Globulin Albumin/Globulin Ratio CSF Enterovirus Source CSF Enterovirus RNA Qual Critical Care Progress Note - Nutrition Nutrition: Nutrition Category Date Time Status Heart Healthy Diet [DIET] Diets 03/13/18 Lunch Active Attending/Attestation - Attestation I have personally seen and examined this patient.: Yes I have fully participated in the care of the patient.: Yes I have reviewed all pertinent clinical information: Yes Notes (Text): 03/13/18 18:37 patient seen and examined in the intensive care unit Patient is off Precedex drip Patient is awake and responsive and able to eat continue antibiotics and present treatment for now
[2018-03-13] MEDS: Dextrose 5%/0.45% NS 1,000 ML IV SCH (13:24)
--- NOTE | 2018-03-13 16:13 | CP.PCM.PN ---
Subjective - Date & Time of Evaluation Date of Evaluation: 03/13/18 Time of Evaluation: 07:00 - Subjective Subjective: sedated in ICU nad Objective - Vital Signs/Intake and Output Vital Signs (last 24 hours): Temp Pulse Resp BP Pulse Ox 98.0 F 97 H 31 H 97/70 L 98 03/13/18 13:00 03/13/18 14:25 03/13/18 14:25 03/13/18 14:26 03/13/18 14:25 Intake and Output: 03/13/18 03/13/18 06:59 18:59 Intake Total 832.2 478.6 Output Total 700 500 Balance 132.2 -21.4 - Medications Medications: Current Medications Albuterol/Ipratropium (Duoneb 3 Mg/0.5 Mg (3 Ml) Ud) 3 ml INH RQ4 [facility] Last Admin: 03/13/18 13:10 Dose: 3 ml Heparin Sodium (Porcine) (Heparin) 5,000 units SC Q8 [facility] Last Admin: 03/13/18 13:38 Dose: 5,000 units Cefepime HCl (Maxipime Iv 1 Gm Premix) 1 gm in 50 mls @ 100 mls/hr IVPB Q12H [facility] PRN Reason: Protocol Last Admin: 03/13/18 05:27 Dose: 100 mls/hr Metronidazole (Flagyl) 500 mg in 100 mls @ 100 mls/hr IVPB Q8H [facility] PRN Reason: Protocol Last Admin: 03/13/18 13:39 Dose: 100 mls/hr Dexmedetomidine HCl 200 mcg/ (Sodium Chloride) 50 mls @ 4.39 mls/hr IV TITR PRN ; Protocol; 0.2 MCG/KG/HR PRN Reason: Agitation Last Titration: 03/13/18 10:00 Dose: 0 mcg/kg/hr, 0 mls/hr Insulin Human Regular (Novolin R) 0 unit SC ACHS [facility] PRN Reason: Protocol Lorazepam (Ativan) 2 mg IVP Q2 PRN PRN Reason: Anxiety Last Admin: 03/11/18 12:19 Dose: 2 mg Ondansetron HCl (Zofran Inj) 4 mg IVP Q6H PRN PRN Reason: Nausea/Vomiting Last Admin: 03/09/18 18:32 Dose: 4 mg Pantoprazole Sodium (Protonix Inj) 40 mg IVP DAILY [facility] Last Admin: 03/13/18 09:11 Dose: 40 mg - Labs Labs: 03/13/18 06:18 03/13/18 06:16 PT 13.5 SECONDS (9.7-12.2) H 03/07/18 16:53 INR 1.2 03/07/18 16:53 APTT 33 SECONDS (21-34) 03/07/18 16:53 - Constitutional Appears: Non-toxic, Chronically Ill - Head Exam Head Exam: NORMOCEPHALIC - Eye Exam Eye Exam: PERRL. absent: Scleral icterus - ENT Exam ENT Exam: Mucous Membranes Dry - Neck Exam Neck Exam: absent: Lymphadenopathy - Respiratory Exam Respiratory Exam: Decreased Breath Sounds - Cardiovascular Exam Cardiovascular Exam: REGULAR RHYTHM - GI/Abdominal Exam GI & Abdominal Exam: Distended, Soft - Rectal Exam Rectal Exam: Deferred - Exam Exam: NORMAL INSPECTION - Extremities Exam Extremities Exam: absent: Pedal Edema - Back Exam Back Exam: absent: CVA tenderness (L), CVA tenderness (R) - Neurological Exam Neurological Exam: Alert, Awake, Oriented x3 Assessment and Plan (1) Abdominal pain Status: Acute (2) Metabolic acidosis Status: Acute - Assessment and Plan (Free Text) Plan: cont rx as planned
--- NOTE | 2018-03-14 00:02 | PN ---
DATE: 03/13/2018 LOCATION: ICU 15 SUBJECTIVE: This is a 62-year-old female, seen and examined in rounds, appeared to be somewhat more awake and alert, reported to be able to swallow liquid diet slowly without any significant reported difficulties. No reported active bleeding, active chest pain or palpitation, it has to be mentioned that the patient had been agitated on and off which could be related to her early stage of DTs due to alcoholism. The entire chart is reviewed including, but not limited to, the most recent lab and radiology study results, current medication list, current medical events. Today's lab showed hemoglobin of 7.9, hematocrit 24.6 with normal white blood cells and platelet count, but CO2 content of 17 indicative of metabolic acidosis. Blood glucose level 149, calcium 7.2, AST 61, ALT 71 with normal total bilirubin, albumin 2.6. PHYSICAL EXAMINATION: GENERAL: A 62-year-old female. VITAL SIGNS: Afebrile with pulse of 82, respiratory rate of 20 to 24, blood pressure of 103/74. HEENT: Showed pale, dry oral mucous membrane. Nonicteric sclerae. LUNGS: Few scattered crepitation. Decreased air entry at bases. HEART: Positive S1 and S2. ABDOMEN: Soft with mild generalized tenderness. No mass or organomegaly. EXTREMITIES: Lower extremity slight edematous changes. No clubbing or cyanosis. NEUROLOGIC: No reported new neurological deficits, sensory or motor. IMPRESSION: 1. Alcoholism. 2. Anemia, to rule out upper versus lower gastrointestinal blood loss. 3. Alcohol-induced acute pancreatitis. Repeat lipase, amylase level is still pending. 4. Abnormal liver function test, most likely secondary to alcoholic hepatitis. 5. Substance abuse by history. 6. Metabolic acidosis due to above. SUGGESTIONS: 1. Continue current management. 2. The patient may need CAT scan of the head with neurology evaluation as well as psychiatric evaluation. 3. Follow up in cancer markers. 4. Further recommendation to follow. Simeon Salmeron MD
[2018-03-14] MEDS: Albuterol-Ipratrop 3 mg / 0.5 (3 ml) UD INH SCH ×6 (01:16→19:34)
[2018-03-14] MEDS: Cefepime IV 1 gm in Dextrose 1 GM/50 ML BAG IVPB SCH ×2 (05:30→18:00)
[2018-03-14] MEDS: metroNIDAZOLE IV 500 mg/100 ml 500 MG/100 ML BAG IVPB SCH ×2 (06:04→14:00)
[2018-03-14 06:31] LABS: HEMOGLOBIN 7.9 g/dL (11.0-16.0); MEAN CELL VOLUME 95.5 fL (81.0-99.0); MEAN CORPUSCULAR HEMOGLOBIN 30.8 pg (27.0-31.0); MEAN CORPUSCULAR HGB CONC 32.3 g/dL (33.0-37.0); MEAN PLATELET VOLUME 12.2 fL (7.2-11.7); PLATELET COUNT 153 K/uL (130-400); RBC 2.55 Mil/uL (3.80-5.20); RED CELL DISTRIBUTION WIDTH 23.4 % (11.5-14.5); WHITE BLOOD COUNT 8.6 K/uL (4.8-10.8)
[2018-03-14 06:57] LABS: ALB/GLOB RATIO 0.8 (1.0-2.1); ALBUMIN 2.6 g/dL (3.5-5.0); ALT/SGPT 62 U/L (9-52); AST/SGOT 71 U/L (14-36); BLOOD UREA NITROGEN 2 mg/dL (7-17); CALCIUM 8.2 mg/dl (8.6-10.4); GFR NON-AFRICAN AMERICAN > 60
[2018-03-14] MEDS: (Novolin R) Insulin Human Regular 100 units/ml vial SC SCH ×4 (08:00→22:17)
[2018-03-14 09:59] LABS: LYMPH # 1.4 K/uL (1.0-4.3); MONO # 1.9 K/uL (0.0-0.8); NEUT # 5.3 K/uL (1.8-7.0)
[2018-03-14 10:07] LABS: ANISOCYTOSIS MODERATE; BANDS 17 % (0-2); EOSINOPHIL 1 % (0-4); LYMPHOCYTE 17 % (20-40); METAMYELOCYTE 2 % (0-0); MONOCYTE 22 % (0-10); MYELOCYTE 1 % (0-0); NEUTROPHIL 40 % (50-75); PLATELET ESTIMATE NORMAL (NORMAL); TOTAL CELLS COUNTED 100
[2018-03-14 10:08] LABS: HYPOCHROMIC SLIGHT; LARGE PLATELETS PRESENT
[2018-03-14 10:09] LABS: TARGET CELLS SLIGHT; TOXIC GRANULATION PRESENT
--- NOTE | 2018-03-14 18:56 | CP.PCM.PN ---
Subjective - Date & Time of Evaluation Date of Evaluation: 03/14/18 Time of Evaluation: 08:00 - Subjective Subjective: less confused Objective - Vital Signs/Intake and Output Vital Signs (last 24 hours): Temp Pulse Resp BP Pulse Ox 98.3 F 97 H 18 168/84 H 97 03/14/18 15:42 03/14/18 18:00 03/14/18 15:26 03/14/18 17:26 03/14/18 18:00 Intake and Output: 03/14/18 03/14/18 06:59 18:59 Intake Total 575 750 Output Total 430 700 Balance 145 50 - Medications Medications: Current Medications Albuterol/Ipratropium (Duoneb 3 Mg/0.5 Mg (3 Ml) Ud) 3 ml INH RQ4 [facility] Last Admin: 03/14/18 11:15 Dose: Not Given Chlordiazepoxide (Librium) 25 mg PO Q8 [facility] Last Admin: 03/14/18 14:04 Dose: 25 mg Folic Acid (Folic Acid) 1 mg PO DAILY [facility] Heparin Sodium (Porcine) (Heparin) 5,000 units SC Q8 [facility] Last Admin: 03/14/18 14:04 Dose: 5,000 units Cefepime HCl (Maxipime Iv 1 Gm Premix) 1 gm in 50 mls @ 100 mls/hr IVPB Q12H [facility] PRN Reason: Protocol Last Admin: 03/14/18 18:00 Dose: 100 mls/hr Metronidazole (Flagyl) 500 mg in 100 mls @ 100 mls/hr IVPB Q8H [facility] PRN Reason: Protocol Last Admin: 03/14/18 14:00 Dose: 100 mls/hr Dexmedetomidine HCl 200 mcg/ (Sodium Chloride) 50 mls @ 4.39 mls/hr IV TITR PRN ; Protocol; 0.2 MCG/KG/HR PRN Reason: Agitation Last Titration: 03/13/18 10:00 Dose: 0 mcg/kg/hr, 0 mls/hr Insulin Human Regular (Novolin R) 0 unit SC ACHS [facility] PRN Reason: Protocol Last Admin: 03/14/18 17:00 Dose: Not Given Lorazepam (Ativan) 2 mg IVP Q2 PRN PRN Reason: Anxiety Last Admin: 03/14/18 18:00 Dose: 2 mg Ondansetron HCl (Zofran Inj) 4 mg IVP Q6H PRN PRN Reason: Nausea/Vomiting Last Admin: 03/13/18 20:31 Dose: 4 mg Pantoprazole Sodium (Protonix Inj) 40 mg IVP DAILY [facility] Last Admin: 03/14/18 09:30 Dose: 40 mg Thiamine HCl (Vitamin B1 Tab) 100 mg PO DAILY [facility] - Labs Labs: 03/14/18 06:22 03/14/18 06:17 PT 13.5 SECONDS (9.7-12.2) H 03/07/18 16:53 INR 1.2 03/07/18 16:53 APTT 33 SECONDS (21-34) 03/07/18 16:53 - Constitutional Appears: Non-toxic, Chronically Ill - Head Exam Head Exam: NORMOCEPHALIC - Eye Exam Eye Exam: PERRL - ENT Exam ENT Exam: Mucous Membranes Dry - Neck Exam Neck Exam: absent: Lymphadenopathy - Respiratory Exam Respiratory Exam: Decreased Breath Sounds - Cardiovascular Exam Cardiovascular Exam: REGULAR RHYTHM - GI/Abdominal Exam GI & Abdominal Exam: Distended Assessment and Plan (1) Abdominal pain Status: Acute (2) Metabolic acidosis Status: Acute - Assessment and Plan (Free Text) Assessment: consider d/c antibiotics
--- NOTE | 2018-03-14 22:30 | PN ---
DATE: 03/14/2018 LOCATION: ICU 15. SUBJECTIVE: This is a 62-year-old female, seen and examined in rounds, appeared to be somewhat more alert and oriented, somewhat tolerated oral intake of liquid diet before without significantly reported difficulty. The entire chart is reviewed including but not limited to the most recent lab and radiology study results, current and the previous medication lists, current and the previous medical events. Case discussed with the staff at length. It has to be mentioned that it is reported the patient has periods of agitation on and off, but less than before with slight upper extremity tremors. Today's lab showed hemoglobin of 7.9, hematocrit 24.3 with low indices but normal platelet count with CO2 content of 20 indicative of metabolic acidosis. Blood glucose level 82, calcium 8.2. AST 71, ALT 62, albumin 2.6, total protein 5.8, alkaline phosphatase 274. PHYSICAL EXAMINATION: GENERAL: A 62-year-old female. VITAL SIGNS: Afebrile, pulse of 100, respiratory rate 22 to 24 with blood pressure of 164/78. HEENT: Showed pale, dry oral mucous membrane. Nonicteric sclerae. LUNGS: Few scattered crepitation. Decreased air entry at bases. HEART: Positive S1 and S2. ABDOMEN: Soft with mild generalized tenderness. No mass or organomegaly. No rebound tenderness or guarding. EXTREMITIES: With slight phantom tremors. No clubbing or cyanosis. NEUROLOGIC: No reported new neurological deficits, sensory or motor. No reported new focal deficits. IMPRESSION: 1. Alcoholism. 2. Anemia, to rule out upper versus lower gastrointestinal blood loss versus occult gastrointestinal malignancy. 3. Abnormal liver function tests secondary to above. 4. Known history of substance abuse. 5. Metabolic acidosis secondary to above. 6. Malnutrition with hypoalbuminemia. SUGGESTIONS: 1. Endoscopic evaluation of the GI tract when the patient is more stable clinically. 2. Guaiac all the stools daily x3. 3. Follow up cancer markers. 4. Carafate liquid 10 mL p.o. three times a day. 5. Further recommendations to follow. Simeon Salmeron MD
[2018-03-15] MEDS: Albuterol-Ipratrop 3 mg / 0.5 (3 ml) UD INH SCH ×6 (00:08→20:00)
[2018-03-15 06:28] LABS: HEMOGLOBIN 8.9 g/dL (11.0-16.0); MEAN CELL VOLUME 95.2 fL (81.0-99.0); MEAN CORPUSCULAR HEMOGLOBIN 30.8 pg (27.0-31.0); MEAN CORPUSCULAR HGB CONC 32.3 g/dL (33.0-37.0); RBC 2.9 Mil/uL (3.80-5.20); RED CELL DISTRIBUTION WIDTH 23.4 % (11.5-14.5); WHITE BLOOD COUNT 6.9 K/uL (4.8-10.8)
[2018-03-15 06:41] LABS: ALB/GLOB RATIO 0.8 (1.0-2.1); ALBUMIN 2.5 g/dL (3.5-5.0); ALT/SGPT 55 U/L (9-52); AST/SGOT 67 U/L (14-36); CALCIUM 7.7 mg/dl (8.6-10.4); GFR NON-AFRICAN AMERICAN > 60
[2018-03-15 06:50] LABS: BLOOD UREA NITROGEN < 2 mg/dL (7-17)
--- NOTE | 2018-03-15 07:18 | CP.PCM.PN ---
Subjective - Date & Time of Evaluation Date of Evaluation: 03/15/18 Time of Evaluation: 08:00 - Subjective Subjective: Medicine progress note for Dr. Vazquez Patient was seen and examined at bedside in the AM. ROS not able to be obtained as patient was lethargic. Per nursing patient was very agitated overnight. Objective - Vital Signs/Intake and Output Vital Signs (last 24 hours): Temp Pulse Resp BP Pulse Ox 98.6 F 80 16 165/81 H 97 03/15/18 00:00 03/15/18 00:00 03/15/18 00:00 03/15/18 00:00 03/15/18 00:00 - Medications Medications: Current Medications Albuterol/Ipratropium (Duoneb 3 Mg/0.5 Mg (3 Ml) Ud) 3 ml INH RQ4 [facility] Last Admin: 03/15/18 03:20 Dose: Not Given Chlordiazepoxide (Librium) 25 mg PO Q8 [facility] Last Admin: 03/15/18 05:53 Dose: 25 mg Folic Acid (Folic Acid) 1 mg PO DAILY [facility] Heparin Sodium (Porcine) (Heparin) 5,000 units SC Q8 [facility] Last Admin: 03/15/18 05:53 Dose: 5,000 units Dexmedetomidine HCl 200 mcg/ (Sodium Chloride) 50 mls @ 4.39 mls/hr IV TITR PRN ; Protocol; 0.2 MCG/KG/HR PRN Reason: Agitation Last Titration: 03/13/18 10:00 Dose: 0 mcg/kg/hr, 0 mls/hr Insulin Human Regular (Novolin R) 0 unit SC ACHS [facility] PRN Reason: Protocol Last Admin: 03/14/18 22:17 Dose: Not Given Lorazepam (Ativan) 2 mg IVP Q2 PRN PRN Reason: Anxiety Last Admin: 03/15/18 06:54 Dose: 2 mg Ondansetron HCl (Zofran Inj) 4 mg IVP Q6H PRN PRN Reason: Nausea/Vomiting Last Admin: 03/13/18 20:31 Dose: 4 mg Pantoprazole Sodium (Protonix Inj) 40 mg IVP DAILY [facility] Last Admin: 03/14/18 09:30 Dose: 40 mg Thiamine HCl (Vitamin B1 Tab) 100 mg PO DAILY [facility] - Labs Labs: 03/15/18 06:12 09/14/18 06:12 PT 13.5 SECONDS (9.7-12.2) H 03/07/18 16:53 INR 1.2 03/07/18 16:53 APTT 33 SECONDS (21-34) 03/07/18 16:53 - Constitutional Appears: Chronically Ill - Head Exam Head Exam: ATRAUMATIC, NORMAL INSPECTION - ENT Exam ENT Exam: Mucous Membranes Moist - Respiratory Exam Respiratory Exam: NORMAL BREATHING PATTERN - Cardiovascular Exam Cardiovascular Exam: REGULAR RHYTHM, +S1, +S2 - GI/Abdominal Exam GI & Abdominal Exam: Firm, Organomegaly (hepatomegaly ). absent: Tenderness - Extremities Exam Extremities Exam: Normal Inspection - Neurological Exam Neurological Exam: absent: Alert Assessment and Plan - Assessment and Plan (Free Text) Assessment: Altered Mental Status - secondary to hepatic encephalopathy - Ammonia level: 70 --> 88 --> 22 - Patient was admitted to ICU - Patient was transferred out of ICU 03/14/18 - HIV: Negative Alcohol Abuse - Psych Consult: Dr. Scott --> help appreciated - Alcohol Level: 209 - UDS: Positive for Cocaine - Medications: * Librium 25mg PO q8h scheduled * Ativan 2mg IVP q2prn * Folic acid 1mg PO daily * Multivitamin 1 tab daily * Zofran 4mg IV q6prn Elevated Liver Enzymes - secondary to Alcohol - GI Dr. Miranda consulted --> help appreciated - possible EGD - Hepatitis Panel: Negative - HIV: Negative - Alpha Fetoprotein: 4.7 - CEA 48.2; CA 19-9 Antigen: 427 Pancreatitis resolved Pancreatitis, lipase elevated on admission - Likely secondary to alcohol - Tolerating PO diet today - Images: * CT abdomen/pelvis with IV contrast: Enterocolitis, partial gastrectomy with gastrojejunal anastomosis, no obstruction, enlarged fatty liver, cholecystectomy and hysterectomy - Surgery Dr. Barrett consulted --> help appreciated - GI Dr. Miranda consulted --> help appreciated - Stool occult negative - Stool H pylori not detected - Stool studies no salmonella, shigella, or campylobacter isolated. Sepsis secondary to Colitis resolved - Tolerating PO diet today - Images: * CT abdomen/pelvis with IV contrast: Enterocolitis, partial gastrectomy with gastrojejunal anastomosis, no obstruction, enlarged fatty liver, cholecystectomy and hysterectomy - Surgery Dr. Barrett consulted --> help appreciated - No surgical intervention at this time - GI Dr. Miranda consulted --> help appreciated - Stool occult negative - Stool H pylori not detected - Stool studies no salmonella, shigella, or campylobacter isolated. Prophylaxis - Continue protonix 40mg IVP daily - Heparin 5000u sc q8h All management as per Dr. Vazquez
[2018-03-15] MEDS: (Novolin R) Insulin Human Regular 100 units/ml vial SC SCH ×4 (08:04→21:19)
[2018-03-15 09:15] LABS: BASO # 0.1 K/uL (0.0-0.2); EOS # 0.1 K/uL (0.0-0.7); LYMPH # 1.2 K/uL (1.0-4.3); MONO # 1.2 K/uL (0.0-0.8); NEUT # 4.5 K/uL (1.8-7.0)
--- NOTE | 2018-03-15 12:27 | PCM.PSYCH ---
Initial Psychiatric Evaluation - Initial Psychiatric Evaluation Type of Admission: Voluntary Legal Status: Capacity Chief Complaint (in patient's own words): "I've been doing bad" History of Present Illness and Precipitating Events: Pt is experiencing altered consciousness. HPI presently unobtainable directly from the patient. Pt is 62 year old female who is currently unemployed. Demographic unobtainable due to pt's AMS. Per the nurse, pt was admitted on 03/07/18 due to abdominal pain and AMS. Pt has a Hx of EtOH drinking, where she drank 1.5 pts of vodka/day and abdominal pain for several days, most notably pronounced in RUQ. Pt underwent code sepsis and metabolic acidosis shortly after admission. Since then, pt has been in the hospital undergoing maintenance treatment. Pt remained drowsy throughout the evaluation. However staff denies that pt made any suicidal ideation or any homicidal ideation or auditory or visual hallucinations. Medical Hx: Per the previous notes, HTN, asthma, HLD, chronic alcohol abuse, GI ulcer, partial gastrectomy, cholecystectomy, hysterectomy. Psych Hx: Unobtainable isabel Traumatic Hx: Unobtainable isabel Current Medications: Active Medications Generic Name Dose Route Start Last Admin Trade Name Freq PRN Reason Stop Dose Admin Albuterol/Ipratropium 3 ml 03/09/18 12:00 03/15/18 11:23 Duoneb 3 Mg/0.5 Mg (3 Ml) Ud INH Not Given RQ4 [facility] Chlordiazepoxide 25 mg 03/14/18 14:00 03/15/18 05:53 Librium PO 25 mg Q8 [facility] Administration Folic Acid 1 mg 03/15/18 10:00 03/15/18 09:00 Folic Acid PO 1 mg DAILY [facility] Administration Heparin Sodium (Porcine) 5,000 units 03/11/18 14:00 03/15/18 05:53 Heparin SC 5,000 units Q8 [facility] Administration Dexmedetomidine HCl 200 mcg/ 50 mls @ 4.39 mls/hr 03/11/18 11:59 03/13/18 10: 00 Sodium Chloride IV 0 mcg/kg/hr TITR PRN 0 mls/hr Agitation Titration Protocol 0.2 MCG/KG/HR Insulin Human Regular 0 unit 03/13/18 16:30 03/15/18 12:26 Novolin R SC Not Given ACHS [facility] Protocol Lorazepam 2 mg 03/11/18 11:59 03/15/18 06:54 Ativan IVP 2 mg Q2 PRN Administration Anxiety Ondansetron HCl 4 mg 03/08/18 00:15 03/13/18 20:31 Zofran Inj IVP 4 mg Q6H PRN Administration Nausea/Vomiting Pantoprazole Sodium 40 mg 03/08/18 10:00 03/15/18 09:00 Protonix Inj IVP 40 mg DAILY [facility] Administration Thiamine HCl 100 mg 03/15/18 10:00 03/15/18 09:00 Vitamin B1 Tab PO 100 mg DAILY [facility] Administration Past Psychiatric History - Past Psychiatric History Previous Treatment History: None Pertinent Medical Hx (Current Medical&Sleep Prob, Allergies): Allergies Allergy/AdvReac Type Severity Reaction Status Date / Time No Known Allergies Allergy Unverified 03/07/18 16:28 Unobtainable 03/07/18 Review of Systems - Review of Systems All systems: reviewed and no additional remarkable complaints except - Psychiatric Psychiatric: Anxiety, Irritability. absent: Suicidal Ideation Mental Status Examination - Personal Presentation Personal Presentation: Looks stated age - Affect Affect: Constricted - Motor Activity Motor Activity: Psychomotor Retardation, Other - Reliability in Providing Information Reliability in Providing Information: Poor, due to cognitve impairment - Speech Speech: Other (Pt unable to communicate) - Formal Thought Process Formal Thought Process: Other - Obsessions/Compulsions Obsessions: No Compulsions: No - Cognitive Functions Sensorium: Drowsy, Lethargic Estimate of Intelligence: Below average Judgement: Imparied, as evidence by: Poor judgement, Imparied, as evidence by: Lack of insight into illness - Risk Risk: Diminished functioning - Limitations Limitations: Living alone DSM 5 DX - DSM 5 DSM 5 Diagnosis: Delirium secondary to metabolic acidosis Alcohol use disorder severe - Recommended/Plan of Treatment Treatment Recommendations and Plan of Treatment: Maintain Librium, Ativan As need medications All risks, benefits and alternatives of the meds discussed, and the pt agreed and understood. Attend groups and activities Individual therapy daily Psychoeducation and support daily Encourage compliance with meds and after care Refer to outpatient program Teach healthy lifestyle methods, i.e. diet, exercise, meditation Smoking cessation and patch if needed
--- NOTE | 2018-03-15 17:14 | CP.PCM.PN ---
Subjective - Date & Time of Evaluation Date of Evaluation: 03/15/18 Time of Evaluation: 07:00 - Subjective Subjective: lethargic off antibiotics Objective - Vital Signs/Intake and Output Vital Signs (last 24 hours): Temp Pulse Resp BP Pulse Ox 98.1 F 86 18 128/76 98 03/15/18 16:00 03/15/18 16:00 03/15/18 16:00 03/15/18 16:00 03/15/18 16:00 Intake and Output: 03/15/18 03/15/18 06:59 18:59 Intake Total 1060 Output Total 1600 Balance -540 - Medications Medications: Current Medications Albuterol/Ipratropium (Duoneb 3 Mg/0.5 Mg (3 Ml) Ud) 3 ml INH RQ4 [facility] Last Admin: 03/15/18 15:53 Dose: Not Given Chlordiazepoxide (Librium) 25 mg PO Q8 [facility] Last Admin: 03/15/18 15:00 Dose: Not Given Folic Acid (Folic Acid) 1 mg PO DAILY [facility] Last Admin: 03/15/18 09:00 Dose: 1 mg Heparin Sodium (Porcine) (Heparin) 5,000 units SC Q8 [facility] Last Admin: 03/15/18 15:00 Dose: Not Given Insulin Human Regular (Novolin R) 0 unit SC ACHS [facility] PRN Reason: Protocol Last Admin: 03/15/18 12:26 Dose: Not Given Lorazepam (Ativan) 2 mg IVP Q2 PRN PRN Reason: Anxiety Last Admin: 03/15/18 06:54 Dose: 2 mg Ondansetron HCl (Zofran Inj) 4 mg IVP Q6H PRN PRN Reason: Nausea/Vomiting Last Admin: 03/13/18 20:31 Dose: 4 mg Pantoprazole Sodium (Protonix Inj) 40 mg IVP DAILY [facility] Last Admin: 03/15/18 09:00 Dose: 40 mg Thiamine HCl (Vitamin B1 Tab) 100 mg PO DAILY [facility] Last Admin: 03/15/18 09:00 Dose: 100 mg - Labs Labs: 03/15/18 06:12 03/15/18 06:12 PT 13.5 SECONDS (9.7-12.2) H 03/07/18 16:53 INR 1.2 03/07/18 16:53 APTT 33 SECONDS (21-34) 03/07/18 16:53 - Constitutional Appears: Non-toxic, Chronically Ill - Head Exam Head Exam: NORMOCEPHALIC - Eye Exam Eye Exam: PERRL - ENT Exam ENT Exam: Mucous Membranes Dry - Neck Exam Neck Exam: absent: Lymphadenopathy - Respiratory Exam Respiratory Exam: Decreased Breath Sounds - Cardiovascular Exam Cardiovascular Exam: REGULAR RHYTHM - GI/Abdominal Exam GI & Abdominal Exam: Distended, Soft - Rectal Exam Rectal Exam: Deferred - Exam Exam: NORMAL INSPECTION Assessment and Plan (1) Abdominal pain Status: Acute (2) Metabolic acidosis Status: Acute - Assessment and Plan (Free Text) Assessment: repeat cultures as needed
[2018-03-16] MEDS: Albuterol-Ipratrop 3 mg / 0.5 (3 ml) UD INH SCH ×6 (00:35→19:40)
[2018-03-16 06:50] LABS: ALB/GLOB RATIO 0.9 (1.0-2.1); ALBUMIN 3.3 g/dL (3.5-5.0); ALT/SGPT 54 U/L (9-52); AST/SGOT 64 U/L (14-36); BLOOD UREA NITROGEN 2 mg/dL (7-17); CALCIUM 8.8 mg/dl (8.6-10.4); GFR NON-AFRICAN AMERICAN > 60
[2018-03-16] MEDS: (Novolin R) Insulin Human Regular 100 units/ml vial SC SCH ×4 (09:48→21:40)
[2018-03-16 10:33] LABS: BASO # 0.1 K/uL (0.0-0.2); BASO % 1.3 % (0.0-2.0); EOS # 0.1 K/uL (0.0-0.7); EOS % 0.6 % (0.0-4.0); HEMOGLOBIN 8.6 g/dL (11.0-16.0); LYMPH # 2.8 K/uL (1.0-4.3); LYMPH % 25.7 % (20.0-40.0); MEAN CELL VOLUME 94.6 fL (81.0-99.0); MEAN CORPUSCULAR HEMOGLOBIN 30.7 pg (27.0-31.0); MEAN CORPUSCULAR HGB CONC 32.4 g/dL (33.0-37.0); MEAN PLATELET VOLUME 11.4 fL (7.2-11.7); MONO # 1.3 K/uL (0.0-0.8); MONO % 11.9 % (0.0-10.0); NEUT # 6.5 K/uL (1.8-7.0); NEUT % 60.5 % (50.0-75.0); NRBC % 0.2 % (0.0-2.0); RBC 2.81 Mil/uL (3.80-5.20); RED CELL DISTRIBUTION WIDTH 22.8 % (11.5-14.5)
[2018-03-16 10:40] LABS: WHITE BLOOD COUNT 10.8 K/uL (4.8-10.8)
--- NOTE | 2018-03-16 13:50 | PN ---
DATE: 03/16/2018 LOCATION: ICU 15. SUBJECTIVE: This is a 62-year-old female seen and examined in rounds, appeared to be somewhat drowsy with slight lethargy, but otherwise no reported new significant clinical changes. No reported chest pain or palpitation. The entire chart is reviewed including but not limited to the most recent lab and radiology study results, current and the previous medication list, current and the previous medical events, and today's lab showed low BUN and creatinine, AST 64, ALT 54, alkaline phosphatase 273 with low albumin 3.3. It has to be mentioned that no reported active GI bleeding. PHYSICAL EXAMINATION: GENERAL: A 62-year-old female. VITAL SIGNS: Afebrile with pulse of 82, respiratory rate 18 to 20, blood pressure 110/70. HEENT: Showed pale, dry oral mucous membrane. Nonicteric sclerae. LUNGS: Few scattered crepitation. Decreased air entry at bases. HEART: Positive S1 and S2. ABDOMEN: Soft with mild generalized tenderness. No mass or organomegaly. No rebound tenderness or guarding, but mid abdominal and mid epigastric tenderness. EXTREMITIES: Without significant clubbing, cyanosis or edema. NEUROLOGICAL: No reported new neurological deficits, sensory or motor. The patient appears to be somewhat lethargic, somewhat agitated and restless on and off. IMPRESSION: 1. Alcoholism by history. 2. Anemia. Again to rule out gastrointestinal blood loss upper versus lower versus occult gastrointestinal malignancy. 3. Abnormal liver function tests, most likely secondary to above. 4. The possibility of hepatic encephalopathy was raised. 5. Known history of substance abuse. 6. Malnutrition with hypoalbuminemia. 7. Metabolic acidosis. 8. Psychiatric disorder. SUGGESTIONS: 1. Continue current management. 2. Antireflux measure. 3. Endoscopic evaluation of the GI tract when the patient is more stable clinically. Further recommendation to follow. Simeon Salmeron MD
[2018-03-17] MEDS: Albuterol-Ipratrop 3 mg / 0.5 (3 ml) UD INH SCH ×5 (00:07→17:18)
[2018-03-17] MEDS: (Novolin R) Insulin Human Regular 100 units/ml vial SC SCH ×4 (08:57→21:20)
[2018-03-17] MEDS: Pantoprazole 40 mg EC Tab PO SCH (09:10)
--- NOTE | 2018-03-17 14:29 | PN ---
DATE: 03/17/2018 LOCATION: ICU 15. SUBJECTIVE: This is a 62-year-old female seen and examined in rounds without significant clinical changes or reported actual GI bleeding. Somewhat restless and agitated at times. The entire chart is reviewed including but not limited to the most recent lab and radiology study results, current and the previous medication list, current and the previous medical events. Today's lab results are still pending. However, the patient still has mildly elevated liver function tests with low hemoglobin and hematocrit. PHYSICAL EXAMINATION: GENERAL: A 62-year-old female. VITAL SIGNS: Afebrile, with pulse of 88, respiratory rate 18-20, blood pressure of 118/58. HEENT: Showed pale, dry oral mucous membranes. Nonicteric sclerae. LUNGS: Few scattered crepitations. Decreased air entry at bases. HEART: Positive S1 and S2. ABDOMEN: Soft, with mild generalized tenderness. No mass or organomegaly. No rebound tenderness or guarding. Mild abdominal distention noticed. EXTREMITIES: With lower extremities mild edematous changes. No clubbing or cyanosis. NEUROLOGIC: No reported new neurological deficits, sensory or motor. IMPRESSION: 1. Known history of alcoholism. 2. Known history of substance abuse. 3. Anemia with possible upper versus lower gastrointestinal blood loss. 4. Rule out occult gastrointestinal malignancy. 5. Alcoholic liver disease with abnormal liver function tests. 6. Early stage of hepatic encephalopathy, awaiting ammonia level. 7. Psychiatric disorder with metabolic acidosis. SUGGESTIONS: 1. Continue current management. 2. Neomycin p.o. 3. Endoscopic evaluation of the gastrointestinal tract when the patient is more stable clinically. 4. Further recommendations to follow. Simeon Salmeron MD
--- NOTE | 2018-03-17 16:13 | CP.PCM.PN ---
Subjective - Date & Time of Evaluation Date of Evaluation: 03/17/18 Time of Evaluation: 09:00 - Subjective Subjective: afeb nad remains confused Objective - Vital Signs/Intake and Output Vital Signs (last 24 hours): Temp Pulse Resp BP Pulse Ox 97.6 F 88 18 148/77 100 03/17/18 12:00 03/17/18 12:00 03/17/18 12:00 03/17/18 12:00 03/17/18 12:00 Intake and Output: 03/17/18 03/17/18 06:59 18:59 Intake Total 600 400 Output Total 300 Balance 600 100 - Medications Medications: Current Medications Albuterol/Ipratropium (Duoneb 3 Mg/0.5 Mg (3 Ml) Ud) 3 ml INH RQ4 [facility] Last Admin: 03/17/18 11:15 Dose: Not Given Folic Acid (Folic Acid) 1 mg PO DAILY [facility] Last Admin: 03/17/18 09:10 Dose: 1 mg Haloperidol Lactate (Haldol) 2.5 mg IVP Q6H PRN PRN Reason: Agitation Heparin Sodium (Porcine) (Heparin) 5,000 units SC Q8 [facility] Last Admin: 03/17/18 13:52 Dose: 5,000 units Insulin Human Regular (Novolin R) 0 unit SC ACHS ODYLE PRN Reason: Protocol Last Admin: 03/17/18 12:18 Dose: Not Given Ondansetron HCl (Zofran Inj) 4 mg IVP Q6H PRN PRN Reason: Nausea/Vomiting Last Admin: 03/17/18 14:55 Dose: 4 mg Pantoprazole Sodium (Protonix Ec Tab) 40 mg PO DAILY [facility] Last Admin: 03/17/18 09:10 Dose: 40 mg Thiamine HCl (Vitamin B1 Tab) 100 mg PO DAILY [facility] Last Admin: 03/17/18 09:10 Dose: 100 mg - Labs Labs: 03/16/18 10:25 03/16/18 06:13 PT 13.5 SECONDS (9.7-12.2) H 03/07/18 16:53 INR 1.2 03/07/18 16:53 APTT 33 SECONDS (21-34) 03/07/18 16:53 - Constitutional Appears: Non-toxic, Chronically Ill - Head Exam Head Exam: NORMOCEPHALIC - Eye Exam Eye Exam: PERRL - ENT Exam ENT Exam: Mucous Membranes Dry - Neck Exam Neck Exam: absent: Lymphadenopathy - Respiratory Exam Respiratory Exam: Decreased Breath Sounds - Cardiovascular Exam Cardiovascular Exam: REGULAR RHYTHM - GI/Abdominal Exam GI & Abdominal Exam: Distended, Soft - Rectal Exam Rectal Exam: Deferred - Exam Exam: NORMAL INSPECTION - Extremities Exam Extremities Exam: absent: Pedal Edema - Back Exam Back Exam: absent: CVA tenderness (L), CVA tenderness (R) - Neurological Exam Neurological Exam: Alert, Awake, Oriented x3 - Psychiatric Exam Psychiatric exam: Depressed Assessment and Plan (1) Abdominal pain Status: Acute (2) Metabolic acidosis Status: Acute - Assessment and Plan (Free Text) Assessment: cont iv rx off antibiotics reculture as needed
[2018-03-18] MEDS: Albuterol-Ipratrop 3 mg / 0.5 (3 ml) UD INH SCH ×7 (00:14→19:19)
[2018-03-18 06:58] LABS: BASO # 0.1 K/uL (0.0-0.2); BASO % 1.1 % (0.0-2.0); EOS # 0.1 K/uL (0.0-0.7); EOS % 0.8 % (0.0-4.0); HEMOGLOBIN 7.8 g/dL (11.0-16.0); LYMPH # 1.7 K/uL (1.0-4.3); LYMPH % 16.2 % (20.0-40.0); MEAN CORPUSCULAR HEMOGLOBIN 30.9 pg (27.0-31.0); MEAN CORPUSCULAR HGB CONC 32.5 g/dL (33.0-37.0); MEAN PLATELET VOLUME 12.1 fL (7.2-11.7); MONO # 1.1 K/uL (0.0-0.8); MONO % 10.5 % (0.0-10.0); NEUT # 7.5 K/uL (1.8-7.0); NEUT % 71.4 % (50.0-75.0); RBC 2.53 Mil/uL (3.80-5.20); WHITE BLOOD COUNT 10.5 K/uL (4.8-10.8)
[2018-03-18 07:03] LABS: INR 1.3; PROTHROMBIN TIME 14.4 SECONDS (9.7-12.2)
[2018-03-18 07:48] LABS: ALB/GLOB RATIO 0.8 (1.0-2.1); ALBUMIN 2.5 g/dL (3.5-5.0); ALT/SGPT 39 U/L (9-52); AST/SGOT 42 U/L (14-36); BILIRUBIN,DIRECT 0.4 mg/dL (0.0-0.4); BLOOD UREA NITROGEN 10 mg/dL (7-17); CALCIUM 8.6 mg/dl (8.6-10.4); GFR NON-AFRICAN AMERICAN > 60
[2018-03-18] MEDS: (Novolin R) Insulin Human Regular 100 units/ml vial SC SCH ×4 (08:19→21:40)
--- NOTE | 2018-03-18 09:32 | CP.PCM.PN ---
Subjective - Date & Time of Evaluation Date of Evaluation: 03/18/18 Time of Evaluation: 09:32 - Subjective Subjective: Medicine progress note for Dr. Vazquez's service Patient seen and examined. Patient sitting up in bed eating cereal. Patient reports nausea with eating but states she forgets to ask for zofran. Patient also reports non-productive cough. Objective - Vital Signs/Intake and Output Vital Signs (last 24 hours): Temp Pulse Resp BP Pulse Ox 98.3 F 76 20 166/78 H 96 03/18/18 07:13 03/18/18 07:13 03/18/18 07:13 03/18/18 07:13 03/18/18 07:13 Intake and Output: 03/18/18 03/18/18 06:59 18:59 Intake Total 200 Balance 200 - Medications Medications: Current Medications Albuterol/Ipratropium (Duoneb 3 Mg/0.5 Mg (3 Ml) Ud) 3 ml INH RQ4 [facility] Last Admin: 03/18/18 04:30 Dose: Not Given Folic Acid (Folic Acid) 1 mg PO DAILY [facility] Last Admin: 03/17/18 09:10 Dose: 1 mg Haloperidol Lactate (Haldol) 2.5 mg IVP Q6H PRN PRN Reason: Agitation Heparin Sodium (Porcine) (Heparin) 5,000 units SC Q8 [facility] Last Admin: 03/18/18 05:42 Dose: 5,000 units Insulin Human Regular (Novolin R) 0 unit SC ACHS DOYLE PRN Reason: Protocol Last Admin: 03/18/18 08:19 Dose: Not Given Ondansetron HCl (Zofran Inj) 4 mg IVP Q6H PRN PRN Reason: Nausea/Vomiting Last Admin: 03/17/18 14:55 Dose: 4 mg Pantoprazole Sodium (Protonix Ec Tab) 40 mg PO DAILY [facility] Last Admin: 03/17/18 09:10 Dose: 40 mg Thiamine HCl (Vitamin B1 Tab) 100 mg PO DAILY [facility] Last Admin: 03/17/18 09:10 Dose: 100 mg - Labs Labs: 03/18/18 06:20 03/18/18 06:20 PT 14.4 SECONDS (9.7-12.2) H 03/18/18 06:20 INR 1.3 03/18/18 06:20 APTT 28 SECONDS (21-34) 03/18/18 06:20 - Constitutional Appears: No Acute Distress, Chronically Ill - Head Exam Head Exam: ATRAUMATIC, NORMOCEPHALIC - Eye Exam Eye Exam: EOMI - ENT Exam ENT Exam: Mucous Membranes Moist - Respiratory Exam Respiratory Exam: Clear to Ausculation Bilateral, NORMAL BREATHING PATTERN - Cardiovascular Exam Cardiovascular Exam: +S1, +S2 - GI/Abdominal Exam GI & Abdominal Exam: Soft, Normal Bowel Sounds, Organomegaly (hepatomegaly) - Extremities Exam Extremities Exam: Normal Inspection. absent: Calf Tenderness, Pedal Edema - Neurological Exam Neurological Exam: Alert, Awake - Skin Skin Exam: Dry, Warm Assessment and Plan - Assessment and Plan (Free Text) Assessment: Hepatic encephalopathy Improved - Ammonia level: 70 --> 88 --> 22 - Patient was admitted to ICU - Patient was transferred out of ICU 03/14/18 - HIV: Negative Alcohol Abuse - Psych Consult: Dr. Scott --> help appreciated - Alcohol Level: 209 on admission - UDS: Positive for Cocaine - Medications: * Librium 25mg PO q8h scheduled- completed * Ativan 2mg IVP q2prn- completed * Folic acid 1mg PO daily * Multivitamin 1 tab daily * Zofran 4mg IV q6prn Elevated Liver Enzymes - secondary to Alcohol, improving - GI Dr. Miranda consulted --> help appreciated - possible EGD - Hepatitis Panel: Negative - HIV: Negative - Alpha Fetoprotein: 4.7 - CEA 48.2; CA 19-9 Antigen: 427 Pancreatitis resolved Pancreatitis, lipase elevated on admission - Likely secondary to alcohol - Tolerating PO diet today - Images: * CT abdomen/pelvis with IV contrast: Enterocolitis, partial gastrectomy with gastrojejunal anastomosis, no obstruction, enlarged fatty liver, cholecystectomy and hysterectomy - Surgery Dr. Barrett consulted --> help appreciated - GI Dr. Miranda consulted --> help appreciated - Stool occult negative - Stool H pylori not detected - Stool studies no salmonella, shigella, or campylobacter isolated. Sepsis secondary to Colitis resolved - Tolerating PO diet with minimal nausea. patient encouraged to use prn zofran - Images: * CT abdomen/pelvis with IV contrast: Enterocolitis, partial gastrectomy with gastrojejunal anastomosis, no obstruction, enlarged fatty liver, cholecystectomy and hysterectomy - Surgery Dr. Barrett consulted --> help appreciated - No surgical intervention at this time - GI Dr. Miranda consulted --> help appreciated - Stool occult negative - Stool H pylori not detected - Stool studies no salmonella, shigella, or campylobacter isolated. Prophylaxis - Continue protonix 40mg PO daily - Heparin 5000u sc q8h All management as per Dr. Vazquez
[2018-03-18] MEDS ORDERED: guaiFENesin DM 200 mg-20 mg/10 ml UD PO PRN (10:00)
[2018-03-18] MEDS: Pantoprazole 40 mg EC Tab PO SCH ×2 (10:30→13:23)
[2018-03-18 11:13] LABS: FERRITIN 27.2 ng/mL
[2018-03-18 12:11] LABS: FOLATE > 20.0 ng/mL
--- NOTE | 2018-03-18 15:18 | PN ---
DATE: 03/18/2018 LOCATION: 365, bed B. SUBJECTIVE: This is a 62-year-old female seen and examined today out of the intensive care unit, appeared to be somewhat more alert and responsive with a complaint of generalized weakness and malaise, especially in the lower extremities with edematous changes. The patient denied any actual chest pain, palpitation, or significant complaint of shortness of breath. Most recent lab results showed hemoglobin of 7.8, hematocrit 24.1, but normal white blood cells and normal platelet count, PT 14.4 with low creatinine. AST 42, alkaline phosphatase 217, albumin 2.5, and total protein 5.6. PHYSICAL EXAMINATION: GENERAL: A 62-year-old female. VITAL SIGNS: Afebrile with pulse of 72, respiratory rate 20 to 22, blood pressure of 162/102. HEENT: Showed pale, dry oral mucous membrane. Nonicteric sclerae. LUNGS: Few scattered crepitation. Decreased air entry at bases. HEART: Positive S1 and S2. ABDOMEN: Soft with mild generalized tenderness. No mass or organomegaly. No rebound tenderness or guarding. EXTREMITIES: Without significant clubbing, cyanosis, or edema. NEUROLOGICAL: No reported new neurological deficits, sensory or motor. IMPRESSION: 1. Anemia, to rule out upper versus lower gastrointestinal blood loss. 2. Rule out occult gastrointestinal malignancy. 3. Alcoholism with alcoholic liver disease. 4. Known history of substance abuse. 5. Recent history of early stage of hepatic encephalopathy, improving gradually. 6. Malnutrition with hypoalbuminemia and hypoproteinemia. SUGGESTIONS: 1. Continue current management. 2. Correct any underlying coagulopathy as well as any electrolyte imbalance. 3. Again, the patient will need endoscopic evaluation of the GI tract when she is more stable clinically. Further recommendation to follow. Simeon Salmeron MD
[2018-03-19] MEDS: Albuterol-Ipratrop 3 mg / 0.5 (3 ml) UD INH SCH ×7 (00:50→23:37)
[2018-03-19] MEDS: (Novolin R) Insulin Human Regular 100 units/ml vial SC SCH (07:30)
[2018-03-19] MEDS ORDERED: Phytonadione 10 mg/ml Inj (Adult) SC ONE (10:30)
[2018-03-19] MEDS ORDERED: guaiFENesin DM 100 mg-10 mg/5 ml UD PO PRN (11:00)
[2018-03-19] MEDS ORDERED: Albuterol-Ipratrop 3 mg / 0.5 (3 ml) UD INH STA (11:00)
[2018-03-19] MEDS ORDERED: Benzocaine/Menthol (Cepacol) Lozenge MT PRN (11:00)
--- NOTE | 2018-03-19 11:03 | CP.PCM.PN ---
Subjective - Date & Time of Evaluation Date of Evaluation: 03/19/18 Time of Evaluation: 09:00 - Subjective Subjective: Progress Note for Dr. Vazquez's Service Patient seen and examined at bedside. Patient reports she feels okay. She had some nausea yesterday which resolved with medication. She reports a nonproductive cough with sensation of phlegm in her chest, that she is unable to cough out. Denied fever, chills,headache, chest pain, shortness of breath at rest, abdominal pain, n/v/d/c, or urinary symptoms. Objective - Vital Signs/Intake and Output Vital Signs (last 24 hours): Temp Pulse Resp BP Pulse Ox 98 F 73 20 179/90 H 98 03/19/18 08:00 03/19/18 08:00 03/19/18 08:00 03/19/18 08:00 03/19/18 08:00 Intake and Output: 03/19/18 03/19/18 06:59 18:59 Intake Total 250 Balance 250 - Medications Medications: Current Medications Albuterol/Ipratropium (Duoneb 3 Mg/0.5 Mg (3 Ml) Ud) 3 ml INH RQ4 [facility] Last Admin: 03/19/18 07:50 Dose: Not Given Benzonatate (Tessalon Perles) 100 mg PO TID PRN PRN Reason: Cough Folic Acid (Folic Acid) 1 mg PO DAILY [facility] Last Admin: 03/18/18 13:23 Dose: 1 mg Haloperidol Lactate (Haldol) 2.5 mg IVP Q6H PRN PRN Reason: Agitation Heparin Sodium (Porcine) (Heparin) 5,000 units SC Q8 [facility] Last Admin: 03/19/18 05:59 Dose: 5,000 units Metoclopramide HCl (Reglan) 5 mg IVP Q6H [facility] Multivitamins (Hexavitamin) 1 tab PO DAILY [facility] Ondansetron HCl (Zofran Inj) 4 mg IVP Q6H PRN PRN Reason: Nausea/Vomiting Last Admin: 03/18/18 18:00 Dose: 4 mg Pantoprazole Sodium (Protonix Ec Tab) 40 mg PO DAILY [facility] Last Admin: 03/18/18 13:23 Dose: 40 mg Thiamine HCl (Vitamin B1 Tab) 100 mg PO DAILY [facility] Last Admin: 03/18/18 13:23 Dose: 100 mg - Labs Labs: 03/18/18 06:20 03/18/18 06:20 PT 14.4 SECONDS (9.7-12.2) H 03/18/18 06:20 INR 1.3 03/18/18 06:20 APTT 28 SECONDS (21-34) 03/18/18 06:20 - Additional Findings Additional findings: - Constitutional Appears: No Acute Distress, Chronically Ill - Head Exam Head Exam: ATRAUMATIC, NORMOCEPHALIC - Eye Exam Eye Exam: EOMI - ENT Exam ENT Exam: Mucous Membranes Moist - Respiratory Exam Respiratory Exam: Clear to Ausculation Bilateral, NORMAL BREATHING PATTERN - Cardiovascular Exam Cardiovascular Exam: +S1, +S2 - GI/Abdominal Exam GI & Abdominal Exam: Soft, Normal Bowel Sounds, Organomegaly (hepatomegaly) - Extremities Exam Extremities Exam: Normal Inspection. absent: Calf Tenderness, Pedal Edema - Neurological Exam Neurological Exam: Alert, Awake - Skin Skin Exam: Dry, Warm Assessment and Plan - Assessment and Plan (Free Text) Plan: Anemia --- GI Dr. Miranda consulted --> help appreciated - Likely 2/2 chronic alcohol use / liver disease, rule out UGI bleed or malignancy - Plan for EGD 03/20/18 Labs: - No active bleeding, stool occult negative - Alpha Fetoprotein: 4.7 - CEA 48.2; CA 19-9 Antigen: 427 - Iron studies ordered Transaminitis --- GI Dr. Miranda consulted --> help appreciated - secondary to Alcohol, improving - Hepatitis Panel: Negative - HIV: Negative - Alpha Fetoprotein: 4.7 - CEA 48.2; CA 19-9 Antigen: 427 Hepatic encephalopathy, improved - Ammonia level: 70 --> 88 --> 22 - Patient was admitted to ICU - Patient was transferred out of ICU 03/14/18 - HIV: Negative Alcohol Abuse Disorder - Psych Consult: Dr. Scott --> help appreciated - Alcohol Level: 209 on admission - UDS: Positive for Cocaine - Medications: * Librium 25mg PO q8h scheduled- completed * Ativan 2mg IVP q2prn- completed * Folic acid 1mg PO daily * Multivitamin 1 tab daily * Zofran 4mg IV q6prn Pancreatitis, resolved Pancreatitis, lipase elevated on admission - Likely secondary to alcohol - Tolerating PO diet today - Images: * CT abdomen/pelvis with IV contrast: Enterocolitis, partial gastrectomy with gastrojejunal anastomosis, no obstruction, enlarged fatty liver, cholecystectomy and hysterectomy - Surgery Dr. Barrett consulted --> help appreciated - GI Dr. Miranda consulted --> help appreciated - Stool occult negative - Stool H pylori not detected - Stool studies no salmonella, shigella, or campylobacter isolated. Sepsis secondary to Colitis, resolved - Tolerating PO diet with minimal nausea. patient encouraged to use prn zofran - Images: * CT abdomen/pelvis with IV contrast: Enterocolitis, partial gastrectomy with gastrojejunal anastomosis, no obstruction, enlarged fatty liver, cholecystectomy and hysterectomy - Surgery Dr. Barrett consulted --> help appreciated - No surgical intervention at this time - GI Dr. Miranda consulted --> help appreciated - Stool occult negative - Stool H pylori not detected - Stool studies no salmonella, shigella, or campylobacter isolated. Prophylaxis - Continue protonix 40mg PO daily - Heparin 5000u sc q8h - PT eval All management as per Dr. Vazquez Disposition: Patient is for EGD 03/20/[address] Miranda - pending results. --- Magdalena Dias DO, PGY2
[2018-03-19] MEDS ORDERED: Acetylcysteine 20% Inhal Soln (4ml) INH STA (11:08)
[2018-03-19] MEDS: Pantoprazole 40 mg EC Tab PO SCH (11:09)
[2018-03-19] MEDS: Multiple Vitamins Tab PO SCH (11:19)
[2018-03-19 11:56] LABS: BASO # 0.2 K/uL (0.0-0.2); HEMOGLOBIN 8.6 g/dL (11.0-16.0); MEAN PLATELET VOLUME 11.9 fL (7.2-11.7); MONO # 0.8 K/uL (0.0-0.8); NEUT # 9.5 K/uL (1.8-7.0); NRBC % 0.1 % (0.0-2.0); WHITE BLOOD COUNT 12.4 K/uL (4.8-10.8)
[2018-03-19 12:07] LABS: BASO % 1.2 % (0.0-2.0); EOS # 0.1 K/uL (0.0-0.7); EOS % 0.5 % (0.0-4.0); LYMPH # 1.8 K/uL (1.0-4.3); LYMPH % 14.6 % (20.0-40.0); MEAN CORPUSCULAR HEMOGLOBIN 29.5 pg (27.0-31.0); MONO % 6.7 % (0.0-10.0); RBC 2.92 Mil/uL (3.80-5.20); RED CELL DISTRIBUTION WIDTH 21.7 % (11.5-14.5)
--- NOTE | 2018-03-19 12:17 | CP.PCM.PN ---
Subjective - Date & Time of Evaluation Date of Evaluation: 03/19/18 Time of Evaluation: 08:00 - Subjective Subjective: awake alert tremulous but nad Objective - Vital Signs/Intake and Output Vital Signs (last 24 hours): Temp Pulse Resp BP Pulse Ox 98 F 73 20 179/90 H 98 03/19/18 08:00 03/19/18 08:00 03/19/18 08:00 03/19/18 08:00 03/19/18 08:00 Intake and Output: 03/19/18 03/19/18 06:59 18:59 Intake Total 250 Balance 250 - Medications Medications: Current Medications Albuterol/Ipratropium (Duoneb 3 Mg/0.5 Mg (3 Ml) Ud) 3 ml INH RQ4 [facility] Last Admin: 03/19/18 11:51 Dose: 3 ml Benzocaine/Menthol (Cepacol Sore Throat) 1 eddie MT QID PRN PRN Reason: Sore Throat Folic Acid (Folic Acid) 1 mg PO DAILY [facility] Last Admin: 03/19/18 11:09 Dose: 1 mg Guaifenesin/Dextromethorphan (Robitussin Dm) 5 ml PO Q6 PRN PRN Reason: Cough Haloperidol Lactate (Haldol) 2.5 mg IVP Q6H PRN PRN Reason: Agitation Heparin Sodium (Porcine) (Heparin) 5,000 units SC Q8 [facility] Last Admin: 03/19/18 05:59 Dose: 5,000 units Metoclopramide HCl (Reglan) 5 mg IVP Q6H [facility] Last Admin: 03/19/18 11:09 Dose: 5 mg Multivitamins (Hexavitamin) 1 tab PO DAILY [facility] Last Admin: 03/19/18 11:19 Dose: 1 tab Ondansetron HCl (Zofran Inj) 4 mg IVP Q6H PRN PRN Reason: Nausea/Vomiting Last Admin: 03/18/18 18:00 Dose: 4 mg Pantoprazole Sodium (Protonix Ec Tab) 40 mg PO DAILY [facility] Last Admin: 03/19/18 11:09 Dose: 40 mg Thiamine HCl (Vitamin B1 Tab) 100 mg PO DAILY [facility] Last Admin: 03/19/18 11:10 Dose: 100 mg - Labs Labs: 03/18/18 06:20 03/18/18 06:20 PT 14.4 SECONDS (9.7-12.2) H 03/18/18 06:20 INR 1.3 03/18/18 06:20 APTT 28 SECONDS (21-34) 03/18/18 06:20 - Constitutional Appears: Non-toxic, Chronically Ill - Head Exam Head Exam: NORMOCEPHALIC - Eye Exam Eye Exam: PERRL - ENT Exam ENT Exam: Mucous Membranes Dry - Neck Exam Neck Exam: absent: Lymphadenopathy - Respiratory Exam Respiratory Exam: Decreased Breath Sounds - Cardiovascular Exam Cardiovascular Exam: REGULAR RHYTHM - GI/Abdominal Exam GI & Abdominal Exam: Distended, Soft - Rectal Exam Rectal Exam: Deferred - Exam Exam: NORMAL INSPECTION - Extremities Exam Extremities Exam: absent: Pedal Edema - Back Exam Back Exam: absent: CVA tenderness (L), CVA tenderness (R) - Neurological Exam Neurological Exam: Alert, Awake, Oriented x3 Assessment and Plan (1) Abdominal pain Status: Acute (2) Metabolic acidosis Status: Acute
[2018-03-19 12:18] LABS: IRON 32 ug/dL (37-170)
[2018-03-19 12:27] LABS: ALB/GLOB RATIO 0.9 (1.0-2.1); ALBUMIN 3.1 g/dL (3.5-5.0); ALT/SGPT 39 U/L (9-52); AST/SGOT 51 U/L (14-36); BLOOD UREA NITROGEN 8 mg/dL (7-17); CALCIUM 8.8 mg/dl (8.6-10.4); GFR NON-AFRICAN AMERICAN > 60
[2018-03-19 12:28] LABS: % IRON SATURATION 12 (20-55); TOTAL IRON BINDING CAPACITY 274 ug/dL (250-450)
[2018-03-19] MEDS ORDERED: Ferric Sodium Gluconat Complex 62.5 mg/5 ml Vial IVPB SCH (12:30)
[2018-03-19] MEDS ORDERED: Ferric Sodium Gluconat Complex 62.5 mg/5 ml Vial ONE (14:05)
--- NOTE | 2018-03-19 14:30 | PN ---
DATE: 03/19/2018 LOCATION: 365, bed B. SUBJECTIVE: This is a 62-year-old female seen and examined in rounds early in the morning with reported recurrent episode of nausea and vomiting of undigested food material last night, but no reported active bleeding, complaining of generalized weakness and malaise. The entire chart is reviewed including but not limited to the most recent lab and radiology study results, current and the previous medication list, current and the previous medical events, and today's lab showed blood glucose level 105. The rest of the lab results is still pending, but the patient is still having low albumin, increased AST as well as alkaline phosphatase. PHYSICAL EXAMINATION: GENERAL: A 62-year-old female. VITAL SIGNS: Afebrile with pulse of 70, respiratory rate 20 to 22, blood pressure of 170/86. HEENT: Showed pale, dry oral mucous membrane. Nonicteric sclerae. LUNGS: Few scattered crepitation. Decreased air entry at bases. HEART: Positive S1 and S2. ABDOMEN: Soft with mild generalized tenderness. No mass or organomegaly. No rebound tenderness or guarding, but midepigastric and left lower quadrant tenderness. EXTREMITIES: With lower extremities mild edematous changes. No clubbing or cyanosis. NEUROLOGICAL: No reported new neurological deficits, sensory or motor. IMPRESSION: 1. Re-exacerbation of peptic ulcer disease with recurrent nausea and vomiting. 2. Anemia, to rule out gastrointestinal blood loss upper versus lower versus anemia secondary to chronic disease. 3. Alcoholism with alcoholic liver disease. 4. Known history of substance abuse. 5. Malnutrition with hypoalbuminemia. SUGGESTIONS: 1. Agree with your plan. 2. Endoscopic evaluation of the upper GI tract at a.m. when the patient is more stable clinically. 3. Reglan IV. 4. Further recommendation to follow. Simeon Salmeron MD
[2018-03-19] MEDS: Ferric Sodium Gluconat Complex 125 MG in Sodium Chloride 0.9% 100 ML IVPB SCH (14:32)
[2018-03-20] MEDS: Albuterol-Ipratrop 3 mg / 0.5 (3 ml) UD INH SCH ×6 (03:19→23:58)
[2018-03-20 07:44] LABS: BASO # 0.2 K/uL (0.0-0.2); BASO % 1.6 % (0.0-2.0); EOS # 0.1 K/uL (0.0-0.7); EOS % 0.5 % (0.0-4.0); HEMOGLOBIN 8.5 g/dL (11.0-16.0); LYMPH # 2.2 K/uL (1.0-4.3); LYMPH % 19.1 % (20.0-40.0); MEAN CELL VOLUME 93.8 fL (81.0-99.0); MEAN CORPUSCULAR HEMOGLOBIN 29.2 pg (27.0-31.0); MEAN CORPUSCULAR HGB CONC 31.1 g/dL (33.0-37.0); MEAN PLATELET VOLUME 12.3 fL (7.2-11.7); MONO # 0.7 K/uL (0.0-0.8); MONO % 6.3 % (0.0-10.0); NEUT # 8.4 K/uL (1.8-7.0); NEUT % 72.5 % (50.0-75.0); RBC 2.91 Mil/uL (3.80-5.20); RED CELL DISTRIBUTION WIDTH 21.5 % (11.5-14.5); WHITE BLOOD COUNT 11.5 K/uL (4.8-10.8)
[2018-03-20 07:51] LABS: INR 1.3; PROTHROMBIN TIME 14.3 SECONDS (9.7-12.2)
[2018-03-20 08:11] LABS: ALB/GLOB RATIO 0.9 (1.0-2.1); ALT/SGPT 36 U/L (9-52); AST/SGOT 54 U/L (14-36); BLOOD UREA NITROGEN 10 mg/dL (7-17); CALCIUM 9.1 mg/dl (8.6-10.4); GFR NON-AFRICAN AMERICAN > 60
[2018-03-20] MEDS ORDERED: Propofol 10 mg/ml Inj (20 ML) ONE (09:44)
[2018-03-20] MEDS ORDERED: Phytonadione 10 mg/ml Inj (Adult) SC STA (09:54)
[2018-03-20] MEDS: Pantoprazole 40 mg EC Tab PO SCH (11:03)
[2018-03-20] MEDS: Multiple Vitamins Tab PO SCH (11:03)
[2018-03-20] MEDS: Lactated Ringer's 500 ML IV SCH ×3 (11:04→17:00)
[2018-03-20] MEDS: Ferric Sodium Gluconat Complex 125 MG in Sodium Chloride 0.9% 100 ML IVPB SCH (11:05)
[2018-03-20] MEDS ORDERED: Peg-Electrolyte Oral Soln 4L (Golytely) PO ONE (13:00)
--- NOTE | 2018-03-20 14:32 | CP.PCM.PN ---
Subjective - Date & Time of Evaluation Date of Evaluation: 03/20/18 Time of Evaluation: 10:30 - Subjective Subjective: Medicine progress note for Dr. Vazquez's service Patient seen and examined s/p EGD. Patient tolerating liquid diet. Patient to have colonoscopy tomorrow AM. Patient requesting advanced diet and denies nausea or vomiting. Objective - Vital Signs/Intake and Output Vital Signs (last 24 hours): Temp Pulse Resp BP Pulse Ox 97.2 F L 80 24 159/86 H 100 03/20/18 10:00 03/20/18 10:30 03/20/18 10:30 03/20/18 10:30 03/20/18 10:30 Intake and Output: 03/20/18 03/20/18 06:59 18:59 Intake Total 0 200 Balance 0 200 - Medications Medications: Current Medications Albuterol/Ipratropium (Duoneb 3 Mg/0.5 Mg (3 Ml) Ud) 3 ml INH RQ4 [facility] Last Admin: 03/20/18 11:35 Dose: Not Given Benzocaine/Menthol (Cepacol Sore Throat) 1 eddie MT QID PRN PRN Reason: Sore Throat Bisacodyl (Dulcolax) 10 mg PO ONCE ONE Stop: 03/20/18 17:01 Folic Acid (Folic Acid) 1 mg PO DAILY [facility] Last Admin: 03/20/18 11:03 Dose: 1 mg Guaifenesin/Dextromethorphan (Robitussin Dm) 5 ml PO Q6 PRN PRN Reason: Cough Haloperidol Lactate (Haldol) 2.5 mg IVP Q6H PRN PRN Reason: Agitation Heparin Sodium (Porcine) (Heparin) 5,000 units SC Q8 [facility] Last Admin: 03/19/18 21:04 Dose: 5,000 units Ferric Sodium Gluconate Complex 125 mg/ Sodium Chloride 110 mls @ 110 mls/hr IVPB DAILY [facility] Stop: 03/27/18 14:01 Last Admin: 03/20/18 11:05 Dose: 110 mls/hr Lactated Ringer's (Lactated Ringer's 500ml) 500 mls @ 75 mls/hr IV .Q6H40M [facility] Last Admin: 03/20/18 11:04 Dose: Not Given Metoclopramide HCl (Reglan) 5 mg IVP Q6H [facility] Last Admin: 03/20/18 11:04 Dose: 5 mg Multivitamins (Hexavitamin) 1 tab PO DAILY [facility] Last Admin: 03/20/18 11:03 Dose: 1 tab Ondansetron HCl (Zofran Inj) 4 mg IVP Q6H PRN PRN Reason: Nausea/Vomiting Last Admin: 03/18/18 18:00 Dose: 4 mg Pantoprazole Sodium (Protonix Ec Tab) 40 mg PO DAILY [facility] Last Admin: 03/20/18 11:03 Dose: 40 mg Thiamine HCl (Vitamin B1 Tab) 100 mg PO DAILY [facility] Last Admin: 03/20/18 11:03 Dose: 100 mg - Labs Labs: 03/20/18 07:37 03/20/18 07:37 PT 14.3 SECONDS (9.7-12.2) H 03/20/18 07:37 INR 1.3 03/20/18 07:37 APTT 41 SECONDS (21-34) H D 03/20/18 07:37 - Constitutional Appears: No Acute Distress, Chronically Ill - Head Exam Head Exam: ATRAUMATIC, NORMOCEPHALIC - Eye Exam Eye Exam: EOMI - ENT Exam ENT Exam: Mucous Membranes Moist - Respiratory Exam Respiratory Exam: Clear to Ausculation Bilateral, NORMAL BREATHING PATTERN - Cardiovascular Exam Cardiovascular Exam: +S1, +S2 - GI/Abdominal Exam GI & Abdominal Exam: Soft, Normal Bowel Sounds, Organomegaly (hepatomegaly). absent: Tenderness - Extremities Exam Extremities Exam: Normal Inspection - Neurological Exam Neurological Exam: Alert, Awake - Psychiatric Exam Psychiatric exam: Normal Affect - Skin Skin Exam: Warm Assessment and Plan - Assessment and Plan (Free Text) Assessment: Anemia - GI Dr. Miranda consulted --> help appreciated - Likely 2/2 chronic alcohol use / liver disease, rule out UGI bleed or malignancy - EGD 03/20: medium sized hiatal hernia. Patent Billroth I gastroduodenostomy. erythematous mucosa in gastric fudus, biopsied. normal examined duodenum. ( see full report) - Full liquid diet, antireflux regimen, sucralfate tab 1 gram PO QID x 8 weeks. Plan for Colonoscopy 03/21/18 Labs: - No active bleeding, stool occult negative - Alpha Fetoprotein: 4.7 - CEA 48.2; CA 19-9 Antigen: 427 - Iron studies: retic index 1.8, iron 32, TIBC 274, % sat 12, B12 698, Folate > 20 - consider starting iron after colonoscopy Transaminitis - GI Dr. Miranda consulted --> help appreciated - secondary to Alcohol, improving - Hepatitis Panel: Negative - HIV: Negative - Alpha Fetoprotein: 4.7 - CEA 48.2; CA 19-9 Antigen: 427 Hepatic encephalopathy, improved - Ammonia level: 70 --> 88 --> 22 - Patient was admitted to ICU - Patient was transferred out of ICU 03/14/18 - HIV: Negative Alcohol Abuse Disorder - Psych Consult: Dr. Scott --> help appreciated - Alcohol Level: 209 on admission - UDS: Positive for Cocaine - Medications: * Librium 25mg PO q8h scheduled- completed * Ativan 2mg IVP q2prn- completed * Folic acid 1mg PO daily * Multivitamin 1 tab daily * Zofran 4mg IV q6prn Pancreatitis, resolved Pancreatitis, lipase elevated on admission - Likely secondary to alcohol - Tolerating PO diet today - Images: * CT abdomen/pelvis with IV contrast: Enterocolitis, partial gastrectomy with gastrojejunal anastomosis, no obstruction, enlarged fatty liver, cholecystectomy and hysterectomy - Surgery Dr. Barrett consulted --> help appreciated - GI Dr. Miranda consulted --> help appreciated - Stool occult negative - Stool H pylori not detected - Stool studies no salmonella, shigella, or campylobacter isolated. Sepsis secondary to Colitis, resolved - Tolerating PO diet with minimal nausea. patient encouraged to use prn zofran - Images: * CT abdomen/pelvis with IV contrast: Enterocolitis, partial gastrectomy with gastrojejunal anastomosis, no obstruction, enlarged fatty liver, cholecystectomy and hysterectomy - Surgery Dr. Barrett consulted --> help appreciated - No surgical intervention at this time - GI Dr. Miranda consulted --> help appreciated - Stool occult negative - Stool H pylori not detected - Stool studies no salmonella, shigella, or campylobacter isolated. Prophylaxis - Continue protonix 40mg PO daily - Heparin 5000u sc q8h- hold for procedure - PT eval All management as per Dr. Vazquez
[2018-03-20] MEDS ORDERED: Bisacodyl 5mg EC Tab PO ONE (17:00)
--- NOTE | 2018-03-20 17:31 | CP.PCM.PN ---
Subjective - Date & Time of Evaluation Date of Evaluation: 03/20/18 Time of Evaluation: 07:00 - Subjective Subjective: awake alert NAD Objective - Vital Signs/Intake and Output Vital Signs (last 24 hours): Temp Pulse Resp BP Pulse Ox 98.6 F 80 20 160/82 H 99 03/20/18 16:00 03/20/18 16:00 03/20/18 16:00 03/20/18 16:00 03/20/18 16:00 Intake and Output: 03/20/18 03/20/18 06:59 18:59 Intake Total 0 200 Balance 0 200 - Medications Medications: Current Medications Albuterol/Ipratropium (Duoneb 3 Mg/0.5 Mg (3 Ml) Ud) 3 ml INH RQ4 [facility] Last Admin: 03/20/18 11:35 Dose: Not Given Benzocaine/Menthol (Cepacol Sore Throat) 1 eddie MT QID PRN PRN Reason: Sore Throat Folic Acid (Folic Acid) 1 mg PO DAILY [facility] Last Admin: 03/20/18 11:03 Dose: 1 mg Guaifenesin/Dextromethorphan (Robitussin Dm) 5 ml PO Q6 PRN PRN Reason: Cough Haloperidol Lactate (Haldol) 2.5 mg IVP Q6H PRN PRN Reason: Agitation Heparin Sodium (Porcine) (Heparin) 5,000 units SC Q8 [facility] Last Admin: 03/19/18 21:04 Dose: 5,000 units Ferric Sodium Gluconate Complex 125 mg/ Sodium Chloride 110 mls @ 110 mls/hr IVPB DAILY [facility] Stop: 03/27/18 14:01 Last Admin: 03/20/18 11:05 Dose: 110 mls/hr Lactated Ringer's (Lactated Ringer's 500ml) 500 mls @ 75 mls/hr IV .Q6H40M [facility] Last Admin: 03/20/18 14:31 Dose: 75 mls/hr Metoclopramide HCl (Reglan) 5 mg IVP Q6H [facility] Last Admin: 03/20/18 17:08 Dose: 5 mg Multivitamins (Hexavitamin) 1 tab PO DAILY [facility] Last Admin: 03/20/18 11:03 Dose: 1 tab Ondansetron HCl (Zofran Inj) 4 mg IVP Q6H PRN PRN Reason: Nausea/Vomiting Last Admin: 03/18/18 18:00 Dose: 4 mg Pantoprazole Sodium (Protonix Ec Tab) 40 mg PO DAILY [facility] Last Admin: 03/20/18 11:03 Dose: 40 mg Sucralfate (Carafate Tab) 1 gm PO QID [facility] Last Admin: 03/20/18 17:13 Dose: 1 gm Thiamine HCl (Vitamin B1 Tab) 100 mg PO DAILY [facility] Last Admin: 03/20/18 11:03 Dose: 100 mg - Labs Labs: 03/20/18 07:37 03/20/18 07:37 PT 14.3 SECONDS (9.7-12.2) H 03/20/18 07:37 INR 1.3 03/20/18 07:37 APTT 41 SECONDS (21-34) H D 03/20/18 07:37 - Constitutional Appears: Non-toxic, Chronically Ill - Head Exam Head Exam: NORMOCEPHALIC - Eye Exam Eye Exam: PERRL - Neck Exam Neck Exam: absent: Lymphadenopathy - Respiratory Exam Respiratory Exam: Decreased Breath Sounds. absent: Accessory Muscle Use - Cardiovascular Exam Cardiovascular Exam: REGULAR RHYTHM - GI/Abdominal Exam GI & Abdominal Exam: Distended, Soft Assessment and Plan (1) Abdominal pain Status: Acute (2) Metabolic acidosis Status: Acute - Assessment and Plan (Free Text) Assessment: cont rx as per Dr Miranda
[2018-03-20] MEDS: Lactated Ringer's 1,000 ML IV SCH (18:01)
[2018-03-21] MEDS: Albuterol-Ipratrop 3 mg / 0.5 (3 ml) UD INH SCH ×5 (03:21→19:44)
[2018-03-21] MEDS: Lactated Ringer's 1,000 ML IV SCH ×3 (04:17→07:47)
--- NOTE | 2018-03-21 07:45 | CP.PCM.PN ---
Subjective - Date & Time of Evaluation Date of Evaluation: 03/21/18 Time of Evaluation: 08:00 - Subjective Subjective: Medicine progress note for Dr. Vazquez's service: Patient seen and examined at bedside in the AM. Patient is currently NPO as she is awaiting to have a colonoscopy procedure in the AM. Patient states she is feeling frustrated and is looking forward to going home soon. Patient denies nausea, vomiting, diarrhea or constipation. Objective - Vital Signs/Intake and Output Vital Signs (last 24 hours): Temp Pulse Resp BP Pulse Ox 98.2 F 85 20 170/97 H 97 03/21/18 07:42 03/21/18 07:42 03/21/18 07:42 03/21/18 07:42 03/21/18 07:42 Intake and Output: 03/21/18 03/21/18 06:59 18:59 Intake Total 5200 Output Total 4010 Balance 1190 - Medications Medications: Current Medications Albuterol/Ipratropium (Duoneb 3 Mg/0.5 Mg (3 Ml) Ud) 3 ml INH RQ4 [facility] Last Admin: 03/21/18 07:27 Dose: Not Given Benzocaine/Menthol (Cepacol Sore Throat) 1 eddie MT QID PRN PRN Reason: Sore Throat Folic Acid (Folic Acid) 1 mg PO DAILY [facility] Last Admin: 03/20/18 11:03 Dose: 1 mg Guaifenesin/Dextromethorphan (Robitussin Dm) 5 ml PO Q6 PRN PRN Reason: Cough Haloperidol Lactate (Haldol) 2.5 mg IVP Q6H PRN PRN Reason: Agitation Heparin Sodium (Porcine) (Heparin) 5,000 units SC Q8 [facility] Last Admin: 03/19/18 21:04 Dose: 5,000 units Ferric Sodium Gluconate Complex 125 mg/ Sodium Chloride 110 mls @ 110 mls/hr IVPB DAILY [facility] Stop: 03/27/18 14:01 Last Admin: 03/20/18 11:05 Dose: 110 mls/hr Lactated Ringer's (Lactated Ringer's) 1,000 mls @ 75 mls/hr IV .[id number] [facility] Last Admin: 03/21/18 05:10 Dose: 75 mls/hr Metoclopramide HCl (Reglan) 5 mg IVP Q6H [facility] Last Admin: 03/21/18 04:21 Dose: 5 mg Multivitamins (Hexavitamin) 1 tab PO DAILY [facility] Last Admin: 03/20/18 11:03 Dose: 1 tab Ondansetron HCl (Zofran Inj) 4 mg IVP Q6H PRN PRN Reason: Nausea/Vomiting Last Admin: 03/18/18 18:00 Dose: 4 mg Pantoprazole Sodium (Protonix Ec Tab) 40 mg PO DAILY [facility] Last Admin: 03/20/18 11:03 Dose: 40 mg Sucralfate (Carafate Tab) 1 gm PO QID [facility] Last Admin: 03/20/18 21:39 Dose: 1 gm Thiamine HCl (Vitamin B1 Tab) 100 mg PO DAILY [facility] Last Admin: 03/20/18 11:03 Dose: 100 mg - Labs Labs: 03/20/18 07:37 03/20/18 07:37 PT 14.3 SECONDS (9.7-12.2) H 03/20/18 07:37 INR 1.3 03/20/18 07:37 APTT 41 SECONDS (21-34) H D 03/20/18 07:37 - Constitutional Appears: No Acute Distress - Head Exam Head Exam: ATRAUMATIC, NORMAL INSPECTION - Eye Exam Eye Exam: EOMI, Normal appearance - ENT Exam ENT Exam: Mucous Membranes Moist - Respiratory Exam Respiratory Exam: Clear to Ausculation Bilateral, NORMAL BREATHING PATTERN - Cardiovascular Exam Cardiovascular Exam: REGULAR RHYTHM, +S1, +S2 - GI/Abdominal Exam GI & Abdominal Exam: Soft, Normal Bowel Sounds. absent: Tenderness Additional comments: Vertical abdominal well healed scar - Extremities Exam Extremities Exam: Normal Inspection - Neurological Exam Neurological Exam: Alert, Awake, Oriented x3 - Psychiatric Exam Psychiatric exam: Anxious - Skin Skin Exam: Normal Color Assessment and Plan - Assessment and Plan (Free Text) Assessment: Anemia - GI Dr. Miranda consulted --> help appreciated - Likely 2/2 chronic alcohol use / liver disease, rule out UGI bleed or malignancy - EGD 03/20: medium sized hiatal hernia. Patent Billroth I gastroduodenostomy. erythematous mucosa in gastric fudus, biopsied. normal examined duodenum. ( see full report) - Antireflux regimen, sucralfate tab 1 gram PO QID x 8 weeks. - s/p Colonoscopy 03/21/18: Non-bleeding external and internal hemorrhoids. Congested mucosa in the descending colon. Biopsied. Moderate diverticulosis in the entire examined colon. There was no evidence of diverticular bleeding. Labs: - No active bleeding, stool occult negative - Alpha Fetoprotein: 4.7 - CEA 48.2; CA 19-9 Antigen: 427 - Iron studies: retic index 1.8, iron 32, TIBC 274, % sat 12, B12 698, Folate > 20 - consider starting iron after colonoscopy Transaminitis - GI Dr. Miranda consulted --> help appreciated - secondary to Alcohol, improving - Hepatitis Panel: Negative - HIV: Negative - Alpha Fetoprotein: 4.7 - CEA 48.2; CA 19-9 Antigen: 427 Hepatic encephalopathy, improved - Ammonia level: 70 --> 88 --> 22 - Patient was admitted to ICU - Patient was transferred out of ICU 03/14/18 - HIV: Negative Alcohol Abuse Disorder - Psych Consult: Dr. Scott --> help appreciated - Alcohol Level: 209 on admission - UDS: Positive for Cocaine - Medications: * Librium 25mg PO q8h scheduled- completed * Ativan 2mg IVP q2prn- completed * Folic acid 1mg PO daily * Multivitamin 1 tab daily * Zofran 4mg IV q6prn Pancreatitis, resolved Pancreatitis, lipase elevated on admission - Likely secondary to alcohol - Tolerating PO diet today - Images: * CT abdomen/pelvis with IV contrast: Enterocolitis, partial gastrectomy with gastrojejunal anastomosis, no obstruction, enlarged fatty liver, cholecystectomy and hysterectomy - Surgery Dr. Barrett consulted --> help appreciated - GI Dr. Miranda consulted --> help appreciated - Stool occult negative - Stool H pylori not detected - Stool studies no salmonella, shigella, or campylobacter isolated. Sepsis secondary to Colitis, resolved - Tolerating PO diet with minimal nausea. patient encouraged to use prn zofran - Images: * CT abdomen/pelvis with IV contrast: Enterocolitis, partial gastrectomy with gastrojejunal anastomosis, no obstruction, enlarged fatty liver, cholecystectomy and hysterectomy - Surgery Dr. Barrett consulted --> help appreciated - No surgical intervention at this time - GI Dr. Miranda consulted --> help appreciated - Stool occult negative - Stool H pylori not detected - Stool studies no salmonella, shigella, or campylobacter isolated. Prophylaxis - Continue protonix 40mg PO daily - Heparin 5000u sc q8h- hold for procedure - PT eval Disposition: Patient to be discharge to [facility]. Patient to continue home medications. Patient to have a repeat colonoscopy in 3 years. Patient advised to eat a diet high in fiber and to stop drinking. Patient to follow up with primary physician in 2 weeks. Patient to return to the emergency room if symptoms return or worsen. All management as per Dr. Vazquez
[2018-03-21 08:24] LABS: BASO # 0.2 K/uL (0.0-0.2); BASO % 1.2 % (0.0-2.0); EOS # 0.1 K/uL (0.0-0.7); EOS % 0.4 % (0.0-4.0); HEMOGLOBIN 9.2 g/dL (11.0-16.0); LYMPH # 2.2 K/uL (1.0-4.3); LYMPH % 16.1 % (20.0-40.0); MEAN CELL VOLUME 94.5 fL (81.0-99.0); MEAN CORPUSCULAR HGB CONC 31.8 g/dL (33.0-37.0); MEAN PLATELET VOLUME 12.5 fL (7.2-11.7); MONO # 0.9 K/uL (0.0-0.8); MONO % 6.2 % (0.0-10.0); NEUT # 10.5 K/uL (1.8-7.0); NEUT % 76.1 % (50.0-75.0); NRBC % 0.1 % (0.0-2.0); RBC 3.06 Mil/uL (3.80-5.20); RED CELL DISTRIBUTION WIDTH 20.7 % (11.5-14.5); WHITE BLOOD COUNT 13.8 K/uL (4.8-10.8)
[2018-03-21 08:45] LABS: ALB/GLOB RATIO 0.9 (1.0-2.1); ALBUMIN 3.2 g/dL (3.5-5.0); ALT/SGPT 40 U/L (9-52); AST/SGOT 60 U/L (14-36); BLOOD UREA NITROGEN 8 mg/dL (7-17); CALCIUM 9.2 mg/dl (8.6-10.4); GFR NON-AFRICAN AMERICAN > 60
[2018-03-21] MEDS ORDERED: Propofol 10 mg/ml Inj (20 ML) ONE (10:07)
[2018-03-21] MEDS: Ferric Sodium Gluconat Complex 125 MG in Sodium Chloride 0.9% 100 ML IVPB SCH ×2 (10:08→14:17)
[2018-03-21] MEDS: Pantoprazole 40 mg EC Tab PO SCH (10:08)
[2018-03-21] MEDS: Multiple Vitamins Tab PO SCH ×2 (10:08→13:44)
[2018-03-21] MEDS ORDERED: Lactated Ringer's 1,000 ML IV ONE ×2 (10:15)
[2018-03-21] MEDS ORDERED: Midazolam 2 MG/2 ML VIAL ONE (10:29)
[2018-03-21] MEDS ORDERED: Belladonna-Phenobarbital PO ONE (11:00)
[2018-03-21 16:12] VITALS: BP 170/54; PULSE 67; RESP 20; TEMP 99.3; O2SAT 97
== END 2018-03-21 21:09 | DRG 584 ==
LOC: C.ER 15:59 → C.9E 17:37 → C.9I 20:34 → C.3T 03-17 20:27
PROVIDERS: ADMIT Internal Medicine Pulmonary Disease; ATTEND Internal Medicine Pulmonary Disease
PROC: 0DB68ZX Excision of Stomach, Via Natural or Artificial Opening Endoscopic, Diagnostic (ICD-10-PCS; 2018-03-20)
PROC: 0DBE8ZX Excision of Large Intestine, Via Natural or Artificial Opening Endoscopic, Diagnostic (ICD-10-PCS; principal; 2018-03-21 10:15)
DX: A41.9 Sepsis, unspecified organism (principal); K72.90 Hepatic failure, unspecified without coma; K85.20 Alcohol induced acute pancreatitis without necrosis or infection; D69.59 Other secondary thrombocytopenia; E46 Unspecified protein-calorie malnutrition; E87.2 Acidosis; E87.5 Hyperkalemia; F10.231 Alcohol dependence with withdrawal delirium; F14.90 Cocaine use, unspecified, uncomplicated; D63.8 Anemia in other chronic diseases classified elsewhere; E78.00 Pure hypercholesterolemia, unspecified; Y90.7 Blood alcohol level of 200-239 mg/100 ml; I10 Essential (primary) hypertension; K52.9 Noninfective gastroenteritis and colitis, unspecified; K57.30 Diverticulosis of large intestine without perforation or abscess without bleeding; K70.10 Alcoholic hepatitis without ascites; J45.909 Unspecified asthma, uncomplicated; K25.3 Acute gastric ulcer without hemorrhage or perforation; R65.20 Severe sepsis without septic shock

== ENCOUNTER 2018-08-07 13:19 | Inpatient (IN) | payer OTHER ==
[2018-08-07] MEDS ORDERED: Sodium Chloride 0.9% 1,000 ML IV ONE (13:57)
[2018-08-07] MEDS ORDERED: Sodium Chloride 0.9% 1,000 ML ONE (14:14)
--- NOTE | 2018-08-07 14:47 | C.PDOC ---
History Of Present Illness 63 y/o female,w/PMhx of ETOH abuse, brought to ER by ambulance for evaluation of diffuse abdominal pain and rectal bleeding which has been present for the past 2 days. Patient reports that she saw bright red blood. Denies having fever, chills, nausea, vomiting, dysuria, and hematuria. Time Seen by Provider: 08/07/18 13:27 Chief Complaint (Nursing): GI Problem History Per: Patient History/Exam Limitations: no limitations Onset/Duration Of Symptoms: Days Current Symptoms Are (Timing): Still Present Past Medical History Reviewed: Historical Data, Nursing Documentation, Vital Signs Vital Signs: Last Vital Signs Temp 98.6 F 08/07/18 13:32 Pulse 81 08/07/18 13:32 Resp 18 08/07/18 13:32 BP 157/83 H 08/07/18 13:32 Pulse Ox 100 08/07/18 13:32 - Medical History PMH: Asthma, HTN, Hypercholesterolemia Surgical History: Cholecystectomy - [facility] Procedures EXCISION OF LARGE INTESTINE, ENDO, DIAGN (03/07/18) EXCISION OF STOMACH, ENDO, DIAGN (03/07/18) Family History: States: No Known Family Hx - Social History Hx Alcohol Use: Yes Hx Substance Use: Yes - Immunization History Hx Tetanus Toxoid Vaccination: No Hx Influenza Vaccination: No Hx Pneumococcal Vaccination: No Review Of Systems Except As Marked, All Systems Reviewed And Found Negative. Constitutional: Negative for: Fever, Chills Gastrointestinal: Positive for: Abdominal Pain, Other (rectal bleeding). Negative for: Nausea, Vomiting, Diarrhea Genitourinary: Negative for: Dysuria, Hematuria Physical Exam - Physical Exam Appears: Non-toxic, No Acute Distress Skin: Normal Color, Warm, Dry Head: Atraumatic, Normacephalic Eye(s): bilateral: Normal Inspection Nose: Normal Oral Mucosa: Moist Neck: Supple Chest: Symmetrical Cardiovascular: Rhythm Regular Respiratory: Normal Breath Sounds Gastrointestinal/Abdominal: Soft, Tenderness (right sided abdominal tenderness) Rectal: Heme Positive Neurological/Psych: Oriented x3, Normal Speech ED Course And Treatment - Laboratory Results Result Diagrams: 08/07/18 15:09 08/07/18 15:09 Lab Interpretation: No Acute Changes ECG: Interpreted By Me ECG Rhythm: Sinus Rhythm ECG Interpretation: No Acute Changes Rate From EC O2 Sat by Pulse Oximetry: 100 (RA) Pulse Ox Interpretation: Normal - Other Rad No standard instances X-Ray: Viewed By Me, Read By Radiologist Interpretation: COPD - CT Scan/US No standard instances Other Rad Studies (CT/US): Read By Radiologist, Radiology Report Reviewed CT/US Interpretation: FINDINGS: There is limited evaluation of the solid organs without the administration of IV contrast. LOWER THORAX: No visible consolidation, pleural effusion, or pneumothorax. LIVER: Hepatomegaly. Diffuse severe hypoattenuation of the liver may be seen in setting of hepatic steatosis. Subtle 8 mm hyperdense focus within the right hepatic lobe (series 3, image 59); indeterminate possibly related to focal fatty sparing. GALLBLADDER AND BILE DUCTS: Cholecystectomy. PANCREAS: Atrophy. SPLEEN: Unremarkable. ADRENALS: Mild adrenal gland hypertrophy. KIDNEYS AND URETERS: No hydronephrosis or obstructing renal calculus. BLADDER: The urinary bladder appears unremarkable. REPRODUCTIVE: Uterus is with hysterectomy. APPENDIX: No secondary signs of acute appendicitis. BOWEL: The stomach is nondistended. Postsurgical changes consistent with partial gastrectomy. Lack of oral contrast limits evaluation for bowel pathology. The bowel loops appear within normal limits of caliber without evidence of intestinal obstruction. Anastomotic bowel suture material in the left upper quadrant. Scattered diverticula. Mucosal thickening of the right, mid to distal transverse, and left/rectosigmoid colon concerning for colitis. Rectal wall thickening; correlate clinically for proctitis. PERITONEUM: No significant free fluid. No definite free air. LYMPH NODES: No bulky lymphadenopathy identified. VASCULATURE: Atherosclerotic calcifications of the aorta. No aortic aneurysm. BONES: Osseous demineralization. Degenerative changes. L1 and L2 compression fracture deformities; L1 compression fracture new since prior study and L2 compression fracture progresses prior study. Irregular sclerotic mottled appearance of the right ilium. OTHER FINDINGS: None. IMPRESSION: Mucosal thickening of the right, mid to distal transverse, and left/rectosigmoid colon concerning for colitis. Rectal wall thickening; correlate clinically for proctitis. Scattered diverticula. Anastomotic bowel suture material in the left upper quadrant. Postsurgical changes consistent with partial gastrectomy. Hepatomegaly. Diffuse severe hypoattenuation of the liver may be seen in setting of hepatic steatosis. Subtle 8 mm hyperdense focus within the right hepatic lobe; indeterminate possibly related to focal fatty sparing. Mild adrenal gland hypertrophy. Irregular sclerotic mottled appearance of the right ilium; suggest further evaluation with nuclear medicine bone scan. L1 and L2 compression fracture deformities; L1 compression fracture new since prior study and L2 compression fracture progressed prior study. Additional findings as above. Progress Note: Treated with IVF NSS Reassessment Condition: Improved - Physician Consult Information Physician Contacted: Delbert Vazquez Outcome Of Conversation: admit Medical Decision Making Medical Decision Making: Plan: --LAbs --UA --CXR --CT- Abd & Pelv. --Pepcid IV --IV Fluids Disposition Discussed With .: Get Cooney Doctor Will See Patient In The: Hospital Counseled Patient/Family Regarding: Studies Performed, Diagnosis, Need For Followup - Disposition Disposition: HOSPITALIZED Disposition Time: 17:00 Condition: STABLE - POA Present On Arrival: None - Clinical Impression Clinical Impression: Gastrointestinal hemorrhage, Abdominal pain, GI bleeding - PA / PROCEDURE MANAGER / Resident Statement MD/DO has reviewed & agrees with the documentation as recorded. - Scribe Statement The provider has reviewed the documentation as recorded by the Jorge Librik Miller Provider Attestation All medical record entries made by the Scribe were at my direction and personally dictated by me. I have reviewed the chart and agree that the record accurately reflects my personal performance of the history, physical exam, medical decision making, and the department course for this patient. I have also personally directed, reviewed, and agree with the discharge instructions and disposition. Decision To Admit - Pt Status Changed To: Hospital Disposition Of: Inpatient - Admit Certification Admit to Inpatient:: After my assessment, the patient will require hospitalization for at least two midnights. This is because of the severity of symptoms shown, intensity of services needed, and/or the medical risk in this patient being treated as an outpatient. - InPatient: Physician Admission Certification: I certify that this patient requires 2 or more midnights of care for the following reason:: Colitis. Rectal Bleeding - . Bed Request Type: Regular Admitting Physician: Get Cooney Patient Diagnosis: Gastrointestinal hemorrhage, Abdominal pain, GI bleeding
--- NOTE | 2018-08-07 15:00 | RAD ---
HISTORY: SOB COMPARISON: Chest x-ray performed 03/11/18 TECHNIQUE: Chest PA and lateral FINDINGS: LUNGS: Biapical pleural thickening. Hyperinflation may be seen in the setting of COPD. Increased lucencies especially within the bilateral upper lung johnson compatible with underlying emphysema. No focal consolidation. Please note that chest x-ray has limited sensitivity for the detection of pulmonary masses. PLEURA: No significant pleural effusion identified. No definite pneumothorax . CARDIOVASCULAR: Heart size appears within normal limits. Atherosclerotic calcifications of the aorta. OSSEOUS STRUCTURES: Osseous demineralization. Degenerative changes. VISUALIZED UPPER ABDOMEN: Left upper quadrant surgical clips. OTHER FINDINGS: None. IMPRESSION: COPD/emphysema. Biapical pleural thickening.
[2018-08-07 15:15] LABS: BASO # 0.2 K/uL (0.0-0.2); BASO % 3.4 % (0.0-2.0); EOS # 0.1 K/uL (0.0-0.7); EOS % 1.5 % (0.0-4.0); HEMOGLOBIN 11.1 g/dL (11.0-16.0); LYMPH # 1.8 K/uL (1.0-4.3); LYMPH % 34.3 % (20.0-40.0); MEAN CORPUSCULAR HEMOGLOBIN 33.2 pg (27.0-31.0); MEAN CORPUSCULAR HGB CONC 32.8 g/dL (33.0-37.0); MEAN PLATELET VOLUME 11.5 fL (7.2-11.7); MONO # 0.3 K/uL (0.0-0.8); MONO % 6.1 % (0.0-10.0); NEUT # 2.8 K/uL (1.8-7.0); NEUT % 54.7 % (50.0-75.0); NRBC % 0.2 % (0.0-2.0); PLATELET COUNT 187 K/uL (130-400); RBC 3.33 Mil/uL (3.80-5.20); RED CELL DISTRIBUTION WIDTH 17.7 % (11.5-14.5)
[2018-08-07 15:16] LABS: MEAN CELL VOLUME 101.5 fL (81.0-99.0); WHITE BLOOD COUNT 5.2 K/uL (4.8-10.8)
[2018-08-07 15:32] LABS: ALB/GLOB RATIO 1.4 (1.0-2.1); ALBUMIN 4.5 g/dL (3.5-5.0); ALT/SGPT 119 U/L (9-52); AMYLASE 53 U/L (30-110); AST/SGOT 421 U/L (14-36); BLOOD UREA NITROGEN 13 mg/dL (7-17); CALCIUM 9.2 mg/dl (8.6-10.4); GFR NON-AFRICAN AMERICAN > 60; LIPASE 41 U/L (23-300)
[2018-08-07 15:39] LABS: BANDS 1 % (0-2); EOSINOPHIL 2 % (0-4); LYMPHOCYTE 28 % (20-40); MONOCYTE 5 % (0-10); NEUTROPHIL 64 % (50-75); PLATELET ESTIMATE NORMAL (NORMAL); TOTAL CELLS COUNTED 100
[2018-08-07 15:40] LABS: ANISOCYTOSIS SLIGHT; HYPOCHROMIC SLIGHT; LARGE PLATELETS PRESENT; MICROCYTOSIS SLIGHT; POIKILOCYTOSIS SLIGHT; TARGET CELLS SLIGHT
--- NOTE | 2018-08-07 16:26 | CT ---
PROCEDURE: CT Abdomen and Pelvis without Oral or IV contrast. HISTORY: Pain COMPARISON: CT abdomen pelvis with IV contrast performed 03/07/18 TECHNIQUE: Contiguous axial images of the abdomen and pelvis. No oral or IV contrast administered. Coronal and Sagittal reformats generated and reviewed. Radiation dose: Total exam DLP = 821.25 mGy-cm. This CT exam was performed using one or more of the following dose reduction techniques: Automated exposure control, adjustment of the mA and/or kV according to patient size, and/or use of iterative reconstruction technique. FINDINGS: There is limited evaluation of the solid organs without the administration of IV contrast. LOWER THORAX: No visible consolidation, pleural effusion, or pneumothorax. LIVER: Hepatomegaly. Diffuse severe hypoattenuation of the liver may be seen in setting of hepatic steatosis. Subtle 8 mm hyperdense focus within the right hepatic lobe (series 3, image 59); indeterminate possibly related to focal fatty sparing. GALLBLADDER AND BILE DUCTS: Cholecystectomy. PANCREAS: Atrophy. SPLEEN: Unremarkable. ADRENALS: Mild adrenal gland hypertrophy. KIDNEYS AND URETERS: No hydronephrosis or obstructing renal calculus. BLADDER: The urinary bladder appears unremarkable. REPRODUCTIVE: Uterus is with hysterectomy APPENDIX: No secondary signs of acute appendicitis. BOWEL: The stomach is nondistended. Postsurgical changes consistent with partial gastrectomy. Lack of oral contrast limits evaluation for bowel pathology. The bowel loops appear within normal limits of caliber without evidence of intestinal obstruction. Anastomotic bowel suture material in the left upper quadrant. Scattered diverticula. Mucosal thickening of the right, mid to distal transverse, and left/rectosigmoid colon concerning for colitis. Rectal wall thickening; correlate clinically for proctitis. PERITONEUM: No significant free fluid. No definite free air. LYMPH NODES: No bulky lymphadenopathy identified. VASCULATURE: Atherosclerotic calcifications of the aorta. No aortic aneurysm. BONES: Osseous demineralization. Degenerative changes. L1 and L2 compression fracture deformities; L1 compression fracture new since prior study and L2 compression fracture progresses prior study. Irregular sclerotic mottled appearance of the right ilium. OTHER FINDINGS: None. IMPRESSION: Mucosal thickening of the right, mid to distal transverse, and left/rectosigmoid colon concerning for colitis. Rectal wall thickening; correlate clinically for proctitis. Scattered diverticula. Anastomotic bowel suture material in the left upper quadrant. Postsurgical changes consistent with partial gastrectomy. Hepatomegaly. Diffuse severe hypoattenuation of the liver may be seen in setting of hepatic steatosis. Subtle 8 mm hyperdense focus within the right hepatic lobe; indeterminate possibly related to focal fatty sparing. Mild adrenal gland hypertrophy. Irregular sclerotic mottled appearance of the right ilium; suggest further evaluation with nuclear medicine bone scan. L1 and L2 compression fracture deformities; L1 compression fracture new since prior study and L2 compression fracture progressed prior study. Additional findings as above.
[2018-08-07 16:30] LABS: SQUAMOUS EPITHIAL 1 /hpf (0-5); URINE BACTERIA RARE (<OCC); URINE BILIRUBIN NEGATIVE (NEGATIVE); URINE BLOOD NEGATIVE (NEGATIVE); URINE CLARITY Clear (Clear); URINE COLOR Yellow (YELLOW); URINE GLUCOSE (UA) 1+ mg/dL (Normal); URINE LEUKOCYTE ESTERASE NEG Leu/uL (Negative); URINE PROTEIN 1+ mg/dL (NEGATIVE)
[2018-08-07] MEDS ORDERED: Dextrose 5%/0.45% NS 1,000 ML IV ONE (18:24)
[2018-08-07] MEDS: Dextrose 5%/0.45% NS 1,000 ML IV SCH (18:31)
[2018-08-07] MEDS ORDERED: Home Med 1 UNIT (Atorvastatin [Lipitor] 20 MG) PO SCH (22:00)
--- NOTE | 2018-08-07 22:09 | CP.PCM.HP ---
Present on Admission - Present on Admission Any Indicators Present on Admission: No Past Patient History - Past Medical History & Family History Past Medical History?: Yes - Past Social History Smoking Status: Light Smoker < 10 Cigarettes Daily - CARDIAC Hx Hypercholesterolemia: Yes Hx Hypertension: Yes - PULMONARY Hx Asthma: Yes - MUSCULOSKELETAL/RHEUMATOLOGICAL Hx Falls: No - GASTROINTESTINAL Hx Ulcer: Yes - PSYCHIATRIC Hx Substance Use: Yes - SURGICAL HISTORY Hx Cholecystectomy: Yes - ANESTHESIA Hx Anesthesia: Yes Meds Allergies/Adverse Reactions: Allergies Allergy/AdvReac Type Severity Reaction Status Date / Time No Known Allergies Allergy Unverified 03/07/18 16:28 Results - Vital Signs Recent Vital Signs: Last Vital Signs Temp 99.4 F 08/07/18 21:48 Pulse 89 08/07/18 21:48 Resp 18 08/07/18 21:48 BP 162/78 H 08/07/18 21:48 Pulse Ox 100 08/07/18 21:48 - Labs Result Diagrams: 08/07/18 15:09 08/07/18 15:09 Labs: Laboratory Results - last 24 hr 08/07/18 08/07/18 08/07/18 15:09 15:09 15:09 WBC 5.2 D RBC 3.33 L Hgb 11.1 Hct 33.8 L MCV 101.5 H D MCH 33.2 H MCHC 32.8 L RDW 17.7 H Plt Count 187 MPV 11.5 Neut % (Auto) 54.7 Lymph % (Auto) 34.3 [place] % (Auto) 6.1 Eos % (Auto) 1.5 Baso % (Auto) 3.4 H Neut # (Auto) 2.8 Lymph # (Auto) 1.8 [place] # (Auto) 0.3 Eos # (Auto) 0.1 Baso # (Auto) 0.2 Neutrophils % (Manual) 64 Band Neutrophils % 1 Lymphocytes % (Manual) 28 Monocytes % (Manual) 5 Eosinophils % (Manual) 2 Platelet Estimate Normal Large Platelets Present Hypochromasia (manual) Slight Poikilocytosis (manual Slight Anisocytosis (manual) Slight Microcytosis (manual) Slight Target Cells Slight Sodium 136 Potassium 4.9 Chloride 98 Carbon Dioxide 16 L Anion Gap 27 H BUN 13 Creatinine 0.5 L Est GFR ( Amer) > 60 Est GFR (Non-Af Amer) > 60 Random Glucose 66 D Calcium 9.2 Total Bilirubin 0.6 AST 421 H D ALT 119 H D Alkaline Phosphatase 214 H Total Protein 7.6 Albumin 4.5 Globulin 3.1 Albumin/Globulin Ratio 1.4 Amylase 53 Lipase 41 Urine Color Urine Clarity Urine pH Ur Specific [place] Urine Protein Urine Glucose (UA) Urine Ketones Urine Blood Urine Nitrate Urine Bilirubin Urine Urobilinogen Ur Leukocyte Esterase Urine WBC (Auto) Urine RBC (Auto) Ur Squamous Epith Cells Urine Bacteria Hyaline Casts Alcohol, Quantitative 268 H Blood Type O POSITIVE Antibody Screen Negative 08/07/18 16:07 WBC RBC Hgb Hct MCV MCH MCHC RDW Plt Count MPV Neut % (Auto) Lymph % (Auto) [place] % (Auto) Eos % (Auto) Baso % (Auto) Neut # (Auto) Lymph # (Auto) [place] # (Auto) Eos # (Auto) Baso # (Auto) Neutrophils % (Manual) Band Neutrophils % Lymphocytes % (Manual) Monocytes % (Manual) Eosinophils % (Manual) Platelet Estimate Large Platelets Hypochromasia (manual) Poikilocytosis (manual Anisocytosis (manual) Microcytosis (manual) Target Cells Sodium Potassium Chloride Carbon Dioxide Anion Gap BUN Creatinine Est GFR ( Amer) Est GFR (Non-Af Amer) Random Glucose Calcium Total Bilirubin AST ALT Alkaline Phosphatase Total Protein Albumin Globulin Albumin/Globulin Ratio Amylase Lipase Urine Color Yellow Urine Clarity Clear Urine pH 5.0 Ur Specific [place] 1.011 Urine Protein 1+ H Urine Glucose (UA) 1+ Urine Ketones Trace Urine Blood Negative Urine Nitrate Negative Urine Bilirubin Negative Urine Urobilinogen 2.0 H Ur Leukocyte Esterase Neg Urine WBC (Auto) 1 Urine RBC (Auto) < 1 Ur Squamous Epith Cells 1 Urine Bacteria Rare Hyaline Casts 3-5 H Alcohol, Quantitative Blood Type Antibody Screen
[2018-08-08] MEDS: Dextrose 5%/0.45% NS 1,000 ML IV SCH ×2 (03:00→14:03)
[2018-08-08 08:15] LABS: BASO # 0.1 K/uL (0.0-0.2); BASO % 1.3 % (0.0-2.0); EOS # 0.1 K/uL (0.0-0.7); EOS % 1.3 % (0.0-4.0); LYMPH # 1.4 K/uL (1.0-4.3); LYMPH % 31.2 % (20.0-40.0); MEAN CELL VOLUME 100.5 fL (81.0-99.0); MEAN CORPUSCULAR HEMOGLOBIN 33.9 pg (27.0-31.0); MEAN CORPUSCULAR HGB CONC 33.7 g/dL (33.0-37.0); MEAN PLATELET VOLUME 11.4 fL (7.2-11.7); MONO # 0.2 K/uL (0.0-0.8); MONO % 3.7 % (0.0-10.0); NEUT # 2.9 K/uL (1.8-7.0); NEUT % 62.5 % (50.0-75.0); NRBC % 0.2 % (0.0-2.0); RBC 2.96 Mil/uL (3.80-5.20); RED CELL DISTRIBUTION WIDTH 17.5 % (11.5-14.5); WHITE BLOOD COUNT 4.6 K/uL (4.8-10.8)
[2018-08-08 08:34] LABS: ALB/GLOB RATIO 1.4 (1.0-2.1); ALBUMIN 3.8 g/dL (3.5-5.0); ALT/SGPT 153 U/L (9-52); AST/SGOT 656 U/L (14-36); BLOOD UREA NITROGEN 7 mg/dL (7-17); CALCIUM 9.2 mg/dl (8.6-10.4); GFR NON-AFRICAN AMERICAN > 60
--- NOTE | 2018-08-08 09:48 | PN ---
DATE: 08/08/2018 LOCATION: 365, bed A. SUBJECTIVE: This is a 63-year-old female, seen initially for GI consultation on 08/07/2018, as requested by the admitting MD, reexamined again today with a complaint of crampy abdominal pain, postprandial abdominal distention with reported rectal bleeding with some change of bowel movement recently. The entire chart is reviewed including, but not limited to most recent lab and radiology study results, current and the previous medication list, current and the previous medical events, and today's lab results showed hemoglobin of 10, hematocrit 29.7 with normal white blood cells and platelet count. Blood glucose level 138, total bilirubin 1.5, AST 656, ALT 153 with alkaline phosphatase 244 which could be related to the patient's known history of excessive alcohol intake with alcoholic liver disease. Her initial alcohol level at the time of the admission, the quantitative is 268, elevated. Abdominal and pelvic CAT scan at the time of the admission performed. Official report is seen with thickening of the transverse and left-sided colon with scattered diverticula. Reported also history of partial gastrectomy with evidence of hepatomegaly with fatty infiltrate of the liver. PHYSICAL EXAMINATION: GENERAL: A 63-year-old female, awake, alert. VITAL SIGNS: Afebrile with pulse of 78, respiratory 20-22, blood pressure 170/66. HEENT: Showed pale dry oral mucous membrane. Nonicteric sclerae. LUNGS: Few scattered crepitation. Decreased air entry at bases. HEART: Positive S1 and S2. ABDOMEN: Soft. Bowel sounds are present. No mass or organomegaly. No rebound tenderness or guarding. EXTREMITIES: Without significant clubbing, cyanosis, or edema. NEUROLOGIC: No reported new neurological deficits, sensory or motor. RECTAL: Guaiac-positive stool. IMPRESSION: 1. Gastrointestinal bleeding, upper versus lower. 2. Abnormal CAT scan of the abdomen and pelvis with colitis, to rule out inflammatory bowel disease. 3. Known history of, but not limited to alcoholism with alcoholic liver disease and acute alcoholic hepatitis. 4. Known history of hyperlipidemia with hypertension. 5. Status post cholecystectomy. 6. Questionable history of partial gastrectomy as per CAT scan. SUGGESTIONS: 1. Continue current management. 2. Hepatitis profile. 3. Endoscopic evaluation of the lower GI tract when the patient is more stable. 4. Hepatitis profile. Further recommendation to follow. Simeon Salmeron MD [facility] # [id number]
[2018-08-08 10:37] LABS: HEPATITIS B SURFACE AG Negative (NEGATIVE)
[2018-08-08 10:42] LABS: HEPATITIS A IGM NEGATIVE (NEGATIVE); HEPATITIS B CORE AB NEGATIVE (NEGATIVE)
[2018-08-08 10:54] LABS: HEPATITIS C ANTIBODY NEGATIVE (NEGATIVE)
[2018-08-08] MEDS: Multiple Vitamins Tab PO SCH (10:56)
[2018-08-08] MEDS ORDERED: Peg-Electrolyte Oral Soln 4L (Golytely) PO ONE (11:00)
[2018-08-08 11:12] LABS: FOLATE 11.6 ng/mL
--- NOTE | 2018-08-08 12:02 | PCM.PSYCH ---
Initial Psychiatric Evaluation - Initial Psychiatric Evaluation Type of Admission: Voluntary Legal Status: Capacity Chief Complaint (in patient's own words): "I'm not well" History of Present Illness and Precipitating Events: Patient is a 63 -year-old, female who is single, unemployed, and living with a friend. She is in the hospital for rectal bleeding and colitis. She is presents with alcohol withdrawal. Patient also reports drinking 1 pint of vodka, daily. She has been drinking for several years. Patient denies a history of DTs, seizures, and blackouts. Patient denies using any other substances including heroin, cocaine, and pills. Patient states that she has been to a detox in [place]. Patient denies any suicidal or homicidal ideation, hallucinations, and paranoia. Past Psychiatric History: none Family Psych History: none PMHx/PSHx: HTN, asthma, HLD, chronic alcohol abuse, GI ulcer, partial gastrectomy, cholecystectomy, hysterectomy Meds: : rosuvastatin, Zofran, Lopressor, Reglan, Zestril, Lasix, apresoline, catapres, dulcolax Current Medications: Active Medications Generic Name Dose Route Start Last Admin Trade Name Freq PRN Reason Stop Dose Admin Bisacodyl 10 mg 08/08/18 17:00 Dulcolax PO 08/08/18 17:01 ONCE ONE Chlordiazepoxide 25 mg 08/07/18 18:27 08/08/18 10:58 Librium PO 25 mg Q6H PRN Administration Symptoms of alcohol withdrawl Folic Acid 1 mg 08/08/18 10:00 08/08/18 10:56 Folic Acid PO 1 mg DAILY DOYLE Administration Furosemide 20 mg 08/08/18 10:00 08/08/18 10:55 Lasix PO 20 mg DAILY [facility] Administration Hydralazine HCl 25 mg 08/08/18 11:00 08/08/18 11:54 Apresoline PO 25 mg TID DOYLE Administration Dextrose/Sodium Chloride 1,000 mls @ 100 mls/hr 08/07/18 18:30 08/08/18 03:00 Dextrose 5%/0.45% Ns 1000 Ml IV 100 mls/hr .Q10H DOYLE Administration Lisinopril 40 mg 08/08/18 10:00 08/08/18 10:55 Zestril PO 40 mg DAILY [facility]YLE Administration Metoclopramide HCl 5 mg 08/08/18 10:00 08/08/18 10:56 Reglan IVP 5 mg Q6H DOYLE Administration Metoprolol Tartrate 100 mg 08/08/18 10:00 08/08/18 10:56 Lopressor PO 100 mg BID [facility] Administration Multivitamins 1 tab 08/08/18 10:00 08/08/18 10:56 Hexavitamin PO 1 tab DAILY DOYLE Administration Ondansetron HCl 4 mg 08/07/18 18:30 08/08/18 01:00 Zofran Inj IVP 4 mg Q6H PRN Administration Nausea/Vomiting Pantoprazole Sodium 40 mg 08/08/18 10:00 08/08/18 10:56 Protonix Inj IVP 40 mg DAILY [facility] Administration Rosuvastatin Calcium 10 mg 08/08/18 22:00 Crestor PO [facility] Past Psychiatric History - Past Psychiatric History Previous Treatment History: None Pertinent Medical Hx (Current Medical&Sleep Prob, Allergies): Allergies Allergy/AdvReac Type Severity Reaction Status Date / Time No Known Allergies Allergy Unverified 03/07/18 16:28 Folic Acid 1 mg PO DAILY #0 tab 03/21/18 Multivitamins [Hexavitamin] 1 tab PO DAILY tab 03/21/18 Atorvastatin [Lipitor] 20 mg PO HS 08/07/18 Furosemide [Lasix] 20 mg PO DAILY 08/07/18 Lisinopril [Zestril] 40 mg PO DAILY 08/07/18 Metoprolol Tartrate [Lopressor] 100 mg PO BID 08/07/18 hydrALAZINE [hydralazine Hydrochloride] 25 mg PO TID 08/07/18 Review of Systems - Psychiatric Psychiatric: Abnormal Sleep Pattern, Anxiety, Behavioral Changes, Difficulty Concentrating. absent: Hallucinations, Homicidal Ideation, Suicidal Ideation Mental Status Examination - Personal Presentation Personal Presentation: Looks stated age - Affect Affect: Constricted - Motor Activity Motor Activity: Psychomotor Retardation - Reliability in Providing Information Reliability in Providing Information: Poor, due to altered mood - Speech Speech: Organized - Mood Mood: Anxious - Formal Thought Process Formal Thought Process: No Impairment - Obsessions/Compulsions Obsessions: No Compulsions: No - Cognitive Functions Orientation: Person, Place, Situation, Time Sensorium: Drowsy Attention/Concentration: Easily distracted Abstract Thinking: [place] Estimate of Intelligence: Average Judgement: Intact, as evidence by: Good judgement Memory: Recent intact, as evidence by: Ability to recall events of the day, Remote intact, as evidenced by: Abilit to recall sig. life events - Risk Risk: Withdrawal, Diminished functioning - Strength & Assets Inventory Strength & Assets Inventory: Cooperative - Limitations Limitations: Other DSM 5 DX - DSM 5 DSM 5 Diagnosis: Alcohol withdrawal Alcohol use disorder, severe - Recommended/Plan of Treatment Treatment Recommendations and Plan of Treatment: Taper with ativan Gabapentin for augmentation if needed As needed medications All risks, benefits and alternatives of the meds discussed, and the pt agreed and understood. Supportive therapy and psychoeducation [place] for abstinence Refer to rehab or IOP, and self-help groups Teach healthy lifestyle methods, i.e. diet, exercise, meditation Smoking cessation with [place] Nicotine patch if needed 34 min Prognosis: good with treatment
--- NOTE | 2018-08-08 12:25 | CARD ---
APPROVED REPORT Date of service: 08/07/2018 EKG Measurement Heart [id number] <Conclusion> Sinus rhythm with frequent premature ventricular complexes Possible Left atrial enlargement Borderline ECG
--- NOTE | 2018-08-08 15:40 | CP.PCM.PCO ---
Physician Communication Note - Physician Communication Note Physician Communication Note: see above
--- NOTE | 2018-08-08 16:44 | CP.PCM.CON ---
History of Present Illness - History of Present Illness History of Present Illness: GI Condensed Consult Note for Dr. Miranda CC: rectal bleed x 2 days HPI: 63 year old female with PMHx of EtOH abuse, HTN, GI ulcer, gastrectomy, COPD/asthma, presents to the ED with rectal bleed x 2 days. Patient with EtOH abuse for many years, has been withdrawing w/ symptom of shaking. Patient states last drink was 2-3 days ago. GI history: -colo on 03/21/19: diverticula, small sessile polyp vs. inverted divert. at prox ascending colon 0.3cm. Poly was not removed due to hig risk of perforation. Bx: One prominent lymphoid aggregate. Reactive epithelium changes. -endo on the same day: medium hiatal hernia, billroth I gastroduodenostomy, erythematous mucosa gastric fundus, esophagus and duodenum normal. Bx: negative for h. pylori. PMHx: as stated above PSHx: cholecystectomy, hysterectomy FHx: [place] SocHx: drinks 1 pt vodka a day for many years Meds: see MAR Allergies: NKDA Past Patient History - Past Medical History & Family History Past Medical History?: Yes - Past Social History Smoking Status: Light Smoker < 10 Cigarettes Daily - CARDIAC Hx Cardiac Disorders: Yes Hx Hypercholesterolemia: Yes Hx Hypertension: Yes - PULMONARY Hx Respiratory Disorders: Yes Hx Asthma: Yes - NEUROLOGICAL Hx Neurological Disorder: No - HEENT Hx HEENT Problems: No - RENAL Hx Chronic Kidney Disease: No - ENDOCRINE/METABOLIC Hx Endocrine Disorders: No - HEMATOLOGICAL/ONCOLOGICAL Hx Blood Disorders: No - INTEGUMENTARY Hx Dermatological Problems: No - MUSCULOSKELETAL/RHEUMATOLOGICAL Hx Falls: Yes - GASTROINTESTINAL Hx Gastrointestinal Disorders: Yes Hx Ulcer: Yes - GENITOURINARY/GYNECOLOGICAL Hx Genitourinary Disorders: No - PSYCHIATRIC Hx Substance Use: Yes (cocaine) - SURGICAL HISTORY Hx Surgeries: Yes Hx Cholecystectomy: Yes - ANESTHESIA Hx Anesthesia: Yes Hx Anesthesia Reactions: No Meds Allergies/Adverse Reactions: Allergies Allergy/AdvReac Type Severity Reaction Status Date / Time No Known Allergies Allergy Unverified 03/07/18 16:28 - Medications Medications: Current Medications Bisacodyl (Dulcolax) 10 mg PO ONCE ONE Stop: 08/08/18 17:01 Clonidine HCl (Catapres) 0.1 mg PO Q4H PRN PRN Reason: Symptoms of alcohol withdrawl Folic Acid (Folic Acid) 1 mg PO DAILY [facility] Last Admin: 08/08/18 10:56 Dose: 1 mg Furosemide (Lasix) 20 mg PO DAILY [facility] Last Admin: 08/08/18 10:55 Dose: 20 mg Hydralazine HCl (Apresoline) 25 mg PO TID [facility] Last Admin: 08/08/18 14:03 Dose: 25 mg Dextrose/Sodium Chloride (Dextrose 5%/0.45% Ns 1000 Ml) 1,000 mls @ 100 mls/hr IV .Q10H [facility] Last Admin: 08/08/18 14:03 Dose: 100 mls/hr Lisinopril (Zestril) 40 mg PO DAILY [facility] Last Admin: 08/08/18 10:55 Dose: 40 mg Lorazepam (Ativan) 1 mg PO .TAPER [facility]; Taper Stop: 08/12/18 17:59 Lorazepam (Ativan) 1 mg PO Q6H PRN PRN Reason: Symptoms of alcohol withdrawl Metoclopramide HCl (Reglan) 5 mg IVP Q6H [facility] Last Admin: 08/08/18 10:56 Dose: 5 mg Metoprolol Tartrate (Lopressor) 100 mg PO BID [facility] Last Admin: 08/08/18 10:56 Dose: 100 mg Multivitamins (Hexavitamin) 1 tab PO DAILY [facility] Last Admin: 08/08/18 10:56 Dose: 1 tab Ondansetron HCl (Zofran Inj) 4 mg IVP Q6H PRN PRN Reason: Nausea/Vomiting Last Admin: 08/08/18 01:00 Dose: 4 mg Pantoprazole Sodium (Protonix Inj) 40 mg IVP DAILY [facility] Last Admin: 08/08/18 10:56 Dose: 40 mg Rosuvastatin Calcium (Crestor) 10 mg PO [facility] Thiamine HCl (Vitamin B1 Tab) 100 mg PO DAILY [facility] Last Admin: 08/08/18 13:15 Dose: 100 mg Trazodone HCl (Desyrel) 50 mg PO [facility] Physical Exam - Constitutional Appears: Other (resting in bed with slight body tremor) - Head Exam Head Exam: ATRAUMATIC, NORMAL INSPECTION - Neck Exam Neck exam: Positive for: Normal Inspection - Respiratory Exam Respiratory Exam: NORMAL BREATHING PATTERN - Extremities Exam Extremities exam: Positive for: normal inspection - Neurological Exam Neurological exam: Alert - Psychiatric Exam Psychiatric exam: Normal Affect, Normal Mood - Skin Skin Exam: Normal Color Results - Vital Signs Recent Vital Signs: Last Vital Signs Temp 98.8 F 08/08/18 15:00 Pulse 67 08/08/18 15:00 Resp 20 08/08/18 15:00 BP 160/80 H 08/08/18 15:00 Pulse Ox 95 08/08/18 15:00 - Labs Result Diagrams: 08/08/18 08:04 08/08/18 08:04 Labs: Laboratory Results - last 24 hr 08/08/18 08/08/18 08/08/18 08:04 08:04 08:04 WBC 4.6 L RBC 2.96 L Hgb 10.0 L Hct 29.7 L MCV 100.5 H MCH 33.9 H MCHC 33.7 RDW 17.5 H Plt Count 141 MPV 11.4 Neut % (Auto) 62.5 Lymph % (Auto) 31.2 [place] % (Auto) 3.7 Eos % (Auto) 1.3 Baso % (Auto) 1.3 Neut # (Auto) 2.9 Lymph # (Auto) 1.4 [place] # (Auto) 0.2 Eos # (Auto) 0.1 Baso # (Auto) 0.1 Sodium 133 Potassium 4.6 Chloride 101 Carbon Dioxide 25 Anion Gap 11 BUN 7 Creatinine 0.6 L Est GFR ( Amer) > 60 Est GFR (Non-Af Amer) > 60 Random Glucose 138 H D Calcium 9.2 Total Bilirubin 1.5 H AST 656 H D ALT 153 H D Alkaline Phosphatase 244 H Total Protein 6.5 Albumin 3.8 Globulin 2.8 Albumin/Globulin Ratio 1.4 Carcinoembryonic Ag 31.2 H CA 19-9 Antigen 60.1 H D Vitamin B12 386 Folate 11.6 Hepatitis A IgM Ab Hep Bs Antigen Hep B Core IgM Ab Hepatitis C Antibody 08/08/18 08:04 WBC RBC Hgb Hct MCV MCH MCHC RDW Plt Count MPV Neut % (Auto) Lymph % (Auto) [place] % (Auto) Eos % (Auto) Baso % (Auto) Neut # (Auto) Lymph # (Auto) [place] # (Auto) Eos # (Auto) Baso # (Auto) Sodium Potassium Chloride Carbon Dioxide Anion Gap BUN Creatinine Est GFR ( Amer) Est GFR (Non-Af Amer) Random Glucose Calcium Total Bilirubin AST ALT Alkaline Phosphatase Total Protein Albumin Globulin Albumin/Globulin Ratio Carcinoembryonic Ag CA 19-9 Antigen Vitamin B12 Folate Hepatitis A IgM Ab Negative Hep Bs Antigen Negative Hep B Core IgM Ab Negative Hepatitis C Antibody Negative Assessment & Plan - Assessment and Plan (Free Text) Assessment: 63 year old female with PMHx of EtOH abuse, HTN, GI ulcer, gastrectomy, COPD/asthma, presents to the ED with rectal bleed x 2 days. rectal bleed -ddx: colitis, proctitis, internal and/or external hemorrhoids, IBD, ischemia, infection. Concern for possible malignancy due to elevated CEA and CA 19-9 at 31.2 and 60.1 respectively. However some of the elevation could be 2/2 tobacco and EtOH use. -CTAP w/o contrast on admission: mucosal thickening of rectosigmoid colon concerning for colitis, diverticuli, partial gastrectomy, heaptomegaly -for colonoscopy tomorrow 08/[address] Miranda -colonoscopy prep golytely ordered, NPO after midnight ordered EtOH withdrawal -on librium PRN -Patient placed on ativan taper, managed by psych consult, encourage to continue -medical management per primary team Transaminitis -likely 2/2 long time EtOH abuse -AST 656, ALT 153, AP 244, Tbili 1.5, all uptrending -hep panel negative -IVF -continue to trend LFTs macrocytic anemia -likely 2/2 long time EtOH abuse MCV 100.5. -Folate and B12 wnl -continue to trend CBC especially in the setting of active rectal bleeding COPD/asthma -CXR: COPD/emphysema, biapical pleural thickening -medical management per primary team case discussed with Dr. Ruben Murray PGY1
[2018-08-08] MEDS ORDERED: Bisacodyl 5mg EC Tab PO ONE (17:00)
--- NOTE | 2018-08-08 21:38 | CP.PCM.PN ---
Subjective - Date & Time of Evaluation Date of Evaluation: 08/08/18 Time of Evaluation: 09:40 - Subjective Subjective: dictated Objective - Vital Signs/Intake and Output Vital Signs (last 24 hours): Temp Pulse Resp BP Pulse Ox 98.8 F 67 20 160/80 H 95 08/08/18 15:00 08/08/18 15:00 08/08/18 15:00 08/08/18 15:00 08/08/18 15:00 Intake and Output: 08/08/18 08/09/18 18:59 06:59 Intake Total 1620 Balance 1620 - Medications Medications: Current Medications Clonidine HCl (Catapres) 0.1 mg PO Q4H PRN PRN Reason: Symptoms of alcohol withdrawl Folic Acid (Folic Acid) 1 mg PO DAILY [facility] Last Admin: 08/08/18 10:56 Dose: 1 mg Furosemide (Lasix) 20 mg PO DAILY [facility] Last Admin: 08/08/18 10:55 Dose: 20 mg Hydralazine HCl (Apresoline) 25 mg PO TID [facility] Last Admin: 08/08/18 17:23 Dose: 25 mg Dextrose/Sodium Chloride (Dextrose 5%/0.45% Ns 1000 Ml) 1,000 mls @ 100 mls/hr IV .Q10H [facility] Last Admin: 08/08/18 14:03 Dose: 100 mls/hr Lisinopril (Zestril) 40 mg PO DAILY [facility] Last Admin: 08/08/18 10:55 Dose: 40 mg Lorazepam (Ativan) 1 mg PO Q6H [facility]; Taper Stop: 08/12/18 17:59 Last Admin: 08/08/18 17:27 Dose: 1 mg Lorazepam (Ativan) 1 mg PO Q6H PRN PRN Reason: Symptoms of alcohol withdrawl Metoclopramide HCl (Reglan) 5 mg IVP Q6H [facility] Last Admin: 08/08/18 21:35 Dose: 5 mg Metoprolol Tartrate (Lopressor) 100 mg PO BID [facility] Last Admin: 08/08/18 17:55 Dose: 100 mg Multivitamins (Hexavitamin) 1 tab PO DAILY [facility] Last Admin: 08/08/18 10:56 Dose: 1 tab Ondansetron HCl (Zofran Inj) 4 mg IVP Q6H PRN PRN Reason: Nausea/Vomiting Last Admin: 08/08/18 01:00 Dose: 4 mg Pantoprazole Sodium (Protonix Inj) 40 mg IVP DAILY [facility] Last Admin: 08/08/18 10:56 Dose: 40 mg Rosuvastatin Calcium (Crestor) 10 mg PO [facility] Last Admin: 08/08/18 21:31 Dose: 10 mg Thiamine HCl (Vitamin B1 Tab) 100 mg PO DAILY [facility] Last Admin: 08/08/18 13:15 Dose: 100 mg Trazodone HCl (Desyrel) 50 mg PO [facility] Last Admin: 08/08/18 21:31 Dose: 50 mg - Labs Labs: 08/08/18 08:04 08/08/18 08:04
[2018-08-09] MEDS: Dextrose 5%/0.45% NS 1,000 ML IV SCH ×4 (00:02→21:32)
--- NOTE | 2018-08-09 02:51 | PN ---
DATE: 08/08/2018 SUBJECTIVE: The patientMagnolia is withdrawing. She is shaky. She is anxious. She is tremulous. She has nausea. No vomiting. Her H and H dropped. She has been seen by GI. No cough. No sore throat. PHYSICAL EXAMINATION: VITAL SIGNS: Blood pressure 160/80, pulse 67, respiratory rate 20, temperature 98.8. LUNGS: Clear. CARDIOVASCULAR SYSTEM: S1, S2, regular. ABDOMEN: Soft. ASSESSMENT: 1. Gastrointestinal bleed, etiology is alcoholic gastritis versus diverticulosis versus angiodysplasia. 2. Dehydration. 3. Acute alcohol withdrawal syndrome, status post alcohol intoxication. 4. Poorly controlled hypertension. PLAN: BP controlled. Monitor the patient. The patient will need endoscopy and colonoscopy. Her colonoscopy in the past ____ preparation. We will monitor the patient. Get Cooney MD
--- NOTE | 2018-08-09 06:42 | HP ---
CHIEF COMPLAINT: Rectal bleed for three days. HISTORY OF PRESENT ILLNESS: This is a 63-year-old -[place] female who is a heavy alcohol user with history of prior hospitalization, hypertension, hypertensive heart disease, hyperlipidemia, who is noncompliant with her diet, medication and followup, in her usual status of health. She is ambulatory and independent in activities of daily living, noncompliant. She drinks daily. She drinks in large quantity and she drinks everyday in the morning and the patient started having rectal bleeding each time she was wiping her perianal area and it happened over and over again, and she got concerned and she came to emergency room and she was hospitalized. There is no history of fever, chills, or rigors. There is no history of diarrhea. There is no history of nausea or vomiting. There is no history of polyuria, polydipsia, polyphagia. No history of joint pain. She is sick and she is nauseous. She agreed and she is withdrawing. PAST MEDICAL HISTORY: Alcoholic liver disease, alcoholism, hypertension, congestive heart failure, hyperlipidemia. SOCIAL HISTORY: She smokes. She drinks. She is alcoholic. FAMILY HISTORY: Negative for colon cancer at premature age. CURRENT MEDICATIONS: At home, the patient is on multivitamins, lisinopril, Lasix, folic acid, hydralazine, Lipitor, Lopressor. ALLERGIES: UNKNOWN. PHYSICAL EXAMINATION: GENERAL: This is an elderly female in distress, shaky and tremulous. VITAL SIGNS: Blood pressure 162/78, pulse 89, respiratory rate 18, temperature 99.4. SKIN: No rashes. No bruises. No purpura. No petechiae. No ecchymosis. HEENT: Atraumatic and normocephalic. Positive pallor. Negative jaundice. Extraocular movements are intact. NECK: Supple. No JVD. No lymph node. No thyromegaly. CHEST WALL: Bilateral symmetrical expansion. LUNGS: Clear. No rales. No rhonchi. CVS: S1 and S2, and regular. No heave. No thrill. ABDOMEN: Liver is enlarged 4 fingerbreadths below right subcostal margin. Bowel sounds are exaggerated. Epigastric tenderness. RECTAL: Positive for occult blood. EXTREMITIES: No clubbing, cyanosis, or edema. WELL DIGGER: Awake, alert, and oriented x3. Cranial nerves II through XII are normal. ASSESSMENT: 1. Lower gastrointestinal bleed, rectal bleed, most likely acute diverticulosis verus angiodysplasia versus hemorrhoids, could be alcoholic gastritis, could be peptic ulcer disease. 2. Poorly controlled hypertension. 3. Congestive heart failure. 4. Hypertension. PLAN: Admit. Detailed orders are written. N.p.o. IV Protonix. GI evaluation. Repeat CBC frequently. If needed, blood transfusion. Psychiatry consult for alcohol rehab. GI workup as per GI direction. Abdominal CT, which was done. It shows hepatomegaly. Abdominal CT also shows thickening . She also has a history of anastomotic bowel, suture material in the left upper quadrant. This seems like she had a partial gastrectomy and mild adrenal hypertrophy as she has compression fracture deformities of L1 and L2. She will be observed closely. Get Cooney MD
[2018-08-09 07:26] LABS: BASO # 0.1 K/uL (0.0-0.2); EOS # 0.1 K/uL (0.0-0.7); MONO # 0.2 K/uL (0.0-0.8)
[2018-08-09 07:45] LABS: BASO % 1.8 % (0.0-2.0); EOS % 2.5 % (0.0-4.0); HEMOGLOBIN 8.9 g/dL (11.0-16.0); LYMPH # 1.2 K/uL (1.0-4.3); LYMPH % 26.4 % (20.0-40.0); MEAN CELL VOLUME 100.4 fL (81.0-99.0); MEAN CORPUSCULAR HEMOGLOBIN 33.6 pg (27.0-31.0); MEAN CORPUSCULAR HGB CONC 33.4 g/dL (33.0-37.0); MEAN PLATELET VOLUME 11.8 fL (7.2-11.7); MONO % 5.6 % (0.0-10.0); NEUT # 2.8 K/uL (1.8-7.0); NEUT % 63.7 % (50.0-75.0); NRBC % 0.5 % (0.0-2.0); RBC 2.66 Mil/uL (3.80-5.20); WHITE BLOOD COUNT 4.4 K/uL (4.8-10.8)
[2018-08-09 07:56] LABS: ALB/GLOB RATIO 1.2 (1.0-2.1); ALBUMIN 3.1 g/dL (3.5-5.0); ALT/SGPT 96 U/L (9-52); AST/SGOT 234 U/L (14-36); BLOOD UREA NITROGEN 3 mg/dL (7-17); CALCIUM 8.5 mg/dl (8.6-10.4); GFR NON-AFRICAN AMERICAN > 60
[2018-08-09] MEDS: Multiple Vitamins Tab PO SCH (09:12)
[2018-08-09 09:49] LABS: BARBITURATES, UR NEGATIVE (NEGATIVE); OPIATES, UR NEGATIVE (NEGATIVE); PHENCYCLIDINE, UR NEGATIVE (NEGATIVE)
[2018-08-09 10:22] LABS: BENZODIAZEPINES, UR POSITIVE (NEGATIVE)
[2018-08-09] MEDS ORDERED: ePHEDrine 50 mg/ml Inj ONE (11:00)
[2018-08-09] MEDS ORDERED: Propofol 10 mg/ml Inj (20 ML) ONE (11:00)
[2018-08-09] MEDS: guaiFENesin 200 mg/10 ml Syrup UD PO PRN (20:40)
--- NOTE | 2018-08-09 21:31 | CP.PCM.PN ---
Subjective - Date & Time of Evaluation Date of Evaluation: 08/09/18 Time of Evaluation: 19:00 - Subjective Subjective: dictated Objective - Vital Signs/Intake and Output Vital Signs (last 24 hours): Temp Pulse Resp BP Pulse Ox 98.1 F 77 20 111/76 96 08/09/18 14:00 08/09/18 14:00 08/09/18 14:00 08/09/18 14:00 08/09/18 14:00 Intake and Output: 08/09/18 08/10/18 18:59 06:59 Intake Total 1100 Balance 1100 - Medications Medications: Current Medications Clonidine HCl (Catapres) 0.1 mg PO Q4H PRN PRN Reason: Symptoms of alcohol withdrawl Folic Acid (Folic Acid) 1 mg PO DAILY [facility] Last Admin: 08/09/18 09:12 Dose: Not Given Furosemide (Lasix) 20 mg PO DAILY [facility] Last Admin: 08/09/18 09:15 Dose: 20 mg Guaifenesin (Robitussin) 200 mg PO Q4H PRN PRN Reason: Cough and congestion Last Admin: 08/09/18 20:40 Dose: 200 mg Hydralazine HCl (Apresoline) 50 mg PO TID [facility] Last Admin: 08/09/18 17:21 Dose: 50 mg Dextrose/Sodium Chloride (Dextrose 5%/0.45% Ns 1000 Ml) 1,000 mls @ 100 mls/hr IV .Q10H [facility] Last Admin: 08/09/18 11:55 Dose: 100 mls/hr Lisinopril (Zestril) 40 mg PO DAILY [facility] Lorazepam (Ativan) 1 mg PO Q8H [facility]; Taper Stop: 08/12/18 17:59 Last Admin: 08/09/18 17:20 Dose: 1 mg Lorazepam (Ativan) 1 mg PO Q6H PRN PRN Reason: Symptoms of alcohol withdrawl Metoclopramide HCl (Reglan) 5 mg IVP Q6H [facility] Last Admin: 08/09/18 16:24 Dose: 5 mg Metoprolol Tartrate (Lopressor) 100 mg PO BID [facility] Last Admin: 08/09/18 17:21 Dose: 100 mg Multivitamins (Hexavitamin) 1 tab PO DAILY [facility] Last Admin: 08/09/18 09:12 Dose: Not Given Ondansetron HCl (Zofran Inj) 4 mg IVP Q6H PRN PRN Reason: Nausea/Vomiting Last Admin: 08/08/18 01:00 Dose: 4 mg Pantoprazole Sodium (Protonix Inj) 40 mg IVP DAILY [facility] Last Admin: 08/09/18 09:12 Dose: 40 mg Rosuvastatin Calcium (Crestor) 10 mg PO HS [facility] Last Admin: 08/09/18 21:30 Dose: 10 mg Thiamine HCl (Vitamin B1 Tab) 100 mg PO DAILY [facility] Last Admin: 08/09/18 09:13 Dose: Not Given Trazodone HCl (Desyrel) 50 mg PO HS [facility] Last Admin: 08/09/18 21:30 Dose: 50 mg - Labs Labs: 08/09/18 06:53 08/09/18 06:53
--- NOTE | 2018-08-10 01:29 | PN ---
DATE: 08/09/2018 SUBJECTIVE: The patient has decreased withdrawal. She is feeling better. She is afebrile. No shortness of breath. Her H and H is slightly dropping. She has been evaluated. Her urine drug screen is positive for cocaine. PHYSICAL EXAMINATION: VITAL SIGNS: Blood pressure 170/80, pulse 77, respiratory rate 18, temperature 98.7. LUNGS: Clear. CVS: S1 and S2, regular. ABDOMEN: Soft and nontender. Bowel sounds are positive. BUYER GRAIN: The patient is awake, alert and oriented x3 and she is shaky. ASSESSMENT: 1. Alcohol withdrawal delirium tremens. 2. Gastrointestinal bleed. The patient has a drop in hemoglobin. She is being seen by Gastroenterology. 3. Hypertension with hypertensive heart disease. PLAN: Monitor the patient for any withdrawal, and we will follow the patient closely. Get Cooney MD
[2018-08-10] MEDS: Dextrose 5%/0.45% NS 1,000 ML IV SCH ×2 (06:58→18:24)
--- NOTE | 2018-08-10 08:50 | CP.PCM.CON ---
History of Present Illness - History of Present Illness History of Present Illness: Reason For Consultation: Uncontrolled HTN HPI: 63 year old female with PMHx of EtOH abuse, HTN, GI ulcer, gastrectomy, COPD/asthma, presents to the ED with rectal bleed x 2 days. Patient with EtOH abuse for many years, has been withdrawing w/ symptom of shaking. Patient states last drink was 2-3 days ago. GI history: -colo on 03/21/19: diverticula, small sessile polyp vs. inverted divert. at prox ascending colon 0.3cm. Poly was not removed due to hig risk of perforation. Bx: One prominent lymphoid aggregate. Reactive epithelium changes. -endo on the same day: medium hiatal hernia, billroth I gastroduodenostomy, erythematous mucosa gastric fundus, esophagus and duodenum normal. Bx: negative for h. pylori. PMHx: as stated above PSHx: cholecystectomy, hysterectomy FHx: NC SocHx: drinks 1 pt vodka a day for many years Meds: see MAR Allergies: NKDA Physical Exam - Constitutional Appears: Other (resting in bed with slight body tremor) - Head Exam Head Exam: ATRAUMATIC, NORMAL INSPECTION - Neck Exam Neck exam: Positive for: Normal Inspection - Respiratory Exam Respiratory Exam: NORMAL BREATHING PATTERN - Extremities Exam Extremities exam: Positive for: normal inspection - Neurological Exam Neurological exam: Alert - Psychiatric Exam Psychiatric exam: Normal Affect, Normal Mood - Skin Skin Exam: Normal Color Assessment & Plan - Assessment and Plan (Free Text) Assessment: 63 year old female with PMHx of EtOH abuse, HTN, GI ulcer, gastrectomy, COPD/asthma, presents to the ED with rectal bleed x 2 days. rectal bleed -ddx: colitis, proctitis, internal and/or external hemorrhoids, IBD, ischemia, infection. Concern for possible malignancy due to elevated CEA and CA 19-9 at 31.2 and 60.1 respectively. However some of the elevation could be 2/2 tobacco and EtOH use. -CTAP w/o contrast on admission: mucosal thickening of rectosigmoid colon concerning for colitis, diverticuli, partial gastrectomy, heaptomegaly -for colonoscopy tomorrow 08/[address] Miranda -colonoscopy prep golytely ordered, NPO after midnight ordered EtOH withdrawal -on librium PRN -Patient placed on ativan taper, managed by psych consult, encourage to continue -medical management per primary team Transaminitis -likely 2/2 long time EtOH abuse -AST 656, ALT 153, AP 244, Tbili 1.5, all uptrending -hep panel negative -IVF -continue to trend LFTs macrocytic anemia -likely 2/2 long time EtOH abuse MCV 100.5. -Folate and B12 wnl -continue to trend CBC especially in the setting of active rectal bleeding COPD/asthma -CXR: COPD/emphysema, biapical pleural thickening -medical management per primary team HTN: Continue Metoprolol for now Past Patient History - Past Medical History & Family History Past Medical History?: Yes - Past Social History Smoking Status: Light Smoker < 10 Cigarettes Daily - CARDIAC Hx Cardiac Disorders: Yes Hx Hypercholesterolemia: Yes Hx Hypertension: Yes - PULMONARY Hx Respiratory Disorders: Yes Hx Asthma: Yes - NEUROLOGICAL Hx Neurological Disorder: No - HEENT Hx HEENT Problems: No - RENAL Hx Chronic Kidney Disease: No - ENDOCRINE/METABOLIC Hx Endocrine Disorders: No - HEMATOLOGICAL/ONCOLOGICAL Hx Blood Disorders: No - INTEGUMENTARY Hx Dermatological Problems: No - MUSCULOSKELETAL/RHEUMATOLOGICAL Hx Falls: Yes - GASTROINTESTINAL Hx Gastrointestinal Disorders: Yes Hx Ulcer: Yes - GENITOURINARY/GYNECOLOGICAL Hx Genitourinary Disorders: No - PSYCHIATRIC Hx Substance Use: Yes (cocaine) - SURGICAL HISTORY Hx Surgeries: Yes Hx Cholecystectomy: Yes - ANESTHESIA Hx Anesthesia: Yes Hx Anesthesia Reactions: No Meds Allergies/Adverse Reactions: Allergies Allergy/AdvReac Type Severity Reaction Status Date / Time No Known Allergies Allergy Unverified 03/07/18 16:28 - Medications Medications: Current Medications Clonidine HCl (Catapres) 0.1 mg PO Q4H PRN PRN Reason: Symptoms of alcohol withdrawl Folic Acid (Folic Acid) 1 mg PO DAILY [facility] Last Admin: 08/09/18 09:12 Dose: Not Given Furosemide (Lasix) 20 mg PO DAILY [facility] Last Admin: 08/09/18 09:15 Dose: 20 mg Guaifenesin (Robitussin) 200 mg PO Q4H PRN PRN Reason: Cough and congestion Last Admin: 08/09/18 20:40 Dose: 200 mg Hydralazine HCl (Apresoline) 50 mg PO TID [facility] Last Admin: 08/09/18 17:21 Dose: 50 mg Dextrose/Sodium Chloride (Dextrose 5%/0.45% Ns 1000 Ml) 1,000 mls @ 100 mls/hr IV .Q10H [facility] Last Admin: 08/10/18 06:58 Dose: 100 mls/hr Lisinopril (Zestril) 40 mg PO DAILY [facility] Lorazepam (Ativan) 1 mg PO Q8H [facility]; Taper Stop: 08/12/18 17:59 Last Admin: 08/10/18 02:00 Dose: Not Given Lorazepam (Ativan) 1 mg PO Q6H PRN PRN Reason: Symptoms of alcohol withdrawl Metoclopramide HCl (Reglan) 5 mg IVP Q6H [facility] Last Admin: 08/10/18 04:06 Dose: 5 mg Metoprolol Tartrate (Lopressor) 100 mg PO BID [facility] Last Admin: 08/09/18 17:21 Dose: 100 mg Multivitamins (Hexavitamin) 1 tab PO DAILY [facility] Last Admin: 08/09/18 09:12 Dose: Not Given Ondansetron HCl (Zofran Inj) 4 mg IVP Q6H PRN PRN Reason: Nausea/Vomiting Last Admin: 08/08/18 01:00 Dose: 4 mg Pantoprazole Sodium (Protonix Inj) 40 mg IVP DAILY [facility] Last Admin: 08/09/18 09:12 Dose: 40 mg Rosuvastatin Calcium (Crestor) 10 mg PO [facility] Last Admin: 08/09/18 21:30 Dose: 10 mg Thiamine HCl (Vitamin B1 Tab) 100 mg PO DAILY [facility] Last Admin: 08/09/18 09:13 Dose: Not Given Trazodone HCl (Desyrel) 50 mg PO [facility] Last Admin: 08/09/18 21:30 Dose: 50 mg Results - Vital Signs Recent Vital Signs: Last Vital Signs Temp 98 F 08/10/18 00:00 Pulse 67 08/10/18 00:00 Resp 20 08/10/18 00:00 BP 147/80 08/10/18 00:00 Pulse Ox 97 08/10/18 00:00 - Labs Result Diagrams: 08/09/18 06:53 08/09/18 06:53 Labs: Laboratory Results - last 24 hr 08/09/18 08/09/18 08/09/18 06:53 06:53 08:20 WBC 4.4 L RBC 2.66 L Hgb 8.9 L Hct 26.7 L MCV 100.4 H MCH 33.6 H MCHC 33.4 RDW 17.0 H Plt Count 119 L D MPV 11.8 H Neut % (Auto) 63.7 Lymph % (Auto) 26.4 Catron % (Auto) 5.6 Eos % (Auto) 2.5 Baso % (Auto) 1.8 Neut # (Auto) 2.8 Lymph # (Auto) 1.2 Catron # (Auto) 0.2 Eos # (Auto) 0.1 Baso # (Auto) 0.1 Differential Comment Sodium 133 Potassium 3.0 L Chloride 100 Carbon Dioxide 26 Anion Gap 10 BUN 3 L Creatinine 0.5 L Est GFR ( Amer) > 60 Est GFR (Non-Af Amer) > 60 POC Glucose (mg/dL) Random Glucose 129 H Calcium 8.5 L Total Bilirubin 0.8 AST 234 H D ALT 96 H D Alkaline Phosphatase 184 H D Total Protein 5.7 L Albumin 3.1 L Globulin 2.5 Albumin/Globulin Ratio 1.2 CA 125 Antigen < 5.5 Urine Opiates Screen Negative Urine Methadone Screen Negative Ur Barbiturates Screen Negative Ur Phencyclidine Scrn Negative Ur Amphetamines Screen Negative U Benzodiazepines Scrn Positive U Oth Cocaine Metabols Positive H U Cannabinoids Screen Negative 08/09/18 16:29 WBC RBC Hgb Hct MCV MCH MCHC RDW Plt Count MPV Neut % (Auto) Lymph % (Auto) Catron % (Auto) Eos % (Auto) Baso % (Auto) Neut # (Auto) Lymph # (Auto) Catron # (Auto) Eos # (Auto) Baso # (Auto) Differential Comment Sodium Potassium Chloride Carbon Dioxide Anion Gap BUN Creatinine Est GFR ( Amer) Est GFR (Non-Af Amer) POC Glucose (mg/dL) 150 H Random Glucose Calcium Total Bilirubin AST ALT Alkaline Phosphatase Total Protein Albumin Globulin Albumin/Globulin Ratio CA 125 Antigen Urine Opiates Screen Urine Methadone Screen Ur Barbiturates Screen Ur Phencyclidine Scrn Ur Amphetamines Screen U Benzodiazepines Scrn U Oth Cocaine Metabols U Cannabinoids Screen
[2018-08-10] MEDS: guaiFENesin 200 mg/10 ml Syrup UD PO PRN ×2 (09:56→14:25)
[2018-08-10] MEDS: Multiple Vitamins Tab PO SCH (10:03)
--- NOTE | 2018-08-10 13:29 | PN ---
DATE: 08/10/2018 LOCATION: 365, bed A. SUBJECTIVE: This 63-year-old female, post colonoscopy yesterday, seen and examined in rounds with less abdominal pain, evidence of active bleeding. No chest pain or palpitation, no reported shortness of breath. The entire chart is reviewed and the patient still has subsequent drop of hemoglobin and hematocrit. Today's latest hemoglobin 8.9, hematocrit 26.7 with elevated liver function tests, but improving gradually. CEA was 31.2 and CA 19-9 is 60.1, elevated blood glucose level 150. PHYSICAL EXAMINATION: GENERAL: A 63-year-old female more awake, alert, oriented with some tremors in the upper extremities, but much less than before. VITAL SIGNS: Afebrile with pulse of 72, respiratory rate 20-22, blood pressure of 140/82. HEENT: Showed pale dry oral mucous membrane. Nonicteric sclerae. LUNGS: Few scattered crepitation. Decreased air entry at bases. HEART: Positive S1 and S2. ABDOMEN: Soft. Bowel sounds are present. No mass or organomegaly. No rebound tenderness or guarding. EXTREMITIES: Without significant clubbing, cyanosis or edema, but with tremors in the upper extremities. IMPRESSION: 1. Colitis, biopsy is still pending. 2. Diverticulosis with possible mild early diverticulitis. 3. Rectal bleeding, most likely secondary to bleeding internal hemorrhoids. 4. Subsequent drop of hemoglobin and hematocrit with re-exacerbation of peptic ulcer disease. 5. Reported history of but not limited to bronchial asthma, hyperlipidemia, hypertension, status post cholecystectomy as well as alcohol abuse. SUGGESTIONS: 1. Continue current management. 2. Due to subsequent drop of hemoglobin and hematocrit, the patient is to be scheduled for EGD when she is more stable clinically. 3. Further recommendation to follow. Simeon Salmeron MD
--- NOTE | 2018-08-10 20:45 | CARD ---
APPROVED REPORT Date of service: 08/10/2018 EXAM: Two-dimensional and M-mode echocardiogram with Doppler and color Doppler. INDICATION Substance use RISK FACTORS Hypertension Hyperlipidemia 2D DIMENSIONS IVSd1.2 (0.7-1.1cm)Aortic Root (2D)2.9 (2.0-3.7cm) LVDd4.4 (3.9-5.9cm)PWd0.9 (0.7-1.1cm) LA [id number] (18-58mL)LVDs3.1 (2.5-4.0cm) FS (%) 29.9 %LVEF (%)57.3 (>50%) LVEF (Marquez's)59.34 % M-Mode DIMENSIONS RVDd2.02 (2.1-3.2cm)Left Atrium (MM)4.98 (2.5-4.0cm) IVSd0.55 (0.7-1.1cm)Aortic Root2.51 (2.2-3.7cm) LVDd5.82 (4.0-5.6cm)Aortic Cusp Exc.1.76 (1.5-2.0cm) PWd0.75 (0.7-1.1cm)FS (%) 47 % LVDs3.06 (2.0-3.8cm)TAPSE23.75 cm LVEF (%)60 (>50%) Aortic Valve AI P 1/2 [id number] Mitral Valve MV E Ckqxqkui87.2cm/sMV A Qyykhrgo897.8cm/sE/A ratio0.8 TDI Lateral E' Peak V3.06cm/sMedial E' Peak V3.64cm/sE/Lateral E'30.1 E/Medial E'25.3 Tricuspid Valve TR Peak [id number]/sTR Peak Gr.[id number] LEFT VENTRICLE The left ventricle is normal size. There is normal left ventricular wall thickness. Left ventricle systolic function is normal. The Ejection Fraction is 65-70%. There is normal LV segmental wall motion. Tissue Doppler imaging reveals abnormal left ventricular diastolic dysfunction. RIGHT VENTRICLE The right ventricle is normal size. There is normal right ventricular wall thickness. The right ventricular systolic function is normal. ATRIA The left atrium is mildly dilated. The right atrium size is normal. The interatrial septum is intact with no evidence for an atrial septal defect. AORTIC VALVE The aortic valve is normal in structure. There is mild aortic regurgitation. There is no aortic valvular stenosis. MITRAL VALVE The mitral valve is normal in structure. There is no evidence of mitral valve prolapse. There is no mitral valve stenosis. Mitral regurgitation is mild. TRICUSPID VALVE The tricuspid valve is normal in structure. There is mild tricuspid regurgitation. Right ventricular systolic pressure is estimated at 30-40 mmHg. There is mild pulmonary hypertension. PULMONIC VALVE The pulmonic valve is not well visualized. There is mild pulmonic valvular regurgitation. GREAT VESSELS The aortic root is normal in size. PERICARDIAL EFFUSION There is no significant pericardial effusion. <Conclusion> Left ventricle systolic function is normal. The Ejection Fraction is 65-70%. Diastolic dysfunction. There is mild aortic regurgitation. Mitral regurgitation is mild. There is mild tricuspid regurgitation. There is mild pulmonary hypertension. There is mild pulmonic valvular regurgitation.
[2018-08-11 07:57] LABS: BASO # 0.1 K/uL (0.0-0.2); BASO % 1.6 % (0.0-2.0); EOS # 0.2 K/uL (0.0-0.7); EOS % 4.5 % (0.0-4.0); HEMOGLOBIN 9.6 g/dL (11.0-16.0); LYMPH # 1.6 K/uL (1.0-4.3); LYMPH % 31.4 % (20.0-40.0); MEAN CELL VOLUME 101.8 fL (81.0-99.0); MEAN CORPUSCULAR HEMOGLOBIN 33.4 pg (27.0-31.0); MEAN CORPUSCULAR HGB CONC 32.8 g/dL (33.0-37.0); MEAN PLATELET VOLUME 11.2 fL (7.2-11.7); MONO # 0.4 K/uL (0.0-0.8); MONO % 8.2 % (0.0-10.0); NEUT # 2.8 K/uL (1.8-7.0); NEUT % 54.3 % (50.0-75.0); NRBC % 0.1 % (0.0-2.0); RBC 2.88 Mil/uL (3.80-5.20); RED CELL DISTRIBUTION WIDTH 17.4 % (11.5-14.5); WHITE BLOOD COUNT 5.2 K/uL (4.8-10.8)
[2018-08-11 08:14] LABS: ALB/GLOB RATIO 1.3 (1.0-2.1); ALBUMIN 3.6 g/dL (3.5-5.0); ALT/SGPT 79 U/L (9-52); AST/SGOT 126 U/L (14-36); BLOOD UREA NITROGEN 3 mg/dL (7-17); CALCIUM 9.1 mg/dl (8.6-10.4); GFR NON-AFRICAN AMERICAN > 60
[2018-08-11] MEDS: Multiple Vitamins Tab PO SCH (10:49)
[2018-08-11] MEDS: guaiFENesin 200 mg/10 ml Syrup UD PO PRN (10:51)
--- NOTE | 2018-08-11 15:56 | CP.PCM.PN ---
Subjective - Date & Time of Evaluation Date of Evaluation: 08/11/18 Time of Evaluation: 15:54 - Subjective Subjective: Patient seen and evaluated HTN still not under control Denies chest pain and dyspnea Physical Exam - Constitutional Appears: Other (resting in bed with slight body tremor) - Head Exam Head Exam: ATRAUMATIC, NORMAL INSPECTION - Neck Exam Neck exam: Positive for: Normal Inspection - Respiratory Exam Respiratory Exam: NORMAL BREATHING PATTERN - Extremities Exam Extremities exam: Positive for: normal inspection - Neurological Exam Neurological exam: Alert - Psychiatric Exam Psychiatric exam: Normal Affect, Normal Mood - Skin Skin Exam: Normal Color Assessment & Plan - Assessment and Plan (Free Text) Assessment: 63 year old female with PMHx of EtOH abuse, HTN, GI ulcer, gastrectomy, COPD/asthma, presents to the ED with rectal bleed x 2 days. rectal bleed -ddx: colitis, proctitis, internal and/or external hemorrhoids, IBD, ischemia, infection. Concern for possible malignancy due to elevated CEA and CA 19-9 at 31.2 and 60.1 respectively. However some of the elevation could be 2/2 tobacco and EtOH use. -CTAP w/o contrast on admission: mucosal thickening of rectosigmoid colon concerning for colitis, diverticuli, partial gastrectomy, heaptomegaly -for colonoscopy tomorrow 08/[address] Miranda -colonoscopy prep golytely ordered, NPO after midnight ordered EtOH withdrawal -on librium PRN -Patient placed on ativan taper, managed by psych consult, encourage to continue -medical management per primary team Transaminitis -likely 2/2 long time EtOH abuse -AST 656, ALT 153, AP 244, Tbili 1.5, all uptrending -hep panel negative -IVF -continue to trend LFTs macrocytic anemia -likely 2/2 long time EtOH abuse MCV 100.5. -Folate and B12 wnl -continue to trend CBC especially in the setting of active rectal bleeding COPD/asthma -CXR: COPD/emphysema, biapical pleural thickening -medical management per primary team HTN: Continue Metoprolol for now Hydralazine added Will monitor Objective - Vital Signs/Intake and Output Vital Signs (last 24 hours): Temp Pulse Resp BP Pulse Ox 97.8 F 55 L 20 151/89 H 98 08/11/18 15:00 08/11/18 15:00 08/11/18 15:00 08/11/18 15:00 08/11/18 15:00 Intake and Output: 08/11/18 08/11/18 06:59 18:59 Intake Total 800 50 Balance 800 50 - Medications Medications: Current Medications Clonidine HCl (Catapres) 0.1 mg PO Q4H PRN PRN Reason: Symptoms of alcohol withdrawl Last Admin: 08/11/18 10:49 Dose: 0.1 mg Folic Acid (Folic Acid) 1 mg PO DAILY [facility] Last Admin: 08/11/18 10:50 Dose: 1 mg Furosemide (Lasix) 20 mg PO DAILY [facility] Last Admin: 08/11/18 10:51 Dose: 20 mg Guaifenesin (Robitussin) 200 mg PO Q4H PRN PRN Reason: Cough and congestion Last Admin: 08/11/18 10:51 Dose: 200 mg Hydralazine HCl (Apresoline) 50 mg PO TID [facility] Last Admin: 08/11/18 14:11 Dose: Not Given Lisinopril (Zestril) 40 mg PO DAILY [facility] Last Admin: 08/11/18 10:50 Dose: 40 mg Lorazepam (Ativan) 1 mg PO Q12H [facility]; Taper Stop: 08/12/18 17:59 Last Admin: 08/11/18 05:42 Dose: 1 mg Lorazepam (Ativan) 1 mg PO Q6H PRN PRN Reason: Symptoms of alcohol withdrawl Metoclopramide HCl (Reglan) 5 mg IVP Q6H [facility] Last Admin: 08/11/18 10:49 Dose: 5 mg Metoprolol Tartrate (Lopressor) 100 mg PO BID [facility] Last Admin: 08/11/18 10:54 Dose: 100 mg Multivitamins (Hexavitamin) 1 tab PO DAILY [facility] Last Admin: 08/11/18 10:49 Dose: 1 tab Ondansetron HCl (Zofran Inj) 4 mg IVP Q6H PRN PRN Reason: Nausea/Vomiting Last Admin: 08/08/18 01:00 Dose: 4 mg Pantoprazole Sodium (Protonix Inj) 40 mg IVP DAILY [facility] Last Admin: 08/11/18 10:50 Dose: 40 mg Rosuvastatin Calcium (Crestor) 10 mg PO HS [facility] Last Admin: 08/10/18 22:30 Dose: 10 mg Thiamine HCl (Vitamin B1 Tab) 100 mg PO DAILY [facility] Last Admin: 08/11/18 10:49 Dose: 100 mg Trazodone HCl (Desyrel) 50 mg PO [facility] Last Admin: 08/10/18 22:30 Dose: 50 mg - Labs Labs: 08/11/18 07:52 08/11/18 07:52
--- NOTE | 2018-08-11 18:57 | CP.PCM.PN ---
Subjective - Date & Time of Evaluation Date of Evaluation: 08/10/18 Time of Evaluation: 08:20 - Subjective Subjective: dictated Objective - Vital Signs/Intake and Output Vital Signs (last 24 hours): Temp Pulse Resp BP Pulse Ox 97.8 F 55 L 20 151/89 H 98 08/11/18 15:00 08/11/18 15:00 08/11/18 15:00 08/11/18 15:00 08/11/18 15:00 Intake and Output: 08/11/18 08/11/18 06:59 18:59 Intake Total 800 50 Balance 800 50 - Medications Medications: Current Medications Acetaminophen (Tylenol 325mg Tab) 650 mg PO Q4 PRN PRN Reason: Pain, moderate (4-7) Last Admin: 08/11/18 16:40 Dose: 650 mg Clonidine HCl (Catapres) 0.1 mg PO Q4H PRN PRN Reason: Symptoms of alcohol withdrawl Last Admin: 08/11/18 10:49 Dose: 0.1 mg Folic Acid (Folic Acid) 1 mg PO DAILY [facility] Last Admin: 08/11/18 10:50 Dose: 1 mg Furosemide (Lasix) 20 mg PO DAILY [facility] Last Admin: 08/11/18 10:51 Dose: 20 mg Guaifenesin (Robitussin) 200 mg PO Q4H PRN PRN Reason: Cough and congestion Last Admin: 08/11/18 10:51 Dose: 200 mg Hydralazine HCl (Apresoline) 50 mg PO TID [facility] Last Admin: 08/11/18 17:52 Dose: 50 mg Lisinopril (Zestril) 40 mg PO DAILY [facility] Last Admin: 08/11/18 10:50 Dose: 40 mg Lorazepam (Ativan) 1 mg PO Q24H [facility]; Taper Stop: 08/12/18 17:59 Last Admin: 08/11/18 17:52 Dose: 1 mg Lorazepam (Ativan) 1 mg PO Q6H PRN PRN Reason: Symptoms of alcohol withdrawl Metoclopramide HCl (Reglan) 5 mg IVP Q6H [facility] Last Admin: 08/11/18 16:44 Dose: 5 mg Metoprolol Tartrate (Lopressor) 100 mg PO BID [facility] Last Admin: 08/11/18 17:52 Dose: 100 mg Multivitamins (Hexavitamin) 1 tab PO DAILY [facility] Last Admin: 08/11/18 10:49 Dose: 1 tab Ondansetron HCl (Zofran Inj) 4 mg IVP Q6H PRN PRN Reason: Nausea/Vomiting Last Admin: 08/08/18 01:00 Dose: 4 mg Pantoprazole Sodium (Protonix Inj) 40 mg IVP DAILY [facility] Last Admin: 08/11/18 10:50 Dose: 40 mg Rosuvastatin Calcium (Crestor) 10 mg PO HS [facility] Last Admin: 08/10/18 22:30 Dose: 10 mg Thiamine HCl (Vitamin B1 Tab) 100 mg PO DAILY [facility] Last Admin: 08/11/18 10:49 Dose: 100 mg Trazodone HCl (Desyrel) 50 mg PO HS [facility] Last Admin: 08/10/18 22:30 Dose: 50 mg - Labs Labs: 08/11/18 07:52 08/11/18 07:52
--- NOTE | 2018-08-11 18:58 | CP.PCM.PN ---
Subjective - Date & Time of Evaluation Date of Evaluation: 08/11/18 Time of Evaluation: 08:20 - Subjective Subjective: dictated Objective - Vital Signs/Intake and Output Vital Signs (last 24 hours): Temp Pulse Resp BP Pulse Ox 97.8 F 55 L 20 151/89 H 98 08/11/18 15:00 08/11/18 15:00 08/11/18 15:00 08/11/18 15:00 08/11/18 15:00 Intake and Output: 08/11/18 08/11/18 06:59 18:59 Intake Total 800 50 Balance 800 50 - Medications Medications: Current Medications Acetaminophen (Tylenol 325mg Tab) 650 mg PO Q4 PRN PRN Reason: Pain, moderate (4-7) Last Admin: 08/11/18 16:40 Dose: 650 mg Clonidine HCl (Catapres) 0.1 mg PO Q4H PRN PRN Reason: Symptoms of alcohol withdrawl Last Admin: 08/11/18 10:49 Dose: 0.1 mg Folic Acid (Folic Acid) 1 mg PO DAILY [facility] Last Admin: 08/11/18 10:50 Dose: 1 mg Furosemide (Lasix) 20 mg PO DAILY [facility] Last Admin: 08/11/18 10:51 Dose: 20 mg Guaifenesin (Robitussin) 200 mg PO Q4H PRN PRN Reason: Cough and congestion Last Admin: 08/11/18 10:51 Dose: 200 mg Hydralazine HCl (Apresoline) 50 mg PO TID [facility] Last Admin: 08/11/18 17:52 Dose: 50 mg Lisinopril (Zestril) 40 mg PO DAILY [facility] Last Admin: 08/11/18 10:50 Dose: 40 mg Lorazepam (Ativan) 1 mg PO Q24H [facility]; Taper Stop: 08/12/18 17:59 Last Admin: 08/11/18 17:52 Dose: 1 mg Lorazepam (Ativan) 1 mg PO Q6H PRN PRN Reason: Symptoms of alcohol withdrawl Metoclopramide HCl (Reglan) 5 mg IVP Q6H [facility] Last Admin: 08/11/18 16:44 Dose: 5 mg Metoprolol Tartrate (Lopressor) 100 mg PO BID [facility] Last Admin: 08/11/18 17:52 Dose: 100 mg Multivitamins (Hexavitamin) 1 tab PO DAILY [facility] Last Admin: 08/11/18 10:49 Dose: 1 tab Ondansetron HCl (Zofran Inj) 4 mg IVP Q6H PRN PRN Reason: Nausea/Vomiting Last Admin: 08/08/18 01:00 Dose: 4 mg Pantoprazole Sodium (Protonix Inj) 40 mg IVP DAILY [facility] Last Admin: 08/11/18 10:50 Dose: 40 mg Rosuvastatin Calcium (Crestor) 10 mg PO HS [facility] Last Admin: 08/10/18 22:30 Dose: 10 mg Thiamine HCl (Vitamin B1 Tab) 100 mg PO DAILY [facility] Last Admin: 08/11/18 10:49 Dose: 100 mg Trazodone HCl (Desyrel) 50 mg PO HS [facility] Last Admin: 08/10/18 22:30 Dose: 50 mg - Labs Labs: 08/11/18 07:52 08/11/18 07:52
--- NOTE | 2018-08-11 23:13 | PN ---
DATE: 08/11/2018 SUBJECTIVE: The patient is feeling better. nausea, decreased tremulousness. No shortness of breath. No chest pain. No nausea, vomiting. PHYSICAL EXAMINATION: VITAL SIGNS: Blood pressure 151/89, pulse 55, respiratory rate 20, temperature 97.8. LUNGS: Clear. CARDIOVASCULAR SYSTEM: S1, S2, regular. ABDOMEN: Soft. ASSESSMENT: 1. Alcoholic liver disease. 2. Alcohol withdrawal delirium tremens. 3. Gastrointestinal bleed. 4. Hypertension. PLAN: Continue current medications. The patient also has urine drug screen positive for cocaine. The patient is stable. Monitor the patient. Get Cooney MD
[2018-08-12] MEDS ORDERED: Propofol 10 mg/ml Inj (20 ML) ONE (10:14)
[2018-08-12] MEDS ORDERED: Lactated Ringer's 500 ML IV ONE ×2 (10:14)
[2018-08-12] MEDS ORDERED: Labetalol 25mg/5ml Syringe ONE (10:31)
[2018-08-12] MEDS ORDERED: Metoprolol 1 mg/ml Inj IVP ONE (10:51)
[2018-08-12] MEDS ORDERED: Metoprolol 1 mg/ml Inj ONE (10:52)
[2018-08-12] MEDS ORDERED: Magnesium Citrate Oral SOL (300 ml) PO ONE (10:56)
[2018-08-12] MEDS: Multiple Vitamins Tab PO SCH (11:23)
--- NOTE | 2018-08-12 17:00 | CT ---
Date of service: 08/12/2018 PROCEDURE: CT HEAD WITHOUT CONTRAST. HISTORY: AMS COMPARISON: None available. TECHNIQUE: Axial computed tomography images were obtained through the head/brain without intravenous contrast. Radiation dose: Total exam DLP = 1020.55 mGy-cm. This CT exam was performed using one or more of the following dose reduction techniques: Automated exposure control, adjustment of the mA and/or kV according to patient size, and/or use of iterative reconstruction technique. FINDINGS: HEMORRHAGE: No intracranial hemorrhage. BRAIN: No mass effect or edema. The grider-white matter differentiation appears intact. Please note that MRI with diffusion imaging is more sensitive in the detection of acute ischemic event. VENTRICLES: No hydrocephalus. CALVARIUM: Unremarkable. PARANASAL SINUSES: Unremarkable as visualized. No significant inflammatory changes. MASTOID AIR CELLS: Unremarkable as visualized. No inflammatory changes. OTHER FINDINGS: None. IMPRESSION: No acute intracranial pathology identified.
[2018-08-12 18:43] LABS: ALB/GLOB RATIO 1.2 (1.0-2.1); ALBUMIN 3.5 g/dL (3.5-5.0); ALT/SGPT 60 U/L (9-52); AST/SGOT 97 U/L (14-36); BLOOD UREA NITROGEN 9 mg/dL (7-17); CALCIUM 9.2 mg/dl (8.6-10.4); GFR NON-AFRICAN AMERICAN > 60
[2018-08-12] MEDS: Magnesium Oxide 400 mg Tab UD PO SCH (18:55)
[2018-08-12 19:01] LABS: BARBITURATES, UR NEGATIVE (NEGATIVE); OPIATES, UR NEGATIVE (NEGATIVE); PHENCYCLIDINE, UR NEGATIVE (NEGATIVE)
[2018-08-12 19:02] LABS: BENZODIAZEPINES, UR POSITIVE (NEGATIVE)
--- NOTE | 2018-08-12 21:31 | CP.PCM.PN ---
Subjective - Date & Time of Evaluation Date of Evaluation: 08/12/18 Time of Evaluation: 08:00 - Subjective Subjective: dictated Objective - Vital Signs/Intake and Output Vital Signs (last 24 hours): Temp Pulse Resp BP Pulse Ox 97.3 F L 60 20 162/82 H 96 08/12/18 15:00 08/12/18 15:00 08/12/18 15:00 08/12/18 15:00 08/12/18 15:00 - Medications Medications: Current Medications Acetaminophen (Tylenol 325mg Tab) 325 mg PO Q4 PRN PRN Reason: Pain, moderate (4-7) Clonidine HCl (Catapres) 0.3 mg PO Q8 [facility] Folic Acid (Folic Acid) 1 mg PO DAILY [facility] Last Admin: 08/12/18 11:22 Dose: 1 mg Furosemide (Lasix) 20 mg PO DAILY [facility] Last Admin: 08/12/18 11:22 Dose: 20 mg Guaifenesin (Robitussin) 200 mg PO Q4H PRN PRN Reason: Cough and congestion Last Admin: 08/11/18 10:51 Dose: 200 mg Lisinopril (Zestril) 40 mg PO DAILY [facility] Last Admin: 08/12/18 11:22 Dose: 40 mg Lorazepam (Ativan) 1 mg PO Q6H PRN PRN Reason: Symptoms of alcohol withdrawl Magnesium Oxide (Mag-Ox) 400 mg PO BID [facility] Stop: 08/15/18 18:01 Last Admin: 08/12/18 18:55 Dose: 400 mg Metoclopramide HCl (Reglan) 10 mg IVP Q6H [facility] Last Admin: 08/12/18 16:56 Dose: 10 mg Metoprolol Tartrate (Lopressor) 100 mg PO BID [facility] Last Admin: 08/12/18 18:55 Dose: 100 mg Multivitamins (Hexavitamin) 1 tab PO DAILY [facility] Last Admin: 08/12/18 11:23 Dose: 1 tab Ondansetron HCl (Zofran Inj) 4 mg IVP Q6H PRN PRN Reason: Nausea/Vomiting Last Admin: 08/08/18 01:00 Dose: 4 mg Pantoprazole Sodium (Protonix Inj) 40 mg IVP DAILY [facility] Last Admin: 08/12/18 11:23 Dose: 40 mg Rosuvastatin Calcium (Crestor) 10 mg PO HS [facility] Last Admin: 02/10/19 21:59 Dose: 10 mg Thiamine HCl (Vitamin B1 Tab) 100 mg PO DAILY [facility] Last Admin: 08/12/18 11:22 Dose: 100 mg Trazodone HCl (Desyrel) 50 mg PO [facility] Last Admin: 08/11/18 22:00 Dose: 50 mg - Labs Labs: 08/11/18 07:52 08/12/18 17:43
--- NOTE | 2018-08-13 07:05 | CP.PCM.PN ---
Subjective - Date & Time of Evaluation Date of Evaluation: 08/12/18 Time of Evaluation: 16:30 - Subjective Subjective: Patient seen and evaluated Denies chest pain and dyspnea Physical Exam - Constitutional Appears: Other (resting in bed with slight body tremor) - Head Exam Head Exam: ATRAUMATIC, NORMAL INSPECTION - Neck Exam Neck exam: Positive for: Normal Inspection - Respiratory Exam Respiratory Exam: NORMAL BREATHING PATTERN - Extremities Exam Extremities exam: Positive for: normal inspection - Neurological Exam Neurological exam: Alert - Psychiatric Exam Psychiatric exam: Normal Affect, Normal Mood - Skin Skin Exam: Normal Color Assessment & Plan - Assessment and Plan (Free Text) Assessment: 63 year old female with PMHx of EtOH abuse, HTN, GI ulcer, gastrectomy, COPD/asthma, presents to the ED with rectal bleed x 2 days. rectal bleed -ddx: colitis, proctitis, internal and/or external hemorrhoids, IBD, ischemia, infection. Concern for possible malignancy due to elevated CEA and CA 19-9 at 31.2 and 60.1 respectively. However some of the elevation could be 2/2 tobacco and EtOH use. -CTAP w/o contrast on admission: mucosal thickening of rectosigmoid colon concerning for colitis, diverticuli, partial gastrectomy, heaptomegaly -for colonoscopy tomorrow 08/[address] Miranda -colonoscopy prep golytely ordered, NPO after midnight ordered EtOH withdrawal -on librium PRN -Patient placed on ativan taper, managed by psych consult, encourage to continue -medical management per primary team Transaminitis -likely 2/2 long time EtOH abuse -AST 656, ALT 153, AP 244, Tbili 1.5, all uptrending -hep panel negative -IVF -continue to trend LFTs macrocytic anemia -likely 2/2 long time EtOH abuse MCV 100.5. -Folate and B12 wnl -continue to trend CBC especially in the setting of active rectal bleeding COPD/asthma -CXR: COPD/emphysema, biapical pleural thickening -medical management per primary team HTN: Continue Metoprolol for now Clonidine added Will monitor Objective - Vital Signs/Intake and Output Vital Signs (last 24 hours): Temp Pulse Resp BP Pulse Ox 98.5 F 64 20 172/78 H 95 08/12/18 23:45 08/13/18 05:25 08/12/18 23:45 08/13/18 05:25 08/12/18 23:45 Intake and Output: 08/13/18 08/13/18 06:59 18:59 Intake Total 380 Balance 380 - Medications Medications: Current Medications Acetaminophen (Tylenol 325mg Tab) 325 mg PO Q4 PRN PRN Reason: Pain, moderate (4-7) Clonidine HCl (Catapres) 0.3 mg PO Q8 [facility] Last Admin: 08/13/18 05:27 Dose: 0.3 mg Folic Acid (Folic Acid) 1 mg PO DAILY [facility] Last Admin: 08/12/18 11:22 Dose: 1 mg Furosemide (Lasix) 20 mg PO DAILY [facility] Last Admin: 08/12/18 11:22 Dose: 20 mg Guaifenesin (Robitussin) 200 mg PO Q4H PRN PRN Reason: Cough and congestion Last Admin: 08/11/18 10:51 Dose: 200 mg Lisinopril (Zestril) 40 mg PO DAILY [facility] Last Admin: 08/12/18 11:22 Dose: 40 mg Lorazepam (Ativan) 1 mg PO Q6H PRN PRN Reason: Symptoms of alcohol withdrawl Magnesium Oxide (Mag-Ox) 400 mg PO BID [facility] Stop: 08/15/18 18:01 Last Admin: 08/12/18 18:55 Dose: 400 mg Metoclopramide HCl (Reglan) 10 mg IVP Q6H [facility] Last Admin: 08/12/18 22:01 Dose: 10 mg Metoprolol Tartrate (Lopressor) 100 mg PO BID [facility] Last Admin: 08/12/18 18:55 Dose: 100 mg Multivitamins (Hexavitamin) 1 tab PO DAILY [facility] Last Admin: 08/12/18 11:23 Dose: 1 tab Ondansetron HCl (Zofran Inj) 4 mg IVP Q6H PRN PRN Reason: Nausea/Vomiting Last Admin: 08/08/18 01:00 Dose: 4 mg Pantoprazole Sodium (Protonix Inj) 40 mg IVP DAILY [facility] Last Admin: 08/12/18 11:23 Dose: 40 mg Rosuvastatin Calcium (Crestor) 10 mg PO HS [facility] Last Admin: 08/12/18 22:01 Dose: 10 mg Thiamine HCl (Vitamin B1 Tab) 100 mg PO DAILY [facility] Last Admin: 08/12/18 11:22 Dose: 100 mg Trazodone HCl (Desyrel) 50 mg PO HS [facility] Last Admin: 08/12/18 22:02 Dose: 50 mg - Labs Labs: 08/11/18 07:52 08/12/18 17:43
[2018-08-13 08:19] LABS: HEMOGLOBIN 9.6 g/dL (11.0-16.0); MEAN CELL VOLUME 100.7 fL (81.0-99.0); MEAN CORPUSCULAR HEMOGLOBIN 34.1 pg (27.0-31.0); MEAN CORPUSCULAR HGB CONC 33.9 g/dL (33.0-37.0); MEAN PLATELET VOLUME 11.8 fL (7.2-11.7); RBC 2.82 Mil/uL (3.80-5.20); RED CELL DISTRIBUTION WIDTH 17.1 % (11.5-14.5); WHITE BLOOD COUNT 6.7 K/uL (4.8-10.8)
[2018-08-13 08:33] LABS: BLOOD UREA NITROGEN 8 mg/dL (7-17); CALCIUM 9.4 mg/dl (8.6-10.4); GFR NON-AFRICAN AMERICAN > 60
[2018-08-13] MEDS ORDERED: Pneumococcal 23-Valent Vaccine IM ONE (10:00)
[2018-08-13] MEDS: Magnesium Oxide 400 mg Tab UD PO SCH ×2 (10:02→17:19)
[2018-08-13] MEDS: Potassium Chloride 20 mEq ER Tab PO SCH (10:03)
[2018-08-13] MEDS: Multiple Vitamins Tab PO SCH (10:03)
[2018-08-13] MEDS ORDERED: Propofol 10 mg/ml Inj (20 ML) ONE (11:27)
[2018-08-13] MEDS ORDERED: Midazolam 2 MG/2 ML VIAL ONE (11:31)
[2018-08-13] MEDS ORDERED: Enalaprilat 2.5 MG/2 ML IV ONE (12:25)
[2018-08-13] MEDS: Enalaprilat 2.5 MG/2 ML IVP SCH ×2 (12:36→12:55)
--- NOTE | 2018-08-13 13:33 | PCM.ANES ---
Assessment & Plan - Assessment and Plan (Free Text) Assessment: Pt is a 63 yo f ho htn, etoh abuse sp EGD. intra and post-operatively, pt had elevated BP. Pt received unable to tolerate po meds therefore vasotec iv adminstered. Minimally effective to patients sbp. Hydralazine unavailable through pharmacy. Notified Dr. tate. Will admit patient to telemetry at this time and hold any BB due to low HR.
--- NOTE | 2018-08-13 23:12 | CP.PCM.PN ---
Subjective - Date & Time of Evaluation Date of Evaluation: 08/13/18 Time of Evaluation: 08:20 - Subjective Subjective: dictated Objective - Vital Signs/Intake and Output Vital Signs (last 24 hours): Temp Pulse Resp BP Pulse Ox 98 F 55 L 18 112/69 93 L 08/13/18 15:13 08/13/18 15:13 08/13/18 15:13 08/13/18 15:13 08/13/18 15:13 Intake and Output: 08/13/18 08/14/18 18:59 06:59 Intake Total 200 400 Output Total 100 400 Balance 100 0 - Medications Medications: Current Medications Acetaminophen (Tylenol 325mg Tab) 325 mg PO Q4 PRN PRN Reason: Pain, moderate (4-7) Last Admin: 08/13/18 19:40 Dose: 325 mg Clonidine HCl (Catapres) 0.3 mg PO Q8 [facility] Last Admin: 08/13/18 20:59 Dose: 0.3 mg Folic Acid (Folic Acid) 1 mg PO DAILY [facility] Last Admin: 08/13/18 10:03 Dose: Not Given Furosemide (Lasix) 20 mg PO DAILY [facility] Last Admin: 08/13/18 10:03 Dose: Not Given Guaifenesin (Robitussin) 200 mg PO Q4H PRN PRN Reason: Cough and congestion Last Admin: 08/11/18 10:51 Dose: 200 mg Lisinopril (Zestril) 40 mg PO DAILY [facility] Lorazepam (Ativan) 1 mg PO Q6H PRN PRN Reason: Symptoms of alcohol withdrawl Magnesium Oxide (Mag-Ox) 400 mg PO BID [facility] Stop: 08/15/18 18:01 Last Admin: 08/13/18 17:19 Dose: 400 mg Metoclopramide HCl (Reglan) 10 mg IVP Q6H [facility] Last Admin: 08/13/18 22:33 Dose: 10 mg Metoprolol Tartrate (Lopressor) 100 mg PO BID [facility] Last Admin: 08/13/18 10:01 Dose: Not Given Multivitamins (Hexavitamin) 1 tab PO DAILY [facility] Last Admin: 08/13/18 10:03 Dose: Not Given Ondansetron HCl (Zofran Inj) 4 mg IVP Q6H PRN PRN Reason: Nausea/Vomiting Last Admin: 08/08/18 01:00 Dose: 4 mg Pantoprazole Sodium (Protonix Inj) 40 mg IVP DAILY [facility] Last Admin: 08/13/18 09:59 Dose: 40 mg Potassium Chloride (K-Dur 20 Meq Er Tab) 20 meq PO DAILY [facility] Stop: 08/16/18 10:01 Last Admin: 08/13/18 10:03 Dose: Not Given Rosuvastatin Calcium (Crestor) 10 mg PO HS [facility] Last Admin: 08/13/18 20:59 Dose: 10 mg Thiamine HCl (Vitamin B1 Tab) 100 mg PO DAILY [facility] Last Admin: 08/13/18 10:02 Dose: Not Given Trazodone HCl (Desyrel) 50 mg PO HS [facility] Last Admin: 08/13/18 20:59 Dose: 50 mg - Labs Labs: 08/13/18 08:12 08/13/18 08:12
[2018-08-14 01:55] VITALS: RESP 20
--- NOTE | 2018-08-14 02:48 | PN ---
DATE: 08/13/2018 SUBJECTIVE: The patient, [place], had an episode of bradycardia in the OR. Her blood pressure is down. No fever. No chills. She feels calm, quiet. Her H and H are stable. PHYSICAL EXAMINATION: VITAL SIGNS: Blood pressure 204/81, pulse 58, respiratory rate 20, and temperature 98.4. LUNGS: Clear. CARDIOVASCULAR SYSTEM: S1 and S2 are regular. Bradycardia. ABDOMEN: Soft. ASSESSMENT: 1. Bradycardia, which was due to a combination of beta shira and clonidine. Discontinue beta blockers. This continued to be monitored. 2. Anemia of gastrointestinal bleed. 3. Alcoholism with gastrointestinal bleed. PLAN: Continue to monitor. Hold beta shira. Get Cooney MD
[2018-08-14] MEDS: guaiFENesin 200 mg/10 ml Syrup UD PO PRN (04:57)
--- NOTE | 2018-08-14 07:54 | CP.PCM.PN ---
Subjective - Date & Time of Evaluation Date of Evaluation: 08/13/18 Time of Evaluation: 19:20 - Subjective Subjective: Patient seen and evaluated Denies chest pain and dyspnea Uncontrolled HTN Physical Exam - Constitutional Appears: Other (resting in bed with slight body tremor) - Head Exam Head Exam: ATRAUMATIC, NORMAL INSPECTION - Neck Exam Neck exam: Positive for: Normal Inspection - Respiratory Exam Respiratory Exam: NORMAL BREATHING PATTERN - Extremities Exam Extremities exam: Positive for: normal inspection - Neurological Exam Neurological exam: Alert - Psychiatric Exam Psychiatric exam: Normal Affect, Normal Mood - Skin Skin Exam: Normal Color Assessment & Plan - Assessment and Plan (Free Text) Assessment: 63 year old female with PMHx of EtOH abuse, HTN, GI ulcer, gastrectomy, COPD/asthma, presents to the ED with rectal bleed x 2 days. rectal bleed -ddx: colitis, proctitis, internal and/or external hemorrhoids, IBD, ischemia, infection. Concern for possible malignancy due to elevated CEA and CA 19-9 at 31.2 and 60.1 respectively. However some of the elevation could be 2/2 tobacco and EtOH use. -CTAP w/o contrast on admission: mucosal thickening of rectosigmoid colon concerning for colitis, diverticuli, partial gastrectomy, heaptomegaly -for colonoscopy tomorrow 08/[address] Miranda -colonoscopy prep golytely ordered, NPO after midnight ordered EtOH withdrawal -on librium PRN -Patient placed on ativan taper, managed by psych consult, encourage to continue -medical management per primary team Transaminitis -likely 2/2 long time EtOH abuse -AST 656, ALT 153, AP 244, Tbili 1.5, all uptrending -hep panel negative -IVF -continue to trend LFTs macrocytic anemia -likely 2/2 long time EtOH abuse MCV 100.5. -Folate and B12 wnl -continue to trend CBC especially in the setting of active rectal bleeding COPD/asthma -CXR: COPD/emphysema, biapical pleural thickening -medical management per primary team HTN: Continue Metoprolol for now Clonidine added May need up titrate BP meds Objective - Vital Signs/Intake and Output Vital Signs (last 24 hours): Temp Pulse Resp BP Pulse Ox 98.5 F 52 L 20 185/67 H 95 08/14/18 04:40 08/14/18 04:40 08/14/18 04:40 08/14/18 06:38 08/14/18 04:40 Intake and Output: 08/14/18 08/14/18 06:59 18:59 Intake Total 400 Output Total 400 Balance 0 - Medications Medications: Current Medications Acetaminophen (Tylenol 325mg Tab) 325 mg PO Q4 PRN PRN Reason: Pain, moderate (4-7) Last Admin: 08/13/18 19:40 Dose: 325 mg Clonidine HCl (Catapres) 0.3 mg PO Q8 [facility] Last Admin: 08/14/18 05:45 Dose: Not Given Folic Acid (Folic Acid) 1 mg PO DAILY [facility] Last Admin: 08/13/18 10:03 Dose: Not Given Furosemide (Lasix) 20 mg PO DAILY [facility] Last Admin: 08/13/18 10:03 Dose: Not Given Guaifenesin (Robitussin) 200 mg PO Q4H PRN PRN Reason: Cough and congestion Last Admin: 08/14/18 04:57 Dose: 200 mg Lisinopril (Zestril) 40 mg PO DAILY [facility] Lorazepam (Ativan) 1 mg PO Q6H PRN PRN Reason: Symptoms of alcohol withdrawl Last Admin: 08/14/18 04:13 Dose: 1 mg Magnesium Oxide (Mag-Ox) 400 mg PO BID [facility] Stop: 08/15/18 18:01 Last Admin: 08/13/18 17:19 Dose: 400 mg Metoclopramide HCl (Reglan) 10 mg IVP Q6H [facility] Last Admin: 08/14/18 04:08 Dose: 10 mg Metoprolol Tartrate (Lopressor) 100 mg PO BID [facility] Last Admin: 08/13/18 10:01 Dose: Not Given Multivitamins (Hexavitamin) 1 tab PO DAILY [facility] Last Admin: 08/13/18 10:03 Dose: Not Given Ondansetron HCl (Zofran Inj) 4 mg IVP Q6H PRN PRN Reason: Nausea/Vomiting Last Admin: 08/08/18 01:00 Dose: 4 mg Pantoprazole Sodium (Protonix Inj) 40 mg IVP DAILY [facility] Last Admin: 08/13/18 09:59 Dose: 40 mg Potassium Chloride (K-Dur 20 Meq Er Tab) 20 meq PO DAILY [facility] Stop: 08/16/18 10:01 Last Admin: 08/13/18 10:03 Dose: Not Given Rosuvastatin Calcium (Crestor) 10 mg PO HS [facility] Last Admin: 08/13/18 20:59 Dose: 10 mg Thiamine HCl (Vitamin B1 Tab) 100 mg PO DAILY [facility] Last Admin: 08/13/18 10:02 Dose: Not Given Trazodone HCl (Desyrel) 50 mg PO HS [facility] Last Admin: 08/13/18 20:59 Dose: 50 mg - Labs Labs: 08/13/18 08:12 08/13/18 08:12
[2018-08-14] MEDS ORDERED: Nitroglycerin 2% Ointment Foilpak UD TOP ONE (09:30)
[2018-08-14] MEDS: Potassium Chloride 20 mEq ER Tab PO SCH (09:39)
[2018-08-14] MEDS: Multiple Vitamins Tab PO SCH (09:39)
[2018-08-14] MEDS: Magnesium Oxide 400 mg Tab UD PO SCH ×2 (09:39→20:49)
--- NOTE | 2018-08-14 20:38 | PN ---
DATE: 08/14/2018 LOCATION: 365, bed A. SUBJECTIVE: A 63-year-old female post upper endoscopy recently. Reported to have persistently elevated blood pressure with a blood glucose level of 174, still has low hemoglobin and hematocrit without evidence of active bleeding, nausea or vomiting. The entire chest is reviewed including, but not limited to most recent lab and radiology study results, current and the previous medication lists, current and the previous medical events. The patient denied any rectal bleeding recently, and the gastric pathology report was negative for Helicobacter pylori infection. PHYSICAL EXAMINATION: GENERAL: Showed no significant clinical changes. VITAL SIGNS: The patient is afebrile. Pulse of 56, respiratory rate 20 to 22, and blood pressure of 200/84. IMPRESSION: 1. Anemia. 2. Re-exacerbation of peptic ulcer disease. 3. Colitis, pathology report is still unclear. 4. Diverticulosis, peptic ulcer disease, anemia secondary to above. 5. Bronchial asthma by history. 6. Poorly controlled hypertension. 7. Hyperlipidemia, status post cholecystectomy as well as known history of alcoholism. SUGGESTIONS: 1. Continue current management. 2. MRCP for further evaluation of the pancreatic mucosa. 3. Further recommendations to follow. Simeon Salmeron MD
--- NOTE | 2018-08-14 21:40 | CP.PCM.PN ---
Subjective - Date & Time of Evaluation Date of Evaluation: 08/14/18 Time of Evaluation: 08:00 - Subjective Subjective: dictated Objective - Vital Signs/Intake and Output Vital Signs (last 24 hours): Temp Pulse Resp BP Pulse Ox 98.9 F 54 L 20 205/91 H 98 08/14/18 15:45 08/14/18 15:45 08/14/18 15:45 08/14/18 15:45 08/14/18 15:45 Intake and Output: 08/14/18 08/15/18 18:59 06:59 Intake Total 350 Balance 350 - Medications Medications: Current Medications Acetaminophen (Tylenol 325mg Tab) 325 mg PO Q4 PRN PRN Reason: Pain, moderate (4-7) Last Admin: 08/13/18 19:40 Dose: 325 mg Amlodipine Besylate (Norvasc) 10 mg PO DAILY [facility] Clonidine HCl (Catapres) 0.3 mg PO Q8 [facility] Last Admin: 08/14/18 13:44 Dose: 0.3 mg Folic Acid (Folic Acid) 1 mg PO DAILY [facility] Last Admin: 08/14/18 09:39 Dose: 1 mg Furosemide (Lasix) 20 mg PO DAILY [facility] Last Admin: 08/14/18 09:39 Dose: 20 mg Guaifenesin (Robitussin) 200 mg PO Q4H PRN PRN Reason: Cough and congestion Last Admin: 08/14/18 04:57 Dose: 200 mg Lisinopril (Zestril) 40 mg PO DAILY [facility] Last Admin: 08/14/18 09:39 Dose: 40 mg Lorazepam (Ativan) 1 mg PO Q6H PRN PRN Reason: Symptoms of alcohol withdrawl Last Admin: 08/14/18 04:13 Dose: 1 mg Magnesium Oxide (Mag-Ox) 400 mg PO BID [facility] Stop: 08/15/18 18:01 Last Admin: 08/14/18 20:49 Dose: 400 mg Metoclopramide HCl (Reglan) 10 mg IVP Q6H [facility] Last Admin: 08/14/18 17:04 Dose: 10 mg Metoprolol Tartrate (Lopressor) 100 mg PO BID [facility] Last Admin: 08/13/18 10:01 Dose: Not Given Multivitamins (Hexavitamin) 1 tab PO DAILY [facility] Last Admin: 08/14/18 09:39 Dose: 1 tab Ondansetron HCl (Zofran Inj) 4 mg IVP Q6H PRN PRN Reason: Nausea/Vomiting Last Admin: 08/08/18 01:00 Dose: 4 mg Pantoprazole Sodium (Protonix Inj) 40 mg IVP DAILY [facility] Last Admin: 08/14/18 09:40 Dose: 40 mg Potassium Chloride (K-Dur 20 Meq Er Tab) 20 meq PO DAILY [facility] Stop: 08/16/18 10:01 Last Admin: 08/14/18 09:39 Dose: 20 meq Rosuvastatin Calcium (Crestor) 10 mg PO HS [facility] Last Admin: 08/13/18 20:59 Dose: 10 mg Thiamine HCl (Vitamin B1 Tab) 100 mg PO DAILY [facility] Last Admin: 08/14/18 09:39 Dose: 100 mg Trazodone HCl (Desyrel) 50 mg PO HS [facility] Last Admin: 08/13/18 20:59 Dose: 50 mg - Labs Labs: 08/13/18 08:12 08/13/18 08:12
[2018-08-15 07:22] LABS: BASO # 0.1 K/uL (0.0-0.2); BASO % 1.3 % (0.0-2.0); EOS # 0.2 K/uL (0.0-0.7); EOS % 2.8 % (0.0-4.0); HEMOGLOBIN 9.7 g/dL (11.0-16.0); LYMPH # 1.6 K/uL (1.0-4.3); LYMPH % 29.5 % (20.0-40.0); MEAN CELL VOLUME 99.3 fL (81.0-99.0); MEAN CORPUSCULAR HEMOGLOBIN 31.4 pg (27.0-31.0); MEAN CORPUSCULAR HGB CONC 31.7 g/dL (33.0-37.0); MONO % 17.7 % (0.0-10.0); NEUT # 2.7 K/uL (1.8-7.0); NEUT % 48.7 % (50.0-75.0); NRBC % 0.2 % (0.0-2.0); RBC 3.08 Mil/uL (3.80-5.20); RED CELL DISTRIBUTION WIDTH 17.4 % (11.5-14.5); WHITE BLOOD COUNT 5.5 K/uL (4.8-10.8)
[2018-08-15 07:41] LABS: BLOOD UREA NITROGEN 14 mg/dL (7-17); CALCIUM 9.3 mg/dl (8.6-10.4); GFR NON-AFRICAN AMERICAN > 60
[2018-08-15] MEDS: Magnesium Oxide 400 mg Tab UD PO SCH (09:53)
[2018-08-15] MEDS: Multiple Vitamins Tab PO SCH (09:53)
[2018-08-15] MEDS: Potassium Chloride 20 mEq ER Tab PO SCH (09:54)
--- NOTE | 2018-08-15 16:05 | CP.PCM.PN ---
Subjective - Date & Time of Evaluation Date of Evaluation: 08/15/18 Time of Evaluation: 15:00 - Subjective Subjective: Patient seen today states feels better denies any abdominal pain, dizziness, N/V/D vss and labs reviewed- stable BP Controlled with new medication regimen no overnight events reported by RN Objective - Vital Signs/Intake and Output Vital Signs (last 24 hours): Temp Pulse Resp BP Pulse Ox 97.9 F 60 20 108/65 97 08/15/18 07:25 08/15/18 13:20 08/15/18 07:25 08/15/18 13:20 08/15/18 07:25 Intake and Output: 08/15/18 08/15/18 06:59 18:59 Intake Total 20 300 Balance 20 300 - Medications Medications: Current Medications Acetaminophen (Tylenol 325mg Tab) 325 mg PO Q4 PRN PRN Reason: Pain, moderate (4-7) Last Admin: 08/15/18 12:00 Dose: 325 mg Amlodipine Besylate (Norvasc) 10 mg PO DAILY [facility] Last Admin: 08/15/18 09:53 Dose: 10 mg Clonidine HCl (Catapres) 0.3 mg PO Q8 [facility] Last Admin: 08/15/18 13:13 Dose: 0.3 mg Folic Acid (Folic Acid) 1 mg PO DAILY [facility] Last Admin: 08/15/18 09:53 Dose: 1 mg Furosemide (Lasix) 20 mg PO DAILY [facility] Last Admin: 08/15/18 09:53 Dose: 20 mg Guaifenesin (Robitussin) 200 mg PO Q4H PRN PRN Reason: Cough and congestion Last Admin: 08/14/18 04:57 Dose: 200 mg Lisinopril (Zestril) 40 mg PO DAILY [facility] Last Admin: 08/15/18 09:53 Dose: 40 mg Lorazepam (Ativan) 1 mg PO Q6H PRN PRN Reason: Symptoms of alcohol withdrawl Last Admin: 08/14/18 04:13 Dose: 1 mg Magnesium Oxide (Mag-Ox) 400 mg PO BID [facility] Stop: 08/15/18 18:01 Last Admin: 08/15/18 09:53 Dose: 400 mg Metoclopramide HCl (Reglan) 10 mg IVP Q6H [facility] Last Admin: 08/15/18 09:53 Dose: 10 mg Metoprolol Tartrate (Lopressor) 100 mg PO BID [facility] Last Admin: 08/13/18 10:01 Dose: Not Given Multivitamins (Hexavitamin) 1 tab PO DAILY [facility] Last Admin: 08/15/18 09:53 Dose: 1 tab Ondansetron HCl (Zofran Inj) 4 mg IVP Q6H PRN PRN Reason: Nausea/Vomiting Last Admin: 08/08/18 01:00 Dose: 4 mg Pantoprazole Sodium (Protonix Inj) 40 mg IVP DAILY [facility] Last Admin: 08/15/18 09:53 Dose: 40 mg Potassium Chloride (K-Dur 20 Meq Er Tab) 20 meq PO DAILY [facility] Stop: 08/16/18 10:01 Last Admin: 08/15/18 09:54 Dose: 20 meq Rosuvastatin Calcium (Crestor) 10 mg PO HS [facility] Last Admin: 08/14/18 22:42 Dose: 10 mg Thiamine HCl (Vitamin B1 Tab) 100 mg PO DAILY [facility] Last Admin: 08/15/18 09:53 Dose: 100 mg Trazodone HCl (Desyrel) 50 mg PO HS [facility] Last Admin: 08/14/18 22:42 Dose: 50 mg - Labs Labs: 08/15/18 07:05 08/15/18 07:05 Assessment and Plan - Assessment and Plan (Free Text) Assessment: A/P 63 y/o female,w/PMhx of ETOH abuse,HTN admitted for diffuse abdominal pain and rectal bleeding h and h- stable - 9.6-9.7-10 s/p colonoscopy - ( see full report for details) s/p Endo scopy ( see full report for details ) Patient had episode of hypertensive emergency while on procedure and HTN medication adjusted and BP stable with current medication Regimen Patient was referred to [facility] , and as per SW denied by insurance D/w Dr. Cooney , cleared for discharge home today with current medications and f/u with Dr. baez office an dPMD discharge plan discussed with patient , who understands and agrees with plan patient instructed to returns to ED if symptoms recurs RX give upon discharge
[2018-08-15 16:10] VITALS: BP 184/79; PULSE 51; TEMP 97; O2SAT 96
--- NOTE | 2018-08-15 21:12 | CP.PCM.DIS ---
Provider - Provider Date of Admission: 08/07/18 16:40 Attending physician: Get Cooney MD Consults: 08/07/18 18:27 Gastroenterology Consult Routine Comment: Consulting Provider: Simeon Miranda Consulting Physician: Simeon Miranda Reason for Consult: rectal bleeding 08/07/18 19:13 Psychiatry Consult Routine Comment: Consulting Provider: Jackelyn Beth Consulting Physician: Jackelyn Beth Reason for Consult: alcoholism 08/08/18 07:22 Cardiology Consult Routine Comment: Consulting Provider: Karl Ortiz Consulting Physician: Karl Ortiz Reason for Consult: htn Time Spent in preparation of Discharge (in minutes): 30 Hospital Course - Lab Results Lab Results: Most Recent Lab Values WBC 5.5 K/uL (4.8-10.8) 08/15/18 07:05 RBC 3.08 Mil/uL (3.80-5.20) L 08/15/18 07:05 Hgb 9.7 g/dL (11.0-16.0) L 08/15/18 07:05 Hct 30.6 % (34.0-47.0) L 08/15/18 07:05 MCV 99.3 fL (81.0-99.0) H 08/15/18 07:05 MCH 31.4 pg (27.0-31.0) H 08/15/18 07:05 MCHC 31.7 g/dL (33.0-37.0) L 08/15/18 07:05 RDW 17.4 % (11.5-14.5) H 08/15/18 07:05 Plt Count 175 K/uL (130-400) 08/15/18 07:05 MPV 12.0 fL (7.2-11.7) H 08/15/18 07:05 Neut % (Auto) 48.7 % (50.0-75.0) L 08/15/18 07:05 Lymph % (Auto) 29.5 % (20.0-40.0) 08/15/18 07:05 [place] % (Auto) 17.7 % (0.0-10.0) H 08/15/18 07:05 Eos % (Auto) 2.8 % (0.0-4.0) 08/15/18 07:05 Baso % (Auto) 1.3 % (0.0-2.0) 08/15/18 07:05 Neut # (Auto) 2.7 K/uL (1.8-7.0) 08/15/18 07:05 Lymph # (Auto) 1.6 K/uL (1.0-4.3) 08/15/18 07:05 [place] # (Auto) 1.0 K/uL (0.0-0.8) H 08/15/18 07:05 Eos # (Auto) 0.2 K/uL (0.0-0.7) 08/15/18 07:05 Baso # (Auto) 0.1 K/uL (0.0-0.2) 08/15/18 07:05 Neutrophils % (Manual) 64 % (50-75) 08/07/18 15:09 Band Neutrophils % 1 % (0-2) 08/07/18 15:09 Lymphocytes % (Manual) 28 % (20-40) 08/07/18 15:09 Monocytes % (Manual) 5 % (0-10) 08/07/18 15:09 Eosinophils % (Manual) 2 % (0-4) 08/07/18 15:09 Differential Comment 08/15/18 07:05 Platelet Estimate Normal (NORMAL) 08/07/18 15:09 Large Platelets Present 08/07/18 15:09 Hypochromasia (manual) Slight 08/07/18 15:09 Poikilocytosis (manual Slight 08/07/18 15:09 Anisocytosis (manual) Slight 08/07/18 15:09 Microcytosis (manual) Slight 08/07/18 15:09 Target Cells Slight 08/07/18 15:09 Sodium 135 mmol/L (132-148) 08/15/18 07:05 Potassium 4.1 mmol/L (3.6-5.2) 08/15/18 07:05 Chloride 101 mmol/L (98-107) 08/15/18 07:05 Carbon Dioxide 26 mmol/L (22-30) 08/15/18 07:05 Anion Gap 12 (10-20) 08/15/18 07:05 BUN 14 mg/dL (7-17) 08/15/18 07:05 Creatinine 0.6 mg/dL (0.7-1.2) L 08/15/18 07:05 Est GFR ( Amer) > 60 08/15/18 07:05 Est GFR (Non-Af Amer) > 60 08/15/18 07:05 POC Glucose (mg/dL) 174 mg/dL (65-110) H 08/14/18 11:51 Random Glucose 117 mg/dL (65-105) H 08/15/18 07:05 Calcium 9.3 mg/dl (8.6-10.4) 08/15/18 07:05 Phosphorus 5.2 mg/dL (2.5-4.5) H 08/12/18 17:43 Magnesium 1.7 mg/dL (1.6-2.3) 08/13/18 08:12 Total Bilirubin 0.4 mg/dL (0.2-1.3) 08/12/18 17:43 AST 97 U/L (14-36) H D 08/12/18 17:43 ALT 60 U/L (9-52) H D 08/12/18 17:43 Alkaline Phosphatase 140 U/L (38-126) H D 08/12/18 17:43 Ammonia 20 umol/L (9-33) D 08/12/18 17:43 Total Protein 6.4 g/dL (6.3-8.3) 08/12/18 17:43 Albumin 3.5 g/dL (3.5-5.0) 08/12/18 17:43 Globulin 2.8 gm/dL (2.2-3.9) 08/12/18 17:43 Albumin/Globulin Ratio 1.2 (1.0-2.1) 08/12/18 17:43 Amylase 53 U/L (30-110) 08/07/18 15:09 Lipase 41 U/L (23-300) 08/07/18 15:09 Carcinoembryonic Ag 31.2 ng/mL (0-3.0) H 08/08/18 08:04 CA 19-9 Antigen 60.1 U/mL (0-37) H D 08/08/18 08:04 CA 125 Antigen < 5.5 U/mL (0-35) 08/09/18 06:53 Vitamin B12 386 pg/mL (239-931) 08/08/18 08:04 Folate 11.6 ng/mL 08/08/18 08:04 Urine Color Yellow (YELLOW) 08/07/18 16:07 Urine Clarity Clear (Clear) 08/07/18 16:07 Urine pH 5.0 (5.0-8.0) 08/07/18 16:07 Ur Specific [place] 1.011 (1.003-1.030) 08/07/18 16:07 Urine Protein 1+ mg/dL (NEGATIVE) H 08/07/18 16:07 Urine Glucose (UA) 1+ mg/dL (Normal) 08/07/18 16:07 Urine Ketones Trace mg/dL (NEGATIVE) 08/07/18 16:07 Urine Blood Negative (NEGATIVE) 08/07/18 16:07 Urine Nitrate Negative (NEGATIVE) 08/07/18 16:07 Urine Bilirubin Negative (NEGATIVE) 08/07/18 16:07 Urine Urobilinogen 2.0 mg/dL (0.2-1.0) H 08/07/18 16:07 Ur Leukocyte Esterase Neg Jesus/uL (Negative) 08/07/18 16:07 Urine WBC (Auto) 1 /hpf (0-5) 08/07/18 16:07 Urine RBC (Auto) < 1 /hpf (0-3) 08/07/18 16:07 Ur Squamous Epith Cells 1 /hpf (0-5) 08/07/18 16:07 Urine Bacteria Rare (<OCC) 08/07/18 16:07 Hyaline Casts 3-5 /lpf (0-2) H 08/07/18 16:07 Urine Opiates Screen Negative (NEGATIVE) 08/12/18 18:24 Urine Methadone Screen Negative (NEGATIVE) 08/12/18 18:24 Ur Barbiturates Screen Negative (NEGATIVE) 08/12/18 18:24 Ur Phencyclidine Scrn Negative (NEGATIVE) 08/12/18 18:24 Ur Amphetamines Screen Negative (NEGATIVE) 08/12/18 18:24 U Benzodiazepines Scrn Positive (NEGATIVE) 08/12/18 18:24 U Oth Cocaine Metabols Negative (NEGATIVE) 08/12/18 18:24 U Cannabinoids Screen Negative (NEGATIVE) 08/12/18 18:24 Alcohol, Quantitative 268 mg/dl (0-10) H 08/07/18 15:09 Hepatitis A IgM Ab Negative (NEGATIVE) 08/08/18 08:04 Hep Bs Antigen Negative (NEGATIVE) 08/08/18 08:04 Hep B Core IgM Ab Negative (NEGATIVE) 08/08/18 08:04 Hepatitis C Antibody Negative (NEGATIVE) 08/08/18 08:04 Blood Type O POSITIVE 08/07/18 15:09 Antibody Screen Negative 08/07/18 15:09 Discharge Exam - Head Exam Head Exam: ATRAUMATIC, NORMAL INSPECTION Discharge Plan - Discharge Medications Prescriptions: cloNIDine [Catapres] 0.3 mg PO Q8 #90 tab amLODIPine [Norvasc] 10 mg PO DAILY #30 tab Lisinopril [Zestril] 40 mg PO DAILY #30 tab - Follow Up Plan Condition: STABLE Disposition: HOME/ ROUTINE Instructions: Colonoscopy (DC), Acute Abdomen (Belly Pain), Adult (DC), Gastrointestinal Bleeding (DC), Upper GI Endoscopy (DC), Amlodipine, Clonidine, Lisinopril Additional Instructions: Please continue medication as per med. rec. Please follow up with Dr. Miranda office after discharge Please follow up with PMD in 1 week Referrals: Simeon Miranda [Staff Provider] - Get Cooney MD [Staff Provider] -
--- NOTE | 2018-08-15 21:58 | PN ---
DATE: 08/15/2018 LOCATION: Room 670, bed A. SUBJECTIVE: This is a 63-year-old female, seen and examined in rounds today without significant clinical changes. Denied any actual chest pain, palpitation, or evidence of active GI bleeding but with elevated blood pressure at sometimes earlier today. Today's lab results showed hemoglobin of 9.7 with hematocrit of 30.6 with normal white blood cells and platelet count with recently elevated blood glucose level of 217. PHYSICAL EXAMINATION: GENERAL: A 63-year-old female. VITAL SIGNS: Afebrile with pulse of 58, respiratory rate 20 to 22, and blood pressure of 178/76. HEENT: Showed pale, dry oral mucous membranes and nonicteric sclerae. LUNGS: Few scattered crepitations. Decreased air entry at bases. HEART: Positive S1 and S2. ABDOMEN: Soft with mild generalized tenderness. No mass or organomegaly. No rebound tenderness or guarding. EXTREMITIES: Without significant clubbing, cyanosis or edema. IMPRESSION: 1. Anemia. 2. Peptic ulcer disease. 3. Colitis, diverticulosis as per recent endoscopic evaluation of the gastrointestinal tract. 4. Bronchial asthma by history. 5. Poorly controlled hypertension. 6. Known history of hyperlipidemia, status post cholecystectomy as well as history of alcoholism. SUGGESTIONS: 1. Continue current management. 2. May add Ativan 0.5 mg IV push every 8 hours up to 1 mg IV push every 8 hours as needed. 3. Further recommendation to follow. The patient's gastric biopsy result was negative for Helicobacter pylori infection. Simeon Salmeron MD
== END 2018-08-15 17:10 | disposition home or self-care (01) | DRG 174 ==
LOC: C.ER 13:19 → C.9E 16:40 → C.3T 23:37 → C.6T 08-13 13:54
PROVIDERS: ADMIT Internal Medicine; ATTEND Internal Medicine
PROC: HZ2ZZZZ Detoxification Services for Substance Abuse Treatment (ICD-10-PCS; 2018-08-07)
PROC: 0DBM8ZX Excision of Descending Colon, Via Natural or Artificial Opening Endoscopic, Diagnostic (ICD-10-PCS; 2018-08-09)
PROC: 0DB68ZX Excision of Stomach, Via Natural or Artificial Opening Endoscopic, Diagnostic (ICD-10-PCS; principal; 2018-08-12 10:19)
DX: K62.5 Hemorrhage of anus and rectum (principal); F10.231 Alcohol dependence with withdrawal delirium; I11.0 Hypertensive heart disease with heart failure; I50.9 Heart failure, unspecified; E86.0 Dehydration; E78.00 Pure hypercholesterolemia, unspecified; D50.0 Iron deficiency anemia secondary to blood loss (chronic); I16.1 Hypertensive emergency; F17.210 Nicotine dependence, cigarettes, uncomplicated; Y90.9 Presence of alcohol in blood, level not specified; K21.0 Gastro-esophageal reflux disease with esophagitis; K44.9 Diaphragmatic hernia without obstruction or gangrene; K57.30 Diverticulosis of large intestine without perforation or abscess without bleeding; K27.3 Acute peptic ulcer, site unspecified, without hemorrhage or perforation; Z91.11 Patient's noncompliance with dietary regimen; Z91.14 Patient's other noncompliance with medication regimen; K70.10 Alcoholic hepatitis without ascites; Z90.49 Acquired absence of other specified parts of digestive tract